=== PATIENT | male | born 1940 | race Caucasian/White ===

== ENCOUNTER 2021-04-03 10:19 | Inpatient (IN) ==
--- NOTE | 2021-04-03 11:03 | Emergency Department Note ---
Recheck HPI General Chief Complaint: Recheck/Abnormal Lab/Rx Stated Complaint: abnormal labs Time Seen by Provider: 04/03/21 10:36 Source: patient and family Mode of arrival: ambulatory History of Present Illness HPI Narrative: Patient is an 80-year-old gentleman who arrives the emergency by private vehicle accompanied by his daughter complaining of abnormal lab results. History is provided by the patient and his daughter and is somewhat limited as he is quite hard of hearing. Patient had outpatient blood work drawn at his primary care provider's office yesterday and was found to have impaired renal function with slightly elevated potassium. His primary care provider got the results of his test today and called him and told him to come the emergency department for further evaluation. The patient does note that he has been hav ing poor appetite recently but otherwise has no focal symptoms. He does have chronic urinary urgency but this is unchanged from baseline. Related Data Home Medications Medication Instructions Recorded Confirmed cholecalciferol (vitamin D3) 125 5,000 unit PO QDAY tab 05/15/15 04/03/21 mcg (5,000 unit) tablet Vitamin C oral capsule extended 1 tab PO DAILY 07/24/15 04/03/21 release blood sugar diagnostic 11/15/16 04/02/21 indapamide 1.25 mg tablet 1.25 mg PO QAM 04/26/20 04/03/21 acetaminophen 325 mg capsule 650 mg PO Q6H PRN 03/06/21 04/02/21 aspirin 81 mg tablet,delayed 81 mg PO ONCE PRN tab 03/06/21 04/02/21 release ferrous gluconate 324 mg (38 mg 324 mg PO QDAY 03/06/21 04/03/21 iron) tablet furosemide 20 mg tablet 20 mg PO QDAY 03/06/21 04/02/21 hydrocodone 10 mg-acetaminophen 1 tab PO Q4H PRN tab 03/06/21 04/02/21 325 mg tablet polyethylene glycol 3350 17 17 g PO QDAY PRN 03/06/21 04/02/21 gram/dose oral powder pyridoxine (vitamin B6) 100 mg 100 mg PO 3XW tab 03/06/21 04/02/21 tablet Previous Rx's Medication Instructions Recorded metformin 1,000 mg tablet 1,000 mg PO BID 90 Days #180 tab 10/08/20 terazosin 10 mg capsule 10 mg PO QPM 90 Days #90 cap 11/26/20 losartan 100 mg tablet 100 mg PO QDAY 90 Days #90 tab 03/07/21 simvastatin 10 mg tablet 10 mg PO QPM 90 Days #90 tab 03/07/21 spironolactone 25 mg tablet 25 mg PO QDAY 90 Days #90 tab 03/07/21 Allergies Allergy/AdvReac Type Severity Reaction Status Date / Time No Known Drug Allergies Allergy Verified 04/02/21 13:27 Review of Systems ROS ROS Narrative: Narrative: All systems ED: reviewed and negative except as stated. Constitutional: Denies fever and chills Cardiovascular: Denies chest pain Respiratory: Reports cough; Denies shortness of breath PFSH Narrative Patient History Narrative: Narrative: Medical/Surgical/Family History All Active Problems (Updated 04/03/21 @ 12:28 by Ritesh Emanuel DO) Acute dehydration (Acute) Anemia (Acute) Acute kidney injury (Acute) Cough (Acute) Weakness (Acute) Intertrochanteric fracture of left femur (Acute) Primary osteoarthritis of left hip (Acute) Greater trochanteric bursitis of left hip (Acute) Left hip pain (Acute) Medicare annual wellness visit, initial (Acute) Tearing eyes (Acute) Imbalance (Acute) Weight loss (Acute) Sciatica (Acute) Strain of lumbar region (Acute) Lumbar radiculopathy (Acute) Facial droop (Chronic) Basal cell carcinoma of face (Chronic) Injury of left facial nerve (Chronic) Physical exam, annual (Chronic) Spinal stenosis, lumbar region, without neurogenic claudication (Chronic) Schatzki's ring (Chronic) Psoriasis (Chronic) Low back pain (Chronic) Hypertension, essential (Chronic) Hyperlipidemia (Chronic) Hernia, hiatal (Chronic) ED (erectile dysfunction) (Chronic) Diverticulosis of colon (Chronic) Diabetes mellitus, type II (Chronic) Benign enlargement of prostate (Chronic) BPH without urinary obstruction (Chronic) Anemia (Chronic) Actinic keratosis (Chronic) Medical History (Updated 04/03/21 @ 12:28 by Ritesh Emanuel DO) Actinic keratosis Allergic rhinitis Patient doing well no longer using fluicastone, last use was 1 yr ago, monitor for now. Anemia 07/13/2013 Hypoproliferative Back pain Seeing the pain clinic. Will receive the next epidural steroid shot this thursday05/12/11. Benign enlargement of prostate BPH; of prostate with urinary obstruction 03/03/2013 BPH without urinary obstruction Continue Terazonsin 10mg nightly Cellulitis and abscess of face 12/05/2013 Chronic pain Diabetes mellitus, type II Diverticulosis of colon ED (erectile dysfunction) Generalized abdominal or pelvic swelling or mass or lump Hernia, hiatal History of amputation of finger 2004; finger repair of lt. index finger amputation. Hyperlipidemia Hypertension, essential Low back pain Patient takes tylenol prn as needed. Lumbar radiculopathy Medicare annual wellness visit, initial Physical exam, annual Colonoscopy 2013: diverticulosis tdap 03/2014 aaa: not done, but wants to defer same pneumovac uptodate, pt unable to recall date psa: not indicated eye ecam 06/11 foot exam 10/12 Psoriasis Continue Betamethasone 0.05% cream twice daily as needed. Schatzki's ring Sciatica Spinal stenosis, lumbar region, without neurogenic claudication Lumbar L4-L5-S1 Strain of lumbar region Thoracic or lumbosacral neuritis or radiculitis Urinary retention 03/03/2013 UTI (urinary tract infection) 03/03/2013 Surgical History History of colonoscopy 10/18/2013; Diverticulosis History of esophagogastroduodenoscopy 10/18/13; Schatzki's ring, hiatus hernia History of inguinal hernia repair 05/23/2013; Bilateral inguinal hernia reducible History of surgery Lumbar decompression; 02/23/13 Family History Mother Family history of cardiovascular disease Father Family history of carrier of genetic disease Alzheimers Social History Smoking Status: Former smoker Alcohol Intake Frequency: former alcohol drinker Substance Use: does not use Exam Narrative Narrative: Gen -patient is awake and alert and in no acute distress. HEENT -head is atraumatic. There is no conjunctival pallor or scleral icterus. CV -S1-S2 regular rate and rhythm. Peripheral pulses are palpable. Resp -breathing is nonlabored. Lungs are clear to auscultation bilaterally. There is no cyanosis. GI - Abdomen is soft and nontender to palpation. There is no guarding or rebound tenderness. Derm -skin is warm and dry. MSK -present extremities are atraumatic. Psych -patient has appropriate affect. Neuro -patient answers questions appropriately with fluent speech. Patient moves all present extremities equally. Course Vital Signs Vital signs: Vital Signs Temperature 97.7 F 04/03/21 10:23 Pulse Rate 79 04/03/21 10:23 Respiratory Rate 16 04/03/21 10:23 Blood Pressure 110/57 04/03/21 10:23 Pulse Oximetry (%) 97 04/03/21 10:23 Temperature 97.7 F 04/03/21 10:23 Pulse Rate 56 L 04/03/21 12:17 Respiratory Rate 13 04/03/21 12:17 Blood Pressure 129/59 04/03/21 12:17 Pulse Oximetry (%) 99 04/03/21 12:17 MDM MDM Narrative Medical decision making narrative: Patient presents with generalized weakness and acute kidney injury. Labs remarkable for a minimally elevated potassium. He does have renal function slightly below his baseline and clinically appears quite dehydrated. I discussed the patient's history examination diagnostic findings Dr. Suárez, his primary care provider. He knows the patient well and is concerned about his ability to maintain adequate hydration and thinks he would benefit from inpatient treatment for this. I discussed that with the patient and his daughter and they are agreeable with the plan for admission. I discussed the patient's history examination and diagnostic findings with Dr. Jin, who agrees with the plan of care and accepts admission. Lab Data Lab results reviewed: Yes I reviewed the patient's lab results. Labs: Lab Results 04/03/21 Range/Units 11:10 POC Hct 25 L (41-55) % POC Sodium 138 (133-145) mEq/L POC Potassium 5.5 H (3.3-5.1) mEql/L POC Chloride 112 H (96-108) mEq/L POC Total CO2 16 L (22-30) mmol/L POC BUN 67 H (6-20) mg/dL POC Creatinine 1.9 H (0.6-1.2) mg/dL POC Glucose 147 H (70-105) mg/dL POC WB Ioniz Calcium 1.82 H* (1.16-1.32) mmEq/L EKG Data EKG #1: EKG attestation: Yes I reviewed and interpreted this EKG. EKG results narrative: EKG performed at 10:47: Sinus rhythm, rate 61. Normal P wave, QRS and T wave morphology. Grossly normal axis. Normal IN, QRS, and QTc duration. No ST segment deviation. No old EKG immediately available for comparison. EKG was interpreted by me. Discharge Plan Patient/Caregiver Discharge Instructions Pt seen by [facility]/PA only: No Clinical Impression: Acute dehydration, Anemia, Acute kidney injury Patient Disposition: Xfer As Inpt ([facility]) Condition: Fair Follow up with: Jayro Suárez DO [Primary Care Provider] - Prescriptions: No Action metformin [Glucophage] 1,000 mg tablet 1,000 mg PO BID 90 Days Qty: 180 RF: 1 terazosin 10 mg capsule 10 mg PO QPM 90 Days Qty: 90 RF: 3 losartan [Cozaar] 100 mg tablet 100 mg PO QDAY 90 Days Qty: 90 RF: 1 spironolactone [Aldactone] 25 mg tablet 25 mg PO QDAY 90 Days Qty: 90 RF: 1 simvastatin [Zocor] 10 mg tablet 10 mg PO QPM 90 Days Qty: 90 RF: 1 indapamide 1.25 mg tablet 1.25 mg PO QAM RF: 0 cholecalciferol (vitamin D3) 5,000 unit tablet 5,000 unit PO QDAY RF: 0 Vitamin C oral capsule extended release 500 mg 1 tab PO DAILY RF: 0 acetaminophen 325 mg capsule 650 mg PO Q6H PRNRF: 0 aspirin [Aspirin Low Dose] 81 mg tablet,delayed release (DR/EC) 81 mg PO ONCE PRNRF: 0 ferrous gluconate 324 mg (38 mg iron) tablet 324 mg PO QDAY RF: 0 furosemide 20 mg tablet 20 mg PO QDAY RF: 0 hydrocodone-acetaminophen 10-325 mg tablet 1 tab PO Q4H PRNRF: 0 polyethylene glycol 3350 [Miralax] 17 gram/dose powder 17 g PO QDAY PRN (Reason: constipation) RF: 0 pyridoxine (vitamin B6) [Vitamin B-6] 100 mg tablet 100 mg PO 3XW RF: 0 (DME) blood sugar diagnostic 1 EACH strip 0 appful .Route .MEDSUPPLY RF: 0
[2021-04-03 11:31] LABS: POC Calcium, Ionized 1.82 mmEq/L (1.16-1.32); POC Creatinine 1.9 mg/dL (0.6-1.2); POC Potassium 5.5 mEql/L (3.3-5.1)
--- NOTE | 2021-04-03 11:52 | EKG ---
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 Measurements Intervals [place] Rate: 61 P: 84 KS: 152 QRS: 73 QRSD: 93 T: 84 QT: 372 QTc: 375 Interpretive Statements Sinus rhythm Baseline wander in lead(s) V2 NO PRIOR TRACING FOR COMPARISON NORMAL TRACING Electronically Signed On 04-03-2021 11:52:50 PDT by Cesar Campbell M.D. /store/M0/[id number]
[2021-04-03] MEDS ORDERED: 0.9 % SODIUM CHLORIDE 1,000 ML IV ONE (12:08)
--- NOTE | 2021-04-03 13:03 | Internal Med History&Physical ---
HPI History of Present Illness Patient information: Note initiated : 04/03/21 at 12:58 pm Service Date, if different from initiated Date: [] Patient: Camron Morel a 80 y/o M admitted on for abnormal labs. Chief Complaint: [] History of present illness: Mr. Morel is a 80 year old M presents to the ED with weakness and falling. patient has severe hearing impairment a lot of the history is obtained from the daughter. Per the daughter he had a hip fracture in December and was discharged to a nursing facility and was discharged from the nursing facility in January. He seemed to be doing well but however the past couple weeks has had more falls feeling more weak he has had a poor appetite and poor oral intake. He also does have a chronic cough but has had worsening cough with food and drink. Denies fever chills chest pain nausea vomiting, denies diarrhea. Labs done by PCP shows hyperkalemia which is improved today he also had acute kidney injury on chronic. Had low sodium. No signs stable. Is on diuretics as well as vitamin D supplementation and losartan. Daughter does note dark stool but pt does take iron. Will monitor H&H, iron supp can give false positive FOBT. Will hold iron in case fobt needs to be done later. Review of Systems: Pertinent positives as above. Denies headache/fever/chills/nausea/vomiting/chest or abdominal pain/cough/dyspnea/diarrhea. Remaining 10 point review of system reviewed negative. PFSH PFS All Active Problems (Updated 04/03/21 @ 12:28 by Rtiesh Emanuel DO) Acute dehydration (Acute) Anemia (Acute) Acute kidney injury (Acute) Cough (Acute) Weakness (Acute) Intertrochanteric fracture of left femur (Acute) Primary osteoarthritis of left hip (Acute) Greater trochanteric bursitis of left hip (Acute) Left hip pain (Acute) Medicare annual wellness visit, initial (Acute) Tearing eyes (Acute) Imbalance (Acute) Weight loss (Acute) Sciatica (Acute) Strain of lumbar region (Acute) Lumbar radiculopathy (Acute) Facial droop (Chronic) Basal cell carcinoma of face (Chronic) Injury of left facial nerve (Chronic) Physical exam, annual (Chronic) Spinal stenosis, lumbar region, without neurogenic claudication (Chronic) Schatzki's ring (Chronic) Psoriasis (Chronic) Low back pain (Chronic) Hypertension, essential (Chronic) Hyperlipidemia (Chronic) Hernia, hiatal (Chronic) ED (erectile dysfunction) (Chronic) Diverticulosis of colon (Chronic) Diabetes mellitus, type II (Chronic) Benign enlargement of prostate (Chronic) BPH without urinary obstruction (Chronic) Anemia (Chronic) Actinic keratosis (Chronic) Medical History (Updated 04/03/21 @ 12:28 by Ritesh Emanuel DO) Actinic keratosis Allergic rhinitis Patient doing well no longer using fluicastone, last use was 1 yr ago, monitor for now. Anemia 07/13/2013 Hypoproliferative Back pain Seeing the pain clinic. Will receive the next epidural steroid shot this thursday05/12/11. Benign enlargement of prostate BPH; of prostate with urinary obstruction 03/03/2013 BPH without urinary obstruction Continue Terazonsin 10mg nightly Cellulitis and abscess of face 12/05/2013 Chronic pain Diabetes mellitus, type II Diverticulosis of colon ED (erectile dysfunction) Generalized abdominal or pelvic swelling or mass or lump Hernia, hiatal History of amputation of finger 2004; finger repair of lt. index finger amputation. Hyperlipidemia Hypertension, essential Low back pain Patient takes tylenol prn as needed. Lumbar radiculopathy Medicare annual wellness visit, initial Physical exam, annual Colonoscopy 2013: diverticulosis tdap 03/2014 aaa: not done, but wants to defer same pneumovac uptodate, pt unable to recall date psa: not indicated eye ecam 06/11 foot exam 10/12 Psoriasis Continue Betamethasone 0.05% cream twice daily as needed. Schatzki's ring Sciatica Spinal stenosis, lumbar region, without neurogenic claudication Lumbar L4-L5-S1 Strain of lumbar region Thoracic or lumbosacral neuritis or radiculitis Urinary retention 03/03/2013 UTI (urinary tract infection) 03/03/2013 Surgical History History of colonoscopy 10/18/2013; Diverticulosis History of esophagogastroduodenoscopy 10/18/13; Schatzki's ring, hiatus hernia History of inguinal hernia repair 05/23/2013; Bilateral inguinal hernia reducible History of surgery Lumbar decompression; 02/23/13 Family History Mother Family history of cardiovascular disease Father Family history of carrier of genetic disease Alzheimers Social History marital status: occupational status: retired occupation: Retired [employer] alcohol intake frequency: former alcohol drinker substance use type: does not use MEDS/ALLERGIES Home Medications and Allergies Home Medications Medication Instructions Recorded Confirmed Type cholecalciferol (vitamin D3) 125 5,000 unit PO QDAY tab 05/15/15 04/03/21 History mcg (5,000 unit) tablet Vitamin C oral capsule extended 1 tab PO DAILY 07/24/15 04/03/21 History release blood sugar diagnostic 11/15/16 04/02/21 History indapamide 1.25 mg tablet 1.25 mg PO QAM 04/26/20 04/03/21 History metformin 1,000 mg tablet 1,000 mg PO BID 90 Days #180 tab 10/08/20 04/03/21 Rx terazosin 10 mg capsule 10 mg PO QPM 90 Days #90 cap 11/26/20 04/03/21 Rx acetaminophen 325 mg capsule 650 mg PO Q6H PRN 03/06/21 04/02/21 History aspirin 81 mg tablet,delayed 81 mg PO ONCE PRN tab 03/06/21 04/02/21 History release ferrous gluconate 324 mg (38 mg 324 mg PO QDAY 03/06/21 04/03/21 History iron) tablet furosemide 20 mg tablet 20 mg PO QDAY 03/06/21 04/02/21 History hydrocodone 10 mg-acetaminophen 1 tab PO Q4H PRN tab 03/06/21 04/02/21 History 325 mg tablet polyethylene glycol 3350 17 17 g PO QDAY PRN 03/06/21 04/02/21 History gram/dose oral powder pyridoxine (vitamin B6) 100 mg 100 mg PO 3XW tab 03/06/21 04/02/21 History tablet losartan 100 mg tablet 100 mg PO QDAY 90 Days #90 tab 03/07/21 04/03/21 Rx simvastatin 10 mg tablet 10 mg PO QPM 90 Days #90 tab 03/07/21 04/03/21 Rx spironolactone 25 mg tablet 25 mg PO QDAY 90 Days #90 tab 03/07/21 04/03/21 Rx Allergies Allergy/AdvReac Type Severity Reaction Status Date / Time No Known Drug Allergies Allergy Verified 04/02/21 13:27 EXAM Constitutional Vitals: Temp Pulse Resp BP Pulse Ox 97.7 F 54 L 16 126/62 98 04/03/21 10:23 04/03/21 12:31 04/03/21 12:31 04/03/21 12:31 04/03/21 12:31 Exam: General: Alert, Awake, No acute Distress Eyes/N/T: EOMI, PERRL, dry MM Head/Neck: neck supple, normocephalic atraumatic CV: RRR, No murmurs, normal s1/s2 Pulm: Clear b/l, no wheezing/rhonchi/rales Abd: soft, nontender, +BS x4 Ext: no clubbing/cyanosis/edema Neuro: Alert, no focal deficits, moves all extremities, CN 2-12 grossly intact, symmetrical strength b/l upper/lower, sensations intact b/l upper/lower Skin: warm/dry DATA Data Completed and Pending Labs: Labs from last 24 hours 04/03/21 04/03/21 04/03/21 11:14 11:14 11:10 WBC Pending RBC Pending Hgb Pending Hct Pending POC Hct 25 L MCV Pending MCH Pending MCHC Pending RDW Pending Plt Count Pending MPV Pending Neut % (Auto) Pending POC Sodium 138 Sodium Pending POC Potassium 5.5 H Potassium Pending POC Chloride 112 H Chloride Pending Carbon Dioxide Pending POC Total CO2 16 L Anion Gap Pending POC BUN 67 H BUN Pending Creatinine Pending POC Creatinine 1.9 H GFR Calculation Pending Glucose Pending POC Glucose 147 H Uric Acid Pending Calcium Pending POC WB Ioniz Calcium 1.82 H* Phosphorus Pending Magnesium Pending Total Bilirubin Pending Direct Bilirubin Pending GGT Pending AST Pending ALT Pending Alkaline Phosphatase Pending Lactate Dehydrogenase Pending Total Protein Pending Albumin Pending Globulin Pending Albumin/Globulin Ratio Pending Triglycerides Pending A/P Narrative A/P Narrative: A: *JARRETT on CKD III: *Volume depletion: *Hyperkalemia: Improved. pt on ARB/Aldactone *Hyponatremia: Improved *Hypercalcemia: 2/2 deyhdration + vitamin supp *Aspiration likely Pneumonitis vs Pneumonia: likely is aspirating with food/drink per daughter -afebrile and no leukocytosis *Generalized weakness/deconditioning/falling/recent hip fracture: *Anemia, chronic: *DM: *HTN: On Lasix/spironolactone/ indapamide/ losartan * P: -IVF -Monitor electrolytes -hold diuretics, will not restart aldactone -hold ARB for JARRETT and hyperkal -hold abx for now and f/u cxr in AM, check PCT/CRP -d/c Vit D. supp -Hold Metformin, SSI for now -PT/OT -ST eval -CM for SNF placement -ppx: lovenox code: cpr ok but not intubation Time Spent With Patient Time: Total time spent is greater than 50% in coordination of care (as documented) at patient's floor/unit and/or counseling patient:
[2021-04-03] MEDS ORDERED: POTASSIUM CHLORIDE 40 MEQ in DEXTROSE 5% IN WATER 500 ML IV PRN (13:40)
[2021-04-03] MEDS ORDERED: DEXTROSE 31 GM ORAL.SUSP PO PRN (13:40)
[2021-04-03] MEDS ORDERED: DEXTROSE 50% 50 ML VIAL IV PRN (13:40)
[2021-04-03] MEDS ORDERED: MAGNESIUM SULFATE 2 GM/50 ML BAG IV PRN (13:40)
[2021-04-03] MEDS ORDERED: ONDANSETRON 4 MG/2 ML VIAL IV PRN (13:40)
[2021-04-03] MEDS ORDERED: SENNOSIDES 1 TABLET PO PRN (13:40)
[2021-04-03] MEDS ORDERED: LABETALOL 5 MG/ML ML IV PRN (13:40)
[2021-04-03] MEDS ORDERED: POTASSIUM CHLORIDE 20 MEQ TABLET PO PRN ×2 (13:40)
[2021-04-03] MEDS ORDERED: ACETAMINOPHEN 325 MG TABLET PO PRN (13:40)
[2021-04-03] MEDS ORDERED: 0.9 % SODIUM CHLORIDE 1,000 ML IV SCH (13:40)
[2021-04-03] MEDS ORDERED: IPRATROPIUM/ALBUTEROL 3 ML AMPUL.NEB NEB PRN (13:40)
[2021-04-03 14:37] LABS: Basophils # (Auto) 0.03 K/mcL (0.00-0.20); Basophils % (Auto) 0.4 % (0.0-2.0); Eosinophils # (Auto) 0.05 K/mcL (0.00-0.70); Eosinophils % (Auto) 0.6 % (0.0-7.0); Hematocrit 26.4 % (41.0-55.0); Hemoglobin 8.7 g/dL (13.5-16.5); Lymphocytes % (Auto) 12.2 % (15.0-49.0); Mean Platelet Volume 9.7 fL (7.4-10.4); Monocytes # (Auto) 0.51 K/mcL (0.10-0.90); Monocytes % (Auto) 6.2 % (1.0-12.0); Neutrophils % (Auto) 80.6 % (38.0-78.0); Platelet Count 346 K/mcL (140-440); RBC 2.87 M/mcL (4.50-5.90); Red Cell Distribution Width 13.5 % (11.5-14.5); WBC 8.2 K/mcL (4.5-11.0)
[2021-04-03 14:56] LABS: ALT/SGPT 11 U/L (<40); AST/SGOT 19 U/L (<40); Albumin 3.4 gm/dL (3.2-5.2); Albumin/Globulin Ratio 0.9 (1.0-2.3); Alkaline Phosphatase 112 U/L (39-117); Bilirubin,Direct < 0.2 mg/dL (0-0.3); Bilirubin,Total < 0.2 mg/dL (0.1-1.0); Blood Urea Nitrogen 61 mg/dL (8-23); Calcium 12.5 mg/dL (8.6-10.4); Carbon Dioxide 16 mmol/L (22-30); Chloride 106 mmol/L (96-108); Glomerular Filtration Rate 39; Glucose 145 mg/dL (70-105); Lactate Dehydrogenase 180 U/L (135-225); Triglycerides 71 mg/dL (<150); Uric Acid < 0.2 mg/dL (2.5-8)
[2021-04-03] MEDS ORDERED: DEXTROSE 50% 50 ML VIAL IV ONE (15:06)
[2021-04-03] MEDS ORDERED: INSULIN REGULAR, HUMAN 1 UNIT/0.01 ML UNIT IV ONE (15:06)
[2021-04-03] MEDS ORDERED: SODIUM BICARBONATE ADULT 50 MEQ/50 ML SYRINGE IV ONE (15:06)
[2021-04-03] MEDS ORDERED: MAGNESIUM SULFATE 2 GM/50 ML BAG IV ONE (15:07)
[2021-04-03] MEDS ORDERED: SODIUM BICARBONATE 50 MEQ/50 ML VIAL IV ONE (15:15)
[2021-04-03] MEDS: 0.9 % SODIUM CHLORIDE 1,000 ML IV SCH (15:44)
[2021-04-03] MEDS: 0.9 % SODIUM CHLORIDE 10 ML SYRINGE IV SCH ×2 (15:48→21:20)
[2021-04-03] MEDS: INSULIN LISPRO 1 UNIT/0.01 ML UNIT SQ SCH ×2 (15:50→21:16)
[2021-04-03 18:22] LABS: POC Blood Urea Nitrogen 54 mg/dL (6-20); POC CO2 21 mmol/L (22-30); POC Calcium, Ionized 1.73 mmEq/L (1.16-1.32); POC Chloride 111 mEq/L (96-108); POC Creatinine 1.9 mg/dL (0.6-1.2); POC Glucose, Random 115 mg/dL (70-105); POC Hematocrit 25 % (41-55); POC Sodium 141 mEq/L (133-145)
[2021-04-03] MEDS: TERAZOSIN 5 MG CAPSULE PO SCH (21:15)
[2021-04-03] MEDS: POLYETHYLENE GLYCOL 3350 17 GM PACKET PO PRN (21:15)
[2021-04-03] MEDS: SIMVASTATIN 10 MG TABLET PO SCH (21:16)
[2021-04-04] MEDS: 0.9 % SODIUM CHLORIDE 1,000 ML IV SCH (03:27)
[2021-04-04] MEDS: 0.9 % SODIUM CHLORIDE 10 ML SYRINGE IV SCH ×3 (05:27→20:07)
[2021-04-04 06:28] LABS: Basophils # (Auto) 0.03 K/mcL (0.00-0.20); Basophils % (Auto) 0.4 % (0.0-2.0); Eosinophils # (Auto) 0.07 K/mcL (0.00-0.70); Eosinophils % (Auto) 0.9 % (0.0-7.0); Hematocrit 24.6 % (41.0-55.0); Lymphocytes # (Auto) 0.96 K/mcL (1.50-4.80); Mean Cell Volume 92.5 fL (80.0-100.0); Mean Corpuscular HGB Conc 32.5 g/dL (31.0-36.0); Mean Platelet Volume 9.5 fL (7.4-10.4); Monocytes # (Auto) 0.54 K/mcL (0.10-0.90); Monocytes % (Auto) 7.3 % (1.0-12.0); Neutrophils % (Auto) 78.4 % (38.0-78.0); Platelet Count 322 K/mcL (140-440); RBC 2.66 M/mcL (4.50-5.90); Red Cell Distribution Width 13.4 % (11.5-14.5); WBC 7.4 K/mcL (4.5-11.0)
[2021-04-04 07:09] LABS: ALT/SGPT 11 U/L (<40); AST/SGOT 14 U/L (<40); Albumin 2.9 gm/dL (3.2-5.2); Albumin/Globulin Ratio 0.8 (1.0-2.3); Alkaline Phosphatase 101 U/L (39-117); Bilirubin,Direct < 0.2 mg/dL (0-0.3); Bilirubin,Total < 0.2 mg/dL (0.1-1.0); Blood Urea Nitrogen 46 mg/dL (8-23); Calcium 11.3 mg/dL (8.6-10.4); Carbon Dioxide 18 mmol/L (22-30); Chloride 112 mmol/L (96-108); Globulin 3.6 gm/dL (2.2-3.7); Glomerular Filtration Rate 46; Glucose 100 mg/dL (70-105); Lactate Dehydrogenase 117 U/L (135-225); Phosphorous 2.6 mg/dL (2.5-4.5); Triglycerides 70 mg/dL (<150); Uric Acid < 0.2 mg/dL (2.5-8)
[2021-04-04] MEDS: HEPARIN 5,000 UNIT/ML VIAL SQ SCH ×2 (07:16→20:06)
[2021-04-04] MEDS: INSULIN LISPRO 1 UNIT/0.01 ML UNIT SQ SCH ×4 (07:16→20:07)
--- NOTE | 2021-04-04 07:52 | Internal Med Progress Note ---
SUBJECTIVE Subjective Patient information: Note initiated : 04/04/21 at 7:48 am Service Date, if different from initiated Date: [] Patient: Camron Morel 80 y/o M admitted on 04/03/21 for abnormal labs. Chief Complaint: [] Interval history: History of present illness: Mr. Morel is a 80 year old M presents to the ED with weakness and falling. patient has severe hearing impairment a lot of the history is obtained from the daughter. Per the daughter he had a hip fracture in December and was discharged to a nursing facility and was discharged from the nursing facility in January. He seemed to be doing well but however the past couple weeks has had more falls feeling more weak he has had a poor appetite and poor oral intake. He also does have a chronic cough but has had worsening cough with food and drink. Denies fever chills chest pain nausea vomiting, denies diarrhea. Labs done by PCP shows hyperkalemia which is improved today he also had acute kidney injury on chronic. Had low sodium. No signs stable. Is on diuretics as well as vitamin D supplementation and losartan. Daughter does note dark stool but pt does take iron. Will monitor H&H, iron supp can give false positive FOBT. Will hold iron in case fobt needs to be done later. 04/04 Patient up walking in the [facility] with physical therapy. Doing well. Feels a little bit better. No overnight event or new complaints. Renal function improving. Review of Systems: denies headache/fever/chills/nausea/vomiting/chest or abdominal pain/cough/dyspnea. Otherwise see above. Constitutional Vitals: Vital Signs Temp Pulse Resp BP Pulse Ox 97.5 F 75 18 145/66 97 04/04/21 03:05 04/04/21 03:05 04/04/21 03:05 04/04/21 03:05 04/04/21 03:05 Period Temp Pulse Resp BP Sys/Jameson Pulse Ox Last 24 Hr 97.0 F-98.1 F 54-79 12-18 110-151/54-66 97-100 Intake and Output 04/03/21 04/04/21 04/04/21 21:59 05:59 13:59 Intake Total 150 1300 Output Total 152 451 325 Balance -2 849 -325 Weight 60.736 kg Intake & Output: Intake & Output 07/04/1704/04/21 04/04/21 21:59 05:59 13:59 Intake Total 150 1300 Output Total 152 451 325 Balance -2 849 -325 Weight 60.736 kg Intake: IV 50 1000 Sodium Chloride 0.9% 1,000 ml @ 1000 100 mls/hr IV .Q10H CHASE Rx#: [id number] Oral 100 300 Output: Void Amount 150 450 325 # of times incontinent of urine 2 1 Other: Meal Dinner Percent of Meal Consumed 25% Feeding Ability Independent Urine Appearance Clear Clear Clear Urine Color Pale Bright Yellow Bright Yellow Urine Odor Normal Normal Normal Stool Size Smear Stool Color Black Stool Consistency Soft Loose # Voids 1 # Bowel Movements 1 # of times incontinent of 1 Bowels Exam: General: Alert, Awake, No acute Distress Eyes/N/T: EOMI, Head/Neck: neck supple, CV: RRR, No murmurs, Pulm: Clear b/l, no wheezing/rhonchi/rales Abd: soft, nontender, +BS x4 Ext: no clubbing/cyanosis/edema Neuro: Alert, no focal deficits, moves all extremities, Skin: warm/dry OBJ DATA Labs CBC & Chem 7: 04/04/21 05:29 04/04/21 05:29 Labs: Abnormal Lab Results 04/04/21 04/04/21 04/04/21 05:30 05:29 05:29 RBC 2.66 L Hgb 8.0 L Hct 24.6 L POC Hct Neut % (Auto) 78.4 H Lymph % (Auto) 13.0 L Lymph # (Auto) 0.96 L POC Potassium Potassium POC Chloride Chloride 112 H Carbon Dioxide 18 L POC Total CO2 POC BUN BUN 46 H Creatinine 1.4 H POC Creatinine Glucose POC Glucose Uric Acid < 0.2 L Calcium 11.3 H POC WB Ioniz Calcium Magnesium Lactate Dehydrogenase 117 L C-Reactive Protein 2.10 H Albumin 2.9 L Globulin Albumin/Globulin Ratio 0.8 L Procalcitonin 04/03/21 04/03/21 04/03/21 18:06 11:14 11:14 RBC Hgb Hct POC Hct 25 L Neut % (Auto) Lymph % (Auto) Lymph # (Auto) POC Potassium Potassium POC Chloride 111 H Chloride Carbon Dioxide POC Total CO2 21 L POC BUN 54 H BUN Creatinine POC Creatinine 1.9 H Glucose POC Glucose 115 H Uric Acid Calcium POC WB Ioniz Calcium 1.73 H* Magnesium Lactate Dehydrogenase C-Reactive Protein 2.80 H Albumin Globulin Albumin/Globulin Ratio Procalcitonin 0.14 H 04/03/21 04/03/21 04/03/21 11:14 11:14 11:10 RBC 2.87 L Hgb 8.7 L Hct 26.4 L POC Hct 25 L Neut % (Auto) 80.6 H Lymph % (Auto) 12.2 L Lymph # (Auto) 1.00 L POC Potassium 5.5 H Potassium 5.9 H* POC Chloride 112 H Chloride Carbon Dioxide 16 L POC Total CO2 16 L POC BUN 67 H BUN 61 H Creatinine 1.6 H POC Creatinine 1.9 H Glucose 145 H POC Glucose 147 H Uric Acid < 0.2 L Calcium 12.5 H POC WB Ioniz Calcium 1.82 H* Magnesium 1.5 L Lactate Dehydrogenase C-Reactive Protein Albumin Globulin 4.0 H Albumin/Globulin Ratio 0.9 L Procalcitonin Meds: Medications Acetaminophen (Acetaminophen 325 Mg Tablet) 650 mg PO Q6HP PRN PRN Reason: PAIN/FEVER > 101 Albuterol/Ipratropium (Ipratropium/Albuterol 3 Ml Ampul.Neb) 3 ml NEB Q4HP PRN PRN Reason: Shortness Of Breath Dextrose (Dextrose 50% 50 Ml Vial) 0 ml IV UD PRN PRN Reason: Hypoglycemia Diagnostic Test (Pha) (Accu-Chek 1 Each Strip) 1 each FS ACHS [facility] Last Admin: 04/04/21 07:14 Dose: 1 each Documented by: Glucose (Dextrose 31 Gm Oral.Susp) 15 gm PO PRN PRN PRN Reason: Hypoglycemia Heparin Sodium (Porcine) (Heparin 5,000 Unit/Ml Vial) 5,000 unit SQ Q12 [facility] Last Admin: 04/04/21 07:16 Dose: 5,000 unit Documented by: Potassium Chloride 40 meq/ (Dextrose) 520 mls @ 130 mls/hr IV UD PRN PRN Reason: Potassium < 3 Magnesium Sulfate (Magnesium Sulfate) 2 gm in 50 mls @ 50 mls/hr IV UD PRN PRN Reason: Magnesium </= 1.6 Sodium Chloride (Sodium Chloride 0.9%) 1,000 mls @ 100 mls/hr IV .Q10H [facility] Stop: 04/04/21 11:07 Last Admin: 04/04/21 03:27 Dose: 100 mls/hr Documented by: Insulin Human Lispro (Insulin Lispro 1 Unit/0.01 Ml Unit) 0 unit SQ ACHS [facility]; Protocol Last Admin: 04/04/21 07:16 Dose: Not Given Documented by: Labetalol HCl (Labetalol 5 Mg/Ml Ml) 0 mg IV Q2HP PRN PRN Reason: Hypertension Ondansetron HCl (Ondansetron 4 Mg/2 Ml Vial) 4 mg IV Q4HP PRN PRN Reason: Nausea And Vomiting Polyethylene Glycol (Polyethylene Glycol 3350 17 Gm Packet) 17 gm PO DAILYP PRN PRN Reason: Constipation Last Admin: 04/03/21 21:15 Dose: 17 gm Documented by: Potassium Chloride (Potassium Chloride 20 Meq Tablet) 40 meq PO UD PRN PRN Reason: Potssium is 3-3.5 Potassium Chloride (Potassium Chloride 20 Meq Tablet) 40 meq PO UD PRN PRN Reason: Potassium < 3 Senna (Sennosides 1 Tablet) 2 tab PO DAILYP PRN PRN Reason: Constipation Simvastatin (Simvastatin 10 Mg Tablet) 10 mg PO QPM [facility] Last Admin: 04/03/21 21:16 Dose: 10 mg Documented by: Sodium Chloride (0.9 % Sodium Chloride 10 Ml Syringe) 10 ml IV Q8 [facility] Last Admin: 04/04/21 05:27 Dose: Not Given Documented by: Terazosin HCl (Terazosin 5 Mg Capsule) 10 mg PO HS [facility] Last Admin: 04/03/21 21:15 Dose: 10 mg Documented by: A/P Narrative A/P Narrative: A: *JARRETT on CKD III: improved *Volume depletion: *Hyperkalemia: Resolved. pt on ARB/Aldactone *Hyponatremia: Improved *Hypercalcemia: 2/2 deyhdration + vitamin supp -improving *Aspiration likely Pneumonitis vs Pneumonia: likely is aspirating with food/drink per daughter -afebrile and no leukocytosis, pct low *Generalized weakness/deconditioning/falling/recent hip fracture: *Anemia, chronic: with dilutional decrease today. but r/o GI bleed *DM: *HTN: On Lasix/spironolactone/ indapamide/ losartan *Unstageable pressure ulcer left lateral heel: Wound care following P: -IVF -Monitor electrolytes -hold diuretics, will not restart aldactone -hold ARB for JARRETT and hyperkal -hold abx for now and f/u cxr in AM -d/c Vit D. supp -Hold Metformin, SSI for now -hold iron supp, check FOBT -PT/OT -ST eval -wound care -CM for SNF placement -ppx: heparin code: cpr ok but not intubation Time Spent With Patient Time: Total time spent is greater than 50% in coordination of care (as documented) at patient's floor/unit and/or counseling patient: QUALITY VTE Deep Vein Thrombosis/Pulmonary Embolism Present on Admission: No
--- NOTE | 2021-04-04 08:59 | XRay Report ---
HISTORY: Follow-up left lower lobe infiltrate FINDINGS: There is a persistent small consolidating infiltrate posteriorly and medially in the left lower lobe. This is unchanged from 04/02/21. Patient has underlying emphysema. No new infiltrate has developed. There is no mass or congestive heart failure. No pleural effusion is present. The heart size is normal. IMPRESSION: persistent infiltrate in the left lower lobe which could be scar, atelectasis or pneumonia. Interpreted and Authenticated by: Gabe Price 04/04/21
--- NOTE | 2021-04-04 10:22 | Discharge Summary ---
Discharge Provider Provider Patient information: Note initiated : 04/04/21 at 10:20 am Service Date, if different from initiated Date: [] Patient: Camron Morel 80 y/o M admitted on 04/03/21 for abnormal labs. Chief Complaint: [] Date of admission: 04/03/21 13:34 Discharge date: 04/06/21 Primary care physician: Jayro Suárez DO Consults: 04/03/21 Consult to Physician [CONS] Stat Comment: Consulting Provider: Timothy Jin Reason For Exam: Physician to Consult Discharge Meds Discharge Medications Home Medications Vitamin C oral capsule extended release 1 tab PO DAILY 07/24/15 [History Confirmed 04/03/21 Last Taken 04/02/21] blood sugar diagnostic 11/15/16 [History Confirmed 04/03/21 Last Taken Unknown] metformin 1,000 mg tablet 1,000 mg PO BID 90 Days #180 tab 10/08/20 [Rx Confirmed 04/03/21 Last Taken 04/03/21] terazosin 10 mg capsule 10 mg PO QPM 90 Days #90 cap 11/26/20 [Rx Confirmed 04/03/21 Last Taken 04/02/21] ferrous gluconate 324 mg (38 mg iron) tablet 324 mg PO QDAY 03/06/21 [History Confirmed 04/03/21 Last Taken 04/03/21] polyethylene glycol 3350 17 gram/dose oral powder 17 g PO QDAY PRN 03/06/21 [History Confirmed 04/03/21 Last Taken 04/02/21] losartan 100 mg tablet 100 mg PO QDAY 90 Days #90 tab 03/07/21 [Rx Confirmed 04/03/21 Last Taken 04/02/21] simvastatin 10 mg tablet 10 mg PO QPM 90 Days #90 tab 03/07/21 [Rx Confirmed 04/03/21 Last Taken 04/02/21] COURSE Hospital Course Hospital course: Interval history: History of present illness: Mr. Morel is a 80 year old M presents to the ED with weakness and falling. patient has severe hearing impairment a lot of the history is obtained from the daughter. Per the daughter he had a hip fracture in December and was discharged to a nursing facility and was discharged from the nursing facility in January. He seemed to be doing well but however the past couple weeks has had more falls feeling more weak he has had a poor appetite and poor oral intake. He also does have a chronic cough but has had worsening cough with food and drink. Denies fever chills chest pain nausea vomiting, denies diarrhea. Labs done by PCP shows hyperkalemia which is improved today he also had acute kidney injury on chronic. Had low sodium. No signs stable. Is on diuretics as well as vitamin D supplementation and losartan. Daughter does note dark stool but pt does take iron. Will monitor H&H, iron supp can give false positive FOBT. Will hold iron in case fobt needs to be done later. 04/04 Patient up walking in [facility] with physical therapy. Doing well. Feels a little bit better. No overnight event or new complaints. Renal function improving. 04/05 Overnight no complaints or new events. Fecal occult blood test negative. Renal function improved. Corrected calcium improving. A/P Narrative: A: *JARRETT on CKD III: *Volume depletion: *Hyperkalemia: pt on ARB/Aldactone *Hyponatremia: *Hypercalcemia: 2/2 deyhdration + vitamin supp + thiazide-like diuretic *Aspiration likely Pneumonitis vs Pneumonia: likely is aspirating with food/drink per daughter *Oropharyngeal Dysphagia, mild: *Generalized weakness/deconditioning/falling/recent hip fracture: *Anemia, chronic: with dilutional decrease. FOBT neg. stable. *DM: *HTN: On Lasix/spironolactone/ indapamide/ losartan *Unstageable pressure ulcer left lateral heel: Wound care following P: -hold diuretics, will not restart aldactone/indap -hold ARB for JARRETT and hyperkal -monitor for need to start abx for PNA, -d/c Vit D. supp -diet per ST -f/u calcium outpt -awaiting SNF placement Discharge diagnosis: JARRETT volume depletion hypokalemia hyponatremia hypocalcemia Secondary discharge diagnosis: Possible dysphagia, generalized weakness deconditioning following chronic anemia diabetes hypertension Time Spent with Patient Time attestation: Total time spent providing and/or coordinating discharge services: Time spent: Greater than 30 minutes EXAM Constitutional Vitals: Temp Pulse Resp BP Pulse Ox 97.5 F 76 18 140/76 93 04/04/21 07:51 04/04/21 07:51 04/04/21 07:51 04/04/21 07:51 04/04/21 07:51 Discharge Data Data Completed and Pending Labs on day of discharge: Labs from last 24 hours 04/04/21 04/04/21 04/04/21 05:30 05:29 05:29 WBC 7.4 RBC 2.66 L Hgb 8.0 L Hct 24.6 L POC Hct MCV 92.5 MCH 30.1 MCHC 32.5 RDW 13.4 Plt Count 322 MPV 9.5 Neut % (Auto) 78.4 H Lymph % (Auto) 13.0 L [place] % (Auto) 7.3 Eos % (Auto) 0.9 Baso % (Auto) 0.4 Lymph # (Auto) 0.96 L [place] # (Auto) 0.54 Eos # (Auto) 0.07 Baso # (Auto) 0.03 Absolute Neutrophils 5.81 POC Sodium Sodium 139 POC Potassium Potassium 5.1 POC Chloride Chloride 112 H Carbon Dioxide 18 L POC Total CO2 Anion Gap 9.0 POC BUN BUN 46 H Creatinine 1.4 H POC Creatinine GFR Calculation 46 Glucose 100 POC Glucose Uric Acid < 0.2 L Calcium 11.3 H POC WB Ioniz Calcium Phosphorus 2.6 Magnesium 1.9 Total Bilirubin < 0.2 Direct Bilirubin < 0.2 GGT 17 AST 14 ALT 11 Alkaline Phosphatase 101 Lactate Dehydrogenase 117 L C-Reactive Protein 2.10 H Total Protein 6.5 Albumin 2.9 L Globulin 3.6 Albumin/Globulin Ratio 0.8 L Triglycerides 70 Procalcitonin 04/03/21 04/03/21 04/03/21 18:06 11:14 11:14 WBC RBC Hgb Hct POC Hct 25 L MCV MCH MCHC RDW Plt Count MPV Neut % (Auto) Lymph % (Auto) [place] % (Auto) Eos % (Auto) Baso % (Auto) Lymph # (Auto) [place] # (Auto) Eos # (Auto) Baso # (Auto) Absolute Neutrophils POC Sodium 141 Sodium POC Potassium 5.0 Potassium POC Chloride 111 H Chloride Carbon Dioxide POC Total CO2 21 L Anion Gap POC BUN 54 H BUN Creatinine POC Creatinine 1.9 H GFR Calculation Glucose POC Glucose 115 H Uric Acid Calcium POC WB Ioniz Calcium 1.73 H* Phosphorus Magnesium Total Bilirubin Direct Bilirubin GGT AST ALT Alkaline Phosphatase Lactate Dehydrogenase C-Reactive Protein 2.80 H Total Protein Albumin Globulin Albumin/Globulin Ratio Triglycerides Procalcitonin 0.14 H 04/03/21 04/03/21 04/03/21 11:14 11:14 11:10 WBC 8.2 RBC 2.87 L Hgb 8.7 L Hct 26.4 L POC Hct 25 L MCV 92.0 MCH 30.3 MCHC 33.0 RDW 13.5 Plt Count 346 MPV 9.7 Neut % (Auto) 80.6 H Lymph % (Auto) 12.2 L [place] % (Auto) 6.2 Eos % (Auto) 0.6 Baso % (Auto) 0.4 Lymph # (Auto) 1.00 L [place] # (Auto) 0.51 Eos # (Auto) 0.05 Baso # (Auto) 0.03 Absolute Neutrophils 6.59 POC Sodium 138 Sodium 133 POC Potassium 5.5 H Potassium 5.9 H* POC Chloride 112 H Chloride 106 Carbon Dioxide 16 L POC Total CO2 16 L Anion Gap 11.0 POC BUN 67 H BUN 61 H Creatinine 1.6 H POC Creatinine 1.9 H GFR Calculation 39 Glucose 145 H POC Glucose 147 H Uric Acid < 0.2 L Calcium 12.5 H POC WB Ioniz Calcium 1.82 H* Phosphorus 3.0 Magnesium 1.5 L Total Bilirubin < 0.2 Direct Bilirubin < 0.2 GGT 21 AST 19 ALT 11 Alkaline Phosphatase 112 Lactate Dehydrogenase 180 C-Reactive Protein Total Protein 7.4 Albumin 3.4 Globulin 4.0 H Albumin/Globulin Ratio 0.9 L Triglycerides 71 Procalcitonin Discharge Plan Patient/Caregiver Discharge Instructions Activity: increase activity as tolerated Diet: Dysphagia Level 7 Easy to Chew Foods Activity Restrictions/Additional Instructions: f/u with speech therapy outpt Prescriptions: Continued metformin [Glucophage] 1,000 mg tablet 1,000 mg PO BID 90 Days Qty: 180 RF: 1 terazosin 10 mg capsule 10 mg PO QPM 90 Days Qty: 90 RF: 3 losartan [Cozaar] 100 mg tablet 100 mg PO QDAY 90 Days Qty: 90 RF: 1 simvastatin [Zocor] 10 mg tablet 10 mg PO QPM 90 Days Qty: 90 RF: 1 Vitamin C oral capsule extended release 500 mg 1 tab PO DAILY RF: 0 ferrous gluconate 324 mg (38 mg iron) tablet 324 mg PO QDAY RF: 0 polyethylene glycol 3350 [Miralax] 17 gram/dose powder 17 g PO QDAY PRN (Reason: constipation) RF: 0 (DME) blood sugar diagnostic 1 EACH strip 0 appful .Route .MEDSUPPLY RF: 0 Discontinued spironolactone [Aldactone] 25 mg tablet 25 mg PO QDAY 90 Days Qty: 90 RF: 1 indapamide 1.25 mg tablet 1.25 mg PO QAM RF: 0 cholecalciferol (vitamin D3) 5,000 unit tablet 5,000 unit PO QDAY RF: 0 Other Ambulatory Orders: Basic Metabolic Panel (Routine) Timeframe: 3 Days Facility: [facility] - Location: Laboratory Ordered By: Timothy Jin Complete Blood Count (Routine) Timeframe: 3 Days Facility: [facility] - Location: Laboratory Ordered By: Timothy Jin Follow Up Plan Follow up with: Jayro Suárez DO [Primary Care Provider] - Patient Disposition: Xfer SNF Prognosis: Fair Rehab Potential: Fair I certify that the patient requires SNF services: Yes Overall status at discharge: patient is progressing back to baseline Discharge Orders: Discharge Order (Routine); Ordered 04/06/21 Ordered By: Timothy Jin QUALITY VTE Deep Vein Thrombosis/Pulmonary Embolism Present on Admission: No
[2021-04-04] MEDS: TERAZOSIN 5 MG CAPSULE PO SCH (20:06)
[2021-04-04] MEDS: SIMVASTATIN 10 MG TABLET PO SCH (20:06)
[2021-04-04] MEDS: POLYETHYLENE GLYCOL 3350 17 GM PACKET PO PRN (20:06)
[2021-04-05] MEDS: 0.9 % SODIUM CHLORIDE 10 ML SYRINGE IV SCH ×3 (04:39→21:00)
[2021-04-05 06:30] LABS: Basophils # (Auto) 0.03 K/mcL (0.00-0.20); Basophils % (Auto) 0.3 % (0.0-2.0); Eosinophils # (Auto) 0.05 K/mcL (0.00-0.70); Eosinophils % (Auto) 0.4 % (0.0-7.0); Hematocrit 26.6 % (41.0-55.0); Hemoglobin 8.5 g/dL (13.5-16.5); Lymphocytes # (Auto) 1.14 K/mcL (1.50-4.80); Lymphocytes % (Auto) 10.2 % (15.0-49.0); Mean Cell Volume 92.4 fL (80.0-100.0); Mean Platelet Volume 9.5 fL (7.4-10.4); Monocytes # (Auto) 0.64 K/mcL (0.10-0.90); Monocytes % (Auto) 5.7 % (1.0-12.0); Neutrophils % (Auto) 83.4 % (38.0-78.0); Platelet Count 341 K/mcL (140-440); RBC 2.88 M/mcL (4.50-5.90); Red Cell Distribution Width 13.6 % (11.5-14.5); WBC 11.2 K/mcL (4.5-11.0)
[2021-04-05 07:01] LABS: ALT/SGPT 10 U/L (<40); AST/SGOT 15 U/L (<40); Albumin 3.2 gm/dL (3.2-5.2); Albumin/Globulin Ratio 0.9 (1.0-2.3); Alkaline Phosphatase 107 U/L (39-117); Bilirubin,Direct < 0.2 mg/dL (0-0.3); Bilirubin,Total 0.2 mg/dL (0.1-1.0); Blood Urea Nitrogen 41 mg/dL (8-23); Calcium 11.2 mg/dL (8.6-10.4); Carbon Dioxide 20 mmol/L (22-30); Chloride 109 mmol/L (96-108); Globulin 3.7 gm/dL (2.2-3.7); Glomerular Filtration Rate 51; Glucose 105 mg/dL (70-105); Lactate Dehydrogenase 139 U/L (135-225); Phosphorous 2.5 mg/dL (2.5-4.5); Triglycerides 70 mg/dL (<150); Uric Acid < 0.2 mg/dL (2.5-8)
[2021-04-05] MEDS: INSULIN LISPRO 1 UNIT/0.01 ML UNIT SQ SCH ×4 (08:13→21:00)
[2021-04-05] MEDS: HEPARIN 5,000 UNIT/ML VIAL SQ SCH ×2 (08:14→20:59)
--- NOTE | 2021-04-05 08:16 | Internal Med Progress Note ---
SUBJECTIVE Subjective Patient information: Note initiated : 04/05/21 at 8:08 am Service Date, if different from initiated Date: [] Patient: Camron Morel 80 y/o M admitted on 04/03/21 for abnormal labs. Chief Complaint: [] Interval history: History of present illness: Mr. Morel is a 80 year old M presents to the ED with weakness and falling. patient has severe hearing impairment a lot of the history is obtained from the daughter. Per the daughter he had a hip fracture in December and was discharged to a nursing facility and was discharged from the nursing facility in January. He seemed to be doing well but however the past couple weeks has had more falls feeling more weak he has had a poor appetite and poor oral intake. He also does have a chronic cough but has had worsening cough with food and drink. Denies fever chills chest pain nausea vomiting, denies diarrhea. Labs done by PCP shows hyperkalemia which is improved today he also had acute kidney injury on chronic. Had low sodium. No signs stable. Is on diuretics as well as vitamin D supplementation and losartan. Daughter does note dark stool but pt does take iron. Will monitor H&H, iron supp can give false positive FOBT. Will hold iron in case fobt needs to be done later. 04/04 Patient up walking in the [facility] with physical therapy. Doing well. Feels a little bit better. No overnight event or new complaints. Renal function improving. 04/05 Overnight no complaints or new events. Fecal occult blood test negative. Renal function improved. Corrected calcium improving. Review of Systems: denies headache/fever/chills/nausea/vomiting/chest or abdominal pain/dyspnea. Otherwise see above. Constitutional Vitals: Vital Signs Temp Pulse Resp BP Pulse Ox 98 F 89 18 124/51 93 04/05/21 07:12 04/05/21 07:12 04/05/21 07:12 04/05/21 07:12 04/05/21 07:12 Period Temp Pulse Resp BP Sys/Jameson Pulse Ox Last 24 Hr 97.7 F-98.5 F 70-98 16-18 124-158/51-69 93-98 Intake and Output 04/04/21 04/05/21 04/05/21 21:59 05:59 13:59 Intake Total 1100 350 Output Total 750 202 300 Balance 350 148 -300 Weight 60.736 kg Intake & Output: Intake & Output 04/04/21 04/05/21 04/05/21 21:59 05:59 13:59 Intake Total 1100 350 Output Total 750 202 300 Balance 350 148 -300 Weight 60.736 kg Intake: IV 1000 Sodium Chloride 0.9% 1,000 ml @ 1000 100 mls/hr IV .Q10H CHASE Rx#: [id number] Oral 100 350 Output: Void Amount 750 200 300 # of times incontinent of urine 2 Other: Meal Dinner Percent of Meal Consumed 75% Feeding Ability Assist with Tray Set Up Urine Appearance Clear Clear Clear Urine Color Pale Pale Bright Yellow Urine Odor Normal Strong Stool Size Moderate Smear Moderate Stool Color Black Black Brown Green Stool Consistency Soft Soft Soft Formed Formed # Voids 1 # Bowel Movements 1 1 Exam: General: Alert, Awake, No acute Distress Eyes/N/T: EOMI, Head/Neck: neck supple, CV: RRR, No murmurs, Pulm: Clear b/l, no wheezing/rhonchi/rales Abd: soft, nontender, +BS x4 Ext: no clubbing/cyanosis/edema Neuro: Alert, no focal deficits, moves all extremities, Skin: warm/dry OBJ DATA Labs CBC & Chem 7: 04/05/21 05:19 04/05/21 05:27 Labs: Abnormal Lab Results 04/05/21 04/05/21 04/04/21 05:27 05:19 05:30 WBC 11.2 H RBC 2.88 L Hgb 8.5 L Hct 26.6 L POC Hct Neut % (Auto) 83.4 H Lymph % (Auto) 10.2 L Lymph # (Auto) 1.14 L Absolute Neutrophils 9.33 H POC Potassium Potassium POC Chloride Chloride 109 H Carbon Dioxide 20 L POC Total CO2 Anion Gap 7.0 L POC BUN BUN 41 H Creatinine 1.3 H POC Creatinine Glucose POC Glucose Uric Acid < 0.2 L Calcium 11.2 H POC WB Ioniz Calcium Magnesium Lactate Dehydrogenase C-Reactive Protein 2.10 H Albumin Globulin Albumin/Globulin Ratio 0.9 L Procalcitonin 04/04/21 04/04/21 04/03/21 05:29 05:29 18:06 WBC RBC 2.66 L Hgb 8.0 L Hct 24.6 L POC Hct 25 L Neut % (Auto) 78.4 H Lymph % (Auto) 13.0 L Lymph # (Auto) 0.96 L Absolute Neutrophils POC Potassium Potassium POC Chloride 111 H Chloride 112 H Carbon Dioxide 18 L POC Total CO2 21 L Anion Gap POC BUN 54 H BUN 46 H Creatinine 1.4 H POC Creatinine 1.9 H Glucose POC Glucose 115 H Uric Acid < 0.2 L Calcium 11.3 H POC WB Ioniz Calcium 1.73 H* Magnesium Lactate Dehydrogenase 117 L C-Reactive Protein Albumin 2.9 L Globulin Albumin/Globulin Ratio 0.8 L Procalcitonin 04/03/21 04/03/21 04/03/21 11:14 11:14 11:14 WBC RBC Hgb Hct POC Hct Neut % (Auto) Lymph % (Auto) Lymph # (Auto) Absolute Neutrophils POC Potassium Potassium 5.9 H* POC Chloride Chloride Carbon Dioxide 16 L POC Total CO2 Anion Gap POC BUN BUN 61 H Creatinine 1.6 H POC Creatinine Glucose 145 H POC Glucose Uric Acid < 0.2 L Calcium 12.5 H POC WB Ioniz Calcium Magnesium 1.5 L Lactate Dehydrogenase C-Reactive Protein 2.80 H Albumin Globulin 4.0 H Albumin/Globulin Ratio 0.9 L Procalcitonin 0.14 H 04/03/21 04/03/21 11:14 11:10 WBC RBC 2.87 L Hgb 8.7 L Hct 26.4 L POC Hct 25 L Neut % (Auto) 80.6 H Lymph % (Auto) 12.2 L Lymph # (Auto) 1.00 L Absolute Neutrophils POC Potassium 5.5 H Potassium POC Chloride 112 H Chloride Carbon Dioxide POC Total CO2 16 L Anion Gap POC BUN 67 H BUN Creatinine POC Creatinine 1.9 H Glucose POC Glucose 147 H Uric Acid Calcium POC WB Ioniz Calcium 1.82 H* Magnesium Lactate Dehydrogenase C-Reactive Protein Albumin Globulin Albumin/Globulin Ratio Procalcitonin Meds: Medications Acetaminophen (Acetaminophen 325 Mg Tablet) 650 mg PO Q6HP PRN PRN Reason: PAIN/FEVER > 101 Albuterol/Ipratropium (Ipratropium/Albuterol 3 Ml Ampul.Neb) 3 ml NEB Q4HP PRN PRN Reason: Shortness Of Breath Dextrose (Dextrose 50% 50 Ml Vial) 0 ml IV UD PRN PRN Reason: Hypoglycemia Diagnostic Test (Pha) (Accu-Chek 1 Each Strip) 1 each FS ACHS CHASE Last Admin: 04/04/21 20:06 Dose: 1 each Documented by: Glucose (Dextrose 31 Gm Oral.Susp) 15 gm PO PRN PRN PRN Reason: Hypoglycemia Heparin Sodium (Porcine) (Heparin 5,000 Unit/Ml Vial) 5,000 unit SQ Q12 [facility] Last Admin: 04/04/21 20:06 Dose: 5,000 unit Documented by: Potassium Chloride 40 meq/ (Dextrose) 520 mls @ 130 mls/hr IV UD PRN PRN Reason: Potassium < 3 Magnesium Sulfate (Magnesium Sulfate) 2 gm in 50 mls @ 50 mls/hr IV UD PRN PRN Reason: Magnesium </= 1.6 Insulin Human Lispro (Insulin Lispro 1 Unit/0.01 Ml Unit) 0 unit SQ ACHS [facility]; Protocol Last Admin: 04/04/21 20:07 Dose: Not Given Documented by: Labetalol HCl (Labetalol 5 Mg/Ml Ml) 0 mg IV Q2HP PRN PRN Reason: Hypertension Ondansetron HCl (Ondansetron 4 Mg/2 Ml Vial) 4 mg IV Q4HP PRN PRN Reason: Nausea And Vomiting Polyethylene Glycol (Polyethylene Glycol 3350 17 Gm Packet) 17 gm PO DAILYP PRN PRN Reason: Constipation Last Admin: 04/04/21 20:06 Dose: 17 gm Documented by: Potassium Chloride (Potassium Chloride 20 Meq Tablet) 40 meq PO UD PRN PRN Reason: Potssium is 3-3.5 Potassium Chloride (Potassium Chloride 20 Meq Tablet) 40 meq PO UD PRN PRN Reason: Potassium < 3 Senna (Sennosides 1 Tablet) 2 tab PO DAILYP PRN PRN Reason: Constipation Simvastatin (Simvastatin 10 Mg Tablet) 10 mg PO QPM [facility] Last Admin: 04/04/21 20:06 Dose: 10 mg Documented by: Sodium Chloride (0.9 % Sodium Chloride 10 Ml Syringe) 10 ml IV Q8 [facility] Last Admin: 04/05/21 04:39 Dose: 10 ml Documented by: Terazosin HCl (Terazosin 5 Mg Capsule) 10 mg PO HS [facility] Last Admin: 04/04/21 20:06 Dose: 10 mg Documented by: A/P Narrative A/P Narrative: A: *JARRETT on CKD III: improved *Volume depletion: improved *Hyperkalemia: Resolved. pt on ARB/Aldactone *Hyponatremia: resolved *Hypercalcemia: 2/2 deyhdration + vitamin supp + thiazide-like diuretic -improving, now mild *Aspiration likely Pneumonitis vs Pneumonia: likely is aspirating with food/drink per daughter -afebrile and no leukocytosis (slight elevation today), pct low *Oropharyngeal Dysphagia, mild: *Generalized weakness/deconditioning/falling/recent hip fracture: *Anemia, chronic: with dilutional decrease.FOBT neg. stable. *DM: *HTN: On Lasix/spironolactone/ indapamide/ losartan *Unstageable pressure ulcer left lateral heel: Wound care following P: -s/p IVF -Monitor electrolytes -hold diuretics, will not restart aldactone/indap -hold ARB for JARRETT and hyperkal -monitor for need to start abx for PNA, -d/c Vit D. supp -Hold Metformin, SSI for now -PT/OT, diet per ST -wound care -f/u calcium outpt -awaiting SNF placement -ppx: heparin code: cpr ok but not intubation Time Spent With Patient Time: Total time spent is greater than 50% in coordination of care (as documented) at patient's floor/unit and/or counseling patient: QUALITY VTE Deep Vein Thrombosis/Pulmonary Embolism Present on Admission: No
[2021-04-05 09:50] LABS: Band Neutrophils % 1 % (0-10); Basophils % (Manual) 1 % (0-2); Hypochromasia RARE (None Seen); Lymphocytes % 7 % (15-49); Monocytes % (Manual) 5 % (1-12); Platelet Estimate NORMAL (Normal); RBC Morphology ABNORMAL (Normal); Segmented Neutrophils % 86 % (38-78)
[2021-04-05] MEDS: TERAZOSIN 5 MG CAPSULE PO SCH (20:59)
[2021-04-05] MEDS: SIMVASTATIN 10 MG TABLET PO SCH (21:00)
[2021-04-06] MEDS: 0.9 % SODIUM CHLORIDE 10 ML SYRINGE IV SCH ×2 (03:42→06:10)
[2021-04-06 06:47] LABS: Hematocrit 23.4 % (41.0-55.0); Hemoglobin 7.7 g/dL (13.5-16.5); Mean Cell Volume 92.1 fL (80.0-100.0); Mean Corpuscular HGB Conc 32.9 g/dL (31.0-36.0); Mean Platelet Volume 9.5 fL (7.4-10.4); Platelet Count 287 K/mcL (140-440); RBC 2.54 M/mcL (4.50-5.90); Red Cell Distribution Width 13.5 % (11.5-14.5); WBC 11.1 K/mcL (4.5-11.0)
[2021-04-06 07:06] LABS: ALT/SGPT 9 U/L (<40); AST/SGOT 12 U/L (<40); Albumin 2.8 gm/dL (3.2-5.2); Albumin/Globulin Ratio 0.8 (1.0-2.3); Alkaline Phosphatase 97 U/L (39-117); Bilirubin,Direct < 0.2 mg/dL (0-0.3); Bilirubin,Total < 0.2 mg/dL (0.1-1.0); Blood Urea Nitrogen 33 mg/dL (8-23); Calcium 11.3 mg/dL (8.6-10.4); Carbon Dioxide 19 mmol/L (22-30); Chloride 111 mmol/L (96-108); Globulin 3.4 gm/dL (2.2-3.7); Glomerular Filtration Rate 51; Glucose 109 mg/dL (70-105); Lactate Dehydrogenase 101 U/L (135-225); Phosphorous 2.6 mg/dL (2.5-4.5); Triglycerides 58 mg/dL (<150); Uric Acid < 0.2 mg/dL (2.5-8)
[2021-04-06] MEDS: INSULIN LISPRO 1 UNIT/0.01 ML UNIT SQ SCH (07:35)
[2021-04-06 07:50] LABS: Band Neutrophils % 1 % (0-10); Lymphocytes % 9 % (15-49); Monocytes % (Manual) 4 % (1-12); Platelet Estimate NORMAL (Normal); RBC Morphology NORMAL (Normal); Segmented Neutrophils % 86 % (38-78)
[2021-04-06] MEDS ORDERED: SODIUM POLYSTYRENE SULFONATE 15 GM/60 ML SUSPENSION PO ONE (08:00)
[2021-04-06] MEDS: HEPARIN 5,000 UNIT/ML VIAL SQ SCH (08:56)
== END 2021-04-06 10:08 | DRG 682 ==
LOC: ED 10:19 → MEDSUR 13:34
PROVIDERS: ADMIT Internal Medicine; ATTEND Internal Medicine

== ENCOUNTER 2021-05-07 06:29 | Inpatient (IN) ==
[2021-05-07] MEDS ORDERED: DOXYCYCLINE 100 MG in DEXTROSE 5% IN WATER 100 ML IV ONE (07:40)
[2021-05-07] MEDS ORDERED: morphine 4 MG/ML VIAL IV ONE (07:41)
[2021-05-07] MEDS ORDERED: LACTATED RINGERS 1,000 ML IV ONE (07:41)
--- NOTE | 2021-05-07 07:44 | Emergency Department Note ---
Chest Pain HPI General Chief Complaint: Chest Pain Stated Complaint: chest pain Time Seen by Provider: 05/07/21 07:05 Source: EMS Mode of arrival: EMS Limitations: no limitations History of Present Illness HPI Narrative: Patient is an 80-year-old gentleman who arrives to the emergency department by ambulance complaining of chest pain. History is provided by the patient. He says he has been having chest pain the past 4 days. This is gradual in onset and has been progressively worsening. He finds that the pain is worsened whenever he coughs or takes a deep breath. The pain is mostly on the left side of his chest that radiates into the right side of his chest as well. He denies any associated nausea vomiting or diaphoresis. He does not have any shortness of breath fever or chills. He has never had anything like this before. He has received both doses of the Covid vaccine Related Data Home Medications Medication Instructions Recorded Confirmed Vitamin C oral capsule extended 1 tab PO DAILY 07/24/15 05/01/21 release blood sugar diagnostic 11/15/16 05/01/21 ferrous gluconate 324 mg (38 mg 324 mg PO QDAY 03/06/21 05/01/21 iron) tablet polyethylene glycol 3350 17 17 g PO QDAY PRN 03/06/21 05/01/21 gram/dose oral powder furosemide 20 mg tablet 20 mg PO QDAY 05/01/21 05/01/21 indapamide 1.25 mg tablet 1.25 mg PO QAM 05/01/21 05/01/21 pyridoxine (vitamin B6) 100 mg 100 mg PO QDAY tab 05/01/21 05/01/21 tablet simvastatin 10 mg tablet 20 mg PO QPM tab 05/01/21 Previous Rx's Medication Instructions Recorded metformin 1,000 mg tablet 1,000 mg PO BID 90 Days #180 tab 10/08/20 terazosin 10 mg capsule 10 mg PO QPM 90 Days #90 cap 11/26/20 losartan 100 mg tablet 100 mg PO QDAY 90 Days #90 tab 03/07/21 Allergies Allergy/AdvReac Type Severity Reaction Status Date / Time No Known Drug Allergies Allergy Verified 05/07/21 06:30 Review of Systems ROS ROS Narrative: Narrative: All systems ED: reviewed and negative except as stated. Gastrointestinal: Denies abdominal pain, nausea, vomiting and diarrhea PFSH Narrative Patient History Narrative: Narrative: Medical/Surgical/Family History All Active Problems (Updated 05/07/21 @ 09:37 by Ritesh Emanuel DO) Left lower lobe pneumonia (Acute) Acute dehydration (Acute) Anemia (Acute) Acute kidney injury (Acute) Cough (Acute) Weakness (Acute) Intertrochanteric fracture of left femur (Acute) Primary osteoarthritis of left hip (Acute) Greater trochanteric bursitis of left hip (Acute) Left hip pain (Acute) Medicare annual wellness visit, initial (Acute) Tearing eyes (Acute) Imbalance (Acute) Weight loss (Acute) Sciatica (Acute) Strain of lumbar region (Acute) Lumbar radiculopathy (Acute) Facial droop (Chronic) Basal cell carcinoma of face (Chronic) Injury of left facial nerve (Chronic) Physical exam, annual (Chronic) Spinal stenosis, lumbar region, 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 Anemia 07/13/2013 Hypoproliferative Back pain Seeing the pain clinic. Will receive the next epidural steroid shot this thursday05/12/11. Benign enlargement of prostate BPH; of prostate with urinary obstruction 03/03/2013 BPH without urinary obstruction Continue Terazonsin 10mg nightly Cellulitis and abscess of face 12/05/2013 Chronic pain Diabetes mellitus, type II Diverticulosis of colon ED (erectile dysfunction) Generalized abdominal or pelvic swelling or mass or lump Hernia, hiatal History of amputation of finger 2004; finger repair of lt. index finger amputation. Hyperlipidemia Hypertension, essential Low back pain Patient takes tylenol prn as needed. Lumbar radiculopathy Medicare annual wellness visit, initial Physical exam, annual Colonoscopy 2013: diverticulosis tdap 03/2014 aaa: not done, but wants to defer same pneumovac uptodate, pt unable to recall date psa: not indicated eye ecam 06/11 foot exam 10/12 Psoriasis Continue Betamethasone 0.05% cream twice daily as needed. Schatzki's ring Sciatica Spinal stenosis, lumbar region, without neurogenic claudication Lumbar L4-L5-S1 Strain of lumbar region Thoracic or lumbosacral neuritis or radiculitis Urinary retention 03/03/2013 UTI (urinary tract infection) 03/03/2013 Surgical History History of colonoscopy 10/18/2013; Diverticulosis History of esophagogastroduodenoscopy 10/18/13; Schatzki's ring, hiatus hernia History of inguinal hernia repair 05/23/2013; Bilateral inguinal hernia reducible History of surgery Lumbar decompression; 02/23/13 Family History Mother Family history of cardiovascular disease Father Family history of carrier of genetic disease Alzheimers Social History Smoking Status: Never smoker Alcohol Intake Frequency: former alcohol drinker Substance Use: does not use Exam Narrative Narrative: I reviewed the vital signs. Gen -patient is awake and alert and in no acute distress. The patient is well groomed. HEENT -there is a large scar on the patient's face and the remaining portion of his left ear consistent with prior surgical excision. There is no conjunctival pallor or scleral icterus. Mucous membranes are dry CV -S1-S2 regular rate and rhythm. Peripheral pulses are palpable. There is no JVD. Resp -breathing is nonlabored. Lungs have coarse rhonchi bilaterally. Patient had multiple episodes of coughing during my exam.. There is no cyanosis. GI - Abdomen is soft and nontender to palpation. There is no guarding or rebound tenderness. Derm -skin is warm and dry. There is no visible rash. MSK -present extremities are atraumatic. Psych -patient has appropriate affect. The patient does not appear internally stimulated. Neuro -patient answers questions appropriately with fluent speech. Patient moves all present extremities equally. General Limitations: no limitations Course Vital Signs Vital signs: Vital Signs Temperature 98.7 F 05/07/21 06:30 Pulse Rate 93 H 05/07/21 06:30 Respiratory Rate 20 05/07/21 06:30 Blood Pressure 159/67 05/07/21 06:30 Pulse Oximetry (%) 95 05/07/21 06:30 Temperature 98.7 F 05/07/21 06:30 Pulse Rate 74 05/07/21 09:16 Respiratory Rate 25 H 05/07/21 07:19 Blood Pressure 127/60 05/07/21 09:16 Pulse Oximetry (%) 97 05/07/21 09:16 MDM MDM Narrative Medical decision making narrative: Patient presents with chest pain and a cough. Chest x-ray shows left lobar pneumonia. Labs remarkable for slightly elevated white blood cell count and baseline renal dysfunction. I discussed the test results with the patient. He lives alone and is not comfortable he will be able to care for himself at home. Given this his advanced age and uremia I think he would benefit from admission for his pneumonia. He is agreeable with the plan for admission and continued treatment. I discussed the patient's history examination and diagnostic findings with Dr. Chanel, who agrees with the plan of care and accepts admission. Lab Data Lab results reviewed: Yes I reviewed the patient's lab results. Result diagrams: 05/07/21 07:46 Labs: Lab Results 05/07/21 05/07/21 05/07/21 Range/Units 07:46 07:46 07:53 WBC 14.5 H (4.5-11.0) K/mcL RBC 2.55 L (4.50-5.90) M/mcL Hgb 7.6 L (13.5-16.5) g/dL Hct 23.6 L (41.0-55.0) % POC Hct 23 L (41-55) % MCV 92.5 (80.0-100.0) fL MCH 29.8 (26.0-34.0) pg MCHC 32.2 (31.0-36.0) g/dL RDW 13.1 (11.5-14.5) % Plt Count 361 (140-440) K/mcL MPV 9.7 (7.4-10.4) fL Neut % (Auto) 87.6 H (38.0-78.0) % Lymph % (Auto) 6.3 L (15.0-49.0) % Frontier % (Auto) 5.9 (1.0-12.0) % Eos % (Auto) 0.1 (0.0-7.0) % Baso % (Auto) 0.1 (0.0-2.0) % Lymph # (Auto) 0.91 L (1.50-4.80) K/mcL Frontier # (Auto) 0.86 (0.10-0.90) K/mcL Eos # (Auto) 0.02 (0.00-0.70) K/mcL Baso # (Auto) 0.02 (0.00-0.20) K/mcL Absolute Neutrophils 12.65 H (1.80-8.00) K/mcL VBG Lactic Acid 0.7 (0.5-2.0) mmol/L POC Sodium 138 (133-145) mEq/L POC Potassium 5.1 (3.3-5.1) mEql/L POC Chloride 111 H (96-108) mEq/L POC Total CO2 16 L (22-30) mmol/L POC BUN 48 H (6-20) mg/dL POC Creatinine 1.7 H (0.6-1.2) mg/dL POC Glucose 145 H (70-105) mg/dL POC WB Ioniz Calcium 1.33 H (1.16-1.32) mmEq/L ED POC Tests ED POC Tests: GENA - SARS Antigen Negative Discharge Plan Patient/Caregiver Discharge Instructions Pt seen by [employer]/PA only: No Clinical Impression: Left lower lobe pneumonia Patient Disposition: Xfer As Inpt ([facility]) Follow up with: Jayro Suárez DO [Primary Care Provider] - Prescriptions: No Action metformin [Glucophage] 1,000 mg tablet 1,000 mg PO BID 90 Days Qty: 180 RF: 1 terazosin 10 mg capsule 10 mg PO QPM 90 Days Qty: 90 RF: 3 losartan [Cozaar] 100 mg tablet 100 mg PO QDAY 90 Days Qty: 90 RF: 1 Vitamin C oral capsule extended release 500 mg 1 tab PO DAILY RF: 0 ferrous gluconate 324 mg (38 mg iron) tablet 324 mg PO QDAY RF: 0 polyethylene glycol 3350 [Miralax] 17 gram/dose powder 17 g PO QDAY PRN (Reason: constipation) RF: 0 simvastatin [Zocor] 10 mg tablet 20 mg PO QPM RF: 0 pyridoxine (vitamin B6) 100 mg tablet 100 mg PO QDAY RF: 0 indapamide 1.25 mg tablet 1.25 mg PO QAM RF: 0 furosemide 20 mg tablet 20 mg PO QDAY RF: 0 (DME) blood sugar diagnostic 1 EACH strip 0 appful .Route .MEDSUPPLY RF: 0
[2021-05-07] MEDS ORDERED: cefTRIAXone 1 GM in DEXTROSE 5% IN WATER 50 ML IV SCH ×3 (07:45→12:28)
--- NOTE | 2021-05-07 07:48 | XRay Report ---
INDICATION: cough TECHNIQUE: AP portable semiupright chest x-ray COMPARISON: Previous chest x-rays dated 04/04/2021, 04/02/2021, 07/01/2018 FINDINGS: Lungs:Left mid lung and basilar pulmonary parenchymal infiltrates. Probable left pleural effusion. Appearance is consistent with pneumonia but atypical for covid pneumonia. Clinical correlation and follow-up radiographs are recommended. Heart, vascular:No significant cardiomegaly. Pulmonary vascularity is normal. No pulmonary edema or pulmonary congestion Mediastinum, neeru:No mediastinal widening. No hilar mass Pleura:Probable left pleural effusion Skeletal:Negative. IMPRESSION: 1. Left lung infiltrates consistent with pneumonia 2. Probable left pleural effusion Interpreted and Authenticated by: Jayro Corado 05/07/21
[2021-05-07 07:57] LABS: POC Blood Urea Nitrogen 48 mg/dL (6-20); POC CO2 16 mmol/L (22-30); POC Calcium, Ionized 1.33 mmEq/L (1.16-1.32); POC Chloride 111 mEq/L (96-108); POC Creatinine 1.7 mg/dL (0.6-1.2); POC Glucose, Random 145 mg/dL (70-105); POC Hematocrit 23 % (41-55); POC Potassium 5.1 mEql/L (3.3-5.1); POC Sodium 138 mEq/L (133-145)
[2021-05-07 08:53] LABS: Basophils # (Auto) 0.02 K/mcL (0.00-0.20); Basophils % (Auto) 0.1 % (0.0-2.0); Eosinophils # (Auto) 0.02 K/mcL (0.00-0.70); Eosinophils % (Auto) 0.1 % (0.0-7.0); Hematocrit 23.6 % (41.0-55.0); Hemoglobin 7.6 g/dL (13.5-16.5); Lymphocytes # (Auto) 0.91 K/mcL (1.50-4.80); Lymphocytes % (Auto) 6.3 % (15.0-49.0); Mean Cell Volume 92.5 fL (80.0-100.0); Mean Corpuscular HGB Conc 32.2 g/dL (31.0-36.0); Mean Platelet Volume 9.7 fL (7.4-10.4); Monocytes # (Auto) 0.86 K/mcL (0.10-0.90); Monocytes % (Auto) 5.9 % (1.0-12.0); Neutrophils % (Auto) 87.6 % (38.0-78.0); Platelet Count 361 K/mcL (140-440); RBC 2.55 M/mcL (4.50-5.90); Red Cell Distribution Width 13.1 % (11.5-14.5); WBC 14.5 K/mcL (4.5-11.0)
[2021-05-07] MEDS ORDERED: ACETAMINOPHEN 325 MG TABLET PO ONE (09:28)
--- NOTE | 2021-05-07 10:44 | Internal Med History&Physical ---
HPI History of Present Illness Patient information: Note initiated : 05/07/21 at 10:40 am Service Date, if different from initiated Date: [] Patient: Camron Morel a 80 y/o M admitted on for Chest Pain . Chief Complaint: [Pneumonia] History of present illness: Mr. Morel is a 80 year old M history of basal cell carcinoma of the face, type 2 diabetes, essential hypertension, mixed dyslipidemia, chronic kidney disease stage III, BPH, presenting with chest pain, nonproductive cough, and shortness of breath. He has been vaccinated against Covid pneumonia. He denies any sick contact or recent travel. He was in his usual state of health until 4 days ago when he had acute onset of chest pain, nonproductive cough, and shortness of breath. Chest pain was moderate to severe, sharp, exacerbated when he coughs. He denies any fever or chills. Due to his symptoms, he decided to come to our ED for further evaluations today. Vital signs at ED presentations completely unremarkable. Labs remarkable for leukocytosis with WBC 14.5. Serum lactic acid normal at 0.7. Covid Debi screening test negative. Covid PCR test pending. Chest x-ray showing left- sided pulmonary infiltrate as well as left sided pleural effusions. Patient is currently tolerating room air. Constitutional Constitutional: Absent chills, excessive sweating, fatigue, fever(s) and wea kness EENT Eyes: Absent blurry vision, change in vision, loss of vision and other visual disturbances Ears: Absent decreased hearing and tinnitus Nose, mouth and throat: Absent abnormal hearing, dry mouth, headache(s), nasal congestion and sore throat Cardiovascular Cardiovascular: Present chest pain; Absent chest pain at rest, edema, irregular heart rhythm and palpatations Respiratory Respiratory: Present cough, dyspnea and pain with cough; Absent wheezing Gastrointestinal Gastrointestinal: Absent abdominal pain, constipation, diarrhea, nausea and vomiting Musculoskeletal Musculoskeletal: Absent back pain, deformity, limited range of motion, muscle cramps, muscle weakness and numbness Integumentary Integumentary: Absent lesions, rash and wounds Neurological Neurological: Absent focal weakness, headache(s) and numbness Psychiatric Psychiatric: Absent anxiety, depression and hallucinations PFSH PFSH All Active Problems (Updated 05/07/21 @ 10:48 by Abhijeet Chanel MD) CKD stage 3 due to type 2 diabetes mellitus (Acute) Left lower lobe pneumonia (Acute) Acute dehydration (Acute) Anemia (Acute) Acute kidney injury (Acute) Cough (Acute) Weakness (Acute) Intertrochanteric fracture of left femur (Acute) Primary osteoarthritis of left hip (Acute) Greater trochanteric bursitis of left hip (Acute) Left hip pain (Acute) Medicare annual wellness visit, initial (Acute) Tearing eyes (Acute) Imbalance (Acute) Weight loss (Acute) Sciatica (Acute) Strain of lumbar region (Acute) Lumbar radiculopathy (Acute) Facial droop (Chronic) Basal cell carcinoma of face (Chronic) Injury of left facial nerve (Chronic) Physical exam, annual (Chronic) Spinal stenosis, lumbar region, 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 Anemia 07/13/2013 Hypoproliferative Back pain Seeing the pain clinic. Will receive the next epidural steroid shot this thursday05/12/11. Benign enlargement of prostate BPH; of prostate with urinary obstruction 03/03/2013 BPH without urinary obstruction Continue Terazonsin 10mg nightly Cellulitis and abscess of face 12/05/2013 Chronic pain Diabetes mellitus, type II Diverticulosis of colon ED (erectile dysfunction) Generalized abdominal or pelvic swelling or mass or lump Hernia, hiatal History of amputation of finger 2004; finger repair of lt. index finger amputation. Hyperlipidemia Hypertension, essential Low back pain Patient takes tylenol prn as needed. Lumbar radiculopathy Medicare annual wellness visit, initial Physical exam, annual Colonoscopy 2014: diverticulosis tdap 03/2014 aaa: not done, but wants to defer same pneumovac uptodate, pt unable to recall date psa: not indicated eye ecam 06/11 foot exam 10/12 Psoriasis Continue Betamethasone 0.05% cream twice daily as needed. Schatzki's ring Sciatica Spinal stenosis, lumbar region, without neurogenic claudication Lumbar L4-L5-S1 Strain of lumbar region Thoracic or lumbosacral neuritis or radiculitis Urinary retention 03/03/2013 UTI (urinary tract infection) 03/03/2013 Surgical History History of colonoscopy 10/18/2013; Diverticulosis History of esophagogastroduodenoscopy 10/18/13; Schatzki's ring, hiatus hernia History of inguinal hernia repair 05/23/2013; Bilateral inguinal hernia reducible History of surgery Lumbar decompression; 02/23/13 Family History Mother Family history of cardiovascular disease Father Family history of carrier of genetic disease Alzheimers Social History marital status: occupational status: retired occupation: Retired [employer] alcohol intake frequency: former alcohol drinker substance use type: does not use MEDS/ALLERGIES Home Medications and Allergies Home Medications Medication Instructions Recorded Confirmed Type Vitamin C oral capsule extended 1 tab PO DAILY 07/24/15 05/01/21 History release blood sugar diagnostic 11/15/16 05/01/21 History metformin 1,000 mg tablet 1,000 mg PO BID 90 Days #180 tab 10/08/20 05/01/21 Rx terazosin 10 mg capsule 10 mg PO QPM 90 Days #90 cap 11/26/20 05/01/21 Rx ferrous gluconate 324 mg (38 mg 324 mg PO QDAY 03/06/21 05/01/21 History iron) tablet polyethylene glycol 3350 17 17 g PO QDAY PRN 03/06/21 05/01/21 History gram/dose oral powder losartan 100 mg tablet 100 mg PO QDAY 90 Days #90 tab 03/07/21 05/01/21 Rx furosemide 20 mg tablet 20 mg PO QDAY 05/01/21 05/01/21 History indapamide 1.25 mg tablet 1.25 mg PO QAM 05/01/21 05/01/21 History pyridoxine (vitamin B6) 100 mg 100 mg PO QDAY tab 05/01/21 05/01/21 History tablet simvastatin 10 mg tablet 20 mg PO QPM tab 05/01/21 History Allergies Allergy/AdvReac Type Severity Reaction Status Date / Time No Known Drug Allergies Allergy Verified 05/07/21 06:30 EXAM Constitutional Vitals: Temp Pulse Resp BP Pulse Ox 37.1 C 80 25 H 127/62 95 05/07/21 06:30 05/07/21 10:26 05/07/21 07:19 05/07/21 10:16 05/07/21 10:26 General appearance: cooperative and no acute distress Head Head exam: Present atraumatic and normocephalic Eye Eye exam: Present EOMI and PERRL ENT ENT exam: Present mucous membranes moist, normal exam and normal external ear exam Additional comments: Left face deformation due to surgery for basal cell carcinoma Neck Neck exam: Present normal inspection; Absent lymphadenopathy, tenderness and thyromegaly Respiratory Respiratory exam: Absent accessory muscle use, respiratory distress and wheezes Additional comments: Decreased breath sound left lung base Cardiovascular Cardiovascular exam: Present normal rate and rhythm; Absent JVD GI/Abdominal GI/Abdominal exam: Present normal bowel sounds and soft; Absent organomegaly and tenderness Rectal Rectal exam: Present deferred Extremities Exam Extremities exam: Present full ROM, normal capillary refill and normal inspection; Absent tenderness Neurological Exam Neurological exam: Present alert, CN II-XII intact and oriented X3; Absent motor sensory deficit Psychiatric Psychiatric exam: Present normal affect and normal mood; Absent anxious and depressed Skin Skin exam: Present dry and intact DATA Data Completed and Pending Labs: Labs from last 24 hours 05/07/21 05/07/21 05/07/21 07:53 07:46 07:46 WBC 14.5 H RBC 2.55 L Hgb 7.6 L Hct 23.6 L POC Hct 23 L MCV 92.5 MCH 29.8 MCHC 32.2 RDW 13.1 Plt Count 361 MPV 9.7 Neut % (Auto) 87.6 H Lymph % (Auto) 6.3 L [place] % (Auto) 5.9 Eos % (Auto) 0.1 Baso % (Auto) 0.1 Lymph # (Auto) 0.91 L [place] # (Auto) 0.86 Eos # (Auto) 0.02 Baso # (Auto) 0.02 Absolute Neutrophils 12.65 H VBG Lactic Acid 0.7 POC Sodium 138 POC Potassium 5.1 POC Chloride 111 H POC Total CO2 16 L POC BUN 48 H POC Creatinine 1.7 H POC Glucose 145 H POC WB Ioniz Calcium 1.33 H A/P Assessment and plan (1) Left lower lobe pneumonia: Status: Acute Qualifiers: Pneumonia type: due to unspecified organism Qualified Code(s): J18.9 - Pneumonia, unspecified organism (2) Hyperlipidemia: Status: Chronic Qualifiers: Hyperlipidemia type: pure hypercholesterolemia Qualified Code(s): E78.00 - Pure hypercholesterolemia, unspecified; E78.00 - Pure hypercholesterolemia, unspecified; E78.00 - Pure hypercholesterolemia, unspecified; E78.0 - Pure hypercholesterolemia (3) Hypertension, essential: Status: Chronic (4) Diabetes mellitus, type II: Status: Chronic Qualifiers: Diabetes mellitus complication status: without complication Diabetes mellitus halfway insulin use: without halfway use Qualified Code(s): E11.9 - Type 2 diabetes mellitus without complications (5) BPH without urinary obstruction: Status: Chronic Comment: Continue Terazonsin 10mg nightly (6) CKD stage 3 due to type 2 diabetes mellitus: Status: Acute Narrative A/P Narrative: Assessment and Plans: 1. Community acquired pneumonia: Admit to observation med surg CoVID PCR Supplemental oxygen as needed via nasal cannula titrate to achieve spo2 >=92% Blood culture X2 cbc w/ auto diff in the morning to trend WBC Rocephin Zithromax IV NS@75cc/hr Robitussin DM PRN cough Tylenol PRN fever DuoNEB NEB q4hr PRN wheezing or SOB 2. T2DM: HgA1c 6.2 Hold Metformin Low dose Insulin Lispro AC HS Accu Chek AC HS Hypoglycemia protocol Diabetic diet 3. Essential HTN: Currently normotensive Continue home regimen of oral antihypertensives 4. Dyslipidemia: Continue statin therapy 5. BPH: Continue Terazosin 6. CKD stage III: IV NS@75cc/hr Repeat CMP in the morning to trend kidney functions GI ppx: not currently indicated DVT ppx: Heparin Code status: Full Prognosis: stable Disposition: observation med surg Time Spent With Patient Time: Total time spent is greater than 50% in coordination of care (as documented) at patient's floor/unit and/or counseling patient: Total time spent with greater than 50% in coordination of care (as documented) at patient's floor/unit and/or counseling patient:: 25 - 35 minutes
--- NOTE | 2021-05-07 12:22 | EKG ---
[facility] Test Date: 2021-05-07 Pat Name: Camron Morel Department: ED Room: Gender: Male [employer] Operator: [id number] : 1940 Requested By: Errol Solis Order Number: [id number] Reading MD: Cesar Campbell M.D. Measurements Intervals [place] Rate: 90 P: 76 CA: 144 QRS: 46 QRSD: 92 T: 85 QT: 334 QTc: 409 Interpretive Statements Sinus rhythm Ventricular premature complex Borderline low voltage, extremity leads Nonspecific T abnormalities, lateral leads Since previous ECG of 04-03-2021, NEW PVC, ABNORMAL ECG Electronically Signed On 05-07-2021 12:22:18 PDT by Cesar Campbell M.D. [place] [place][id number]
[2021-05-07] MEDS ORDERED: ONDANSETRON 4 MG/2 ML VIAL IV PRN (12:28)
[2021-05-07] MEDS ORDERED: IPRATROPIUM/ALBUTEROL 3 ML AMPUL.NEB NEB PRN (12:28)
[2021-05-07] MEDS ORDERED: guaiFENesin/DEXTROMETHORPHAN ORAL SOL PO PRN (12:28)
[2021-05-07] MEDS ORDERED: DEXTROSE 50% 50 ML VIAL IV PRN (12:28)
[2021-05-07] MEDS ORDERED: ACETAMINOPHEN 325 MG TABLET PO PRN (12:28)
[2021-05-07] MEDS ORDERED: morphine 4 MG/ML VIAL IV PRN (12:28)
[2021-05-07] MEDS ORDERED: DEXTROSE 31 GM ORAL.SUSP PO PRN (12:28)
[2021-05-07] MEDS ORDERED: POLYETHYLENE GLYCOL 3350 17 GM PACKET PO PRN (13:15)
[2021-05-07] MEDS: 0.9 % SODIUM CHLORIDE 1,000 ML IV SCH (15:40)
[2021-05-07] MEDS: AZITHROMYCIN 500 MG in DEXTROSE 5% IN WATER 250 ML IV SCH (15:56)
[2021-05-07] MEDS: INSULIN LISPRO 1 UNIT/0.01 ML UNIT SQ SCH ×3 (15:57→22:25)
[2021-05-07] MEDS: 0.9 % SODIUM CHLORIDE 10 ML SYRINGE IV SCH ×2 (15:58→22:17)
[2021-05-07] MEDS: IBUPROFEN 600 MG TABLET PO PRN (20:09)
[2021-05-07] MEDS: ZOLPIDEM 5 MG TABLET PO PRN (22:16)
[2021-05-07] MEDS: DOCUSATE SODIUM 100 MG CAPSULE PO SCH (22:16)
[2021-05-07] MEDS: TERAZOSIN 5 MG CAPSULE PO SCH (22:16)
[2021-05-07] MEDS: SENNOSIDES 1 TABLET PO SCH (22:16)
[2021-05-07] MEDS: SIMVASTATIN 10 MG TABLET PO SCH (22:16)
[2021-05-07] MEDS: HEPARIN 5,000 UNIT/ML VIAL SQ SCH (22:22)
[2021-05-08] MEDS: 0.9 % SODIUM CHLORIDE 1,000 ML IV SCH ×3 (06:53→23:26)
[2021-05-08] MEDS: 0.9 % SODIUM CHLORIDE 10 ML SYRINGE IV SCH ×3 (06:54→20:45)
[2021-05-08] MEDS: AZITHROMYCIN 500 MG in DEXTROSE 5% IN WATER 250 ML IV SCH ×2 (07:49→08:06)
[2021-05-08 07:50] LABS: Basophils # (Auto) 0.02 K/mcL (0.00-0.20); Basophils % (Auto) 0.2 % (0.0-2.0); Eosinophils # (Auto) 0.02 K/mcL (0.00-0.70); Eosinophils % (Auto) 0.2 % (0.0-7.0); Hematocrit 23.7 % (41.0-55.0); Hemoglobin 7.5 g/dL (13.5-16.5); Lymphocytes # (Auto) 0.79 K/mcL (1.50-4.80); Lymphocytes % (Auto) 6.3 % (15.0-49.0); Mean Cell Volume 95.2 fL (80.0-100.0); Mean Corpuscular HGB Conc 31.6 g/dL (31.0-36.0); Mean Platelet Volume 9.6 fL (7.4-10.4); Monocytes # (Auto) 0.73 K/mcL (0.10-0.90); Monocytes % (Auto) 5.8 % (1.0-12.0); Neutrophils % (Auto) 87.5 % (38.0-78.0); Platelet Count 361 K/mcL (140-440); RBC 2.49 M/mcL (4.50-5.90); Red Cell Distribution Width 13.2 % (11.5-14.5); WBC 12.5 K/mcL (4.5-11.0)
[2021-05-08] MEDS: IBUPROFEN 600 MG TABLET PO PRN (07:50)
[2021-05-08] MEDS: PYRIDOXINE 100 MG TABLET PO SCH (07:50)
[2021-05-08] MEDS: DOCUSATE SODIUM 100 MG CAPSULE PO SCH ×2 (07:50→20:42)
[2021-05-08] MEDS: LOSARTAN 50 MG TABLET PO SCH (07:50)
[2021-05-08] MEDS: ASCORBIC ACID 500 MG TABLET PO SCH (07:50)
[2021-05-08] MEDS: HEPARIN 5,000 UNIT/ML VIAL SQ SCH ×2 (07:50→20:42)
[2021-05-08] MEDS: FERROUS GLUCONATE 324 MG TABLET PO SCH (07:50)
[2021-05-08] MEDS: INDAPAMIDE 2.5 MG TABLET PO SCH (07:51)
[2021-05-08] MEDS: INSULIN LISPRO 1 UNIT/0.01 ML UNIT SQ SCH ×4 (07:57→21:10)
[2021-05-08 08:14] LABS: ALT/SGPT 8 U/L (<40); AST/SGOT 12 U/L (<40); Albumin 2.4 gm/dL (3.2-5.2); Albumin/Globulin Ratio 0.7 (1.0-2.3); Alkaline Phosphatase 85 U/L (39-117); Bilirubin,Total 0.2 mg/dL (0.1-1.0); Blood Urea Nitrogen 39 mg/dL (8-23); Calcium 8.9 mg/dL (8.6-10.4); Carbon Dioxide 17 mmol/L (22-30); Chloride 109 mmol/L (96-108); Globulin 3.4 gm/dL (2.2-3.7); Glomerular Filtration Rate 39; Glucose 117 mg/dL (70-105)
[2021-05-08] MEDS: cefTRIAXone 1 GM VIAL IV SCH (10:00)
--- NOTE | 2021-05-08 15:00 | Internal Med Progress Note ---
SUBJECTIVE Subjective Patient information: Note initiated : 05/08/21 at 2:57 pm Service Date, if different from initiated Date: [] Patient: Camron Morel a 80 y/o M admitted on 05/07/21 for Chest Pain . Chief Complaint: [community acquired pneumonia] History of present illness: Mr. Morel is a 80 year old M history of basal cell carcinoma of the face, type 2 diabetes, essential hypertension, mixed dyslipidemia, chronic kidney disease stage III, BPH, presenting with chest pain, nonproductive cough, and shortness of breath. He has been vaccinated against Covid pneumonia. He denies any sick contact or recent travel. He was in his usual state of health until 4 days ago when he had acute onset of chest pain, nonproductive cough, and shortness of breath. Chest pain was moderate to severe, sharp, exacerbated when he coughs. He denies any fever or chills. Due to his symptoms, he decided to come to our ED for further evaluations today. Vital signs at ED presentations completely unremarkable. Labs remarkable for leukocytosis with WBC 14.5. Serum lactic acid normal at 0.7. Covid Debi screening test negative. Covid PCR test pending. Chest x-ray showing left- sided pulmonary infiltrate as well as left sided pleural effusions. Patient is currently tolerating room air. 05/08: CoVID PRC negative. Blood cultures no growth to date. Troponin-i: 0.04, 0.04, 0.05. Afebrile. Been tolerating room air. Denies chest pain. Denies SOB. c/o nonproductive cough. Denies fever or chills. Constitutional Vitals: Vital Signs Temp Pulse Resp BP Pulse Ox 36.4 C 80 20 132/60 91 05/08/21 12:00 05/08/21 12:00 05/08/21 12:00 05/08/21 12:00 05/08/21 12:00 Period Temp Pulse Resp BP Sys/Jameson Pulse Ox Last 24 Hr 36.4 C-37.1 C 64-80 18-22 112-132/52-62 91-94 Intake and Output 05/08/21 05/08/21 05/08/21 05:59 13:59 21:59 Intake Total 1225 490 Output Total 325 300 Balance 900 190 Intake & Output: Intake & Output 05/08/21 05/08/21 05/08/21 05:59 13:59 21:59 Intake Total 1225 490 Output Total 325 300 Balance 900 190 Intake: IV 1000 250 Sodium Chloride 0.9% 1,000 ml @ 1000 75 mls/hr IV .[id number] [facility] Rx#: [id number] Zithromax 500 mg In Dextrose 5% 250 in Water 250 ml @ 250 mls/hr IV Q24H [facility] Rx#:[id number] Oral 225 240 Output: Void Amount 325 300 Other: Meal Breakfast Percent of Meal Consumed 100% Feeding Ability Assist with Tray Set Up Urine Appearance Clear Urine Color Bright Yellow Dark Yellow Urine Odor Strong General appearance: cooperative and no acute distress Head Head exam: Present atraumatic and normocephalic Additional comments: Left face and ear surgically trimmed Eye Eye exam: Present EOMI and PERRL ENT ENT exam: Present mucous membranes moist and normal exam; Absent normal external ear exam Additional comments: no left hearing Neck Neck exam: Present normal inspection; Absent lymphadenopathy, tenderness and thyromegaly Respiratory Respiratory exam: Absent accessory muscle use, respiratory distress and wheezes Additional comments: Decreased breath sound left lower lung base Cardiovascular Cardiovascular exam: Present normal rate and rhythm; Absent JVD GI/Abdominal GI/Abdominal exam: Present normal bowel sounds and soft; Absent organomegaly and tenderness Rectal Rectal exam: Present deferred Extremities Exam Extremities exam: Present full ROM, normal capillary refill and normal inspection; Absent tenderness Neurological Exam Neurological exam: Present alert, CN II-XII intact and oriented X3; Absent motor sensory deficit Psychiatric Psychiatric exam: Present normal affect and normal mood; Absent anxious and depressed Skin Skin exam: Present dry and intact OBJ DATA Labs CBC & Chem 7: 05/08/21 05:25 05/08/21 05:25 Labs: Abnormal Lab Results 05/08/21 05/08/21 05/08/21 05:25 05:25 00:05 WBC 12.5 H RBC 2.49 L Hgb 7.5 L Hct 23.7 L POC Hct Neut % (Auto) 87.5 H Lymph % (Auto) 6.3 L Lymph # (Auto) 0.79 L Absolute Neutrophils 10.94 H POC Chloride Chloride 109 H Carbon Dioxide 17 L POC Total CO2 POC BUN BUN 39 H Creatinine 1.6 H POC Creatinine Glucose 117 H POC Glucose POC WB Ioniz Calcium Troponin T 0.05 H* Total Protein 5.8 L Albumin 2.4 L Albumin/Globulin Ratio 0.7 L 05/07/21 05/07/21 05/07/21 18:10 07:53 07:46 WBC RBC Hgb Hct POC Hct 23 L Neut % (Auto) Lymph % (Auto) Lymph # (Auto) Absolute Neutrophils POC Chloride 111 H Chloride Carbon Dioxide POC Total CO2 16 L POC BUN 48 H BUN Creatinine POC Creatinine 1.7 H Glucose POC Glucose 145 H POC WB Ioniz Calcium 1.33 H Troponin T 0.04 H* 0.04 H* Total Protein Albumin Albumin/Globulin Ratio 05/07/21 07:46 WBC 14.5 H RBC 2.55 L Hgb 7.6 L Hct 23.6 L POC Hct Neut % (Auto) 87.6 H Lymph % (Auto) 6.3 L Lymph # (Auto) 0.91 L Absolute Neutrophils 12.65 H POC Chloride Chloride Carbon Dioxide POC Total CO2 POC BUN BUN Creatinine POC Creatinine Glucose POC Glucose POC WB Ioniz Calcium Troponin T Total Protein Albumin Albumin/Globulin Ratio Meds: Medications Acetaminophen (Acetaminophen 325 Mg Tablet) 650 mg PO Q6HP PRN; Protocol PRN Reason: Per Pain Protocol/Fever > 101 Albuterol/Ipratropium (Ipratropium/Albuterol 3 Ml Ampul.Neb) 3 ml NEB Q4HP PRN PRN Reason: Shortness Of Breath Ascorbic Acid (Ascorbic Acid 500 Mg Tablet) 1,000 mg PO DAILY [facility] Last Admin: 05/08/21 07:50 Dose: 1,000 mg Documented by: Ceftriaxone Sodium (Ceftriaxone 1 Gm Vial) 1 gm IV Q24H [facility] Last Admin: 05/08/21 10:00 Dose: 1 gm Documented by: Dextrose (Dextrose 50% 50 Ml Vial) 0 ml IV UD PRN PRN Reason: Hypoglycemia Diagnostic Test (Pha) (Accu-Chek 1 Each Strip) 1 each FS ACHS [facility] Last Admin: 05/08/21 12:51 Dose: 1 each Documented by: Docusate Sodium (Docusate Sodium 100 Mg Capsule) 100 mg PO BID [facility] Last Admin: 05/08/21 07:50 Dose: 100 mg Documented by: Ferrous Gluconate (Ferrous Gluconate 324 Mg Tablet) 324 mg PO QDAY [facility] Last Admin: 05/08/21 07:50 Dose: 324 mg Documented by: Glucose (Dextrose 31 Gm Oral.Susp) 15 gm PO PRN PRN PRN Reason: Hypoglycemia Guaifenesin (Guaifenesin/Dextromethorphan Oral [place]) 10 ml PO Q4HP PRN PRN Reason: Cough Heparin Sodium (Porcine) (Heparin 5,000 Unit/Ml Vial) 5,000 unit SQ Q12 [facility] Last Admin: 05/08/21 07:50 Dose: 5,000 unit Documented by: Sodium Chloride (Sodium Chloride 0.9%) 1,000 mls @ 75 mls/hr IV .[id number] [facility] Last Admin: 05/08/21 13:16 Dose: Not Given Documented by: Azithromycin 500 mg/ Dextrose 250 mls @ 250 mls/hr IV Q24H [facility]; Protocol Stop: 05/09/21 13:59 Last Infusion: 05/08/21 08:49 Dose: Infused Documented by: Ibuprofen (Ibuprofen 600 Mg Tablet) 600 mg PO QIDP PRN; Protocol PRN Reason: Per Pain Protocol/Fever > 101 Last Admin: 05/08/21 07:50 Dose: 600 mg Documented by: Indapamide (Indapamide 2.5 Mg Tablet) 1.25 mg PO DAILY [facility] Last Admin: 05/08/21 07:51 Dose: 1.25 mg Documented by: Insulin Human Lispro (Insulin Lispro 1 Unit/0.01 Ml Unit) 0 unit SQ ACHS [facility]; Protocol Last Admin: 05/08/21 12:52 Dose: Not Given Documented by: Losartan Potassium (Losartan 50 Mg Tablet) 100 mg PO DAILY [facility] Last Admin: 05/08/21 07:50 Dose: 100 mg Documented by: Morphine Sulfate (Morphine 4 Mg/Ml Vial) 4 mg IV Q4HP PRN; Protocol PRN Reason: Per Pain Protocol Ondansetron HCl (Ondansetron 4 Mg/2 Ml Vial) 4 mg IV Q6HP PRN PRN Reason: Nausea And Vomiting Polyethylene Glycol (Polyethylene Glycol 3350 17 Gm Packet) 17 gm PO DAILYP PRN PRN Reason: Constipation Last Admin: 05/08/21 14:50 Dose: 17 gm Documented by: Pyridoxine HCl (Pyridoxine 100 Mg Tablet) 100 mg PO QDAY [facility] Last Admin: 05/08/21 07:50 Dose: 100 mg Documented by: Senna (Sennosides 1 Tablet) 2 tab PO HS [facility] Last Admin: 05/07/21 22:16 Dose: 2 tab Documented by: Simvastatin (Simvastatin 10 Mg Tablet) 20 mg PO QPM [facility] Last Admin: 05/07/21 22:16 Dose: 20 mg Documented by: Sodium Chloride (0.9 % Sodium Chloride 10 Ml Syringe) 10 ml IV Q8 [facility] Last Admin: 05/08/21 12:53 Dose: Not Given Documented by: Terazosin HCl (Terazosin 5 Mg Capsule) 10 mg PO [facility] Last Admin: 05/07/21 22:16 Dose: 10 mg Documented by: Zolpidem Tartrate (Zolpidem 5 Mg Tablet) 5 mg PO HSP PRN PRN Reason: Insomnia Last Admin: 05/07/21 22:16 Dose: 5 mg Documented by: A/P Assessment and plan (1) Left lower lobe pneumonia: Status: Acute Qualifiers: Pneumonia type: due to unspecified organism Qualified Code(s): J18.9 - Pneumonia, unspecified organism (2) Hyperlipidemia: Status: Chronic Qualifiers: Hyperlipidemia type: pure hypercholesterolemia Qualified Code(s): E78.00 - Pure hypercholesterolemia, unspecified; E78.00 - Pure hypercholesterolemia, unspecified; E78.00 - Pure hypercholesterolemia, unspecified; E78.0 - Pure hypercholesterolemia (3) Hypertension, essential: Status: Chronic (4) Diabetes mellitus, type II: Status: Chronic Qualifiers: Diabetes mellitus complication status: without complication Diabetes mellitus press tender long goods insulin use: without press tender long goods use Qualified Code(s): E11.9 - Type 2 diabetes mellitus without complications (5) BPH without urinary obstruction: Status: Chronic Comment: Continue Terazonsin 10mg nightly (6) CKD stage 3 due to type 2 diabetes mellitus: Status: Acute Narrative A/P Narrative: Assessment and Plans: 1. Community acquired pneumonia: Stays in observation med surg CoVID PCR negative Supplemental oxygen as needed via nasal cannula titrate to achieve spo2 >=92% Blood culture X2 n growth to date cbc w/ auto diff in the morning to trend WBC Rocephin Zithromax IV NS@75cc/hr Robitussin DM PRN cough Tylenol PRN fever DuoNEB NEB q4hr PRN wheezing or SOB 2. T2DM: HgA1c 6.2 Hold Metformin Low dose Insulin Lispro AC HS Accu Chek AC Hypoglycemia protocol Diabetic diet 3. Essential HTN: Currently normotensive Continue home regimen of oral antihypertensives 4. Dyslipidemia: Continue statin therapy 5. BPH: Continue Terazosin 6. CKD stage III: IV NS@75cc/hr Repeat CMP in the morning to trend kidney functions GI ppx: not currently indicated DVT ppx: Heparin Code status: Full Prognosis: stable Disposition: observation med surg Time Spent With Patient Time: Total time spent is greater than 50% in coordination of care (as documented) at patient's floor/unit and/or counseling patient: Total time spent with greater than 50% in coordination of care (as documented) at patient's floor/unit and/or counseling patient:: 15 - 24 minutes QUALITY Stroke Symptom Onset Unknown: No VTE Deep Vein Thrombosis/Pulmonary Embolism Present on Admission: No
[2021-05-08] MEDS: ZOLPIDEM 5 MG TABLET PO PRN (20:42)
[2021-05-08] MEDS: SIMVASTATIN 10 MG TABLET PO SCH (20:42)
[2021-05-08] MEDS: SENNOSIDES 1 TABLET PO SCH (20:42)
[2021-05-08] MEDS: TERAZOSIN 5 MG CAPSULE PO SCH (20:42)
[2021-05-09 06:49] LABS: Basophils # (Auto) 0.02 K/mcL (0.00-0.20); Basophils % (Auto) 0.1 % (0.0-2.0); Eosinophils # (Auto) 0.02 K/mcL (0.00-0.70); Eosinophils % (Auto) 0.1 % (0.0-7.0); Hemoglobin 7.3 g/dL (13.5-16.5); Lymphocytes # (Auto) 0.84 K/mcL (1.50-4.80); Lymphocytes % (Auto) 5.1 % (15.0-49.0); Mean Cell Volume 93.8 fL (80.0-100.0); Mean Corpuscular HGB Conc 30.4 g/dL (31.0-36.0); Mean Platelet Volume 9.5 fL (7.4-10.4); Monocytes # (Auto) 0.92 K/mcL (0.10-0.90); Monocytes % (Auto) 5.6 % (1.0-12.0); Neutrophils % (Auto) 89.1 % (38.0-78.0); Platelet Count 399 K/mcL (140-440); RBC 2.56 M/mcL (4.50-5.90); WBC 16.3 K/mcL (4.5-11.0)
[2021-05-09] MEDS: INSULIN LISPRO 1 UNIT/0.01 ML UNIT SQ SCH ×4 (07:09→21:24)
[2021-05-09] MEDS: 0.9 % SODIUM CHLORIDE 10 ML SYRINGE IV SCH ×3 (07:09→21:26)
[2021-05-09] MEDS: 0.9 % SODIUM CHLORIDE 1,000 ML IV SCH (07:09)
[2021-05-09 07:20] LABS: ALT/SGPT 9 U/L (<40); AST/SGOT 13 U/L (<40); Albumin 2.4 gm/dL (3.2-5.2); Albumin/Globulin Ratio 0.7 (1.0-2.3); Alkaline Phosphatase 99 U/L (39-117); Bilirubin,Total 0.2 mg/dL (0.1-1.0); Blood Urea Nitrogen 41 mg/dL (8-23); Calcium 8.7 mg/dL (8.6-10.4); Carbon Dioxide 17 mmol/L (22-30); Chloride 106 mmol/L (96-108); Globulin 3.5 gm/dL (2.2-3.7); Glomerular Filtration Rate 34; Glucose 118 mg/dL (70-105)
--- NOTE | 2021-05-09 09:20 | Internal Med Progress Note ---
SUBJECTIVE Subjective Patient information: Note initiated : 05/09/21 at 9:16 am Service Date, if different from initiated Date: [] Patient: Camron Morel a 80 y/o M admitted on 05/07/21 for Chest Pain . Chief Complaint: [Pneumonia] History of present illness: Mr. Morel is a 80 year old M history of basal cell carcinoma of the face, type 2 diabetes, essential hypertension, mixed dyslipidemia, chronic kidney disease stage III, BPH, presenting with chest pain, nonproductive cough, and shortness of breath. He has been vaccinated against Covid pneumonia. He denies any sick contact or recent travel. He was in his usual state of health until 4 days ago when he had acute onset of chest pain, nonproductive cough, and shortness of breath. Chest pain was moderate to severe, sharp, exacerbated when he coughs. He denies any fever or chills. Due to his symptoms, he decided to come to our ED for further evaluations today. Vital signs at ED presentations completely unremarkable. Labs remarkable for leukocytosis with WBC 14.5. Serum lactic acid normal at 0.7. Covid Debi screening test negative. Covid PCR test pending. Chest x-ray showing left- sided pulmonary infiltrate as well as left sided pleural effusions. Patient is currently tolerating room air. 05/08: CoVID PRC negative. Blood cultures no growth to date. Troponin-i: 0.04, 0.04, 0.05. Afebrile. Been tolerating room air. Denies chest pain. Denies SOB. c/o nonproductive cough. Denies fever or chills. 05/09: Afebrile overnight. Tolerating room air overnight. WBC jumps from 12 to 16 this morning. Still c/o nonproductive cough and left sided chest pain when he coughs. Denies fever or chills. Denies general body weakness. Constitutional Vitals: Vital Signs Temp Pulse Resp BP Pulse Ox 36.4 C 88 22 143/70 93 05/09/21 04:04 05/09/21 04:04 05/09/21 04:04 05/09/21 04:04 05/09/21 04:04 Period Temp Pulse Resp BP Sys/Jameson Pulse Ox Last 24 Hr 36.4 C-36.8 C 80-92 20-24 132-147/60-70 91-94 Intake and Output 05/08/21 05/09/21 05/09/21 21:59 05:59 13:59 Intake Total 960 400 Output Total 675 350 Balance 285 50 Weight 70.76 kg Intake & Output: Intake & Output 05/08/21 05/09/21 05/09/21 21:59 05:59 13:59 Intake Total 960 400 Output Total 675 350 Balance 285 50 Weight 70.76 kg Intake: Oral 960 400 Output: Void Amount 675 350 Other: Meal Dinner Percent of Meal Consumed 75% Urine Color Dark Yellow # Voids 1 General appearance: cooperative and no acute distress Head Head exam: Present atraumatic and normocephalic Additional comments: Left face and ear surgically trimmed Eye Eye exam: Present EOMI and PERRL ENT ENT exam: Present mucous membranes moist, normal exam and normal external ear exam Additional comments: Left face and ear surgically trimmed Neck Neck exam: Present normal inspection; Absent lymphadenopathy, tenderness and th yromegaly Respiratory Respiratory exam: Absent accessory muscle use, respiratory distress and wheezes Additional comments: Decreased breath sound left lower lung base Cardiovascular Cardiovascular exam: Present normal rate and rhythm; Absent JVD GI/Abdominal GI/Abdominal exam: Present normal bowel sounds and soft; Absent organomegaly and tenderness Rectal Rectal exam: Present deferred Extremities Exam Extremities exam: Present full ROM, normal capillary refill and normal inspection; Absent tenderness Neurological Exam Neurological exam: Present alert, CN II-XII intact and oriented X3; Absent motor sensory deficit Psychiatric Psychiatric exam: Present normal affect and normal mood; Absent anxious and depressed Skin Skin exam: Present dry and intact OBJ DATA Labs CBC & Chem 7: 05/09/21 05:27 05/09/21 05:26 Labs: Abnormal Lab Results 05/09/21 05/09/21 05/08/21 05:27 05:26 05:25 WBC 16.3 H RBC 2.56 L Hgb 7.3 L Hct 24.0 L POC Hct MCHC 30.4 L Neut % (Auto) 89.1 H Lymph % (Auto) 5.1 L Lymph # (Auto) 0.84 L Haralson # (Auto) 0.92 H Absolute Neutrophils 14.52 H POC Chloride Chloride 109 H Carbon Dioxide 17 L 17 L POC Total CO2 POC BUN BUN 41 H 39 H Creatinine 1.8 H 1.6 H POC Creatinine Glucose 118 H 117 H POC Glucose POC WB Ioniz Calcium Troponin T Total Protein 5.8 L Albumin 2.4 L 2.4 L Albumin/Globulin Ratio 0.7 L 0.7 L 05/08/21 05/08/21 05/07/21 05:25 00:05 18:10 WBC 12.5 H RBC 2.49 L Hgb 7.5 L Hct 23.7 L POC Hct MCHC Neut % (Auto) 87.5 H Lymph % (Auto) 6.3 L Lymph # (Auto) 0.79 L Haralson # (Auto) Absolute Neutrophils 10.94 H POC Chloride Chloride Carbon Dioxide POC Total CO2 POC BUN BUN Creatinine POC Creatinine Glucose POC Glucose POC WB Ioniz Calcium Troponin T 0.05 H* 0.04 H* Total Protein Albumin Albumin/Globulin Ratio 05/07/21 05/07/21 05/07/21 07:53 07:46 07:46 WBC 14.5 H RBC 2.55 L Hgb 7.6 L Hct 23.6 L POC Hct 23 L MCHC Neut % (Auto) 87.6 H Lymph % (Auto) 6.3 L Lymph # (Auto) 0.91 L Har[place]on # (Auto) Absolute Neutrophils 12.65 H POC Chloride 111 H Chloride Carbon Dioxide POC Total CO2 16 L POC BUN 48 H BUN Creatinine POC Creatinine 1.7 H Glucose POC Glucose 145 H POC WB Ioniz Calcium 1.33 H Troponin T 0.04 H* Total Protein Albumin Albumin/Globulin Ratio Meds: Medications Acetaminophen (Acetaminophen 325 Mg Tablet) 650 mg PO Q6HP PRN; Protocol PRN Reason: Per Pain Protocol/Fever > 101 Albuterol/Ipratropium (Ipratropium/Albuterol 3 Ml Ampul.Neb) 3 ml NEB Q4HP PRN PRN Reason: Shortness Of Breath Ascorbic Acid (Ascorbic Acid 500 Mg Tablet) 1,000 mg PO DAILY [facility] Last Admin: 05/08/21 07:50 Dose: 1,000 mg Documented by: Ceftriaxone Sodium (Ceftriaxone 1 Gm Vial) 1 gm IV Q24H [facility] Last Admin: 05/08/21 10:00 Dose: 1 gm Documented by: Dextrose (Dextrose 50% 50 Ml Vial) 0 ml IV UD PRN PRN Reason: Hypoglycemia Diagnostic Test (Pha) (Accu-Chek 1 Each Strip) 1 each FS ACHS [facility] Last Admin: 05/09/21 07:06 Dose: 1 each Documented by: Docusate Sodium (Docusate Sodium 100 Mg Capsule) 100 mg PO BID [facility] Last Admin: 05/08/21 20:42 Dose: 100 mg Documented by: Ferrous Gluconate (Ferrous Gluconate 324 Mg Tablet) 324 mg PO QDAY [facility] Last Admin: 05/08/21 07:50 Dose: 324 mg Documented by: Glucose (Dextrose 31 Gm Oral.Susp) 15 gm PO PRN PRN PRN Reason: Hypoglycemia Guaifenesin (Guaifenesin/Dextromethorphan Oral Tracy) 10 ml PO Q4HP PRN PRN Reason: Cough Heparin Sodium (Porcine) (Heparin 5,000 Unit/Ml Vial) 5,000 unit SQ Q12 [facility] Last Admin: 05/08/21 20:42 Dose: 5,000 unit Documented by: Sodium Chloride (Sodium Chloride 0.9%) 1,000 mls @ 75 mls/hr IV .[id number] [facility] Last Admin: 05/09/21 07:09 Dose: Not Given Documented by: Azithromycin 500 mg/ Dextrose 250 mls @ 250 mls/hr IV Q24H [facility]; Protocol Stop: 05/09/21 13:59 Last Infusion: 05/08/21 08:49 Dose: Infused Documented by: Ibuprofen (Ibuprofen 600 Mg Tablet) 600 mg PO QIDP PRN; Protocol PRN Reason: Per Pain Protocol/Fever > 101 Last Admin: 05/08/21 07:50 Dose: 600 mg Documented by: Indapamide (Indapamide 2.5 Mg Tablet) 1.25 mg PO DAILY [facility] Last Admin: 05/08/21 07:51 Dose: 1.25 mg Documented by: Insulin Human Lispro (Insulin Lispro 1 Unit/0.01 Ml Unit) 0 unit SQ ACHS [facility]; Protocol Last Admin: 05/09/21 07:09 Dose: Not Given Documented by: Losartan Potassium (Losartan 50 Mg Tablet) 100 mg PO DAILY [facility] Last Admin: 05/08/21 07:50 Dose: 100 mg Documented by: Morphine Sulfate (Morphine 4 Mg/Ml Vial) 4 mg IV Q4HP PRN; Protocol PRN Reason: Per Pain Protocol Ondansetron HCl (Ondansetron 4 Mg/2 Ml Vial) 4 mg IV Q6HP PRN PRN Reason: Nausea And Vomiting Polyethylene Glycol (Polyethylene Glycol 3350 17 Gm Packet) 17 gm PO DAILYP PRN PRN Reason: Constipation Last Admin: 05/08/21 14:50 Dose: 17 gm Documented by: Pyridoxine HCl (Pyridoxine 100 Mg Tablet) 100 mg PO QDAY [facility] Last Admin: 05/08/21 07:50 Dose: 100 mg Documented by: Senna (Sennosides 1 Tablet) 2 tab PO [facility] Last Admin: 05/08/21 20:42 Dose: 2 tab Documented by: Simvastatin (Simvastatin 10 Mg Tablet) 20 mg PO QPM [facility] Last Admin: 05/08/21 20:42 Dose: 20 mg Documented by: Sodium Chloride (0.9 % Sodium Chloride 10 Ml Syringe) 10 ml IV Q8 [facility] Last Admin: 05/09/21 07:09 Dose: Not Given Documented by: Terazosin HCl (Terazosin 5 Mg Capsule) 10 mg PO [facility] Last Admin: 05/08/21 20:42 Dose: 10 mg Documented by: Zolpidem Tartrate (Zolpidem 5 Mg Tablet) 5 mg PO [facility] PRN PRN Reason: Insomnia Last Admin: 05/08/21 20:42 Dose: 5 mg Documented by: A/P Assessment and plan (1) Left lower lobe pneumonia: Status: Acute Qualifiers: Pneumonia type: due to unspecified organism Qualified Code(s): J18.9 - Pneumonia, unspecified organism (2) Hyperlipidemia: Status: Chronic Qualifiers: Hyperlipidemia type: pure hypercholesterolemia Qualified Code(s): E78.00 - Pure hypercholesterolemia, unspecified; E78.00 - Pure hypercholesterolemia, unspecified; E78.00 - Pure hypercholesterolemia, unspecified; E78.0 - Pure hypercholesterolemia (3) Hypertension, essential: Status: Chronic (4) Diabetes mellitus, type II: Status: Chronic Qualifiers: Diabetes mellitus complication status: without complication 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 Community acquired pneumonia: Stays in observation med surg CoVID PCR negative Supplemental oxygen as needed via nasal cannula titrate to achieve spo2 >=92% Blood culture X2 n growth to date cbc w/ auto diff in the morning to trend WBC Rocephin Zithromax Saline lock Robitussin DM PRN cough Tylenol PRN fever DuoNEB NEB q4hr PRN wheezing or SOB Repeat chest X ray 2. T2DM: HgA1c 6.2 Hold Metformin Low dose Insulin Lispro AC HS Accu Chek AC HS Hypoglycemia protocol Diabetic diet 3. Essential HTN: Currently normotensive Continue home regimen of oral antihypertensives 4. Dyslipidemia: Continue statin therapy 5. BPH: Continue Terazosin 6. CKD stage III: Avoid nephrotoxic agents Saline lock Repeat CMP in the morning to trend kidney functions GI ppx: not currently indicated DVT ppx: Heparin Code status: Full Prognosis: stable Disposition: inpatient med surg Time Spent With Patient Time: Total time spent is greater than 50% in coordination of care (as documented) at patient's floor/unit and/or counseling patient: QUALITY Stroke Symptom Onset Unknown: No VTE Deep Vein Thrombosis/Pulmonary Embolism Present on Admission: No
--- NOTE | 2021-05-09 09:48 | XRay Report ---
INDICATION: repeat study TECHNIQUE: AP portable upright chest x-ray COMPARISON: Previous chest x-rays dated 05/07/2021, 04/04/2021, 04/02/2021 FINDINGS: Lungs:Left basilar consolidation consistent with pneumonia. Moderate left pleural effusion is increased since 05/07/2021. Right lung remains negative Heart, vascular:No significant cardiomegaly. Pulmonary vascularity is normal. No pulmonary edema or pulmonary congestion Mediastinum, neeru:No mediastinal widening. No hilar mass Pleura:Moderate left pleural effusion. This has increased in size since previous examination dated 05/07/2021. This is new since 04/04/2021. There is no right pleural effusion. Skeletal:Negative. There are surgical clips in the left axilla IMPRESSION: 1. Left basilar consolidation consistent with pneumonia 2. Moderate left pleural effusion, increased since 05/07/2021 Interpreted and Authenticated by: Jayro Corado 05/09/21
[2021-05-09] MEDS: cefTRIAXone 1 GM VIAL IV SCH (09:59)
[2021-05-09] MEDS: AZITHROMYCIN 500 MG in DEXTROSE 5% IN WATER 250 ML IV SCH (10:04)
[2021-05-09] MEDS: FERROUS GLUCONATE 324 MG TABLET PO SCH (10:06)
[2021-05-09] MEDS: ASCORBIC ACID 500 MG TABLET PO SCH (10:06)
[2021-05-09] MEDS: DOCUSATE SODIUM 100 MG CAPSULE PO SCH ×2 (10:06→20:39)
[2021-05-09] MEDS: PYRIDOXINE 100 MG TABLET PO SCH (10:07)
[2021-05-09] MEDS: HEPARIN 5,000 UNIT/ML VIAL SQ SCH ×2 (10:11→21:25)
[2021-05-09] MEDS: INDAPAMIDE 2.5 MG TABLET PO SCH (11:07)
[2021-05-09] MEDS: LOSARTAN 50 MG TABLET PO SCH (11:07)
[2021-05-09] MEDS: SENNOSIDES 1 TABLET PO SCH (20:39)
[2021-05-09] MEDS: SIMVASTATIN 10 MG TABLET PO SCH (21:25)
[2021-05-09] MEDS: TERAZOSIN 5 MG CAPSULE PO SCH (21:26)
[2021-05-10] MEDS: 0.9 % SODIUM CHLORIDE 10 ML SYRINGE IV SCH ×3 (06:03→20:16)
[2021-05-10 06:53] LABS: Basophils # (Auto) 0.01 K/mcL (0.00-0.20); Basophils % (Auto) 0.1 % (0.0-2.0); Eosinophils # (Auto) 0.03 K/mcL (0.00-0.70); Eosinophils % (Auto) 0.2 % (0.0-7.0); Hematocrit 24.6 % (41.0-55.0); Hemoglobin 7.8 g/dL (13.5-16.5); Lymphocytes # (Auto) 1.71 K/mcL (1.50-4.80); Lymphocytes % (Auto) 9.9 % (15.0-49.0); Mean Cell Volume 91.8 fL (80.0-100.0); Mean Corpuscular HGB Conc 31.7 g/dL (31.0-36.0); Mean Platelet Volume 9.4 fL (7.4-10.4); Monocytes # (Auto) 1.15 K/mcL (0.10-0.90); Monocytes % (Auto) 6.7 % (1.0-12.0); Neutrophils % (Auto) 83.1 % (38.0-78.0); Platelet Count 438 K/mcL (140-440); RBC 2.68 M/mcL (4.50-5.90); Red Cell Distribution Width 13.2 % (11.5-14.5); WBC 17.2 K/mcL (4.5-11.0)
[2021-05-10] MEDS: INSULIN LISPRO 1 UNIT/0.01 ML UNIT SQ SCH ×4 (07:30→20:13)
[2021-05-10 07:38] LABS: ALT/SGPT 11 U/L (<40); AST/SGOT 15 U/L (<40); Albumin 2.3 gm/dL (3.2-5.2); Albumin/Globulin Ratio 0.6 (1.0-2.3); Alkaline Phosphatase 98 U/L (39-117); Bilirubin,Total 0.2 mg/dL (0.1-1.0); Blood Urea Nitrogen 38 mg/dL (8-23); Calcium 8.8 mg/dL (8.6-10.4); Carbon Dioxide 16 mmol/L (22-30); Chloride 106 mmol/L (96-108); Globulin 3.6 gm/dL (2.2-3.7); Glomerular Filtration Rate 32; Glucose 110 mg/dL (70-105)
--- NOTE | 2021-05-10 07:54 | Internal Med Progress Note ---
SUBJECTIVE Subjective Patient information: Note initiated : 05/10/21 at 7:52 am Service Date, if different from initiated Date: [] Patient: Camron Morel a 80 y/o M admitted on 05/09/21 for Chest Pain . Chief Complaint: [Pneumonia] History of present illness: Mr. Morel is a 80 year old M history of basal cell carcinoma of the face, type 2 diabetes, essential hypertension, mixed dyslipidemia, chronic kidney disease stage III, BPH, presenting with chest pain, nonproductive cough, and shortness of breath. He has been vaccinated against Covid pneumonia. He denies any sick contact or recent travel. He was in his usual state of health until 4 days ago when he had acute onset of chest pain, nonproductive cough, and shortness of breath. Chest pain was moderate to severe, sharp, exacerbated when he coughs. He denies any fever or chills. Due to his symptoms, he decided to come to our ED for further evaluations today. Vital signs at ED presentations completely unremarkable. Labs remarkable for leukocytosis with WBC 14.5. Serum lactic acid normal at 0.7. Covid Debi screening test negative. Covid PCR test pending. Chest x-ray showing left- sided pulmonary infiltrate as well as left sided pleural effusions. Patient is currently tolerating room air. 05/08: CoVID PRC negative. Blood cultures no growth to date. Troponin-i: 0.04, 0.04, 0.05. Afebrile. Been tolerating room air. Denies chest pain. Denies SOB. c/o nonproductive cough. Denies fever or chills. 05/09: Afebrile overnight. Tolerating room air overnight. WBC jumps from 12 to 16 this morning. Still c/o nonproductive cough and left sided chest pain when he coughs. Denies fever or chills. Denies general body weakness. 05/10: Afebrile overnight. Tolerating room air overnight. WBC jumps from 16 to 17 this morning. Still c/o nonproductive cough and left sided chest pain when he coughs. Denies fever or chills. Denies general body weakness. Constitutional Vitals: Vital Signs Temp Pulse Resp BP Pulse Ox 36.6 C 88 20 134/65 92 05/10/21 07:05 05/10/21 07:05 05/10/21 07:05 05/10/21 07:05 05/10/21 07:05 Period Temp Pulse Resp BP Sys/Jameson Pulse Ox Last 24 Hr 36.1 C-37.2 C 85-99 18-22 126-143/64-72 91-93 Intake and Output 05/09/21 05/10/21 05/10/21 21:59 05:59 13:59 Intake Total 125 400 Output Total 325 201 225 Balance -200 199 -225 Weight 71.894 kg Intake & Output: Intake & Output 05/09/21 05/10/21 05/10/21 21:59 05:59 13:59 Intake Total 125 400 Output Total 325 201 225 Balance -200 199 -225 Weight 71.894 kg Intake: Oral 125 400 Output: Void Amount 325 200 225 # of times incontinent of urine 1 Other: Meal Dinner Percent of Meal Consumed 75% Feeding Ability Independent Urine Appearance Clear Clear Clear Urine Color Bright Yellow Bright Yellow Bright Yellow Urine Odor Normal Normal # Voids 1 1 General appearance: cooperative and no acute distress Head Head exam: Present atraumatic and normocephalic Additional comments: Left face and ear surgically trimmed Eye Eye exam: Present EOMI and PERRL ENT ENT exam: Present mucous membranes moist, normal exam and normal external ear exam Additional comments: Left face and ear surgically trimmed Neck Neck exam: Present normal inspection; Absent lymphadenopathy, tenderness and thyromegaly Respiratory Respiratory exam: Absent accessory muscle use, respiratory distress and wheezes Additional comments: Decreased breath sound left lower lung base Cardiovascular Cardiovascular exam: Present normal rate and rhythm; Absent JVD GI/Abdominal GI/Abdominal exam: Present normal bowel sounds and soft; Absent organomegaly and tenderness Rectal Rectal exam: Present deferred Extremities Exam Extremities exam: Present full ROM, normal capillary refill and normal inspection; Absent tenderness Neurological Exam Neurological exam: Present alert, CN II-XII intact and oriented X3; Absent motor sensory deficit Psychiatric Psychiatric exam: Present normal affect and normal mood; Absent anxious and depressed Skin Skin exam: Present dry and intact OBJ DATA Labs CBC & Chem 7: 05/10/21 05:24 05/10/21 05:24 Labs: Abnormal Lab Results 05/10/21 05/10/21 05/09/21 05:24 05:24 05:27 WBC 17.2 H 16.3 H RBC 2.68 L 2.56 L Hgb 7.8 L 7.3 L Hct 24.6 L 24.0 L POC Hct MCHC 30.4 L Neut % (Auto) 83.1 H 89.1 H Lymph % (Auto) 9.9 L 5.1 L Lymph # (Auto) 0.84 L Cherry # (Auto) 1.15 H 0.92 H Absolute Neutrophils 14.33 H 14.52 H POC Chloride Chloride Carbon Dioxide 16 L POC Total CO2 POC BUN BUN 38 H Creatinine 1.9 H POC Creatinine Glucose 110 H POC Glucose POC WB Ioniz Calcium Troponin T Total Protein Albumin 2.3 L Albumin/Globulin Ratio 0.6 L 05/09/21 05/08/21 05/08/21 05:26 05:25 05:25 WBC 12.5 H RBC 2.49 L Hgb 7.5 L Hct 23.7 L POC Hct MCHC Neut % (Auto) 87.5 H Lymph % (Auto) 6.3 L Lymph # (Auto) 0.79 L Cherry # (Auto) Absolute Neutrophils 10.94 H POC Chloride Chloride 109 H Carbon Dioxide 17 L 17 L POC Total CO2 POC BUN BUN 41 H 39 H Creatinine 1.8 H 1.6 H POC Creatinine Glucose 118 H 117 H POC Glucose POC WB Ioniz Calcium Troponin T Total Protein 5.8 L Albumin 2.4 L 2.4 L Albumin/Globulin Ratio 0.7 L 0.7 L 05/08/21 05/07/21 05/07/21 00:05 18:10 07:53 WBC RBC Hgb Hct POC Hct MCHC Neut % (Auto) Lymph % (Auto) Lymph # (Auto) Cherry # (Auto) Absolute Neutrophils POC Chloride Chloride Carbon Dioxide POC Total CO2 POC BUN BUN Creatinine POC Creatinine Glucose POC Glucose POC WB Ioniz Calcium Troponin T 0.05 H* 0.04 H* 0.04 H* Total Protein Albumin Albumin/Globulin Ratio 05/07/21 05/07/21 07:46 07:46 WBC 14.5 H RBC 2.55 L Hgb 7.6 L Hct 23.6 L POC Hct 23 L MCHC Neut % (Auto) 87.6 H Lymph % (Auto) 6.3 L Lymph # (Auto) 0.91 L Cherry # (Auto) Absolute Neutrophils 12.65 H POC Chloride 111 H Chloride Carbon Dioxide POC Total CO2 16 L POC BUN 48 H BUN Creatinine POC Creatinine 1.7 H Glucose POC Glucose 145 H POC WB Ioniz Calcium 1.33 H Troponin T Total Protein Albumin Albumin/Globulin Ratio Meds: Medications Acetaminophen (Acetaminophen 325 Mg Tablet) 650 mg PO Q6HP PRN; Protocol PRN Reason: Per Pain Protocol/Fever > 101 Albuterol/Ipratropium (Ipratropium/Albuterol 3 Ml Ampul.Neb) 3 ml NEB Q4HP PRN PRN Reason: Shortness Of Breath Ascorbic Acid (Ascorbic Acid 500 Mg Tablet) 1,000 mg PO DAILY [facility] Last Admin: 05/09/21 10:06 Dose: 1,000 mg Documented by: Ceftriaxone Sodium (Ceftriaxone 1 Gm Vial) 1 gm IV Q24H [facility] Last Admin: 05/09/21 09:59 Dose: 1 gm Documented by: Dextrose (Dextrose 50% 50 Ml Vial) 0 ml IV UD PRN PRN Reason: Hypoglycemia Diagnostic Test (Pha) (Accu-Chek 1 Each Strip) 1 each FS [facility] Last Admin: 05/10/21 07:21 Dose: 1 each Documented by: Docusate Sodium (Docusate Sodium 100 Mg Capsule) 100 mg PO BID [facility] Last Admin: 05/09/21 20:39 Dose: Not Given Documented by: Ferrous Gluconate (Ferrous Gluconate 324 Mg Tablet) 324 mg PO QDAY [facility] Last Admin: 05/09/21 10:06 Dose: 324 mg Documented by: Glucose (Dextrose 31 Gm Oral.Susp) 15 gm PO PRN PRN PRN Reason: Hypoglycemia Guaifenesin (Guaifenesin/Dextromethorphan Oral Tracy) 10 ml PO Q4HP PRN PRN Reason: Cough Heparin Sodium (Porcine) (Heparin 5,000 Unit/Ml Vial) 5,000 unit SQ Q12 [facility] Last Admin: 05/09/21 21:25 Dose: 5,000 unit Documented by: Ibuprofen (Ibuprofen 600 Mg Tablet) 600 mg PO QIDP PRN; Protocol PRN Reason: Per Pain Protocol/Fever > 101 Last Admin: 05/08/21 07:50 Dose: 600 mg Documented by: Indapamide (Indapamide 2.5 Mg Tablet) 1.25 mg PO DAILY [facility] Last Admin: 05/09/21 11:07 Dose: 1.25 mg Documented by: Insulin Human Lispro (Insulin Lispro 1 Unit/0.01 Ml Unit) 0 unit SQ [facility]; Protocol Last Admin: 05/10/21 07:30 Dose: 3 units Documented by: Losartan Potassium (Losartan 50 Mg Tablet) 100 mg PO DAILY [facility] Last Admin: 05/09/21 11:07 Dose: 100 mg Documented by: Morphine Sulfate (Morphine 4 Mg/Ml Vial) 4 mg IV Q4HP PRN; Protocol PRN Reason: Per Pain Protocol Ondansetron HCl (Ondansetron 4 Mg/2 Ml Vial) 4 mg IV Q6HP PRN PRN Reason: Nausea And Vomiting Polyethylene Glycol (Polyethylene Glycol 3350 17 Gm Packet) 17 gm PO DAILYP PRN PRN Reason: Constipation Last Admin: 05/08/21 14:50 Dose: 17 gm Documented by: Pyridoxine HCl (Pyridoxine 100 Mg Tablet) 100 mg PO QDAY [facility] Last Admin: 05/09/21 10:07 Dose: 100 mg Documented by: Senna (Sennosides 1 Tablet) 2 tab PO [facility] Last Admin: 05/09/21 20:39 Dose: Not Given Documented by: Simvastatin (Simvastatin 10 Mg Tablet) 20 mg PO QPM [facility] Last Admin: 05/09/21 21:25 Dose: 20 mg Documented by: Sodium Chloride (0.9 % Sodium Chloride 10 Ml Syringe) 10 ml IV Q8 [facility] Last Admin: 05/10/21 06:03 Dose: Not Given Documented by: Terazosin HCl (Terazosin 5 Mg Capsule) 10 mg PO [facility] Last Admin: 05/09/21 21:26 Dose: 10 mg Documented by: Zolpidem Tartrate (Zolpidem 5 Mg Tablet) 5 mg PO [facility] PRN PRN Reason: Insomnia Last Admin: 05/08/21 20:42 Dose: 5 mg Documented by: A/P Assessment and plan (1) Left lower lobe pneumonia: Status: Acute Qualifiers: Pneumonia type: due to unspecified organism Qualified Code(s): J18.9 - Pneumonia, unspecified organism (2) Hyperlipidemia: Status: Chronic Qualifiers: Hyperlipidemia type: pure hypercholesterolemia Qualified Code(s): E78.00 - Pure hypercholesterolemia, unspecified; E78.00 - Pure hypercholesterole adele, unspecified; E78.00 - Pure hypercholesterolemia, unspecified; E78.0 - Pure hypercholesterolemia (3) Hypertension, essential: Status: Chronic (4) Diabetes mellitus, type II: Status: Chronic Qualifiers: Diabetes mellitus complication status: without complication Diabetes mellitus fdc insulin use: without rn long term care use Qualified Code(s): E11.9 - Type 2 diabetes mellitus without complications (5) BPH without urinary obstruction: Status: Chronic Comment: Continue Terazonsin 10mg nightly (6) CKD stage 3 due to type 2 diabetes mellitus: Status: Acute Narrative A/P Narrative: Assessment and Plans: 1. Community acquired pneumonia: Stays in observation med surg CoVID PCR negative Supplemental oxygen as needed via nasal cannula titrate to achieve spo2 >=92% Blood culture X2 n growth to date cbc w/ auto diff in the morning to trend WBC Rocephin Zithromax Saline lock Robitussin DM PRN cough Tylenol PRN fever DuoNEB NEB q4hr PRN wheezing or SOB Repeat chest X ray Consult ID Dr. Kerr, recs. appreciated 2. T2DM: HgA1c 6.2 Hold Metformin Low dose Insulin Lispro AC HS Accu Chek AC HS Hypoglycemia protocol Diabetic diet 3. Essential HTN: Currently normotensive Continue home regimen of oral antihypertensives 4. Dyslipidemia: Continue statin therapy 5. BPH: Continue Terazosin 6. CKD stage III: Avoid nephrotoxic agents Saline lock Repeat CMP in the morning to trend kidney functions GI ppx: not currently indicated DVT ppx: Heparin Code status: Full Prognosis: stable Disposition: inpatient med surg Time Spent With Patient Time: Total time spent is greater than 50% in coordination of care (as documented) at patient's floor/unit and/or counseling patient: Total time spent with greater than 50% in coordination of care (as documented) at patient's floor/unit and/or counseling patient:: 25 - 35 minutes QUALITY Stroke Symptom Onset Unknown: No VTE Deep Vein Thrombosis/Pulmonary Embolism Present on Admission: No
[2021-05-10] MEDS: LOSARTAN 50 MG TABLET PO SCH (12:04)
[2021-05-10] MEDS: DOCUSATE SODIUM 100 MG CAPSULE PO SCH ×2 (12:04→20:21)
[2021-05-10] MEDS: PYRIDOXINE 100 MG TABLET PO SCH (12:05)
[2021-05-10] MEDS: FERROUS GLUCONATE 324 MG TABLET PO SCH (12:05)
[2021-05-10] MEDS: ASCORBIC ACID 500 MG TABLET PO SCH (12:06)
[2021-05-10] MEDS: HEPARIN 5,000 UNIT/ML VIAL SQ SCH ×2 (12:22→20:13)
[2021-05-10] MEDS: INDAPAMIDE 2.5 MG TABLET PO SCH (12:22)
--- NOTE | 2021-05-10 12:27 | Internal Med Progress Note ---
SUBJECTIVE Subjective Patient information: Note initiated : 05/11/21 at 12:11 pm Service Date, if different from initiated Date: [] Patient: Camron Morel a 80 y/o M admitted on 05/09/21 for Chest Pain . Chief Complaint: [] Interval history: History of present illness: Mr. Morel is a 80 year old M history of basal cell carcinoma of the face, type 2 diabetes, essential hypertension, mixed dyslipidemia, chronic kidney disease stage III, BPH, pres enting with chest pain, nonproductive cough, and shortness of breath. He has been vaccinated against Covid pneumonia. He denies any sick contact or recent travel. He was in his usual state of health until 4 days ago when he had acute onset of chest pain, nonproductive cough, and shortness of breath. Chest pain was moderate to severe, sharp, exacerbated when he coughs. He denies any fever or chills. Due to his symptoms, he decided to come to our ED for further evaluations today. Vital signs at ED presentations completely unremarkable. Labs remarkable for leukocytosis with WBC 14.5. Serum lactic acid normal at 0.7. Covid Debi screening test negative. Covid PCR test-not detected. Chest x-ray showing left-sided pulmonary infiltrate as well as left sided pleural effusions. Patient is currently tolerating room air. 05/08: CoVID PRC negative. Blood cultures no growth to date. Troponin-i: 0.04, 0.04, 0.05. Afebrile. Been tolerating room air. Denies chest pain. Denies SOB. c/o nonproductive cough. Denies fever or chills. 05/09: Afebrile overnight. Tolerating room air overnight. WBC jumps from 12 to 16 this morning. Still c/o nonproductive cough and left sided chest pain when he coughs. Denies fever or chills. Denies general body weakness. 05/10: Afebrile overnight. Tolerating room air overnight. WBC jumps from 16 to 17 this morning. Still c/o nonproductive cough and left sided chest pain when he coughs. Denies fever or chills. Denies general body weakness. 05/11: Point of care ultrasound exam shows a moderate left pleural effusion that appears complex and potentially loculated. Further working including CT chest and thoracentesis along with goals of care discussed with the patient and his daughter at the bedside. The patient wants to proceed with further workup and thoracentesis. CT chest ordered, likely will be followed by thoracentesis. Transitioned antibiotic therapy from Ceftriaxone and Azithromycin to Zosyn. Tachycardic-EKG suggests SVT. Review of systems: no fevers, positive for cough and left sided pleuritic chest pain. Head: Atraumatic, normal inspection. Eyes: normal appearance, no scleral icterus. Neck: full ROM Respiratory: decreased left lower lobe sounds, no respiratory distress. Cardiovascular: normal rate and rhythm, S1, S2. GI/Abdominal: soft, nontender, no guarding. Extremities: full range of motion, nontender. Neurological: CN II-XII intact, intact motor, intact sensation. Psychiatric: normal mood. Skin: warm, normal color Constitutional Vitals: Vital Signs Temp Pulse Resp BP Pulse Ox 98.4 F 88 16 138/68 93 05/10/21 11:17 05/10/21 07:05 05/10/21 11:17 05/10/21 11:17 05/10/21 11:17 Period Temp Pulse Resp BP Sys/Jameson Pulse Ox Last 24 Hr 96.9 F-99 F 88-99 16-20 126-143/64-71 91-93 Intake and Output 05/09/21 05/10/21 05/10/21 21:59 05:59 13:59 Intake Total 125 400 360 Output Total 325 201 325 Balance -200 199 35 Weight 71.894 kg Intake & Output: Intake & Output 05/09/21 05/10/21 05/10/21 21:59 05:59 13:59 Intake Total 125 400 360 Output Total 325 201 325 Balance -200 199 35 Weight 71.894 kg Intake: Oral 125 400 360 Output: Void Amount 325 200 325 # of times incontinent of urine 1 Other: Meal Dinner Breakfast Percent of Meal Consumed 75% 25% Feeding Ability Independent Urine Appearance Clear Clear Clear Urine Color Bright Yellow Bright Yellow Dark Yellow Urine Odor Normal Normal # Voids 1 1 OBJ DATA Labs CBC & Chem 7: 05/11/21 05:32 05/11/21 05:32 Labs: Abnormal Lab Results 05/10/21 05/10/21 05/09/21 05:24 05:24 05:27 WBC 17.2 H 16.3 H RBC 2.68 L 2.56 L Hgb 7.8 L 7.3 L Hct 24.6 L 24.0 L MCHC 30.4 L Neut % (Auto) 83.1 H 89.1 H Lymph % (Auto) 9.9 L 5.1 L Lymph # (Auto) 0.[address] # (Auto) 1.15 H 0.92 H Absolute Neutrophils 14.33 H 14.52 H Chloride Carbon Dioxide 16 L BUN 38 H Creatinine 1.9 H Glucose 110 H Troponin T Total Protein Albumin 2.3 L Albumin/Globulin Ratio 0.6 L 05/09/21 05/08/21 05/08/21 05:26 05:25 05:25 WBC 12.5 H RBC 2.49 L Hgb 7.5 L Hct 23.7 L MCHC Neut % (Auto) 87.5 H Lymph % (Auto) 6.3 L Lymph # (Auto) 0.[address] # (Auto) Absolute Neutrophils 10.94 H Chloride 109 H Carbon Dioxide 17 L 17 L BUN 41 H 39 H Creatinine 1.8 H 1.6 H Glucose 118 H 117 H Troponin T Total Protein 5.8 L Albumin 2.4 L 2.4 L Albumin/Globulin Ratio 0.7 L 0.7 L 05/08/21 05/07/21 05/07/21 00:05 18:10 07:53 WBC RBC Hgb Hct MCHC Neut % (Auto) Lymph % (Auto) Lymph # (Auto) [facility] # (Auto) Absolute Neutrophils Chloride Carbon Dioxide BUN Creatinine Glucose Troponin T 0.05 H* 0.04 H* 0.04 H* Total Protein Albumin Albumin/Globulin Ratio Meds: Medications Acetaminophen (Acetaminophen 325 Mg Tablet) 650 mg PO Q6HP PRN; Protocol PRN Reason: Per Pain Protocol/Fever > 101 Albuterol/Ipratropium (Ipratropium/Albuterol 3 Ml Ampul.Neb) 3 ml NEB Q4HP PRN PRN Reason: Shortness Of Breath Ascorbic Acid (Ascorbic Acid 500 Mg Tablet) 1,000 mg PO DAILY [facility] Last Admin: 05/10/21 12:06 Dose: 1,000 mg Documented by: Ceftriaxone Sodium (Ceftriaxone 1 Gm Vial) 1 gm IV Q24H [facility]ASE Last Admin: 05/09/21 09:59 Dose: 1 gm Documented by: Dextrose (Dextrose 50% 50 Ml Vial) 0 ml IV UD PRN PRN Reason: Hypoglycemia Diagnostic Test (Pha) (Accu-Chek 1 Each Strip) 1 each FS [facility] Last Admin: 05/10/21 12:07 Dose: 1 each Documented by: Docusate Sodium (Docusate Sodium 100 Mg Capsule) 100 mg PO BID [facility] Last Admin: 05/10/21 12:04 Dose: Not Given Documented by: Ferrous Gluconate (Ferrous Gluconate 324 Mg Tablet) 324 mg PO QDAY [facility] Last Admin: 05/10/21 12:05 Dose: 324 mg Documented by: Glucose (Dextrose 31 Gm Oral.Susp) 15 gm PO PRN PRN PRN Reason: Hypoglycemia Guaifenesin (Guaifenesin/Dextromethorphan Oral [place]) 10 ml PO Q4HP PRN PRN Reason: Cough Heparin Sodium (Porcine) (Heparin 5,000 Unit/Ml Vial) 5,000 unit SQ Q12 [facility] Last Admin: 05/09/21 21:25 Dose: 5,000 unit Documented by: Ibuprofen (Ibuprofen 600 Mg Tablet) 600 mg PO QIDP PRN; Protocol PRN Reason: Per Pain Protocol/Fever > 101 Last Admin: 05/08/21 07:50 Dose: 600 mg Documented by: Indapamide (Indapamide 2.5 Mg Tablet) 1.25 mg PO DAILY [facility] Last Admin: 05/09/21 11:07 Dose: 1.25 mg Documented by: Insulin Human Lispro (Insulin Lispro 1 Unit/0.01 Ml Unit) 0 unit SQ [facility]; Protocol Last Admin: 05/10/21 07:30 Dose: 3 units Documented by: Losartan Potassium (Losartan 50 Mg Tablet) 100 mg PO DAILY [facility] Last Admin: 05/10/21 12:04 Dose: 100 mg Documented by: Morphine Sulfate (Morphine 4 Mg/Ml Vial) 4 mg IV Q4HP PRN; Protocol PRN Reason: Per Pain Protocol Ondansetron HCl (Ondansetron 4 Mg/2 Ml Vial) 4 mg IV Q6HP PRN PRN Reason: Nausea And Vomiting Polyethylene Glycol (Polyethylene Glycol 3350 17 Gm Packet) 17 gm PO DAILYP PRN PRN Reason: Constipation Last Admin: 05/08/21 14:50 Dose: 17 gm Documented by: Pyridoxine HCl (Pyridoxine 100 Mg Tablet) 100 mg PO QDAY [facility] Last Admin: 05/10/21 12:05 Dose: 100 mg Documented by: Senna (Sennosides 1 Tablet) 2 tab PO HS [facility] Last Admin: 05/09/21 20:39 Dose: Not Given Documented by: Simvastatin (Simvastatin 10 Mg Tablet) 20 mg PO QPM [facility] Last Admin: 05/09/21 21:25 Dose: 20 mg Documented by: Sodium Chloride (0.9 % Sodium Chloride 10 Ml Syringe) 10 ml IV Q8 [facility] Last Admin: 05/10/21 06:03 Dose: Not Given Documented by: Terazosin HCl (Terazosin 5 Mg Capsule) 10 mg PO HS [facility] Last Admin: 05/09/21 21:26 Dose: 10 mg Documented by: Zolpidem Tartrate (Zolpidem 5 Mg Tablet) 5 mg PO HSP PRN PRN Reason: Insomnia Last Admin: 05/08/21 20:42 Dose: 5 mg Documented by: A/P Narrative A/P Narrative: Assessment: 80-year-old male with a history of HTN, DM, CKD III, chronic anemia, HLD, BPH, admitted for community acquired pneumonia. #Community acquired pneumonia #Left pleural effusion-appears compled and loculated on POCUS exam, possible parapneumonic effusion #Tachycardia-possible SVT #Chronic anemia #Type 2 Diabetes mellitus #Essential Hypertension #CKD IIIb #Hyperlipidemia #BPH #History of basal cell carcinoma head of left face Plan -Escalated antibiotic to Zosyn IV, discontinued Ceftriaxone and Azithromycin. -Follow all cultures. -Left thoracentesis. -CT chest wo contrast. -Transfer to PCU for trial of adenosine -ID consulted-will consult Thursday. -Follow hemoglobin. -SSI-low, holding Metformin. -Continue home Losartan, holding Indapamide and Lasix. -Continue Simvastatin, Terazosin. 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 -DVT ppx: Heparin SQ -Code status: Full -Disposition: TBD Time Spent With Patient Time: Total time spent is greater than 50% in coordination of care (as documented) at patient's floor/unit and/or counseling patient: QUALITY Stroke Symptom Onset Unknown: No VTE Deep Vein Thrombosis/Pulmonary Embolism Present on Admission: No
[2021-05-10] MEDS ORDERED: cefTRIAXone 1 GM VIAL IV SCH (12:28)
[2021-05-10] MEDS: cefTRIAXone 1 GM VIAL IV SCH (12:45)
[2021-05-10] MEDS ORDERED: cefTRIAXone 2 GM in DEXTROSE 5% IN WATER 50 ML IV SCH (13:00)
[2021-05-10 18:04] LABS: Basophils # (Auto) 0.02 K/mcL (0.00-0.20); Basophils % (Auto) 0.1 % (0.0-2.0); Eosinophils # (Auto) 0.01 K/mcL (0.00-0.70); Eosinophils % (Auto) 0.1 % (0.0-7.0); Hematocrit 24.5 % (40.1-51.0); Hemoglobin 7.9 g/dL (13.7-17.5); Lymphocytes # (Auto) 0.86 K/mcL (1.50-4.80); Lymphocytes % (Auto) 5.4 % (15.0-49.0); Mean Cell Volume 92.5 fL (80.0-100.0); Mean Corpuscular HGB Conc 32.2 g/dL (31.0-36.0); Mean Platelet Volume 9.4 fL (7.4-10.4); Monocytes # (Auto) 0.75 K/mcL (0.10-0.90); Monocytes % (Auto) 4.7 % (1.0-12.0); Neutrophils % (Auto) 89.7 % (38.0-78.0); Platelet Count 430 K/mcL (140-440); RBC 2.65 M/mcL (4.63-6.08); Red Cell Distribution Width 13.1 % (11.5-14.5); WBC 15.9 K/mcL (4.5-11.0)
[2021-05-10 18:22] LABS: Albumin 2.1 gm/dL (3.2-5.2); Blood Urea Nitrogen 38 mg/dL (8-23); Carbon Dioxide 18 mmol/L (22-30); Chloride 102 mmol/L (96-108); Glomerular Filtration Rate 30; Glucose 242 mg/dL (70-105); Phosphorous 3.4 mg/dL (2.5-4.5)
[2021-05-10] MEDS ORDERED: 0.9 % SODIUM CHLORIDE 500 ML IV ONE (19:07)
[2021-05-10] MEDS ORDERED: MAGNESIUM SULFATE 2 GM/50 ML BAG IV ONE (19:08)
[2021-05-10] MEDS: SIMVASTATIN 10 MG TABLET PO SCH (20:13)
[2021-05-10] MEDS: TERAZOSIN 5 MG CAPSULE PO SCH (20:13)
[2021-05-10] MEDS: SENNOSIDES 1 TABLET PO SCH (20:21)
[2021-05-11] MEDS ORDERED: metroNIDAZOLE 500 MG/100 ML BAG IV SCH (06:00)
[2021-05-11] MEDS ORDERED: 0.9 % SODIUM CHLORIDE 500 ML IV ONE (06:02)
[2021-05-11] MEDS: 0.9 % SODIUM CHLORIDE 10 ML SYRINGE IV SCH ×3 (06:23→20:25)
[2021-05-11 06:37] LABS: Basophils # (Auto) 0.01 K/mcL (0.00-0.30); Basophils % (Auto) 0.1 % (0.0-2.0); Eosinophils # (Auto) 0.01 K/mcL (0.00-0.70); Eosinophils % (Auto) 0.1 % (0.0-7.0); Hematocrit 24.3 % (40.1-51.0); Hemoglobin 7.6 g/dL (13.7-17.5); Lymphocytes % (Auto) 7.9 % (15.5-49.0); Mean Cell Volume 91.4 fL (80.0-100.0); Mean Corpuscular HGB Conc 31.3 g/dL (31.0-36.0); Mean Platelet Volume 9.4 fL (7.4-10.4); Monocytes # (Auto) 0.87 K/mcL (0.10-0.90); Monocytes % (Auto) 5.7 % (1.0-12.0); Neutrophils % (Auto) 86.2 % (38.0-78.0); Platelet Count 450 K/mcL (140-440); RBC 2.66 M/mcL (4.63-6.08); Red Cell Distribution Width 13.2 % (11.5-14.5); WBC 15.3 K/mcL (4.5-11.0)
[2021-05-11 07:04] LABS: ALT/SGPT 17 U/L (<40); AST/SGOT 22 U/L (<40); Albumin/Globulin Ratio 0.6 (1.0-2.3); Alkaline Phosphatase 87 U/L (39-117); Bilirubin,Direct < 0.2 mg/dL (0-0.3); Bilirubin,Total 0.2 mg/dL (0.1-1.0); Blood Urea Nitrogen 40 mg/dL (8-23); Calcium 8.9 mg/dL (8.6-10.4); Carbon Dioxide 15 mmol/L (22-30); Chloride 109 mmol/L (96-108); Globulin 3.5 gm/dL (2.2-3.7); Glomerular Filtration Rate 34; Glucose 138 mg/dL (70-105); Lactate Dehydrogenase 91 U/L (135-225); Phosphorous 3.6 mg/dL (2.5-4.5); Triglycerides 52 mg/dL (<150); Uric Acid < 0.2 mg/dL (2.5-8)
[2021-05-11] MEDS ORDERED: PIPERACILLIN SODIUM/TAZOBACTAM 4.5 GM in DEXTROSE 5% IN WATER 50 ML IV SCH (08:00)
[2021-05-11] MEDS: INSULIN LISPRO 1 UNIT/0.01 ML UNIT SQ SCH ×4 (08:13→20:24)
[2021-05-11] MEDS: DOCUSATE SODIUM 100 MG CAPSULE PO SCH ×3 (08:32→20:07)
[2021-05-11] MEDS: HEPARIN 5,000 UNIT/ML VIAL SQ SCH ×2 (08:39→20:05)
[2021-05-11] MEDS: PYRIDOXINE 100 MG TABLET PO SCH (08:41)
[2021-05-11] MEDS: FERROUS GLUCONATE 324 MG TABLET PO SCH (08:41)
[2021-05-11] MEDS: ASCORBIC ACID 500 MG TABLET PO SCH (08:41)
[2021-05-11] MEDS ORDERED: PIPERACILLIN SODIUM/TAZOBACTAM 3.375 GM in DEXTROSE 5% IN WATER 50 ML IV SCH (13:00)
[2021-05-11] MEDS ORDERED: POLYETHYLENE GLYCOL 3350 17 GM PACKET PO PRN (14:54)
[2021-05-11] MEDS ORDERED: ACETAMINOPHEN 325 MG TABLET PO PRN (14:54)
[2021-05-11] MEDS ORDERED: DEXTROSE 31 GM ORAL.SUSP PO PRN (14:54)
[2021-05-11] MEDS ORDERED: morphine 4 MG/ML VIAL IV PRN (14:54)
[2021-05-11] MEDS ORDERED: ONDANSETRON 4 MG/2 ML VIAL IV PRN (14:54)
[2021-05-11] MEDS ORDERED: IPRATROPIUM/ALBUTEROL 3 ML AMPUL.NEB NEB PRN (14:54)
[2021-05-11] MEDS ORDERED: guaiFENesin/DEXTROMETHORPHAN ORAL SOL PO PRN (14:54)
[2021-05-11] MEDS ORDERED: DEXTROSE 50% 50 ML VIAL IV PRN (14:54)
--- NOTE | 2021-05-11 15:35 | Cat Scan Report ---
INDICATION: Left pleural effusion COMPARISON: Chest x-ray dated 05/09/2021 TECHNIQUE: Axial noncontrast enhanced images through the chest. Sagittally and coronally reformatted images. MIP reformatted images. FINDINGS: Lungs:Right lower lobe infiltrate with air bronchograms. Findings may be due to benign volume loss or pneumonia. There is a small right pleural effusion. Left lower lobe collapse due to overlying left pleural effusion. There are air bronchograms. Pneumonia is possible. There is a moderate left pleural effusion. This appears to be loculated. Empyema is possible Mediastinum, vascular:No pathologic mediastinal or hilar adenopathy Thoracic aorta is negative. No aneurysmal dilatation. Borderline enlargement of the main pulmonary artery. Heart:No significant cardiomegaly. There is a pericardial effusion. This measures approximately 8 to 10 mm in thickness anteriorly and approximately 14 mm in thickness posteriorly Pleura:Small right pleural effusion. Moderate to large left pleural effusion with evidence for loculation. Empyema is possible Axilla, supraclavicular regions, chest wall:No axillary or supraclavicular adenopathy. Musculoskeletal:No thoracic compression fractures. No lytic lesions. No sternal or rib lesions There is generalized subcutaneous edema. Appearance is consistent with anasarca. Upper Abdomen:Negative to the limits of noncontrast enhanced examination IMPRESSION: 1. Left lower lobe volume loss and consolidation. Mild right lower lobe infiltrate. Findings are consistent with volume loss and pneumonia. 2. Small right pleural effusion. Moderate to large left pleural effusion with loculation 3. Pericardial effusion 4. Subcutaneous edema consistent with anasarca The exam was performed using radiation dose optimization techniques including, but not limited to, automated exposure control, adjustment of the mA and/or kV according to patient size and use of iterative reconstruction technique. Interpreted and Authenticated by: Jayro Corado 05/11/21
[2021-05-11] MEDS: METOPROLOL TARTRATE 5 MG/5 ML VIAL IV PRN (16:34)
[2021-05-11] MEDS: SENNOSIDES 1 TABLET PO SCH ×2 (19:57→20:07)
[2021-05-11] MEDS: METOPROLOL TARTRATE 25 MG TABLET PO SCH (20:04)
[2021-05-11] MEDS: TERAZOSIN 5 MG CAPSULE PO SCH (20:04)
[2021-05-11] MEDS: SIMVASTATIN 10 MG TABLET PO SCH (20:05)
[2021-05-11] MEDS: PIPERACILLIN SODIUM/TAZOBACTAM 3.375 GM in DEXTROSE 5% IN WATER 50 ML IV SCH (20:06)
--- NOTE | 2021-05-11 20:28 | EKG ---
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 Measurements Intervals [place] Rate: 144 P: 0 MA: 176 QRS: 36 QRSD: 74 T: 233 QT: 254 QTc: 393 Interpretive Statements SINUS TACHYCARDIA PVC LOW VOLTAGE EXTREMITIY LEADS REPOLARIZATION ABNORMALITY, PROB RATE RELATED Since previous ECG of 05-07-2021, INCREASED RATE, ABNORMAL ECG Electronically Signed On 05-11-2021 20:28:09 PDT by Cesar Campbell M.D. /[facility] [place]//[id number]
--- NOTE | 2021-05-11 20:38 | EKG ---
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 Measurements Intervals [place] Rate: 151 P: 0 [place]: 120 QRS: 32 QRSD: 70 T: 184 QT: 272 QTc: 432 Interpretive Statements SUPRAVENTRICULAR TACHYCARDIA VENTRICULAR PREMATURE COMPLEX MINIMAL ST DEPRESSION NONSPECIFIC T ABNORMALITIES, DIFFUSE LEADS Since previous ECG of 05-10-2021, P-WAVE NOT EVIDENT ABNORMAL ECG Electronically Signed On 05-11-2021 20:38:13 PDT by Cesar Campbell M.D. /[facility] [place]//[id number]
--- NOTE | 2021-05-11 20:43 | EKG ---
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 Measurements Intervals [place] Rate: 127 P: ID: QRS: 27 QRSD: 70 T: 201 QT: 284 QTc: 413 Interpretive Statements ATRIAL FIBRILLATION MULTIFORM VENTRICULAR PREMATURE COMPLEXES NONSPECIFIC T ABNORMALITIES, DIFFUSE LEADS Since previous ECG of 05-11-2021, 0759, SLOWER VENTRICULAR RATE ABNORMAL ECG Electronically Signed On 05-11-2021 20:42:40 PDT by Cesar Campbell M.D. /[facility] [place]/M0/[id number]
[2021-05-12] MEDS: PIPERACILLIN SODIUM/TAZOBACTAM 3.375 GM in DEXTROSE 5% IN WATER 50 ML IV SCH ×5 (00:16→23:55)
[2021-05-12] MEDS: 0.9 % SODIUM CHLORIDE 10 ML SYRINGE IV SCH ×3 (05:29→21:08)
[2021-05-12 06:20] LABS: Basophils # (Auto) 0.01 K/mcL (0.00-0.30); Basophils % (Auto) 0.1 % (0.0-2.0); Eosinophils # (Auto) 0.08 K/mcL (0.00-0.70); Eosinophils % (Auto) 0.7 % (0.0-7.0); Hemoglobin 7.1 g/dL (13.7-17.5); Lymphocytes # (Auto) 1.11 K/mcL (1.50-4.80); Lymphocytes % (Auto) 9.1 % (15.5-49.0); Mean Cell Volume 96.4 fL (80.0-100.0); Mean Corpuscular HGB Conc 29.6 g/dL (31.0-36.0); Mean Platelet Volume 9.2 fL (7.4-10.4); Monocytes # (Auto) 0.83 K/mcL (0.10-0.90); Monocytes % (Auto) 6.8 % (1.0-12.0); Neutrophils % (Auto) 83.3 % (38.0-78.0); Platelet Count 423 K/mcL (140-440); RBC 2.49 M/mcL (4.63-6.08); Red Cell Distribution Width 13.2 % (11.5-14.5); WBC 12.2 K/mcL (4.5-11.0)
[2021-05-12 06:46] LABS: ALT/SGPT 27 U/L (<40); AST/SGOT 34 U/L (<40); Albumin 1.7 gm/dL (3.2-5.2); Albumin/Globulin Ratio 0.5 (1.0-2.3); Alkaline Phosphatase 79 U/L (39-117); Bilirubin,Direct < 0.2 mg/dL (0-0.3); Bilirubin,Total 0.2 mg/dL (0.1-1.0); Blood Urea Nitrogen 51 mg/dL (8-23); Calcium 8.9 mg/dL (8.6-10.4); Carbon Dioxide 15 mmol/L (22-30); Chloride 109 mmol/L (96-108); Globulin 3.7 gm/dL (2.2-3.7); Glomerular Filtration Rate 28; Glucose 144 mg/dL (70-105); Lactate Dehydrogenase 86 U/L (135-225); Phosphorous 4.1 mg/dL (2.5-4.5); Triglycerides 47 mg/dL (<150); Uric Acid < 0.2 mg/dL (2.5-8)
[2021-05-12] MEDS: METOPROLOL TARTRATE 5 MG/5 ML VIAL IV PRN (07:30)
[2021-05-12] MEDS: DOCUSATE SODIUM 100 MG CAPSULE PO SCH ×2 (07:49→20:54)
[2021-05-12] MEDS: ASCORBIC ACID 500 MG TABLET PO SCH (08:12)
[2021-05-12] MEDS: HEPARIN 5,000 UNIT/ML VIAL SQ SCH ×2 (08:12→20:53)
[2021-05-12] MEDS: INSULIN LISPRO 1 UNIT/0.01 ML UNIT SQ SCH ×4 (08:12→20:54)
[2021-05-12] MEDS: PYRIDOXINE 100 MG TABLET PO SCH (08:13)
[2021-05-12] MEDS: METOPROLOL TARTRATE 25 MG TABLET PO SCH (08:13)
[2021-05-12] MEDS: FERROUS GLUCONATE 324 MG TABLET PO SCH (08:13)
--- NOTE | 2021-05-12 15:24 | Internal Med Progress Note ---
SUBJECTIVE Subjective Patient information: Note initiated : 05/12/21 at 3:24 pm Service Date, if different from initiated Date: [] Patient: Camron Morel a 80 y/o M admitted on 05/09/21 for Chest Pain . Chief Complaint: [] Interval history: History of present illness: Mr. Morel is a 80 year old M history of basal cell carcinoma of the face, type 2 diabetes, essential hypertension, mixed dyslipidemia, chronic kidney disease stage III, BPH, prese nting with chest pain, nonproductive cough, and shortness of breath. He has been vaccinated against Covid pneumonia. He denies any sick contact or recent travel. He was in his usual state of health until 4 days ago when he had acute onset of chest pain, nonproductive cough, and shortness of breath. Chest pain was moderate to severe, sharp, exacerbated when he coughs. He denies any fever or chills. Due to his symptoms, he decided to come to our ED for further evaluations today. Vital signs at ED presentations completely unremarkable. Labs remarkable for leukocytosis with WBC 14.5. Serum lactic acid normal at 0.7. Covid Debi screening test negative. Covid PCR test-not detected. Chest x-ray showing left-sided pulmonary infiltrate as well as left sided pleural effusions. Patient is currently tolerating room air. 05/08: CoVID PRC negative. Blood cultures no growth to date. Troponin-i: 0.04, 0.04, 0.05. Afebrile. Been tolerating room air. Denies chest pain. Denies SOB. c/o nonproductive cough. Denies fever or chills. 05/09: Afebrile overnight. Tolerating room air overnight. WBC jumps from 12 to 16 this morning. Still c/o nonproductive cough and left sided chest pain when he coughs. Denies fever or chills. Denies general body weakness. 05/10: Afebrile overnight. Tolerating room air overnight. WBC jumps from 16 to 17 this morning. Still c/o nonproductive cough and left sided chest pain when he coughs. Denies fever or chills. Denies general body weakness. 05/11: Point of care ultrasound exam shows a moderate left pleural effusion that appears complex and potentially loculated. Further working including CT chest and thoracentesis along with goals of care discussed with the patient and his daughter at the bedside. The patient wants to proceed with further workup and thoracentesis. CT chest ordered, likely will be followed by thoracentesis. Transitioned antibiotic therapy from Ceftriaxone and Azithromycin to Zosyn. Tachycardic-EKG suggests SVT. 05/12: CT chest consistent with pneumonia and loculated left pleural effusion. Goals of care discussed with the patient and his daughter at [facility], discussed transfer to a higher level of care which the patient refused. Explained that we have tPA but not Dornase for intrapleural treatment of loculations and that the combination was the standard of care and even that might not work. In that case surgery would be the only option to remove the loculations. The patient refused transfer to a higher level of care but would like an attempt to drain the fluid with a chest tube and tPA. General surgery consulted for chest tube placement, pleural fluid labs ordered. After chest tube placed will started intrapleural t PA. Review of systems: no fevers, positive for cough and left sided pleuritic chest pain. Head: Atraumatic, normal inspection. Eyes: normal appearance, no scleral icterus. Neck: full ROM Respiratory: decreased left lower lobe sounds, no respiratory distress. Cardiovascular: normal rate and rhythm, S1, S2. GI/Abdominal: soft, nontender, no guarding. Extremities: full range of motion, nontender. Neurological: CN II-XII intact, intact motor, intact sensation. Psychiatric: normal mood. Skin: warm, normal color Constitutional Vitals: Vital Signs Temp Pulse Resp BP Pulse Ox 97.6 F 77 19 113/62 100 05/12/21 12:02 05/12/21 14:01 05/12/21 14:01 05/12/21 14:01 05/12/21 14:01 Period Temp Pulse Resp BP Sys/Jameson Pulse Ox Last 24 Hr 97.1 F-98.7 F 49-107 - 85-120/55-70 83-100 Intake and Output 05/12/21 05/12/21 05/12/21 05:59 13:59 21:59 Intake Total 400 100 Output Total 151 1 Balance 249 99 Intake & Output: Intake & Output 05/12/21 05/12/21 05/12/21 05:59 13:59 21:59 Intake Total 400 100 Output Total 151 1 Balance 249 99 Intake: IV 50 100 Zosyn 3.375 gm In Dextrose 5% 50 100 in Water 50 ml @ 100 mls/hr IV Q6H [facility] Rx#:[id number] Oral 350 Output: Void Amount 150 # of times incontinent of urine 1 1 Other: Urine Appearance Clear Clear Urine Color Dark Yellow Bright Yellow Urine Odor Normal Stool Size Moderate Stool Color Brown Stool Consistency Soft # Voids 1 # Bowel Movements 1 OBJ DATA Labs CBC & Chem 7: 05/12/21 09:51 05/12/21 05:28 Labs: Abnormal Lab Results 05/12/21 05/12/21 05/12/21 09:51 05:28 05:28 WBC 12.2 H RBC 2.49 L Hgb 7.1 L 7.1 L Hct 24.0 L MCHC 29.6 L Plt Count Neut % (Auto) 83.3 H Lymph % (Auto) 9.1 L Lymph # (Auto) 1.11 L [place] # (Auto) Absolute Neutrophils 10.18 H Sodium Chloride 109 H Carbon Dioxide 15 L BUN 51 H Creatinine 2.1 H Glucose 144 H Uric Acid < 0.2 L Magnesium Lactate Dehydrogenase 86 L C-Reactive Protein Total Protein 5.4 L Albumin 1.7 L Albumin/Globulin Ratio 0.5 L Procalcitonin 05/11/21 05/11/21 05/11/21 05:32 05:32 05:32 WBC RBC Hgb Hct MCHC Plt Count Neut % (Auto) Lymph % (Auto) Lymph # (Auto) [place] # (Auto) Absolute Neutrophils Sodium Chloride 109 H Carbon Dioxide 15 L BUN 40 H Creatinine 1.8 H Glucose 138 H Uric Acid < 0.2 L Magnesium Lactate Dehydrogenase 91 L C-Reactive Protein 15.20 H Total Protein 5.5 L Albumin 2.0 L Albumin/Globulin Ratio 0.6 L Procalcitonin 0.33 H 05/11/21 05/10/21 05/10/21 05:32 17:18 17:18 WBC 15.3 H 15.9 H RBC 2.66 L 2.65 L Hgb 7.6 L 7.9 L Hct 24.3 L 24.5 L MCHC Plt Count 450 H Neut % (Auto) 86.2 H 89.7 H Lymph % (Auto) 7.9 L 5.4 L Lymph # (Auto) 1.20 L 0.86 L [place] # (Auto) Absolute Neutrophils 13.16 H 14.24 H Sodium 131 L Chloride Carbon Dioxide 18 L BUN 38 H Creatinine 2.0 H Glucose 242 H Uric Acid Magnesium Lactate Dehydrogenase C-Reactive Protein Total Protein Albumin 2.1 L Albumin/Globulin Ratio Procalcitonin 05/10/21 05/10/21 05/10/21 17:17 05:24 05:24 WBC 17.2 H RBC 2.68 L Hgb 7.8 L Hct 24.6 L MCHC Plt Count Neut % (Auto) 83.1 H Lymph % (Auto) 9.9 L Lymph # (Auto) [place] # (Auto) 1.15 H Absolute Neutrophils 14.33 H Sodium Chloride Carbon Dioxide 16 L BUN 38 H Creatinine 1.9 H Glucose 110 H Uric Acid Magnesium 1.3 L Lactate Dehydrogenase C-Reactive Protein Total Protein Albumin 2.3 L Albumin/Globulin Ratio 0.6 L Procalcitonin Meds: Medications Acetaminophen (Acetaminophen 325 Mg Tablet) 650 mg PO Q6HP PRN; Protocol PRN Reason: Per Pain Protocol/Fever > 101 Albuterol/Ipratropium (Ipratropium/Albuterol 3 Ml Ampul.Neb) 3 ml NEB Q4HP PRN PRN Reason: Shortness Of Breath Ascorbic Acid (Ascorbic Acid 500 Mg Tablet) 1,000 mg PO DAILY [facility] Last Admin: 05/12/21 08:12 Dose: 1,000 mg Documented by: Dextrose (Dextrose 50% 50 Ml Vial) 0 ml IV UD PRN PRN Reason: Hypoglycemia Diagnostic Test (Pha) (Accu-Chek 1 Each Strip) 1 each FS [facility] Last Admin: 05/12/21 12:37 Dose: 1 each Documented by: Docusate Sodium (Docusate Sodium 100 Mg Capsule) 100 mg PO BID [facility] Last Admin: 05/12/21 07:49 Dose: Not Given Documented by: Ferrous Gluconate (Ferrous Gluconate 324 Mg Tablet) 324 mg PO [facility] Last Admin: 05/12/21 08:13 Dose: 324 mg Documented by: Glucose (Dextrose 31 Gm Oral.Susp) 15 gm PO PRN PRN PRN Reason: Hypoglycemia Guaifenesin (Guaifenesin/Dextromethorphan Oral Tracy) 10 ml PO Q4HP PRN PRN Reason: Cough Heparin Sodium (Porcine) (Heparin 5,000 Unit/Ml Vial) 5,000 unit SQ Q12 [facility] Last Admin: 05/12/21 08:12 Dose: 5,000 unit Documented by: Piperacillin Sod/Tazobactam (Sod 3.375 gm/ Dextrose) 50 mls @ 100 mls/hr IV Q6H [facility]; Protocol Last Infusion: 05/12/21 13:16 Dose: Infused Documented by: Insulin Human Lispro (Insulin Lispro 1 Unit/0.01 Ml Unit) 0 unit SQ ACHS [facility]; Protocol Last Admin: 05/12/21 12:37 Dose: 4 units Documented by: Metoprolol Tartrate (Metoprolol Tartrate 25 Mg Tablet) 25 mg PO BID [facility] Last Admin: 05/12/21 08:13 Dose: 25 mg Documented by: Metoprolol Tartrate (Metoprolol Tartrate 5 Mg/5 Ml Vial) 5 mg IV Q4HP PRN PRN Reason: Tachyarrhythmias Last Admin: 05/12/21 07:30 Dose: 5 mg Documented by: Morphine Sulfate (Morphine 4 Mg/Ml Vial) 4 mg IV Q4HP PRN; Protocol PRN Reason: Per Pain Protocol Ondansetron HCl (Ondansetron 4 Mg/2 Ml Vial) 4 mg IV Q6HP PRN PRN Reason: Nausea And Vomiting Polyethylene Glycol (Polyethylene Glycol 3350 17 Gm Packet) 17 gm PO DAILYP PRN PRN Reason: Constipation Pyridoxine HCl (Pyridoxine 100 Mg Tablet) 100 mg PO QDAY [facility] Last Admin: 05/12/21 08:13 Dose: 100 mg Documented by: Senna (Sennosides 1 Tablet) 2 tab PO [facility] Last Admin: 05/11/21 20:07 Dose: Not Given Documented by: Simvastatin (Simvastatin 10 Mg Tablet) 20 mg PO QPM [facility] Last Admin: 05/11/21 20:05 Dose: 20 mg Documented by: Sodium Chloride (0.9 % Sodium Chloride 10 Ml Syringe) 10 ml IV Q8 [facility] Last Admin: 05/12/21 12:46 Dose: 10 ml Documented by: Terazosin HCl (Terazosin 5 Mg Capsule) 10 mg PO [facility] Last Admin: 05/11/21 20:04 Dose: 10 mg Documented by: A/P Narrative A/P Narrative: Assessment: 80-year-old male with a history of HTN, DM, CKD III, chronic anemia, HLD, BPH, admitted for community acquired pneumonia. #Community acquired pneumonia #Loculated left pleural effusion #Paroxysmal atrial fibrillation #Chronic anemia #Type 2 Diabetes mellitus #Essential Hypertension #CKD IIIb #Hyperlipidemia #BPH #History of basal cell carcinoma head of left face Plan -Zosyn IV -Follow all cultures. -Left chest tube with pleural effusion lab workup. -ID consulted-will consult Thursday. -Follow hemoglobin, transfuse RBC prn. -SSI-low, holding Metformin. -Holding home Losartan, Indapamide, and Lasix. -Continue Simvastatin, Terazosin. -surveillance monitor. -DVT ppx: Heparin SQ -Code status: Full -Disposition: TBD Time Spent With Patient Time: Total time spent is greater than 50% in coordination of care (as documented) at patient's floor/unit and/or counseling patient: QUALITY Stroke Symptom Onset Unknown: No VTE Deep Vein Thrombosis/Pulmonary Embolism Present on Admission: No
[2021-05-12] MEDS ORDERED: LORazepam 2 MG/ML VIAL IV ONE (15:27)
--- NOTE | 2021-05-12 16:06 | General Surgery Consult Note ---
HPI Data of Consult Patient: new to practice Consult date: 05/12/21 Primary Care Provider: Jayro Suárez DO Consult Narrative Patient Information: Note initiated : 05/12/21 at 4:02 pm Service Date, if different from initiated Date: [] Patient: Camron Morel 80 y/o M admitted on 05/09/21 for Chest Pain . This is a pleasant 80-year-old gentleman who presented to the emergency room with shortness of breath. Chest x-ray significant for pleural effusion, chest CT was done today is significant for a large left pleural effusion possible empyema patient was admitted by the hospitalist, discussion with the patient to transfer to a facility that can do pleurodesis was discussed at length, the patient refused to be transferred anywhere other than [facility] and desires to stay here for all care. The hospitalist was uncomfortable putting a chest tube and therefore consult to me for left chest tube placement. CT scan reviewed by myself, patient denies any symptoms at this time. Large left pleural effusion. Chief Complaint: [] Chief complaint: Shortness of breath Reason for consult: Left pleural effusion cc:: CC: Abhijeet Chanel MD Review of Systems Review of systems: All systems are reviewed, negative other than above PFSH PFSH All Active Problems Pleural effusion (Acute) CKD stage 3 due to type 2 diabetes mellitus (Acute) Left lower lobe pneumonia (Acute) Acute dehydration (Acute) Anemia (Acute) Acute kidney injury (Acute) Cough (Acute) Weakness (Acute) Intertrochanteric fracture of left femur (Acute) Primary osteoarthritis of left hip (Acute) Greater trochanteric bursitis of left hip (Acute) Left hip pain (Acute) Medicare annual wellness visit, initial (Acute) Tearing eyes (Acute) Imbalance (Acute) Weight loss (Acute) Sciatica (Acute) Strain of lumbar region (Acute) Lumbar radiculopathy (Acute) Facial droop (Chronic) Basal cell carcinoma of face (Chronic) Injury of left facial nerve (Chronic) Physical exam, annual (Chronic) Spinal stenosis, lumbar region, without neurogenic claudication (Chronic) Schatzki's ring (Chronic) Psoriasis (Chronic) Low back pain (Chronic) Hypertension, essential (Chronic) Hyperlipidemia (Chronic) Hernia, hiatal (Chronic) ED (erectile dysfunction) (Chronic) Diverticulosis of colon (Chronic) Diabetes mellitus, type II (Chronic) Benign enlargement of prostate (Chronic) BPH without urinary obstruction (Chronic) Anemia (Chronic) Actinic keratosis (Chronic) Medical History Actinic keratosis Allergic rhinitis Patient doing well no longer using fluicastone, last use was 1 yr ago, monitor for now. Anemia 07/13/2013 Hypoproliferative Back pain Seeing the pain clinic. Will receive the next epidural steroid shot this thursday05/12/11. Benign enlargement of prostate BPH; of prostate with urinary obstruction 03/03/2013 BPH without urinary obstruction Continue Terazonsin 10mg nightly Cellulitis and abscess of face 12/05/2013 Chronic pain Diabetes mellitus, type II Diverticulosis of colon ED (erectile dysfunction) Generalized abdominal or pelvic swelling or mass or lump Hernia, hiatal History of amputation of finger 2004; finger repair of lt. index finger amputation. Hyperlipidemia Hypertension, essential Low back pain Patient takes tylenol prn as needed. Lumbar radiculopathy Medicare annual wellness visit, initial Physical exam, annual Colonoscopy 2013: diverticulosis tdap 03/2014 aaa: not done, but wants to defer same pneumovac uptodate, pt unable to recall date psa: not indicated eye ecam 06/11 foot exam 10/12 Psoriasis Continue Betamethasone 0.05% cream twice daily as needed. Schatzki's ring Sciatica Spinal stenosis, lumbar region, without neurogenic claudication Lumbar L4-L5-S1 Strain of lumbar region Thoracic or lumbosacral neuritis or radiculitis Urinary retention 03/03/2013 UTI (urinary tract infection) 03/03/2013 Surgical History History of colonoscopy 10/18/2013; Diverticulosis History of esophagogastroduodenoscopy 10/18/13; Schatzki's ring, hiatus hernia History of inguinal hernia repair 05/23/2013; Bilateral inguinal hernia reducible History of surgery Lumbar decompression; 02/23/13 Family History Mother Family history of cardiovascular disease Father Family history of carrier of genetic disease Alzheimers Social History marital status: occupational status: retired occupation: Retired [employer] alcohol intake frequency: former alcohol drinker substance use type: does not use MEDS/ALLERGIES Home Medications and Allergies Home Medications Medication Instructions Recorded Confirmed Type Vitamin C oral capsule extended 1 tab PO DAILY 07/24/15 05/07/21 History release blood sugar diagnostic 11/15/16 05/08/21 History metformin 1,000 mg tablet 1,000 mg PO BID 90 Days #180 tab 10/08/20 05/07/21 Rx terazosin 10 mg capsule 10 mg PO QPM 90 Days #90 cap 11/26/20 05/07/21 Rx ferrous gluconate 324 mg (38 mg 324 mg PO QDAY 03/06/21 05/07/21 History iron) tablet polyethylene glycol 3350 17 17 g PO QDAY PRN 03/06/21 05/07/21 History gram/dose oral powder losartan 100 mg tablet 100 mg PO QDAY 90 Days #90 tab 03/07/21 05/07/21 Rx furosemide 20 mg tablet 20 mg PO QDAY 05/01/21 05/07/21 History indapamide 1.25 mg tablet 1.25 mg PO QAM 05/01/21 05/07/21 History pyridoxine (vitamin B6) 100 mg 100 mg PO QDAY tab 05/01/21 05/07/21 History tablet simvastatin 10 mg tablet 20 mg PO QPM tab 05/01/21 05/07/21 History Allergies Allergy/AdvReac Type Severity Reaction Status Date / Time No Known Drug Allergies Allergy Verified 05/07/21 06:30 Physical Examination Vital Signs Vital signs: Temp Pulse Resp BP Pulse Ox 97.6 F 77 19 113/62 100 05/12/21 12:02 05/12/21 14:01 05/12/21 14:01 05/12/21 14:01 05/12/21 14:01 General physical appearance General physical exam: well developed, well nourished and no distress Eyes Eye exam: PERRL and normal ocular movement ENT ENT exam: normal pinna, normal nares, normal mucosa, no hearing loss and no congestion Head Head exam IM: Present atraumatic and normocephalic Neck Neck exam: no masses, no bruits, trachea midline, no lymphadenopathy and no venous distension Cardiovascular Cardiovascular exam IM: Present normal rate and rhythm Respiratory Respiratory exam: normal expansion and normal respiratory effort Respiratory exam: dullness: left and absent breath sounds: left Abdomen Abdomen: Present soft, non tender and bowel sounds Hernia: Present none Genitourinary Genitourinary (Male): Present normal penis with no external lesions Rectum Rectum: Present normal sphincter tone, no hemorrhoids, no tenderness, no masses and no bleeding Integumentary Integumentary: Present no rash, no growths and no abnormal pigmentation Neurologic Neurologic: Present normal coordination and normal sensation Musculoskeletal Musculoskeletal: Present normal gait and normal posture Psychiatric Psychiatric: Present oriented to time, oriented to person, oriented to place, speech is normal and memory intact Results Labs Result diagrams: 05/12/21 09:51 05/12/21 05:28 Labs: Abnormal lab results 05/12/21 05/12/21 05/12/21 Range/Units 05:28 05:28 09:51 WBC 12.2 H (4.5-11.0) K/mcL RBC 2.49 L (4.63-6.08) M/mcL Hgb 7.1 L 7.1 L (13.7-17.5) g/dL Hct 24.0 L (40.1-51.0) % MCHC 29.6 L (31.0-36.0) g/dL Neut % (Auto) 83.3 H (38.0-78.0) % Lymph % (Auto) 9.1 L (15.5-49.0) % Lymph # (Auto) 1.11 L (1.50-4.80) K/mcL Absolute Neutrophils 10.18 H (1.80-8.00) K/mcL Chloride 109 H (96-108) mmol/L Carbon Dioxide 15 L (22-30) mmol/L BUN 51 H (8-23) mg/dL Creatinine 2.1 H (0.7-1.2) mg/dL Glucose 144 H (70-105) mg/dL Uric Acid < 0.2 L (2.5-8) mg/dL Lactate Dehydrogenase 86 L (135-225) U/L Total Protein 5.4 L (5.9-8.4) gm/dL Albumin 1.7 L (3.2-5.2) gm/dL Albumin/Globulin Ratio 0.5 L (1.0-2.3) Diabetes panel 05/12/21 Range/Units 05:28 Sodium 138 (133-145) mmol/L Potassium 4.0 (3.3-5.1) mmol/L Chloride 109 H (96-108) mmol/L Carbon Dioxide 15 L (22-30) mmol/L BUN 51 H (8-23) mg/dL Creatinine 2.1 H (0.7-1.2) mg/dL Glucose 144 H (70-105) mg/dL Calcium 8.9 (8.6-10.4) mg/dL AST 34 (<40) U/L ALT 27 (<40) U/L Alkaline Phosphatase 79 (39-117) U/L Total Protein 5.4 L (5.9-8.4) gm/dL Albumin 1.7 L (3.2-5.2) gm/dL Triglycerides 47 (<150) mg/dL Calcium panel 05/12/21 Range/Units 05:28 Calcium 8.9 (8.6-10.4) mg/dL Phosphorus 4.1 (2.5-4.5) mg/dL Albumin 1.7 L (3.2-5.2) gm/dL Pituitary panel 05/12/21 Range/Units 05:28 Sodium 138 (133-145) mmol/L Potassium 4.0 (3.3-5.1) mmol/L Chloride 109 H (96-108) mmol/L Carbon Dioxide 15 L (22-30) mmol/L BUN 51 H (8-23) mg/dL Creatinine 2.1 H (0.7-1.2) mg/dL Glucose 144 H (70-105) mg/dL Calcium 8.9 (8.6-10.4) mg/dL Adrenal panel 05/12/21 Range/Units 05:28 Sodium 138 (133-145) mmol/L Potassium 4.0 (3.3-5.1) mmol/L Chloride 109 H (96-108) mmol/L Carbon Dioxide 15 L (22-30) mmol/L BUN 51 H (8-23) mg/dL Creatinine 2.1 H (0.7-1.2) mg/dL Glucose 144 H (70-105) mg/dL Calcium 8.9 (8.6-10.4) mg/dL Total Bilirubin 0.2 (0.1-1.0) mg/dL AST 34 (<40) U/L ALT 27 (<40) U/L Alkaline Phosphatase 79 (39-117) U/L Total Protein 5.4 L (5.9-8.4) gm/dL Albumin 1.7 L (3.2-5.2) gm/dL All other labs normal. A/P Assessment and plan (1) Left lower lobe pneumonia: Status: Acute Qualifiers: Pneumonia type: due to unspecified organism Qualified Code(s): J18.9 - Pneumonia, unspecified organism (2) Pleural effusion: Status: Acute Narrative A/P Narrative: This is a pleasant 80-year-old gentleman with a left-sided pleural effusion. I was asked to place a left chest tube to drain the pleural effusion and possible TPA for any loculations. Risk, benefits, alternatives to the procedure were discussed with the patient at length once again discussed with him transferring to higher level care with a thoracic surgeon and further abilities to manage his left possible empyema. He once again refuses transfer but agrees to proceed with chest tube placement. Plan: Left-sided chest tube placement under local anesthesia. Time Spent With Patient Time: Total time spent is greater than 50% in coordination of care (as documented) at patient's floor/unit and/or counseling patient:
--- NOTE | 2021-05-12 16:08 | Procedure Note ---
PROC Chest Tube Chest Tube 1: Chest tube location: Mid-Axillary Chest Date of Procedure: 05/12/21 Size of tube: 20 Chest tube procedure: betadine prep and sterile drapes applied Tube sutured to skin: Yes Sterile dressing applied: Yes Anesthesia: 1% Lidocaine Volume anesthetic (mLs): 20 Incision made with: #10 blade Post procedure: sutured to skin and sterile dressing applied Barnett of air heard: No Tube Drainage: fluid (700 serous fluid) Amount of initial drainage (cc's): 700 Post procedure CXR?: Yes Patient tolerated procedure: Yes
--- NOTE | 2021-05-12 18:06 | XRay Report ---
INDICATION: chest tube placement TECHNIQUE: AP portable semiupright chest x-ray COMPARISON: None FINDINGS:Interval placement of a left basilar chest tube. Lungs:Increased bilateral pulmonary parenchymal infiltrate. Heart, vascular:No significant cardiomegaly. Pulmonary vascularity is normal. No pulmonary edema or pulmonary congestion Mediastinum, neeru:No mediastinal widening. No hilar mass Pleura:There is a left pleural effusion. This appears loculated with convex densities. Skeletal:Negative. IMPRESSION: 1. Status post placement of left basilar chest tube 2. Increased pleural effusion with convex densities and findings consistent with loculation 3. Increased pulmonary parenchymal infiltrates Interpreted and Authenticated by: Jayro Corado 05/12/21
[2021-05-12 20:25] LABS: Glucose,Pleural Fluid 226 mg/dL; LDH,Pleural Fluid 454 U/L (<122); Total Protein,Body Fluid 4.1 gm/dL; pH,Body Fluid 7.61
[2021-05-12 20:37] LABS: Appearance,Pleural Fluid Hazy; Color,Pleural Fluid Yellow; Lymphocytes,Pleural Fluid 6 %; Monocytes,Pleural Fluid 1 %; Neutrophils,Pleural Fluid 93 %; Nucleated Cells,Pleural Fld 71 /cumm; RBC,Pleural Fluid <50,000 /cumm
[2021-05-12] MEDS: TERAZOSIN 5 MG CAPSULE PO SCH (20:53)
[2021-05-12] MEDS: SENNOSIDES 1 TABLET PO SCH (20:53)
[2021-05-12] MEDS: SIMVASTATIN 10 MG TABLET PO SCH (20:54)
[2021-05-13] MEDS: PIPERACILLIN SODIUM/TAZOBACTAM 3.375 GM in DEXTROSE 5% IN WATER 50 ML IV SCH (05:34)
[2021-05-13] MEDS: 0.9 % SODIUM CHLORIDE 10 ML SYRINGE IV SCH ×3 (05:35→22:18)
[2021-05-13 07:09] LABS: ALT/SGPT 23 U/L (<40); AST/SGOT 20 U/L (<40); Albumin 2.1 gm/dL (3.2-5.2); Albumin/Globulin Ratio 0.6 (1.0-2.3); Alkaline Phosphatase 74 U/L (39-117); Bilirubin,Direct < 0.2 mg/dL (0-0.3); Bilirubin,Total 0.2 mg/dL (0.1-1.0); Blood Urea Nitrogen 52 mg/dL (8-23); Carbon Dioxide 15 mmol/L (22-30); Chloride 107 mmol/L (96-108); Globulin 3.6 gm/dL (2.2-3.7); Glomerular Filtration Rate 25; Glucose 126 mg/dL (70-105); Lactate Dehydrogenase 89 U/L (135-225); Phosphorous 4.2 mg/dL (2.5-4.5); Triglycerides 56 mg/dL (<150); Uric Acid < 0.2 mg/dL (2.5-8)
[2021-05-13 07:11] LABS: Basophils # (Auto) 0.02 K/mcL (0.00-0.30); Basophils % (Auto) 0.2 % (0.0-2.0); Eosinophils # (Auto) 0.09 K/mcL (0.00-0.70); Eosinophils % (Auto) 0.8 % (0.0-7.0); Hematocrit 22.2 % (40.1-51.0); Hemoglobin 6.8 g/dL (13.7-17.5); Lymphocytes # (Auto) 0.93 K/mcL (1.50-4.80); Lymphocytes % (Auto) 8.6 % (15.5-49.0); Mean Cell Volume 96.1 fL (80.0-100.0); Mean Corpuscular HGB Conc 30.6 g/dL (31.0-36.0); Mean Platelet Volume 9.1 fL (7.4-10.4); Monocytes # (Auto) 0.77 K/mcL (0.10-0.90); Monocytes % (Auto) 7.1 % (1.0-12.0); Neutrophils % (Auto) 83.3 % (38.0-78.0); Platelet Count 377 K/mcL (140-440); RBC 2.31 M/mcL (4.63-6.08); Red Cell Distribution Width 13.4 % (11.5-14.5); WBC 10.9 K/mcL (4.5-11.0)
[2021-05-13] MEDS ORDERED: 0.9 % SODIUM CHLORIDE 250 ML IV SCH (07:15)
--- NOTE | 2021-05-13 08:18 | XRay Report ---
HISTORY: History: Chest tube insertion for pleural effusion There is a large caliber chest tube located above the left diaphragm, in the left lower thorax. There is still a large loculated left-sided pleural effusion. This has improved since 05/12/21. At that time there was some fluid located laterally over the left upper lobe which is no longer present. There is still atelectasis or pneumonia in the left lower lobe and around the left hilum. Smaller infiltrate is present in the right lower lobe which remains stable. There is a small subpulmonic pleural effusion on the right, better seen on the recent chest CT. The heart is not enlarged. IMPRESSION: Large left-sided pleural effusion which has improved. Persistent consolidation in both lungs which may be a combination of atelectasis and pneumonia Interpreted and Authenticated by: Gabe Price 05/13/21
[2021-05-13] MEDS ORDERED: ALTEPLASE 2 MG VIAL IJ SCH ×3 (09:00→21:00)
[2021-05-13] MEDS: PYRIDOXINE 100 MG TABLET PO SCH (09:32)
[2021-05-13] MEDS: DOCUSATE SODIUM 100 MG CAPSULE PO SCH ×2 (09:32→21:02)
[2021-05-13] MEDS: ASCORBIC ACID 500 MG TABLET PO SCH (09:32)
[2021-05-13] MEDS: HEPARIN 5,000 UNIT/ML VIAL SQ SCH (09:33)
[2021-05-13] MEDS: FERROUS GLUCONATE 324 MG TABLET PO SCH (09:33)
[2021-05-13] MEDS: INSULIN LISPRO 1 UNIT/0.01 ML UNIT SQ SCH ×4 (09:34→21:09)
--- NOTE | 2021-05-13 11:07 | Internal Med Progress Note ---
SUBJECTIVE Subjective Patient information: Note initiated : 05/13/21 at 11:04 am Service Date, if different from initiated Date: [] Patient: Camron Morel a 80 y/o M admitted on 05/09/21 for Chest Pain . Chief Complaint: [] Interval history: History of present illness: Mr. Morel is a 80 year old M history of basal cell carcinoma of the face, type 2 diabetes, essential hypertension, mixed dyslipidemia, chronic kidney disease stage III, BPH, pres enting with chest pain, nonproductive cough, and shortness of breath. He has been vaccinated against Covid pneumonia. He denies any sick contact or recent travel. He was in his usual state of health until 4 days ago when he had acute onset of chest pain, nonproductive cough, and shortness of breath. Chest pain was moderate to severe, sharp, exacerbated when he coughs. He denies any fever or chills. Due to his symptoms, he decided to come to our ED for further evaluations today. Vital signs at ED presentations completely unremarkable. Labs remarkable for leukocytosis with WBC 14.5. Serum lactic acid normal at 0.7. Covid Debi screening test negative. Covid PCR test-not detected. Chest x-ray showing left-sided pulmonary infiltrate as well as left sided pleural effusions. Patient is currently tolerating room air. 05/08: CoVID PRC negative. Blood cultures no growth to date. Troponin-i: 0.04, 0.04, 0.05. Afebrile. Been tolerating room air. Denies chest pain. Denies SOB. c/o nonproductive cough. Denies fever or chills. 05/09: Afebrile overnight. Tolerating room air overnight. WBC jumps from 12 to 16 this morning. Still c/o nonproductive cough and left sided chest pain when he coughs. Denies fever or chills. Denies general body weakness. 05/10: Afebrile overnight. Tolerating room air overnight. WBC jumps from 16 to 17 this morning. Still c/o nonproductive cough and left sided chest pain when he coughs. Denies fever or chills. Denies general body weakness. 05/11: Point of care ultrasound exam shows a moderate left pleural effusion that appears complex and potentially loculated. Further working including CT chest and thoracentesis along with goals of care discussed with the patient and his daughter at the bedside. The patient wants to proceed with further workup and thoracentesis. CT chest ordered, likely will be followed by thoracentesis. Transitioned antibiotic therapy from Ceftriaxone and Azithromycin to Zosyn. Tachycardic-EKG suggests SVT. 05/12: CT chest consistent with pneumonia and loculated left pleural effusion. Goals of care discussed with the patient and his daughter at [facility], discussed transfer to a higher level of care which the patient refused. Explained that we have tPA but not Dornase for intrapleural treatment of loculations and that the combination was the standard of care and even that might not work. In that case surgery would be the only option to remove the loculations. The patient refused transfer to a higher level of care but would like an attempt to drain the fluid with a chest tube and tPA. General surgery consulted for chest tube placement, pleural fluid labs ordered. After chest tube placed will started intrapleural tPA. 05/13: Pleural fluid workup consistent with exudate but cell count lower than expected for parapneumonic effusion, LDH 454 and pH 7.61 also would be unusual for parapneumonic effusion. Started intrapleural Alteplase, discussed dornase with pharmacy again and it is not available. Required one unit of blood for hemoglobin 6.8. Holding heparin SQ for DVT prophylaxis. The patient stated that he wants to be DNR, code status changed. Review of systems: no fevers, positive for cough and left sided pleuritic chest pain. Head: Atraumatic, normal inspection. Eyes: normal appearance, no scleral icterus. Neck: full ROM Respiratory: decreased left lower lobe sounds, left chest tube with serous fluid draining, no respiratory distress. Cardiovascular: normal rate and rhythm, S1, S2. GI/Abdominal: soft, nontender, no guarding. Extremities: full range of motion, nontender. Neurological: CN II-XII intact, intact motor, intact sensation. Psychiatric: normal mood. Skin: warm, normal color Constitutional Vitals: Vital Signs Temp Pulse Resp BP Pulse Ox 97.3 F 72 21 132/63 96 05/13/21 10:10 05/13/21 06:01 05/13/21 10:10 05/13/21 10:01 05/13/21 06:01 Period Temp Pulse Resp BP Sys/Jameson Pulse Ox Last 24 Hr 97.1 F-98.8 F 49-79 17-25 102-139/58-86 83-100 Intake and Output 05/12/21 05/13/21 05/13/21 21:59 05:59 13:59 Intake Total 200 200 410 Output Total 702 392 426 Balance -502 -192 -16 Weight 72.62 kg Intake & Output: Intake & Output 05/12/21 05/13/21 05/13/21 21:59 05:59 13:59 Intake Total 200 200 410 Output Total 702 392 426 Balance -502 -192 -16 Weight 72.62 kg Intake: IV 50 50 50 Zosyn 3.375 gm In Dextrose 5% 50 50 50 in Water 50 ml @ 100 mls/hr IV Q6H [facility] Rx#:[id number] Oral 150 150 360 Output: Chest Tube Drainage 700 390 Left Mid-Axillary Chest 700 390 Void Amount 425 # of times incontinent of urine 2 2 1 Other: Meal Dinner Breakfast Percent of Meal Consumed 0% 100% Feeding Ability Assist with Tray Set Up Urine Appearance Clear Urine Color Bright Yellow Urine Odor Normal # Voids 1 1 OBJ DATA Labs CBC & Chem 7: 05/13/21 05:17 05/13/21 05:18 Labs: Abnormal Lab Results 05/13/21 05/13/21 05/12/21 05:18 05:17 18:45 WBC RBC 2.31 L Hgb 6.8 L* 7.3 L Hct 22.2 L MCHC 30.6 L Plt Count Neut % (Auto) 83.3 H Lymph % (Auto) 8.6 L Lymph # (Auto) 0.93 L Absolute Neutrophils 9.04 H Sodium Chloride Carbon Dioxide 15 L BUN 52 H Creatinine 2.3 H Glucose 126 H Uric Acid < 0.2 L Magnesium Lactate Dehydrogenase 89 L C-Reactive Protein Total Protein 5.7 L Albumin 2.1 L Albumin/Globulin Ratio 0.6 L Procalcitonin Pleural LDH 05/12/21 05/12/21 05/12/21 18:00 09:51 05:28 WBC RBC Hgb 7.1 L Hct MCHC Plt Count Neut % (Auto) Lymph % (Auto) Lymph # (Auto) Absolute Neutrophils Sodium Chloride 109 H Carbon Dioxide 15 L BUN 51 H Creatinine 2.1 H Glucose 144 H Uric Acid < 0.2 L Magnesium Lactate Dehydrogenase 86 L C-Reactive Protein Total Protein 5.4 L Albumin 1.7 L Albumin/Globulin Ratio 0.5 L Procalcitonin Pleural LDH 454 H 05/12/21 05/11/21 05/11/21 05:28 05:32 05:32 WBC 12.2 H RBC 2.49 L Hgb 7.1 L Hct 24.0 L MCHC 29.6 L Plt Count Neut % (Auto) 83.3 H Lymph % (Auto) 9.1 L Lymph # (Auto) 1.11 L Absolute Neutrophils 10.18 H Sodium Chloride Carbon Dioxide BUN Creatinine Glucose Uric Acid Magnesium Lactate Dehydrogenase C-Reactive Protein 15.20 H Total Protein Albumin Albumin/Globulin Ratio Procalcitonin 0.33 H Pleural LDH 05/11/21 05/11/21 05/10/21 05:32 05:32 17:18 WBC 15.3 H RBC 2.66 L Hgb 7.6 L Hct 24.3 L MCHC Plt Count 450 H Neut % (Auto) 86.2 H Lymph % (Auto) 7.9 L Lymph # (Auto) 1.20 L Absolute Neutrophils 13.16 H Sodium 131 L Chloride 109 H Carbon Dioxide 15 L 18 L BUN 40 H 38 H Creatinine 1.8 H 2.0 H Glucose 138 H 242 H Uric Acid < 0.2 L Magnesium Lactate Dehydrogenase 91 L C-Reactive Protein Total Protein 5.5 L Albumin 2.0 L 2.1 L Albumin/Globulin Ratio 0.6 L Procalcitonin Pleural LDH 05/10/21 05/10/21 17:18 17:17 WBC 15.9 H RBC 2.65 L Hgb 7.9 L Hct 24.5 L MCHC Plt Count Neut % (Auto) 89.7 H Lymph % (Auto) 5.4 L Lymph # (Auto) 0.86 L Absolute Neutrophils 14.24 H Sodium Chloride Carbon Dioxide BUN Creatinine Glucose Uric Acid Magnesium 1.3 L Lactate Dehydrogenase C-Reactive Protein Total Protein Albumin Albumin/Globulin Ratio Procalcitonin Pleural LDH Meds: Medications Acetaminophen (Acetaminophen 325 Mg Tablet) 650 mg PO Q6HP PRN; Protocol PRN Reason: Per Pain Protocol/Fever > 101 Albuterol/Ipratropium (Ipratropium/Albuterol 3 Ml Ampul.Neb) 3 ml NEB Q4HP PRN PRN Reason: Shortness Of Breath Alteplase, Recombinant (Alteplase 2 Mg Vial) 10 mg IJ BID [facility] Stop: 05/15/21 21:01 Ascorbic Acid (Ascorbic Acid 500 Mg Tablet) 1,000 mg PO DAILY [facility] Last Admin: 05/13/21 09:32 Dose: 1,000 mg Documented by: Dextrose (Dextrose 50% 50 Ml Vial) 0 ml IV UD PRN PRN Reason: Hypoglycemia Diagnostic Test (Pha) (Accu-Chek 1 Each Strip) 1 each FS [facility] Last Admin: 05/13/21 09:33 Dose: 1 each Documented by: Docusate Sodium (Docusate Sodium 100 Mg Capsule) 100 mg PO BID [facility] Last Admin: 05/13/21 09:32 Dose: 100 mg Documented by: Ferrous Gluconate (Ferrous Gluconate 324 Mg Tablet) 324 mg PO [facility] Last Admin: 05/13/21 09:33 Dose: 324 mg Documented by: Glucose (Dextrose 31 Gm Oral.Susp) 15 gm PO PRN PRN PRN Reason: Hypoglycemia Guaifenesin (Guaifenesin/Dextromethorphan Oral Tracy) 10 ml PO Q4HP PRN PRN Reason: Cough Heparin Sodium (Porcine) (Heparin 5,000 Unit/Ml Vial) 5,000 unit SQ Q12 [facility] Last Admin: 05/13/21 09:33 Dose: 5,000 unit Documented by: Piperacillin Sod/Tazobactam (Sod 2.25 gm/ Dextrose) 50 mls @ 100 mls/hr IV Q6H [facility]; Protocol Sodium Chloride (Sodium Chloride 0.9%) 250 mls @ 20 mls/hr IV .[id number] [facility] Stop: 05/13/21 19:44 Insulin Human Lispro (Insulin Lispro 1 Unit/0.01 Ml Unit) 0 unit SQ [facility]; Protocol Last Admin: 05/13/21 09:34 Dose: 1 units Documented by: Metoprolol Tartrate (Metoprolol Tartrate 5 Mg/5 Ml Vial) 5 mg IV Q4HP PRN PRN Reason: Tachyarrhythmias Last Admin: 05/12/21 07:30 Dose: 5 mg Documented by: Morphine Sulfate (Morphine 4 Mg/Ml Vial) 4 mg IV Q4HP PRN; Protocol PRN Reason: Per Pain Protocol Ondansetron HCl (Ondansetron 4 Mg/2 Ml Vial) 4 mg IV Q6HP PRN PRN Reason: Nausea And Vomiting Polyethylene Glycol (Polyethylene Glycol 3350 17 Gm Packet) 17 gm PO DAILYP PRN PRN Reason: Constipation Pyridoxine HCl (Pyridoxine 100 Mg Tablet) 100 mg PO QDAY [facility] Last Admin: 05/13/21 09:32 Dose: 100 mg Documented by: Senna (Sennosides 1 Tablet) 2 tab PO [facility] Last Admin: 05/12/21 20:53 Dose: 2 tab Documented by: Simvastatin (Simvastatin 10 Mg Tablet) 20 mg PO QPM [facility] Last Admin: 05/12/21 20:54 Dose: 20 mg Documented by: Sodium Chloride (0.9 % Sodium Chloride 10 Ml Syringe) 10 ml IV Q8 [facility] Last Admin: 05/13/21 05:35 Dose: 10 ml Documented by: Terazosin HCl (Terazosin 5 Mg Capsule) 10 mg PO [facility] Last Admin: 05/12/21 20:53 Dose: 10 mg Documented by: A/P Narrative A/P Narrative: Assessment: 80-year-old male with a history of HTN, DM, CKD III, chronic anemia, HLD, BPH, admitted for community acquired pneumonia. #Community acquired pneumonia #Loculated left pleural effusion #Paroxysmal atrial fibrillation #Acute on chronic anemia s/p 1 unit RBC #Type 2 Diabetes mellitus #Essential Hypertension #CKD IIIb #Hyperlipidemia #BPH #History of basal cell carcinoma head of left face Plan -Zosyn IV, follow all cultures. -Left chest tube management-surgery following for assistance. -ID consulted. -Follow hemoglobin, transfuse RBC prn. -Intrapleural Alteplase BID for 3 days. -Daily chest xray, follow chest tube drainage. -SSI-low, holding Metformin. -Holding home Losartan, Indapamide, and Lasix. -Continue Simvastatin, Terazosin. 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 -DVT ppx: SCD -Code status: DNR -Disposition: TBD Time Spent With Patient Time: Total time spent is greater than 50% in coordination of care (as documented) at patient's floor/unit and/or counseling patient: QUALITY Stroke Symptom Onset Unknown: No VTE Deep Vein Thrombosis/Pulmonary Embolism Present on Admission: No
[2021-05-13] MEDS: PIPERACILLIN SODIUM/TAZOBACTAM 2.25 GM in DEXTROSE 5% IN WATER 50 ML IV SCH ×2 (12:18→17:33)
--- NOTE | 2021-05-13 18:08 | Infectious Disease Consult ---
HPI Data of Consult Consult date: 05/13/21 Primary Care Provider: Jayro Suárez DO Consult Narrative Patient Information: Note initiated : 05/13/21 at 6:04 pm Service Date, if different from initiated Date: [05/13/21] Patient: Camron Morel 80 y/o M admitted on 05/09/21 for Chest Pain . Chief Complaint: [] Camron is a pleasant 80-year-old man with history of basal cell carcinoma left face 2018. He required pectoral swing flap up into the left facial area. He recently had a left nasal biopsy and crust is present at the site. He reports that the site was cancer. He does not know the type of cancer. He was admitted into the hospital May 07 with complaint of cough shortness of breath and chest pain. He was found to have large loculated left pleural effusion. He has had cough for approximately 1 month. It has been nonproductive. No reports of vomiting. No complaints of fevers or chills. No known TB exposure. He was initially started on Rocephin and azithromycin switching to Zosyn. Blood cultures May 07 were negative. [place] [address] [place]. No pets. Left chest tube was placed yesterday with no organisms seen. Protein 4.1 LDH 4 5471 white cells 93 segs 6 lymphs. He does have chronic anemia. CT scan completed May 11 showed no adenopathy. Pericardial effusion was also identified with the left pleural effusion. Currently denies left chest pain. cc:: CC: Abhijeet Chanel MD Review of Systems Review of systems: General: No fevers or chills. No night sweats. HEENT: No sore throat. No headache. No complaints of neck pain. Pulmonary: As above. 1 previous episode of pneumonia but distantly. Endocrine: Diabetes since age 48. Cardiac: No current chest pain but he did have chest pain with admission. GI: No abdominal pain. Extremities: No complaints of edema. Skin no complaints of rash. PFSH PFSH All Active Problems (Updated 05/13/21 @ 18:23 by Angel Kerr MD) Pleural effusion (Acute) CKD stage 3 due to type 2 diabetes mellitus (Acute) Left lower lobe pneumonia (Acute) Acute dehydration (Acute) Anemia (Acute) Acute kidney injury (Acute) Cough (Acute) Weakness (Acute) Intertrochanteric fracture of left femur (Acute) Primary osteoarthritis of left hip (Acute) Greater trochanteric bursitis of left hip (Acute) Left hip pain (Acute) Medicare annual wellness visit, initial (Acute) Tearing eyes (Acute) Imbalance (Acute) Weight loss (Acute) Sciatica (Acute) Strain of lumbar region (Acute) Lumbar radiculopathy (Acute) Facial droop (Chronic) Basal cell carcinoma of face (Chronic) Injury of left facial nerve (Chronic) Physical exam, annual (Chronic) Spinal stenosis, lumbar region, without neurogenic claudication (Chronic) Schatzki's ring (Chronic) Psoriasis (Chronic) Low back pain (Chronic) Hypertension, essential (Chronic) Hyperlipidemia (Chronic) Hernia, hiatal (Chronic) ED (erectile dysfunction) (Chronic) Diverticulosis of colon (Chronic) Diabetes mellitus, type II (Chronic) Benign enlargement of prostate (Chronic) BPH without urinary obstruction (Chronic) Anemia (Chronic) Actinic keratosis (Chronic) Medical History (Updated 05/13/21 @ 18:23 by Angel Kerr MD) Actinic keratosis Allergic rhinitis Patient doing well no longer using fluicastone, last use was 1 yr ago, monitor for now. Anemia 07/13/2013 Hypoproliferative Back pain Seeing the pain clinic. Will receive the next epidural steroid shot this thursday05/12/11. Benign enlargement of prostate BPH; of prostate with urinary obstruction 03/03/2013 BPH without urinary obstruction Continue Terazonsin 10mg nightly Cellulitis and abscess of face 12/05/2013 Chronic pain Diabetes mellitus, type II Diverticulosis of colon ED (erectile dysfunction) Generalized abdominal or pelvic swelling or mass or lump Hernia, hiatal History of amputation of finger 2004; finger repair of lt. index finger amputation. Hyperlipidemia Hypertension, essential Low back pain Patient takes tylenol prn as needed. Lumbar radiculopathy Medicare annual wellness visit, initial Physical exam, annual Colonoscopy 2013: diverticulosis tdap 03/2014 aaa: not done, but wants to defer same pneumovac uptodate, pt unable to recall date psa: not indicated eye ecam 06/11 foot exam 10/12 Psoriasis Continue Betamethasone 0.05% cream twice daily as needed. Schatzki's ring Sciatica Spinal stenosis, lumbar region, without neurogenic claudication Lumbar L4-L5-S1 Strain of lumbar region Thoracic or lumbosacral neuritis or radiculitis Urinary retention 03/03/2013 UTI (urinary tract infection) 03/03/2013 Surgical History History of colonoscopy 10/18/2013; Diverticulosis History of esophagogastroduodenoscopy 10/18/13; Schatzki's ring, hiatus hernia History of inguinal hernia repair 05/23/2013; Bilateral inguinal hernia reducible History of surgery Lumbar decompression; 02/23/13 Family History Mother Family history of cardiovascular disease Father Family history of carrier of genetic disease Alzheimers Social History marital status: occupational status: retired occupation: Retired [employer] alcohol intake frequency: former alcohol drinker substance use type: does not use MEDS/ALLERGIES Home Medications and Allergies Home Medications Medication Instructions Recorded Confirmed Type Vitamin C oral capsule extended 1 tab PO DAILY 07/24/15 05/07/21 History release blood sugar diagnostic 11/15/16 05/08/21 History metformin 1,000 mg tablet 1,000 mg PO BID 90 Days #180 tab 10/08/20 05/07/21 Rx terazosin 10 mg capsule 10 mg PO QPM 90 Days #90 cap 11/26/20 05/07/21 Rx ferrous gluconate 324 mg (38 mg 324 mg PO QDAY 03/06/21 05/07/21 History iron) tablet polyethylene glycol 3350 17 17 g PO QDAY PRN 03/06/21 05/07/21 History gram/dose oral powder losartan 100 mg tablet 100 mg PO QDAY 90 Days #90 tab 03/07/21 05/07/21 Rx furosemide 20 mg tablet 20 mg PO QDAY 05/01/21 05/07/21 History indapamide 1.25 mg tablet 1.25 mg PO QAM 05/01/21 05/07/21 History pyridoxine (vitamin B6) 100 mg 100 mg PO QDAY tab 05/01/21 05/07/21 History tablet simvastatin 10 mg tablet 20 mg PO QPM tab 05/01/21 05/07/21 History Allergies Allergy/AdvReac Type Severity Reaction Status Date / Time No Known Drug Allergies Allergy Verified 05/07/21 06:30 Physical Examination Vital Signs Vital signs: Temp Pulse Resp BP Pulse Ox 97.8 F 81 21 138/63 97 05/13/21 16:30 05/13/21 16:30 05/13/21 16:30 05/13/21 16:30 05/13/21 16:30 Additional Exam Additional exam: General: Pleasant cooperative talkative. He does not require supplemental O2. No active coughing. HEENT: Mouth slightly dry. Left facial droop. Reconstructive changes to the left face. Left eye dry. Left ear canal present with remnant of pinna present. No masses felt in the neck. Lungs: Decreased breath sounds on the left with rhonchi. chest: Left chest tube in place. Heart: Regular rate and rhythm without murmur. Abdomen: Soft nontender. Extremities without edema. Results Laboratory Findings CBC and BMP: 05/13/21 05:17 05/13/21 05:18 Abnormal lab findings: Abnormal Labs 05/07/21 05/07/21 05/07/21 07:46 07:46 07:53 WBC 14.5 H RBC 2.55 L Hgb 7.6 L Hct 23.6 L POC Hct 23 L MCHC Plt Count Neut % (Auto) 87.6 H Lymph % (Auto) 6.3 L Lymph # (Auto) 0.91 L Pitkin # (Auto) Absolute Neutrophils 12.65 H Sodium POC Chloride 111 H Chloride Carbon Dioxide POC Total CO2 16 L POC BUN 48 H BUN Creatinine POC Creatinine 1.7 H Glucose POC Glucose 145 H Uric Acid POC WB Ioniz Calcium 1.33 H Magnesium Lactate Dehydrogenase Troponin T 0.04 H* C-Reactive Protein Total Protein Albumin Albumin/Globulin Ratio Procalcitonin Pleural LDH 05/07/21 05/08/21 05/08/21 18:10 00:05 05:25 WBC 12.5 H RBC 2.49 L Hgb 7.5 L Hct 23.7 L POC Hct MCHC Plt Count Neut % (Auto) 87.5 H Lymph % (Auto) 6.3 L Lymph # (Auto) 0.79 L Pitkin # (Auto) Absolute Neutrophils 10.94 H Sodium POC Chloride Chloride Carbon Dioxide POC Total CO2 POC BUN BUN Creatinine POC Creatinine Glucose POC Glucose Uric Acid POC WB Ioniz Calcium Magnesium Lactate Dehydrogenase Troponin T 0.04 H* 0.05 H* C-Reactive Protein Total Protein Albumin Albumin/Globulin Ratio Procalcitonin Pleural LDH 05/08/21 05/09/21 05/09/21 05:25 05:26 05:27 WBC 16.3 H RBC 2.56 L Hgb 7.3 L Hct 24.0 L POC Hct MCHC 30.4 L Plt Count Neut % (Auto) 89.1 H Lymph % (Auto) 5.1 L Lymph # (Auto) 0.84 L Pitkin # (Auto) 0.92 H Absolute Neutrophils 14.52 H Sodium POC Chloride Chloride 109 H Carbon Dioxide 17 L 17 L POC Total CO2 POC BUN BUN 39 H 41 H Creatinine 1.6 H 1.8 H POC Creatinine Glucose 117 H 118 H POC Glucose Uric Acid POC WB Ioniz Calcium Magnesium Lactate Dehydrogenase Troponin T C-Reactive Protein Total Protein 5.8 L Albumin 2.4 L 2.4 L Albumin/Globulin Ratio 0.7 L 0.7 L Procalcitonin Pleural LDH 05/10/21 05/10/21 05/10/21 05:24 05:24 17:17 WBC 17.2 H RBC 2.68 L Hgb 7.8 L Hct 24.6 L POC Hct MCHC Plt Count Neut % (Auto) 83.1 H Lymph % (Auto) 9.9 L Lymph # (Auto) Pitkin # (Auto) 1.15 H Absolute Neutrophils 14.33 H Sodium POC Chloride Chloride Carbon Dioxide 16 L POC Total CO2 POC BUN BUN 38 H Creatinine 1.9 H POC Creatinine Glucose 110 H POC Glucose Uric Acid POC WB Ioniz Calcium Magnesium 1.3 L Lactate Dehydrogenase Troponin T C-Reactive Protein Total Protein Albumin 2.3 L Albumin/Globulin Ratio 0.6 L Procalcitonin Pleural LDH 05/10/21 05/10/21 05/11/21 17:18 17:18 05:32 WBC 15.9 H 15.3 H RBC 2.65 L 2.66 L Hgb 7.9 L 7.6 L Hct 24.5 L 24.3 L POC Hct MCHC Plt Count 450 H Neut % (Auto) 89.7 H 86.2 H Lymph % (Auto) 5.4 L 7.9 L Lymph # (Auto) 0.86 L 1.20 L Pitkin # (Auto) Absolute Neutrophils 14.24 H 13.16 H Sodium 131 L POC Chloride Chloride Carbon Dioxide 18 L POC Total CO2 POC BUN BUN 38 H Creatinine 2.0 H POC Creatinine Glucose 242 H POC Glucose Uric Acid POC WB Ioniz Calcium Magnesium Lactate Dehydrogenase Troponin T C-Reactive Protein Total Protein Albumin 2.1 L Albumin/Globulin Ratio Procalcitonin Pleural LDH 05/11/21 05/11/21 05/11/21 05:32 05:32 05:32 WBC RBC Hgb Hct POC Hct MCHC Plt Count Neut % (Auto) Lymph % (Auto) Lymph # (Auto) Pitkin # (Auto) Absolute Neutrophils Sodium POC Chloride Chloride 109 H Carbon Dioxide 15 L POC Total CO2 POC BUN BUN 40 H Creatinine 1.8 H POC Creatinine Glucose 138 H POC Glucose Uric Acid < 0.2 L POC WB Ioniz Calcium Magnesium Lactate Dehydrogenase 91 L Troponin T C-Reactive Protein 15.20 H Total Protein 5.5 L Albumin 2.0 L Albumin/Globulin Ratio 0.6 L Procalcitonin 0.33 H Pleural LDH 05/12/21 05/12/21 05/12/21 05:28 05:28 09:51 WBC 12.2 H RBC 2.49 L Hgb 7.1 L 7.1 L Hct 24.0 L POC Hct MCHC 29.6 L Plt Count Neut % (Auto) 83.3 H Lymph % (Auto) 9.1 L Lymph # (Auto) 1.11 L Pitkin # (Auto) Absolute Neutrophils 10.18 H Sodium POC Chloride Chloride 109 H Carbon Dioxide 15 L POC Total CO2 POC BUN BUN 51 H Creatinine 2.1 H POC Creatinine Glucose 144 H POC Glucose Uric Acid < 0.2 L POC WB Ioniz Calcium Magnesium Lactate Dehydrogenase 86 L Troponin T C-Reactive Protein Total Protein 5.4 L Albumin 1.7 L Albumin/Globulin Ratio 0.5 L Procalcitonin Pleural LDH 05/12/21 05/12/21 05/13/21 18:00 18:45 05:17 WBC RBC 2.31 L Hgb 7.3 L 6.8 L* Hct 22.2 L POC Hct MCHC 30.6 L Plt Count Neut % (Auto) 83.3 H Lymph % (Auto) 8.6 L Lymph # (Auto) 0.93 L Pitkin # (Auto) Absolute Neutrophils 9.04 H Sodium POC Chloride Chloride Carbon Dioxide POC Total CO2 POC BUN BUN Creatinine POC Creatinine Glucose POC Glucose Uric Acid POC WB Ioniz Calcium Magnesium Lactate Dehydrogenase Troponin T C-Reactive Protein Total Protein Albumin Albumin/Globulin Ratio Procalcitonin Pleural LDH 454 H 05/13/21 05:18 WBC RBC Hgb Hct POC Hct MCHC Plt Count Neut % (Auto) Lymph % (Auto) Lymph # (Auto) [place]kin # (Auto) Absolute Neutrophils Sodium POC Chloride Chloride Carbon Dioxide 15 L POC Total CO2 POC BUN BUN 52 H Creatinine 2.3 H POC Creatinine Glucose 126 H POC Glucose Uric Acid < 0.2 L POC WB Ioniz Calcium Magnesium Lactate Dehydrogenase 89 L Troponin T C-Reactive Protein Total Protein 5.7 L Albumin 2.1 L Albumin/Globulin Ratio 0.6 L Procalcitonin Pleural LDH Microbiology: Microbiology 05/12/21 18:00 Pleural Fluid Gram Stain - Preliminary 05/12/21 18:00 Pleural Fluid Body Fluid Culture - Preliminary 05/07/21 08:00 Blood Blood Culture - Final 05/07/21 07:53 Blood Blood Culture - Final 05/11/21 07:50 Nose MRSA (PCR) - Final 05/07/21 09:53 Nasopharynx SARS-CoV-2 by PCR ([facility]BEY) - Final May 07 white count 14.5 H&H 7.6/23.6 platelet count 361. May 13 H&H 6.8/22.2 creatinine 2.3 total protein 5.7 albumin 2.1. On May 07 creatinine 1.7. May 10 white count up to 17.2. May 11 creatinine 1.8 May 12 white count 15.3 creatinine 2.1 total protein 5.4 albumin 1.7. May 12 thoracentesis LDH 454 protein 4.171 white cells 93 segs 6 months no organisms seen. Culture pending. I reviewed chest x-ray and chest CT scan. A/P Assessment and plan (1) Left lower lobe pneumonia: Status: Acute Comment: Camron is a pleasant 80-year-old man with malnourished status. He has significant normocytic anemia and history of left face reconstructive surgery pectoral flap swelling for basal cell carcinoma. He has leukocytosis without fever. He has had cough for approximately 1 month that has been nonproductive. Chest x-ray and chest CT scan suggest loculated left pleural effusion. Effusion is not consistent with empyema. It may be consistent with an uninfected parapneumonic infusion. However, his presentation is not classic for pneumonia presentation. He is currently day 7 IV Zosyn. [place] end of this [place]. He currently has a left chest tube in place for effusion. It is reasonable to continue IV Zosyn at this time, with transition to oral Augmentin when discharged. t max during this hospital stay 99.7. Qualifiers: Pneumonia type: due to unspecified organism Qualified Code(s): J18.9 - Pneumonia, unspecified organism (2) Pleural effusion: Status: Acute Comment: I am suspicious for malignant left pleural effusion. Cytology pending. Will ch yanique quant gold for TB but doubt. No known TB exposure. (3) CKD stage 3 due to type 2 diabetes mellitus: Status: Acute Comment: Admit creatinine was 1.7 on May 07. Creatinine rising to 2.3 today. Zosyn dose currently 2.25 every 6 hours. Thank you very much for allowing me be to be involved in Camron's consultative care. Please call for questions. Time Spent With Patient Time: Total time spent is greater than 50% in coordination of care (as documented) at patient's floor/unit and/or counseling patient:
--- NOTE | 2021-05-13 20:21 | EKG ---
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 Measurements Intervals Bonita Rate: 75 P: 57 MD: 168 QRS: 27 QRSD: 74 T: 60 QT: 376 QTc: 420 Interpretive Statements SINUS RHYTHM VENTRICULAR PREMATURE COMPLEX BORDERLINE T ABNORMALITIES, ANT-LAT LEADS Since previous ECG of 05-11-2021, SINUS RHYTHM, BORDERLINE TRACING Electronically Signed On 05-13-2021 20:21:27 PDT by Cesar Campbell M.D. /store/[email or web address]/[id number]
[2021-05-13] MEDS: ALTEPLASE 2 MG VIAL IJ SCH (20:45)
[2021-05-13] MEDS: SIMVASTATIN 10 MG TABLET PO SCH (21:02)
[2021-05-13] MEDS: TERAZOSIN 5 MG CAPSULE PO SCH (21:02)
[2021-05-13] MEDS: SENNOSIDES 1 TABLET PO SCH (21:02)
[2021-05-14] MEDS: 0.9 % SODIUM CHLORIDE 10 ML SYRINGE IV SCH ×3 (06:02→21:26)
[2021-05-14 06:47] LABS: Basophils # (Auto) 0.02 K/mcL (0.00-0.30); Basophils % (Auto) 0.1 % (0.0-2.0); Eosinophils # (Auto) 0 K/mcL (0.00-0.70); Eosinophils % (Auto) 0 % (0.0-7.0); Hematocrit 25.5 % (40.1-51.0); Lymphocytes % (Auto) 2.2 % (15.5-49.0); Mean Cell Volume 90.4 fL (80.0-100.0); Mean Corpuscular HGB Conc 31.4 g/dL (31.0-36.0); Mean Platelet Volume 9.2 fL (7.4-10.4); Monocytes # (Auto) 0.94 K/mcL (0.10-0.90); Monocytes % (Auto) 5.2 % (1.0-12.0); Neutrophils % (Auto) 92.5 % (38.0-78.0); Platelet Count 445 K/mcL (140-440); RBC 2.82 M/mcL (4.63-6.08); Red Cell Distribution Width 14.4 % (11.5-14.5); WBC 18.1 K/mcL (4.5-11.0)
[2021-05-14 07:12] LABS: ALT/SGPT 19 U/L (<40); AST/SGOT 16 U/L (<40); Albumin 2.1 gm/dL (3.2-5.2); Albumin/Globulin Ratio 0.6 (1.0-2.3); Alkaline Phosphatase 73 U/L (39-117); Bilirubin,Direct < 0.2 mg/dL (0-0.3); Bilirubin,Total 0.2 mg/dL (0.1-1.0); Blood Urea Nitrogen 50 mg/dL (8-23); Calcium 8.7 mg/dL (8.6-10.4); Carbon Dioxide 16 mmol/L (22-30); Chloride 107 mmol/L (96-108); Globulin 3.4 gm/dL (2.2-3.7); Glomerular Filtration Rate 24; Glucose 145 mg/dL (70-105); Lactate Dehydrogenase 106 U/L (135-225); Phosphorous 4.4 mg/dL (2.5-4.5); Triglycerides 32 mg/dL (<150); Uric Acid < 0.2 mg/dL (2.5-8)
[2021-05-14] MEDS: ASCORBIC ACID 500 MG TABLET PO SCH (09:33)
[2021-05-14] MEDS: PYRIDOXINE 100 MG TABLET PO SCH (09:33)
[2021-05-14] MEDS: 0.9 % SODIUM CHLORIDE 1,000 ML IV SCH ×3 (09:34→18:47)
[2021-05-14] MEDS: AMOXICILLIN/POTASSIUM CLAV 875 MG TABLET PO SCH ×2 (09:34→17:24)
[2021-05-14] MEDS: FERROUS GLUCONATE 324 MG TABLET PO SCH (09:34)
[2021-05-14] MEDS: DOCUSATE SODIUM 100 MG CAPSULE PO SCH ×2 (09:34→21:25)
--- NOTE | 2021-05-14 09:37 | General Surgery Progress Note ---
SUBJECTIVE Subjective Patient information: Note initiated : 05/14/21 at 9:35 am Service Date, if different from initiated Date: [] Patient: Camron Morel 80 y/o M admitted on 05/09/21 for Chest Pain . Chief Complaint: [] Interval history: No significant changes, patient still feels well. Constitutional Vitals: Vital Signs Temp Pulse Resp BP Pulse Ox 98.1 F 80 21 139/63 92 05/14/21 04:30 05/13/21 22:01 05/14/21 06:07 05/14/21 06:07 05/14/21 04:30 Period Temp Pulse Resp BP Sys/Jameson Pulse Ox Last 24 Hr 97.3 F-98.5 F 76-81 14-21 126-150/60-82 92-97 Intake and Output 05/13/21 05/14/21 05/14/21 21:59 05:59 13:59 Intake Total 530 350 Output Total 2 1850 Balance 528 -1500 Weight 161 lb 12.8 oz Intake & Output: Intake & Output 05/13/21 05/14/21 05/14/21 21:59 05:59 13:59 Intake Total 530 350 Output Total 2 1850 Balance 528 -1500 Weight 161 lb 12.8 oz Intake: IV 50 250 Sodium Chloride 0.9% 250 ml @ 250 20 mls/hr IV .[id number] [facility]ASE Rx#: [id number] Zosyn 2.25 gm In Dextrose 5% in 50 Water 50 ml @ 100 mls/hr IV Q6H CHASE Rx#:[id number] Oral 480 100 Output: Chest Tube Drainage 1850 Left Mid-Axillary Chest 1850 # of times incontinent of urine 2 Other: Meal Dinner Percent of Meal Consumed 100% Stool Size Moderate Stool Color Brown Stool Consistency Loose # of times incontinent of 1 Bowels General appearance: cooperative and no acute distress Respiratory Respiratory exam: Present normal respiratory exam Additional comments: Chest tube in place GI/Abdominal GI/Abdominal exam: Present soft A/P Narrative A/P Narrative: Improved chest x-ray this morning. I will continue to follow. Time Spent With Patient Time: Total time spent is greater than 50% in coordination of care (as documented) at patient's floor/unit and/or counseling patient:
[2021-05-14] MEDS: INSULIN LISPRO 1 UNIT/0.01 ML UNIT SQ SCH ×4 (10:00→21:25)
--- NOTE | 2021-05-14 10:05 | XRay Report ---
HISTORY: Pleural effusion, pulmonary infiltrates, chest pain, chest tube FINDINGS: There is a large caliber chest tube in the left lower thorax. This is been partially pulled back since yesterday's exam. The sidehole of the catheter is now adjacent to the pleura. There is a small pneumothorax at the left costophrenic sulcus, adjacent to the catheter. Most of the large side pleural effusion seen on yesterday's exam has now been drained. There has been partial reaeration of the left lung. There still moderate consolidation in the basilar segments and a moderate alveolar infiltrate in the central portion. There is a mild alveolar infiltrate in the right lower lobe which has also improved. No right-side effusion is seen. The heart size is normal. Impression: near complete evacuation of the left side pleural effusion Improving aeration of the left lung. The remaining consolidation may be a combination of atelectasis and pneumonia Interpreted and Authenticated by: Gabe Price 05/14/21
[2021-05-14] MEDS: ALTEPLASE 2 MG VIAL IJ SCH ×2 (10:45→21:26)
--- NOTE | 2021-05-14 15:23 | Internal Med Progress Note ---
SUBJECTIVE Subjective Patient information: Note initiated : 05/14/21 at 3:22 pm Service Date, if different from initiated Date: [] Patient: Camron Morel a 80 y/o M admitted on 05/09/21 for Chest Pain . Chief Complaint: [] Interval history: History of present illness: Mr. Morel is a 80 year old M history of basal cell carcinoma of the face, type 2 diabetes, essential hypertension, mixed dyslipidemia, chronic kidney disease stage III, BPH, prese nting with chest pain, nonproductive cough, and shortness of breath. He has been vaccinated against Covid pneumonia. He denies any sick contact or recent travel. He was in his usual state of health until 4 days ago when he had acute onset of chest pain, nonproductive cough, and shortness of breath. Chest pain was moderate to severe, sharp, exacerbated when he coughs. He denies any fever or chills. Due to his symptoms, he decided to come to our ED for further evaluations today. Vital signs at ED presentations completely unremarkable. Labs remarkable for leukocytosis with WBC 14.5. Serum lactic acid normal at 0.7. Covid Debi screening test negative. Covid PCR test-not detected. Chest x-ray showing left-sided pulmonary infiltrate as well as left sided pleural effusions. Patient is currently tolerating room air. 05/08: CoVID PRC negative. Blood cultures no growth to date. Troponin-i: 0.04, 0.04, 0.05. Afebrile. Been tolerating room air. Denies chest pain. Denies SOB. c/o nonproductive cough. Denies fever or chills. 05/09: Afebrile overnight. Tolerating room air overnight. WBC jumps from 12 to 16 this morning. Still c/o nonproductive cough and left sided chest pain when he coughs. Denies fever or chills. Denies general body weakness. 05/10: Afebrile overnight. Tolerating room air overnight. WBC jumps from 16 to 17 this morning. Still c/o nonproductive cough and left sided chest pain when he coughs. Denies fever or chills. Denies general body weakness. 05/11: Point of care ultrasound exam shows a moderate left pleural effusion that appears complex and potentially loculated. Further working including CT chest and thoracentesis along with goals of care discussed with the patient and his daughter at the bedside. The patient wants to proceed with further workup and thoracentesis. CT chest ordered, likely will be followed by thoracentesis. Transitioned antibiotic therapy from Ceftriaxone and Azithromycin to Zosyn. Tachycardic-EKG suggests SVT. 05/12: CT chest consistent with pneumonia and loculated left pleural effusion. Goals of care discussed with the patient and his daughter at [facility], discussed transfer to a higher level of care which the patient refused. Explained that we have tPA but not Dornase for intrapleural treatment of loculations and that the combination was the standard of care and even that might not work. In that case surgery would be the only option to remove the loculations. The patient refused transfer to a higher level of care but would like an attempt to drain the fluid with a chest tube and tPA. General surgery consulted for chest tube placement, pleural fluid labs ordered. After chest tube placed will started intrapleural t PA. 05/13: Pleural fluid workup consistent with exudate but cell count lower than expected for parapneumonic effusion, LDH 454 and pH 7.61 also would be unusual for parapneumonic effusion. Started intrapleural Alteplase, discussed dornase with pharmacy again and it is not available. Required one unit of blood for hemoglobin 6.8. Holding heparin SQ for DVT prophylaxis. The patient stated that he wants to be DNR, code status changed. ID consulted and felt the left effusion was not consistent with a parapneumonic effusion, felt the patient could be treated with Augmentin. 05/14: Improved left pleural effusion chest tube drainage after intrapleural Alteplase, chest xray shows near complete evacuation of left pleural effusion. WBC increased today but no fevers and the patient feels better, the patient wants to continue the intrapleural treatment for one more day then remove the chest tube. Goals of care discussion at bedside with his daughter and the care team today, the patient wants to go home at discharge and would consider hospice in the near future. Transitioned to oral Augmentin. Awaiting pleural fluid cytology. Review of systems: no fevers, positive for cough and left sided pleuritic chest pain. Head: Atraumatic, normal inspection. Eyes: normal appearance, no scleral icterus. Neck: full ROM Respiratory: decreased left lower lobe sounds, left chest tube with cloudy fluid and debris, no respiratory distress. Cardiovascular: normal rate and rhythm, S1, S2. GI/Abdominal: soft, nontender, no guarding. Extremities: full range of motion, nontender. Neurological: CN II-XII intact, intact motor, intact sensation. Psychiatric: normal mood. Skin: warm, normal color Constitutional Vitals: Vital Signs Temp Pulse Resp BP Pulse Ox 98.1 F 78 20 129/62 97 05/14/21 12:01 05/14/21 14:01 05/14/21 14:01 05/14/21 14:01 05/14/21 14:01 Period Temp Pulse Resp BP Sys/Jameson Pulse Ox Last 24 Hr 97.8 F-98.5 F 70-81 15-25 126-150/57-82 92-97 Intake and Output 05/14/21 05/14/21 05/14/21 05:59 13:59 21:59 Intake Total 350 Output Total 1850 Balance -1500 Intake & Output: Intake & Output 05/14/21 05/14/21 05/14/21 05:59 13:59 21:59 Intake Total 350 Output Total 1850 Balance -1500 Intake: IV 250 Sodium Chloride 0.9% 250 ml @ 250 20 mls/hr IV .[id number] [facility] Rx#: [id number] Oral 100 Output: Chest Tube Drainage 1850 Left Mid-Axillary Chest 1850 OBJ DATA Labs CBC & Chem 7: 05/14/21 04:53 05/14/21 04:52 Labs: Abnormal Lab Results 05/14/21 05/14/21 05/13/21 04:53 04:52 18:58 WBC 18.1 H RBC 2.82 L Hgb 8.0 L 8.8 L Hct 25.5 L MCHC Plt Count 445 H Neut % (Auto) 92.5 H Lymph % (Auto) 2.2 L Lymph # (Auto) 0.40 L [place] # (Auto) 0.94 H Absolute Neutrophils 16.76 H Chloride Carbon Dioxide 16 L BUN 50 H Creatinine 2.4 H Glucose 145 H Uric Acid < 0.2 L Lactate Dehydrogenase 106 L Total Protein 5.5 L Albumin 2.1 L Albumin/Globulin Ratio 0.6 L Pleural LDH 05/13/21 05/13/21 05/12/21 05:18 05:17 18:45 WBC RBC 2.31 L Hgb 6.8 L* 7.3 L Hct 22.2 L MCHC 30.6 L Plt Count Neut % (Auto) 83.3 H Lymph % (Auto) 8.6 L Lymph # (Auto) 0.93 L [place] # (Auto) Absolute Neutrophils 9.04 H Chloride Carbon Dioxide 15 L BUN 52 H Creatinine 2.3 H Glucose 126 H Uric Acid < 0.2 L Lactate Dehydrogenase 89 L Total Protein 5.7 L Albumin 2.1 L Albumin/Globulin Ratio 0.6 L Pleural LDH 05/12/21 05/12/21 05/12/21 18:00 09:51 05:28 WBC RBC Hgb 7.1 L Hct MCHC Plt Count Neut % (Auto) Lymph % (Auto) Lymph # (Auto) [place] # (Auto) Absolute Neutrophils Chloride 109 H Carbon Dioxide 15 L BUN 51 H Creatinine 2.1 H Glucose 144 H Uric Acid < 0.2 L Lactate Dehydrogenase 86 L Total Protein 5.4 L Albumin 1.7 L Albumin/Globulin Ratio 0.5 L Pleural LDH 454 H 05/12/21 05:28 WBC 12.2 H RBC 2.49 L Hgb 7.1 L Hct 24.0 L MCHC 29.6 L Plt Count Neut % (Auto) 83.3 H Lymph % (Auto) 9.1 L Lymph # (Auto) 1.11 L [place] # (Auto) Absolute Neutrophils 10.18 H Chloride Carbon Dioxide BUN Creatinine Glucose Uric Acid Lactate Dehydrogenase Total Protein Albumin Albumin/Globulin Ratio Pleural LDH Meds: Medications Acetaminophen (Acetaminophen 325 Mg Tablet) 650 mg PO Q6HP PRN; Protocol PRN Reason: Per Pain Protocol/Fever > 101 Albuterol/Ipratropium (Ipratropium/Albuterol 3 Ml Ampul.Neb) 3 ml NEB Q4HP PRN PRN Reason: Shortness Of Breath Alteplase, Recombinant (Alteplase 2 Mg Vial) 10 mg IJ BID [facility] Stop: 05/16/21 09:01 Last Admin: 05/14/21 10:45 Dose: 10 mg Documented by: Amoxicillin/Clavulanate Potassium (Amoxicillin/Potassium Clav 875 Mg Tablet) 875 mg PO BIDCOX BRANSON; Protocol Last Admin: 05/14/21 09:34 Dose: 875 mg Documented by: Ascorbic Acid (Ascorbic Acid 500 Mg Tablet) 1,000 mg PO DAILY [facility] Last Admin: 05/14/21 09:33 Dose: 1,000 mg Documented by: Dextrose (Dextrose 50% 50 Ml Vial) 0 ml IV UD PRN PRN Reason: Hypoglycemia Diagnostic Test (Pha) (Accu-Chek 1 Each Strip) 1 each FS [facility] Last Admin: 05/14/21 12:52 Dose: 1 each Documented by: Docusate Sodium (Docusate Sodium 100 Mg Capsule) 100 mg PO BID [facility] Last Admin: 05/14/21 09:34 Dose: Not Given Documented by: Ferrous Gluconate (Ferrous Gluconate 324 Mg Tablet) 324 mg PO [facility] Last Admin: 05/14/21 09:34 Dose: 324 mg Documented by: Glucose (Dextrose 31 Gm Oral.Susp) 15 gm PO PRN PRN PRN Reason: Hypoglycemia Guaifenesin (Guaifenesin/Dextromethorphan Oral Tracy) 10 ml PO Q4HP PRN PRN Reason: Cough Sodium Chloride (Sodium Chloride 0.9%) 1,000 mls @ 125 mls/hr IV .Q8H [facility] Last Admin: 05/14/21 09:34 Dose: 125 mls/hr Documented by: Insulin Human Lispro (Insulin Lispro 1 Unit/0.01 Ml Unit) 0 unit SQ [facility]; Protocol Last Admin: 05/14/21 12:52 Dose: 3 units Documented by: Metoprolol Tartrate (Metoprolol Tartrate 5 Mg/5 Ml Vial) 5 mg IV Q4HP PRN PRN Reason: Tachyarrhythmias Last Admin: 05/12/21 07:30 Dose: 5 mg Documented by: Morphine Sulfate (Morphine 4 Mg/Ml Vial) 4 mg IV Q4HP PRN; Protocol PRN Reason: Per Pain Protocol Ondansetron HCl (Ondansetron 4 Mg/2 Ml Vial) 4 mg IV Q6HP PRN PRN Reason: Nausea And Vomiting Polyethylene Glycol (Polyethylene Glycol 3350 17 Gm Packet) 17 gm PO DAILYP PRN PRN Reason: Constipation Pyridoxine HCl (Pyridoxine 100 Mg Tablet) 100 mg PO QDAY [facility] Last Admin: 05/14/21 09:33 Dose: 100 mg Documented by: Senna (Sennosides 1 Tablet) 2 tab PO [facility] Last Admin: 05/13/21 21:02 Dose: Not Given Documented by: Simvastatin (Simvastatin 10 Mg Tablet) 20 mg PO QPM [facility] Last Admin: 05/13/21 21:02 Dose: 20 mg Documented by: Sodium Chloride (0.9 % Sodium Chloride 10 Ml Syringe) 10 ml IV Q8 [facility] Last Admin: 05/14/21 12:53 Dose: Not Given Documented by: Terazosin HCl (Terazosin 5 Mg Capsule) 10 mg PO HS [facility] Last Admin: 05/13/21 21:02 Dose: 10 mg Documented by: A/P Narrative A/P Narrative: Assessment: 80-year-old male with a history of HTN, DM, CKD III, chronic anemia, HLD, BPH, admitted for community acquired pneumonia. #Community acquired pneumonia #Loculated left pleural effusion-concern for malignant effusion vs parapneumonic effusion #Paroxysmal atrial fibrillation #Acute on chronic anemia s/p 1 unit RBC #Type 2 Diabetes mellitus #Essential Hypertension #Acute on chronic CKD IIIb disease injury #Hyperlipidemia #BPH #History of basal cell carcinoma head of left face s/p resection #Skin cancer of nose-unknown cancer type #Left heel ulcer #Malnourishment Plan -Transitioned to Augmentin BID. -Left chest tube management-surgery following for assistance. -Intrapleural Alteplase BID for 2-3 days depending on patient's preference. -Daily chest xray, follow chest tube drainage. -IV fluid today. -Follow CBC and RFP. -Follow hemoglobin, transfuse RBC prn. -SSI-low, holding Metformin. -Holding home Losartan, Indapamide, and Lasix. -Continue Simvastatin, Terazosin. -quality assurance monitor chassis. -DVT ppx: SCD -Code status: DNR -Disposition: probably home with family assistance and home health Time Spent With Patient Time: Total time spent is greater than 50% in coordination of care (as documented) at patient's floor/unit and/or counseling patient: QUALITY Stroke Symptom Onset Unknown: No VTE Deep Vein Thrombosis/Pulmonary Embolism Present on Admission: No
[2021-05-14 19:51] LABS: pH,Body Fluid 7.69
[2021-05-14 20:01] LABS: LDH,Pleural Fluid 237 U/L (<122)
[2021-05-14 20:38] LABS: Appearance,Pleural Fluid Hazy; Color,Pleural Fluid Red; Lymphocytes,Pleural Fluid 0 %; Monocytes,Pleural Fluid 14 %; Neutrophils,Pleural Fluid 86 %; Nucleated Cells,Pleural Fld 7910 /cumm; RBC,Pleural Fluid <50,000 /cumm
[2021-05-14] MEDS: SIMVASTATIN 10 MG TABLET PO SCH (21:25)
[2021-05-14] MEDS: SENNOSIDES 1 TABLET PO SCH (21:25)
[2021-05-14] MEDS: TERAZOSIN 5 MG CAPSULE PO SCH (21:25)
[2021-05-15] MEDS: 0.9 % SODIUM CHLORIDE 1,000 ML IV SCH ×2 (02:28→09:52)
[2021-05-15] MEDS: 0.9 % SODIUM CHLORIDE 10 ML SYRINGE IV SCH ×3 (05:24→21:33)
[2021-05-15 07:09] LABS: Basophils # (Auto) 0.01 K/mcL (0.00-0.30); Basophils % (Auto) 0.1 % (0.0-2.0); Eosinophils # (Auto) 0.04 K/mcL (0.00-0.70); Eosinophils % (Auto) 0.3 % (0.0-7.0); Hematocrit 26.6 % (40.1-51.0); Hemoglobin 8.6 g/dL (13.7-17.5); Lymphocytes # (Auto) 0.63 K/mcL (1.50-4.80); Lymphocytes % (Auto) 5.4 % (15.5-49.0); Mean Cell Volume 89.9 fL (80.0-100.0); Mean Corpuscular HGB Conc 32.3 g/dL (31.0-36.0); Mean Platelet Volume 9.2 fL (7.4-10.4); Monocytes % (Auto) 5.1 % (1.0-12.0); Neutrophils % (Auto) 89.1 % (38.0-78.0); Platelet Count 438 K/mcL (140-440); RBC 2.96 M/mcL (4.63-6.08); Red Cell Distribution Width 14.6 % (11.5-14.5); WBC 11.8 K/mcL (4.5-11.0)
[2021-05-15] MEDS: INSULIN LISPRO 1 UNIT/0.01 ML UNIT SQ SCH ×4 (07:50→21:31)
[2021-05-15 08:26] LABS: ALT/SGPT 16 U/L (<40); AST/SGOT 12 U/L (<40); Albumin/Globulin Ratio 0.6 (1.0-2.3); Alkaline Phosphatase 69 U/L (39-117); Bilirubin,Direct < 0.2 mg/dL (0-0.3); Bilirubin,Total 0.2 mg/dL (0.1-1.0); Blood Urea Nitrogen 44 mg/dL (8-23); Calcium 8.8 mg/dL (8.6-10.4); Carbon Dioxide 15 mmol/L (22-30); Chloride 109 mmol/L (96-108); Globulin 3.6 gm/dL (2.2-3.7); Glomerular Filtration Rate 30; Glucose 166 mg/dL (70-105); Lactate Dehydrogenase 90 U/L (135-225); Phosphorous 3.7 mg/dL (2.5-4.5); Triglycerides 40 mg/dL (<150); Uric Acid < 0.2 mg/dL (2.5-8)
[2021-05-15] MEDS: PYRIDOXINE 100 MG TABLET PO SCH (09:01)
[2021-05-15] MEDS: AMOXICILLIN/POTASSIUM CLAV 875 MG TABLET PO SCH ×2 (09:01→17:10)
[2021-05-15] MEDS: DOCUSATE SODIUM 100 MG CAPSULE PO SCH ×2 (09:01→21:32)
[2021-05-15] MEDS: FERROUS GLUCONATE 324 MG TABLET PO SCH (09:01)
[2021-05-15] MEDS: ASCORBIC ACID 500 MG TABLET PO SCH (09:01)
[2021-05-15] MEDS: ALTEPLASE 2 MG VIAL IJ SCH ×2 (09:02→21:31)
--- NOTE | 2021-05-15 11:10 | XRay Report ---
HISTORY: Chest tube management, chest pain, follow-up infiltrates and pleural effusion FINDINGS: The chest tube remains positioned at the left costophrenic sulcus. The tiny pneumothorax seen adjacent to the catheter tip on yesterday's exam has resolved. There is increasing consolidation of lung parenchyma throughout the left lower lobe and in the basilar segments of the right lower lobe. There is a trace amount of residual pleural fluid in the left lower thorax. Heart size is borderline enlarged with left ventricular prominence. IMPRESSION: Worsening consolidation in both lungs which may be a combination of pneumonia and atelectasis Near complete evacuation of the left-side pleural effusion Interpreted and Authenticated by: Gabe Price 05/15/21
--- NOTE | 2021-05-15 14:55 | Internal Med Progress Note ---
SUBJECTIVE Subjective Patient information: Note initiated : 05/15/21 at 2:49 pm Service Date, if different from initiated Date: [] Patient: Camron Morel a 80 y/o M admitted on 05/09/21 for Chest Pain . Chief Complaint: [] Interval history: History of present illness: Mr. Morel is a 80 year old M history of basal cell carcinoma of the face, type 2 diabetes, essential hypertension, mixed dyslipidemia, chronic kidney disease stage III, BPH, prese nting with chest pain, nonproductive cough, and shortness of breath. He has been vaccinated against Covid pneumonia. He denies any sick contact or recent travel. He was in his usual state of health until 4 days ago when he had acute onset of chest pain, nonproductive cough, and shortness of breath. Chest pain was moderate to severe, sharp, exacerbated when he coughs. He denies any fever or chills. Due to his symptoms, he decided to come to our ED for further evaluations today. Vital signs at ED presentations completely unremarkable. Labs remarkable for leukocytosis with WBC 14.5. Serum lactic acid normal at 0.7. Covid Debi screening test negative. Covid PCR test-not detected. Chest x-ray showing left-sided pulmonary infiltrate as well as left sided pleural effusions. Patient is currently tolerating room air. 05/08: CoVID PRC negative. Blood cultures no growth to date. Troponin-i: 0.04, 0.04, 0.05. Afebrile. Been tolerating room air. Denies chest pain. Denies SOB. c/o nonproductive cough. Denies fever or chills. 05/09: Afebrile overnight. Tolerating room air overnight. WBC jumps from 12 to 16 this morning. Still c/o nonproductive cough and left sided chest pain when he coughs. Denies fever or chills. Denies general body weakness. 05/10: Afebrile overnight. Tolerating room air overnight. WBC jumps from 16 to 17 this morning. Still c/o nonproductive cough and left sided chest pain when he coughs. Denies fever or chills. Denies general body weakness. 05/11: Point of care ultrasound exam shows a moderate left pleural effusion that appears complex and potentially loculated. Further working including CT chest and thoracentesis along with goals of care discussed with the patient and his daughter at the bedside. The patient wants to proceed with further workup and thoracentesis. CT chest ordered, likely will be followed by thoracentesis. Transitioned antibiotic therapy from Ceftriaxone and Azithromycin to Zosyn. Tachycardic-EKG suggests SVT. 05/12: CT chest consistent with pneumonia and loculated left pleural effusion. Goals of care discussed with the patient and his daughter at [facility], discussed transfer to a higher level of care which the patient refused. Explained that we have tPA but not Dornase for intrapleural treatment of loculations and that the combination was the standard of care and even that might not work. In that case surgery would be the only option to remove the loculations. The patient refused transfer to a higher level of care but would like an attempt to drain the fluid with a chest tube and tPA. General surgery consulted for chest tube placement, pleural fluid labs ordered. After chest tube placed will started intrapleural t PA. 05/13: Pleural fluid workup consistent with exudate but cell count lower than expected for parapneumonic effusion, LDH 454 and pH 7.61 also would be unusual for parapneumonic effusion. Started intrapleural Alteplase, discussed dornase with pharmacy again and it is not available. Required one unit of blood for hemoglobin 6.8. Holding heparin SQ for DVT prophylaxis. The patient stated that he wants to be DNR, code status changed. ID consulted and felt the left effusion was not consistent with a parapneumonic effusion, felt the patient could be treated with Augmentin. ID ordered [id number] GOLD. 05/14: Improved left pleural effusion chest tube drainage after intrapleural Alteplase, chest xray shows near complete evacuation of left pleural effusion. WBC increased today but no fevers and the patient feels better, the patient wants to continue the intrapleural treatment for one more day then remove the chest tube. Repeat pleural fluid workup shows a higher pleural fluid cell count at 7910 and 86% neutrophils but still low for an infectious process. Goals of care discussion at bedside with his daughter and the care team today, the patient wants to go home at discharge and would consider hospice in the near future. Transitioned to oral Augmentin. Awaiting pleural fluid cytology. 05/15: Chest tube has less drainage today but still significant, the patient would like to complete the 72 hour treatment course of intrapleural Alteplase. Chest xray shows worsening consolidation in both lung lungs, near complete evacuation of the left sided pleural effusion. Discontinued IV fluid. Renal function has improved. WBC trending down. Review of systems: no fevers, positive for cough and left sided pleuritic chest pain. Head: Atraumatic, normal inspection. Eyes: normal appearance, no scleral icterus. Neck: full ROM Respiratory: decreased left lower lobe sounds, left chest tube with cloudy fluid and debris, no respiratory distress. Cardiovascular: normal rate and rhythm, S1, S2. GI/Abdominal: soft, nontender, no guarding. Extremities: full range of motion, nontender. Neurological: CN II-XII intact, intact motor, intact sensation. Psychiatric: normal mood. Skin: warm, normal color Constitutional Vitals: Vital Signs Temp Pulse Resp BP Pulse Ox 97.7 F 84 19 135/57 95 05/15/21 12:01 05/15/21 14:06 05/15/21 14:06 05/15/21 14:00 05/15/21 14:06 Period Temp Pulse Resp BP Sys/Jameson Pulse Ox Last 24 Hr 97.7 F-98.6 F 70-84 17-23 132-152/40-77 94-98 Intake and Output 05/15/21 05/15/21 05/15/21 05:59 13:59 21:59 Intake Total 1360 1359 480 Output Total 651 1 1 Balance 709 1358 479 Intake & Output: Intake & Output 05/15/21 05/15/21 05/15/21 05:59 13:59 21:59 Intake Total 1360 1359 480 Output Total 651 1 1 Balance 709 1358 479 Intake: IV 960 879 Sodium Chloride 0.9% 1,000 ml @ 960 879 125 mls/hr IV .Q8H CHASE Rx#: [id number] Oral 400 480 480 Output: Chest Tube Drainage 250 Left Mid-Axillary Chest 250 Void Amount 400 # of times incontinent of urine 1 1 1 Other: Meal Breakfast Lunch Percent of Meal Consumed 75% 50% Feeding Ability Independent Urine Color Bright Yellow Urine Odor Strong Stool Size Small Large Large Stool Color Brown Brown Brown Stool Consistency Loose Loose Loose # Voids 1 1 # Bowel Movements 1 # of times incontinent of 1 Bowels OBJ DATA Labs CBC & Chem 7: 05/15/21 04:51 05/15/21 04:50 Labs: Abnormal Lab Results 05/15/21 05/15/21 05/14/21 04:51 04:50 18:25 WBC 11.8 H RBC 2.96 L Hgb 8.6 L Hct 26.6 L MCHC RDW 14.6 H Plt Count Neut % (Auto) 89.1 H Lymph % (Auto) 5.4 L Lymph # (Auto) 0.63 L [place] # (Auto) Absolute Neutrophils 10.47 H Chloride 109 H Carbon Dioxide 15 L BUN 44 H Creatinine 2.0 H Glucose 166 H Uric Acid < 0.2 L Lactate Dehydrogenase 90 L Total Protein 5.6 L Albumin 2.0 L Albumin/Globulin Ratio 0.6 L Pleural LDH 237 H 05/14/21 05/14/21 05/13/21 04:53 04:52 18:58 WBC 18.1 H RBC 2.82 L Hgb 8.0 L 8.8 L Hct 25.5 L MCHC RDW Plt Count 445 H Neut % (Auto) 92.5 H Lymph % (Auto) 2.2 L Lymph # (Auto) 0.40 L [place] # (Auto) 0.94 H Absolute Neutrophils 16.76 H Chloride Carbon Dioxide 16 L BUN 50 H Creatinine 2.4 H Glucose 145 H Uric Acid < 0.2 L Lactate Dehydrogenase 106 L Total Protein 5.5 L Albumin 2.1 L Albumin/Globulin Ratio 0.6 L Pleural LDH 05/13/21 05/13/21 05/12/21 05:18 05:17 18:45 WBC RBC 2.31 L Hgb 6.8 L* 7.3 L Hct 22.2 L MCHC 30.6 L RDW Plt Count Neut % (Auto) 83.3 H Lymph % (Auto) 8.6 L Lymph # (Auto) 0.93 L [place] # (Auto) Absolute Neutrophils 9.04 H Chloride Carbon Dioxide 15 L BUN 52 H Creatinine 2.3 H Glucose 126 H Uric Acid < 0.2 L Lactate Dehydrogenase 89 L Total Protein 5.7 L Albumin 2.1 L Albumin/Globulin Ratio 0.6 L Pleural LDH 05/12/21 18:00 WBC RBC Hgb Hct MCHC RDW Plt Count Neut % (Auto) Lymph % (Auto) Lymph # (Auto) [place] # (Auto) Absolute Neutrophils Chloride Carbon Dioxide BUN Creatinine Glucose Uric Acid Lactate Dehydrogenase Total Protein Albumin Albumin/Globulin Ratio Pleural LDH 454 H Meds: Medications Acetaminophen (Acetaminophen 325 Mg Tablet) 650 mg PO Q6HP PRN; Protocol PRN Reason: Per Pain Protocol/Fever > 101 Albuterol/Ipratropium (Ipratropium/Albuterol 3 Ml Ampul.Neb) 3 ml NEB Q4HP PRN PRN Reason: Shortness Of Breath Alteplase, Recombinant (Alteplase 2 Mg Vial) 10 mg IJ BID [facility] Stop: 05/16/21 09:01 Last Admin: 05/15/21 09:02 Dose: 10 mg Documented by: Amoxicillin/Clavulanate Potassium (Amoxicillin/Potassium Clav 875 Mg Tablet) [facility]; Protocol Last Admin: 05/15/21 09:01 Dose: 875 mg Documented by: Ascorbic Acid (Ascorbic Acid 500 Mg Tablet) 1,000 mg PO DAILY [facility] Last Admin: 05/15/21 09:01 Dose: 1,000 mg Documented by: Dextrose (Dextrose 50% 50 Ml Vial) 0 ml IV UD PRN PRN Reason: Hypoglycemia Diagnostic Test (Pha) (Accu-Chek 1 Each Strip) 1 each FS [facility] Last Admin: 05/15/21 11:31 Dose: 1 each Documented by: Docusate Sodium (Docusate Sodium 100 Mg Capsule) 100 mg PO BID [facility] Last Admin: 05/15/21 09:01 Dose: Not Given Documented by: Ferrous Gluconate (Ferrous Gluconate 324 Mg Tablet) 324 mg PO [facility] Last Admin: 05/15/21 09:01 Dose: 324 mg Documented by: Glucose (Dextrose 31 Gm Oral.Susp) 15 gm PO PRN PRN PRN Reason: Hypoglycemia Guaifenesin (Guaifenesin/Dextromethorphan Oral [place]) 10 ml PO Q4HP PRN PRN Reason: Cough Last Admin: 05/14/21 21:32 Dose: 10 ml Documented by: Insulin Human Lispro (Insulin Lispro 1 Unit/0.01 Ml Unit) 0 unit SQ [facility]; Protocol Last Admin: 05/15/21 11:31 Dose: 2 units Documented by: Metoprolol Tartrate (Metoprolol Tartrate 5 Mg/5 Ml Vial) 5 mg IV Q4HP PRN PRN Reason: Tachyarrhythmias Last Admin: 05/12/21 07:30 Dose: 5 mg Documented by: Morphine Sulfate (Morphine 4 Mg/Ml Vial) 4 mg IV Q4HP PRN; Protocol PRN Reason: Per Pain Protocol Ondansetron HCl (Ondansetron 4 Mg/2 Ml Vial) 4 mg IV Q6HP PRN PRN Reason: Nausea And Vomiting Polyethylene Glycol (Polyethylene Glycol 3350 17 Gm Packet) 17 gm PO DAILYP PRN PRN Reason: Constipation Pyridoxine HCl (Pyridoxine 100 Mg Tablet) 100 mg PO QDAY [facility] Last Admin: 05/15/21 09:01 Dose: 100 mg Documented by: Senna (Sennosides 1 Tablet) 2 tab PO [facility] Last Admin: 05/14/21 21:25 Dose: Not Given Documented by: Simvastatin (Simvastatin 10 Mg Tablet) 20 mg PO QPM [facility] Last Admin: 05/14/21 21:25 Dose: 20 mg Documented by: Sodium Chloride (0.9 % Sodium Chloride 10 Ml Syringe) 10 ml IV Q8 [facility] Last Admin: 05/15/21 05:24 Dose: Not Given Documented by: Terazosin HCl (Terazosin 5 Mg Capsule) 10 mg PO HS [facility] Last Admin: 05/14/21 21:25 Dose: 10 mg Documented by: A/P Narrative A/P Narrative: Assessment: 80-year-old male with a history of HTN, DM, CKD III, chronic anemia, HLD, BPH, admitted for community acquired pneumonia and loculate left pleural effusion. #Community acquired pneumonia #Loculated left pleural effusion #Concern for malignant pleural effusion #Paroxysmal atrial fibrillation #Acute on chronic anemia s/p 1 unit RBC #Diarrhea #Type 2 Diabetes mellitus #Essential Hypertension #Acute on chronic CKD IIIb disease injury #Hyperlipidemia #BPH #History of basal cell carcinoma head of left face s/p resection #Skin cancer of nose-unknown cancer type #Left heel ulcer #Malnourishment Plan -On Augmentin BID. -Left chest tube management-surgery following for assistance. -Intrapleural Alteplase BID for 2-3 days depending on patient's preference. -Daily chest xray, follow chest tube drainage. -Discontinued IV fluid. -Follow CBC and RFP. -Check CRP and procalcitonin to assess response to antibiotic. -C diff screen -Follow hemoglobin, transfuse RBC prn. -Lantus and SSI-med, holding Metformin. -Holding home Losartan, Indapamide, and Lasix for JARRETT. -Continue Simvastatin, Terazosin. -digital traffic coordinator. -DVT ppx: SCD -Code status: DNR -Disposition: home with family assistance and home health vs SNF Time Spent With Patient Time: Total time spent is greater than 50% in coordination of care (as documented) at patient's floor/unit and/or counseling patient: QUALITY Stroke Symptom Onset Unknown: No VTE Deep Vein Thrombosis/Pulmonary Embolism Present on Admission: No
[2021-05-15] MEDS: INSULIN GLARGINE, HUMAN 1 UNIT/0.01 ML SQ SCH (21:32)
[2021-05-15] MEDS: SIMVASTATIN 10 MG TABLET PO SCH (21:32)
[2021-05-15] MEDS: TERAZOSIN 5 MG CAPSULE PO SCH (21:32)
[2021-05-15] MEDS: SENNOSIDES 1 TABLET PO SCH (21:33)
[2021-05-16] MEDS: 0.9 % SODIUM CHLORIDE 10 ML SYRINGE IV SCH ×3 (05:31→21:42)
[2021-05-16 06:38] LABS: Basophils # (Auto) 0.01 K/mcL (0.00-0.30); Basophils % (Auto) 0.1 % (0.0-2.0); Eosinophils # (Auto) 0.07 K/mcL (0.00-0.70); Eosinophils % (Auto) 0.6 % (0.0-7.0); Hematocrit 25.1 % (40.1-51.0); Hemoglobin 8.1 g/dL (13.7-17.5); Lymphocytes # (Auto) 0.52 K/mcL (1.50-4.80); Lymphocytes % (Auto) 4.4 % (15.5-49.0); Mean Cell Volume 89.6 fL (80.0-100.0); Mean Corpuscular HGB Conc 32.3 g/dL (31.0-36.0); Mean Platelet Volume 9.1 fL (7.4-10.4); Monocytes # (Auto) 0.56 K/mcL (0.10-0.90); Monocytes % (Auto) 4.8 % (1.0-12.0); Neutrophils % (Auto) 90.1 % (38.0-78.0); Platelet Count 409 K/mcL (140-440); Red Cell Distribution Width 14.3 % (11.5-14.5); WBC 11.8 K/mcL (4.5-11.0)
[2021-05-16 07:05] LABS: ALT/SGPT 13 U/L (<40); AST/SGOT 11 U/L (<40); Albumin 1.9 gm/dL (3.2-5.2); Albumin/Globulin Ratio 0.6 (1.0-2.3); Alkaline Phosphatase 63 U/L (39-117); Bilirubin,Direct < 0.2 mg/dL (0-0.3); Bilirubin,Total 0.2 mg/dL (0.1-1.0); Blood Urea Nitrogen 37 mg/dL (8-23); Calcium 8.8 mg/dL (8.6-10.4); Carbon Dioxide 16 mmol/L (22-30); Chloride 112 mmol/L (96-108); Globulin 3.3 gm/dL (2.2-3.7); Glomerular Filtration Rate 34; Glucose 95 mg/dL (70-105); Lactate Dehydrogenase 77 U/L (135-225); Phosphorous 2.9 mg/dL (2.5-4.5); Triglycerides 46 mg/dL (<150); Uric Acid < 0.2 mg/dL (2.5-8)
[2021-05-16] MEDS: INSULIN LISPRO 1 UNIT/0.01 ML UNIT SQ SCH ×4 (07:46→21:40)
[2021-05-16] MEDS: PIPERACILLIN SODIUM/TAZOBACTAM 2.25 GM in DEXTROSE 5% IN WATER 50 ML IV SCH ×3 (08:51→17:34)
[2021-05-16] MEDS: ASCORBIC ACID 500 MG TABLET PO SCH (08:52)
[2021-05-16] MEDS: PYRIDOXINE 100 MG TABLET PO SCH (08:52)
[2021-05-16] MEDS: FERROUS GLUCONATE 324 MG TABLET PO SCH (08:52)
[2021-05-16] MEDS: DOCUSATE SODIUM 100 MG CAPSULE PO SCH ×2 (08:52→21:40)
--- NOTE | 2021-05-16 08:54 | XRay Report ---
HISTORY: History: Chest tube management, chest pain, atelectasis FINDINGS: The large caliber chest tube remains positioned above the left costophrenic sulcus. No pneumothorax is present and no pleural effusion is seen. There is dense consolidation throughout the left lower lobe and moderate consolidation in the right lower lobe. The right lower lobe consolidation has become progressively worse compared with prior exams on 05/14/2021 and 05/15/2021. The consolidation in the left lower lobe is unchanged from yesterday. IMPRESSION: Atelectasis or pneumonia in both lower lobes, left worse than right but becoming worse on the right side No residual pleural fluid is seen. However, the atelectasis could obscure a small pleural effusion. Interpreted and Authenticated by: Gabe Price 05/16/21
[2021-05-16] MEDS: AMOXICILLIN/POTASSIUM CLAV 875 MG TABLET PO SCH (09:07)
[2021-05-16] MEDS: ALTEPLASE 2 MG VIAL IJ SCH (09:31)
--- NOTE | 2021-05-16 11:10 | Internal Med Progress Note ---
SUBJECTIVE Subjective Patient information: Note initiated : 05/16/21 at 11:02 am Service Date, if different from initiated Date: [] Patient: Camron Morel a 80 y/o M admitted on 05/09/21 for Chest Pain . Chief Complaint: [] Interval history: History of present illness: Mr. Morel is a 80 year old M history of basal cell carcinoma of the face, type 2 diabetes, essential hypertension, mixed dyslipidemia, chronic kidney disease stage III, BPH, pres enting with chest pain, nonproductive cough, and shortness of breath. He has been vaccinated against Covid pneumonia. He denies any sick contact or recent travel. He was in his usual state of health until 4 days ago when he had acute onset of chest pain, nonproductive cough, and shortness of breath. Chest pain was moderate to severe, sharp, exacerbated when he coughs. He denies any fever or chills. Due to his symptoms, he decided to come to our ED for further evaluations today. Vital signs at ED presentations completely unremarkable. Labs remarkable for leukocytosis with WBC 14.5. Serum lactic acid normal at 0.7. Covid Debi screening test negative. Covid PCR test-not detected. Chest x-ray showing left-sided pulmonary infiltrate as well as left sided pleural effusions. Patient is currently tolerating room air. 05/08: CoVID PRC negative. Blood cultures no growth to date. Troponin-i: 0.04, 0.04, 0.05. Afebrile. Been tolerating room air. Denies chest pain. Denies SOB. c/o nonproductive cough. Denies fever or chills. 05/09: Afebrile overnight. Tolerating room air overnight. WBC jumps from 12 to 16 this morning. Still c/o nonproductive cough and left sided chest pain when he coughs. Denies fever or chills. Denies general body weakness. 05/10: Afebrile overnight. Tolerating room air overnight. WBC jumps from 16 to 17 this morning. Still c/o nonproductive cough and left sided chest pain when he coughs. Denies fever or chills. Denies general body weakness. 05/11: Point of care ultrasound exam shows a moderate left pleural effusion that appears complex and potentially loculated. Further working including CT chest and thoracentesis along with goals of care discussed with the patient and his daughter at the bedside. The patient wants to proceed with further workup and thoracentesis. CT chest ordered, likely will be followed by thoracentesis. Transitioned antibiotic therapy from Ceftriaxone and Azithromycin to Zosyn. Tachycardic-EKG suggests SVT. 05/12: CT chest consistent with pneumonia and loculated left pleural effusion. Goals of care discussed with the patient and his daughter at [facility], discussed transfer to a higher level of care which the patient refused. Explained that we have tPA but not Dornase for intrapleural treatment of loculations and that the combination was the standard of care and even that might not work. In that case surgery would be the only option to remove the loculations. The patient refused transfer to a higher level of care but would like an attempt to drain the fluid with a chest tube and tPA. General surgery consulted for chest tube placement, pleural fluid labs ordered. After chest tube placed will started intrapleural tPA. 05/13: Pleural fluid workup consistent with exudate but cell count lower than expected for parapneumonic effusion, LDH 454 and pH 7.61 also would be unusual for parapneumonic effusion. Started intrapleural Alteplase, discussed dornase with pharmacy again and it is not available. Required one unit of blood for hemoglobin 6.8. Holding heparin SQ for DVT prophylaxis. The patient stated that he wants to be DNR, code status changed. ID consulted and felt the left effusion was not consistent with a parapneumonic effusion, felt the patient could be treated with Augmentin. ID ordered [id number] GOLD. 05/14: Improved left pleural effusion chest tube drainage after intrapleural Alteplase, chest xray shows near complete evacuation of left pleural effusion. WBC increased today but no fevers and the patient feels better, the patient wants to continue the intrapleural treatment for one more day then remove the chest tube. Repeat pleural fluid workup shows a higher pleural fluid cell count at 7910 and 86% neutrophils but still low for an infectious process. Goals of care discussion at bedside with his daughter and the care team today, the patient wants to go home at discharge and would consider hospice in the near future. Transitioned to oral Augmentin. Awaiting pleural fluid cytology. 05/15: Chest tube has less drainage today but still significant, the patient would like to complete the 72 hour treatment course of intrapleural Alteplase. Chest xray shows worsening consolidation in both lung lungs, near complete evacuation of the left sided pleural effusion. Discontinued IV fluid. Renal function has improved. WBC trending down. 05/16: Last dose of intrapleural alteplase today, loculations appear to have resolved on chest xray, pleural fluid cytology pending. Procalcitonin increased and left lung opacity has progressed so started Zosyn and discontinued Augmentin. The patient says he is feeling better overall, up to chair today. Dr. Dennis will remove the chest tube today as the patient initially requested when intrapleural Alteplase was started. Tentative plan is to discharge to a SNF, pending bed placement. Plan to repeat chest xray tomorrow morning. D-diff checke d for diarrhea and negative. Review of systems: no fevers, positive for cough and left sided pleuritic chest pain. Head: Atraumatic, normal inspection. Eyes: normal appearance, no scleral icterus. Neck: full ROM Respiratory: decreased left lower lobe sounds, left chest tube with cloudy fluid and debris, no respiratory distress. Cardiovascular: normal rate and rhythm, S1, S2. GI/Abdominal: soft, nontender, no guarding. Extremities: full range of motion, nontender. Neurological: CN II-XII intact, intact motor, intact sensation. Psychiatric: normal mood. Skin: warm, normal color Constitutional Vitals: Vital Signs Temp Pulse Resp BP Pulse Ox 98.1 F 88 22 137/59 91 05/16/21 09:38 05/16/21 09:38 05/16/21 09:38 05/16/21 09:38 05/16/21 09:38 Period Temp Pulse Resp BP Sys/Jameson Pulse Ox Last 24 Hr 97.7 F-99.0 F 77-89 15-25 135-153/57-75 91-95 Intake and Output 05/15/21 05/16/21 05/16/21 21:59 05:59 13:59 Intake Total 960 240 50 Output Total 626 260 51 Balance 334 -20 - Weight 71.214 kg Intake & Output: Intake & Output 05/15/21 05/16/21 05/16/21 21:59 05:59 13:59 Intake Total 960 240 50 Output Total 626 260 51 Balance 334 -20 -1 Weight 71.214 kg Intake: IV 50 Zosyn 2.25 gm In Dextrose 5% in 50 Water 50 ml @ 100 mls/hr IV Q6H [facility] Rx#:[id number] Oral 960 240 Output: Chest Tube Drainage 275 60 Left Mid-Axillary Chest 275 60 Void Amount 350 200 50 # of times incontinent of urine 1 1 Other: Meal Dinner Percent of Meal Consumed 75% Feeding Ability Independent Urine Appearance Clear Clear Urine Color Bright Yellow Dark Yellow Stool Size Large Stool Color Brown Stool Consistency Soft Loose # Voids 1 1 # Bowel Movements 1 # of times incontinent of 1 Bowels OBJ DATA Labs CBC & Chem 7: 05/16/21 04:51 05/16/21 04:51 Labs: Abnormal Lab Results 05/16/21 05/16/21 05/15/21 04:51 04:51 15:30 WBC 11.8 H RBC 2.80 L Hgb 8.1 L Hct 25.1 L RDW Plt Count Neut % (Auto) 90.1 H Lymph % (Auto) 4.4 L Lymph # (Auto) 0.52 L Tucker # (Auto) Absolute Neutrophils 10.60 H Chloride 112 H Carbon Dioxide 16 L BUN 37 H Creatinine 1.8 H Glucose Uric Acid < 0.2 L Lactate Dehydrogenase 77 L C-Reactive Protein Total Protein 5.2 L Albumin 1.9 L Albumin/Globulin Ratio 0.6 L Procalcitonin 0.54 H Pleural LDH 05/15/21 05/15/21 05/15/21 15:30 04:51 04:50 WBC 11.8 H RBC 2.96 L Hgb 8.6 L Hct 26.6 L RDW 14.6 H Plt Count Neut % (Auto) 89.1 H Lymph % (Auto) 5.4 L Lymph # (Auto) 0.63 L Tucker # (Auto) Absolute Neutrophils 10.47 H Chloride 109 H Carbon Dioxide 15 L BUN 44 H Creatinine 2.0 H Glucose 166 H Uric Acid < 0.2 L Lactate Dehydrogenase 90 L C-Reactive Protein 10.40 H Total Protein 5.6 L Albumin 2.0 L Albumin/Globulin Ratio 0.6 L Procalcitonin Pleural LDH 05/14/21 05/14/21 05/14/21 18:25 04:53 04:52 WBC 18.1 H RBC 2.82 L Hgb 8.0 L Hct 25.5 L RDW Plt Count 445 H Neut % (Auto) 92.5 H Lymph % (Auto) 2.2 L Lymph # (Auto) 0.40 L Tucker # (Auto) 0.94 H Absolute Neutrophils 16.76 H Chloride Carbon Dioxide 16 L BUN 50 H Creatinine 2.4 H Glucose 145 H Uric Acid < 0.2 L Lactate Dehydrogenase 106 L C-Reactive Protein Total Protein 5.5 L Albumin 2.1 L Albumin/Globulin Ratio 0.6 L Procalcitonin Pleural LDH 237 H 05/13/21 18:58 WBC RBC Hgb 8.8 L Hct RDW Plt Count Neut % (Auto) Lymph % (Auto) Lymph # (Auto) Tucker # (Auto) Absolute Neutrophils Chloride Carbon Dioxide BUN Creatinine Glucose Uric Acid Lactate Dehydrogenase C-Reactive Protein Total Protein Albumin Albumin/Globulin Ratio Procalcitonin Pleural LDH Meds: Medications Acetaminophen (Acetaminophen 325 Mg Tablet) 650 mg PO Q6HP PRN; Protocol PRN Reason: Per Pain Protocol/Fever > 101 Albuterol/Ipratropium (Ipratropium/Albuterol 3 Ml Ampul.Neb) 3 ml NEB Q4HP PRN PRN Reason: Shortness Of Breath Ascorbic Acid (Ascorbic Acid 500 Mg Tablet) 1,000 mg PO DAILY [facility] Last Admin: 05/16/21 08:52 Dose: 1,000 mg Documented by: Dextrose (Dextrose 50% 50 Ml Vial) 0 ml IV UD PRN PRN Reason: Hypoglycemia Diagnostic Test (Pha) (Accu-Chek 1 Each Strip) 1 each FS [facility] Last Admin: 05/16/21 07:46 Dose: 1 each Documented by: Docusate Sodium (Docusate Sodium 100 Mg Capsule) 100 mg PO BID [facility] Last Admin: 05/16/21 08:52 Dose: Not Given Documented by: Ferrous Gluconate (Ferrous Gluconate 324 Mg Tablet) 324 mg PO [facility] Last Admin: 05/16/21 08:52 Dose: 324 mg Documented by: Glucose (Dextrose 31 Gm Oral.Susp) 15 gm PO PRN PRN PRN Reason: Hypoglycemia Guaifenesin (Guaifenesin/Dextromethorphan Oral Tracy) 10 ml PO Q4HP PRN PRN Reason: Cough Last Admin: 05/14/21 21:32 Dose: 10 ml Documented by: Piperacillin Sod/Tazobactam (Sod 2.25 gm/ Dextrose) 50 mls @ 100 mls/hr IV Q6H [facility]; Protocol Last Infusion: 05/16/21 09:42 Dose: Infused Documented by: Insulin Glargine (Insulin Glargine, Human 1 Unit/0.01 Ml) 10 unit SQ [facility] Last Admin: 05/15/21 21:32 Dose: 10 units Documented by: Insulin Human Lispro (Insulin Lispro 1 Unit/0.01 Ml Unit) 0 unit SQ [facility]; Protocol Last Admin: 05/16/21 07:46 Dose: Not Given Documented by: Metoprolol Tartrate (Metoprolol Tartrate 5 Mg/5 Ml Vial) 5 mg IV Q4HP PRN PRN Reason: Tachyarrhythmias Last Admin: 05/12/21 07:30 Dose: 5 mg Documented by: Morphine Sulfate (Morphine 4 Mg/Ml Vial) 4 mg IV Q4HP PRN; Protocol PRN Reason: Per Pain Protocol Ondansetron HCl (Ondansetron 4 Mg/2 Ml Vial) 4 mg IV Q6HP PRN PRN Reason: Nausea And Vomiting Polyethylene Glycol (Polyethylene Glycol 3350 17 Gm Packet) 17 gm PO DAILYP PRN PRN Reason: Constipation Pyridoxine HCl (Pyridoxine 100 Mg Tablet) 100 mg PO QDAY [facility] Last Admin: 05/16/21 08:52 Dose: 100 mg Documented by: Senna (Sennosides 1 Tablet) 2 tab PO [facility] Last Admin: 05/15/21 21:33 Dose: Not Given Documented by: Simvastatin (Simvastatin 10 Mg Tablet) 20 mg PO QPM [facility] Last Admin: 05/15/21 21:32 Dose: 20 mg Documented by: Sodium Chloride (0.9 % Sodium Chloride 10 Ml Syringe) 10 ml IV Q8 [facility] Last Admin: 05/16/21 05:31 Dose: 10 ml Documented by: Terazosin HCl (Terazosin 5 Mg Capsule) 10 mg PO [facility] Last Admin: 05/15/21 21:32 Dose: 10 mg Documented by: A/P Narrative A/P Narrative: Assessment: 80-year-old male with a history of HTN, DM, CKD III, chronic anemia, HLD, BPH, admitted for community acquired pneumonia and loculate left pleural effusion. The patient had a chest tube placed followed by 6 doses of intrapleural Alteplase which appears to have removed most of the loculated fluid. The patient continus on antibiotics for pneumonia and possible parapneumonic effusion however fluid studies did not support a parapneumonic effusion raising concern for possible malignant effusion. Cytology pending. #Community acquired pneumonia with possible simple parapneumonic effision #Loculated left pleural effusion-appears to have resolved with intrapleural Alteplase #Concern for malignant pleural effusion #Pericardia effusion-small to moderate, no evidence of tamponade #Paroxysmal atrial fibrillation #Acute on chronic anemia s/p 1 unit RBC #Type 2 Diabetes mellitus #Essential Hypertension #Resolving acute on chronic CKD IIIb disease injury #Hyperlipidemia #BPH #History of basal cell carcinoma head of left face s/p resection #Skin cancer of nose-unknown cancer type #Left heel ulcer #Malnourishment #Generalized weakness Plan -Zosyn while inpatient, could discharge on Augmentin per ID recs. -Remove chest tube later today, repeat chest xray tomorrow. -Complete intrapleural Aleteplase today. -Follow CBC and RFP. -Monitor hemoglobin, transfuse RBC prn. -Lantus and SSI-med, holding Metformin. -Resume home Lasix. -Holding home Losartan, Indapamide. -Continue Simvastatin, Terazosin. -Nutritional supplement. -log rider. -DVT ppx: SCD -Code status: DNR -Disposition: the patient's daughter's want the patient to discharge to a SNF but the patient wants to go home. The patient is open to hospice at home if possible. Time Spent With Patient Time: Total time spent is greater than 50% in coordination of care (as documented) at patient's floor/unit and/or counseling patient: QUALITY Stroke Symptom Onset Unknown: No VTE Deep Vein Thrombosis/Pulmonary Embolism Present on Admission: No
--- NOTE | 2021-05-16 13:28 | Internal Med Progress Note ---
SUBJECTIVE Subjective Patient information: Note initiated : 05/16/21 at 1:25 pm Service Date, if different from initiated Date: [] Patient: Camron Morel a 80 y/o M admitted on 05/09/21 for Chest Pain . Chief Complaint: [] Interval history: History of present illness: Mr. Morel is a 80 year old M history of basal cell carcinoma of the face, type 2 diabetes, essential hypertension, mixed dyslipidemia, chronic kidney disease stage III, BPH, prese nting with chest pain, nonproductive cough, and shortness of breath. He has been vaccinated against Covid pneumonia. He denies any sick contact or recent travel. He was in his usual state of health until 4 days ago when he had acute onset of chest pain, nonproductive cough, and shortness of breath. Chest pain was moderate to severe, sharp, exacerbated when he coughs. He denies any fever or chills. Due to his symptoms, he decided to come to our ED for further evaluations today. Vital signs at ED presentations completely unremarkable. Labs remarkable for leukocytosis with WBC 14.5. Serum lactic acid normal at 0.7. Covid Debi screening test negative. Covid PCR test-not detected. Chest x-ray showing left-sided pulmonary infiltrate as well as left sided pleural effusions. Patient is currently tolerating room air. 05/08: CoVID PRC negative. Blood cultures no growth to date. Troponin-i: 0.04, 0.04, 0.05. Afebrile. Been tolerating room air. Denies chest pain. Denies SOB. c/o nonproductive cough. Denies fever or chills. 05/09: Afebrile overnight. Tolerating room air overnight. WBC jumps from 12 to 16 this morning. Still c/o nonproductive cough and left sided chest pain when he coughs. Denies fever or chills. Denies general body weakness. 05/10: Afebrile overnight. Tolerating room air overnight. WBC jumps from 16 to 17 this morning. Still c/o nonproductive cough and left sided chest pain when he coughs. Denies fever or chills. Denies general body weakness. 05/11: Point of care ultrasound exam shows a moderate left pleural effusion that appears complex and potentially loculated. Further working including CT chest and thoracentesis along with goals of care discussed with the patient and his daughter at the bedside. The patient wants to proceed with further workup and thoracentesis. CT chest ordered, likely will be followed by thoracentesis. Transitioned antibiotic therapy from Ceftriaxone and Azithromycin to Zosyn. Tachycardic-EKG suggests SVT. 05/12: CT chest consistent with pneumonia and loculated left pleural effusion. Goals of care discussed with the patient and his daughter at [facility], discussed transfer to a higher level of care which the patient refused. Explained that we have tPA but not Dornase for intrapleural treatment of loculations and that the combination was the standard of care and even that might not work. In that case surgery would be the only option to remove the loculations. The patient refused transfer to a higher level of care but would like an attempt to drain the fluid with a chest tube and tPA. General surgery consulted for chest tube placement, pleural fluid labs ordered. After chest tube placed will started intrapleural t PA. 05/13: Pleural fluid workup consistent with exudate but cell count lower than expected for parapneumonic effusion, LDH 454 and pH 7.61 also would be unusual for parapneumonic effusion. Started intrapleural Alteplase, discussed dornase with pharmacy again and it is not available. Required one unit of blood for hemoglobin 6.8. Holding heparin SQ for DVT prophylaxis. The patient stated that he wants to be DNR, code status changed. ID consulted and felt the left effusion was not consistent with a parapneumonic effusion, felt the patient could be treated with Augmentin. ID ordered QuantiFERON-TB GOLD. 05/14: Improved left pleural effusion chest tube drainage after intrapleural Alteplase, chest xray shows near complete evacuation of left pleural effusion. WBC increased today but no fevers and the patient feels better, the patient wants to continue the intrapleural treatment for one more day then remove the chest tube. Repeat pleural fluid workup shows a higher pleural fluid cell count at 7910 and 86% neutrophils but still low for an infectious process. Goals of care discussion at bedside with his daughter and the care team today, the patient wants to go home at discharge and would consider hospice in the near future. Transitioned to oral Augmentin. Awaiting pleural fluid cytology. 05/15: Chest tube has less drainage today but still significant, the patient would like to complete the 72 hour treatment course of intrapleural Alteplase. Chest xray shows worsening consolidation in both lung lungs, near complete evacuation of the left sided pleural effusion. Discontinued IV fluid. Renal function has improved. WBC trending down. 05/16: Last dose of intrapleural alteplase today, loculations appear to have resolved on chest xray, pleural fluid cytology pending. Procalcitonin increased and left lung opacity has progressed so started Zosyn and discontinued Augmentin. The patient says he is feeling better overall, up to chair today. Dr. Dennis will remove the chest tube today as the patient initially requested when intrapleural Alteplase was started. Tentative plan is to discharge to a SNF, pending bed placement. Plan to repeat chest xray tomorrow morning. D-diff checked for diarrhea and negative. 05/17 Constitutional Vitals: Vital Signs Temp Pulse Resp BP Pulse Ox 98.4 F 79 21 143/70 94 05/16/21 12:00 05/16/21 10:00 05/16/21 12:19 05/16/21 12:00 05/16/21 10:00 Period Temp Pulse Resp BP Sys/Jameson Pulse Ox Last 24 Hr 98.1 F-99.0 F 79-89 15-25 129-153/57-75 91-95 Intake and Output 05/15/21 05/16/21 05/16/21 21:59 05:59 13:59 Intake Total 960 240 100 Output Total 626 260 51 Balance 334 -20 49 Weight 71.214 kg Intake & Output: Intake & Output 05/15/21 05/16/21 05/16/21 21:59 05:59 13:59 Intake Total 960 240 100 Output Total 626 260 51 Balance 334 -20 49 Weight 71.214 kg Intake: IV 100 Zosyn 2.25 gm In Dextrose 5% in 100 Water 50 ml @ 100 mls/hr IV Q6H [facility] Rx#:[id number] Oral 960 240 Output: Chest Tube Drainage 275 60 Left Mid-Axillary Chest 275 60 Void Amount 350 200 50 # of times incontinent of urine 1 1 Other: Meal Dinner Percent of Meal Consumed 75% Feeding Ability Independent Urine Appearance Clear Clear Clear Urine Color Bright Yellow Dark Yellow Bright Yellow Urine Odor Foul Stool Size Large Small Stool Color Brown Brown Stool Consistency Soft Loose Loose # Voids 1 1 # Bowel Movements 1 # of times incontinent of 1 Bowels Exam: General: Alert, Awake, No acute Distress Eyes/N/T: EOMI, Head/Neck: neck supple, CV: RRR, No murmurs, Pulm: decreased Left side BS, left chest tube in place, no wheezing Abd: soft, nontender, +BS x4 Ext: no clubbing/cyanosis/edema Neuro: Alert, no focal deficits, moves all extremities, Skin: warm/dry OBJ DATA Labs CBC & Chem 7: 05/16/21 04:51 05/16/21 04:51 Labs: Abnormal Lab Results 05/16/21 05/16/21 05/15/21 04:51 04:51 15:30 WBC 11.8 H RBC 2.80 L Hgb 8.1 L Hct 25.1 L RDW Plt Count Neut % (Auto) 90.1 H Lymph % (Auto) 4.4 L Lymph # (Auto) 0.52 L [place] # (Auto) Absolute Neutrophils 10.60 H Chloride 112 H Carbon Dioxide 16 L BUN 37 H Creatinine 1.8 H Glucose Uric Acid < 0.2 L Lactate Dehydrogenase 77 L C-Reactive Protein Total Protein 5.2 L Albumin 1.9 L Albumin/Globulin Ratio 0.6 L Procalcitonin 0.54 H Pleural LDH 05/15/21 05/15/21 05/15/21 15:30 04:51 04:50 WBC 11.8 H RBC 2.96 L Hgb 8.6 L Hct 26.6 L RDW 14.6 H Plt Count Neut % (Auto) 89.1 H Lymph % (Auto) 5.4 L Lymph # (Auto) 0.63 L [place] # (Auto) Absolute Neutrophils 10.47 H Chloride 109 H Carbon Dioxide 15 L BUN 44 H Creatinine 2.0 H Glucose 166 H Uric Acid < 0.2 L Lactate Dehydrogenase 90 L C-Reactive Protein 10.40 H Total Protein 5.6 L Albumin 2.0 L Albumin/Globulin Ratio 0.6 L Procalcitonin Pleural LDH 05/14/21 05/14/21 05/14/21 18:25 04:53 04:52 WBC 18.1 H RBC 2.82 L Hgb 8.0 L Hct 25.5 L RDW Plt Count 445 H Neut % (Auto) 92.5 H Lymph % (Auto) 2.2 L Lymph # (Auto) 0.40 L [place] # (Auto) 0.94 H Absolute Neutrophils 16.76 H Chloride Carbon Dioxide 16 L BUN 50 H Creatinine 2.4 H Glucose 145 H Uric Acid < 0.2 L Lactate Dehydrogenase 106 L C-Reactive Protein Total Protein 5.5 L Albumin 2.1 L Albumin/Globulin Ratio 0.6 L Procalcitonin Pleural LDH 237 H 05/13/21 18:58 WBC RBC Hgb 8.8 L Hct RDW Plt Count Neut % (Auto) Lymph % (Auto) Lymph # (Auto) [place] # (Auto) Absolute Neutrophils Chloride Carbon Dioxide BUN Creatinine Glucose Uric Acid Lactate Dehydrogenase C-Reactive Protein Total Protein Albumin Albumin/Globulin Ratio Procalcitonin Pleural LDH Meds: Medications Acetaminophen (Acetaminophen 325 Mg Tablet) 650 mg PO Q6HP PRN; Protocol PRN Reason: Per Pain Protocol/Fever > 101 Albuterol/Ipratropium (Ipratropium/Albuterol 3 Ml Ampul.Neb) 3 ml NEB Q4HP PRN PRN Reason: Shortness Of Breath Ascorbic Acid (Ascorbic Acid 500 Mg Tablet) 1,000 mg PO DAILY [facility] Last Admin: 05/16/21 08:52 Dose: 1,000 mg Documented by: Dextrose (Dextrose 50% 50 Ml Vial) 0 ml IV UD PRN PRN Reason: Hypoglycemia Diagnostic Test (Pha) (Accu-Chek 1 Each Strip) [address] [facility] Last Admin: 05/16/21 11:47 Dose: 1 each Documented by: Docusate Sodium (Docusate Sodium 100 Mg Capsule) 100 mg PO BID [facility] Last Admin: 05/16/21 08:52 Dose: Not Given Documented by: Ferrous Gluconate (Ferrous Gluconate 324 Mg Tablet) 324 mg PO [facility] Last Admin: 05/16/21 08:52 Dose: 324 mg Documented by: Furosemide (Furosemide 20 Mg Tablet) 20 mg PO QDAY [facility] Glucose (Dextrose 31 Gm Oral.Susp) 15 gm PO PRN PRN PRN Reason: Hypoglycemia Guaifenesin (Guaifenesin/Dextromethorphan Oral Tracy) 10 ml PO Q4HP PRN PRN Reason: Cough Last Admin: 05/14/21 21:32 Dose: 10 ml Documented by: Piperacillin Sod/Tazobactam (Sod 2.25 gm/ Dextrose) 50 mls @ 100 mls/hr IV Q6H [facility]; Protocol Last Infusion: 05/16/21 12:42 Dose: Infused Documented by: Insulin Glargine (Insulin Glargine, Human 1 Unit/0.01 Ml) 10 unit SQ [facility] Last Admin: 05/15/21 21:32 Dose: 10 units Documented by: Insulin Human Lispro (Insulin Lispro 1 Unit/0.01 Ml Unit) 0 unit SQ [facility]; Protocol Last Admin: 05/16/21 12:13 Dose: 6 unit Documented by: Metoprolol Tartrate (Metoprolol Tartrate 5 Mg/5 Ml Vial) 5 mg IV Q4HP PRN PRN Reason: Tachyarrhythmias Last Admin: 05/12/21 07:30 Dose: 5 mg Documented by: Morphine Sulfate (Morphine 4 Mg/Ml Vial) 4 mg IV Q4HP PRN; Protocol PRN Reason: Per Pain Protocol Ondansetron HCl (Ondansetron 4 Mg/2 Ml Vial) 4 mg IV Q6HP PRN PRN Reason: Nausea And Vomiting Polyethylene Glycol (Polyethylene Glycol 3350 17 Gm Packet) 17 gm PO DAILYP PRN PRN Reason: Constipation Pyridoxine HCl (Pyridoxine 100 Mg Tablet) 100 mg PO QDAY [facility] Last Admin: 05/16/21 08:52 Dose: 100 mg Documented by: Senna (Sennosides 1 Tablet) 2 tab PO [facility] Last Admin: 05/15/21 21:33 Dose: Not Given Documented by: Simvastatin (Simvastatin 10 Mg Tablet) 20 mg PO QPM [facility] Last Admin: 05/15/21 21:32 Dose: 20 mg Documented by: Sodium Chloride (0.9 % Sodium Chloride 10 Ml Syringe) 10 ml IV Q8 [facility] Last Admin: 05/16/21 12:13 Dose: 10 ml Documented by: Terazosin HCl (Terazosin 5 Mg Capsule) 10 mg PO [facility] Last Admin: 05/15/21 21:32 Dose: 10 mg Documented by: A/P Narrative A/P Narrative: A: #CAP: #Loculated left pleural effusion: appears to have resolved with intrapleural Alteplase #Concern for malignant pleural effusion: #Pericardia effusion: small to moderate, no evidence of tamponade #Paroxysmal atrial fibrillation #Acute on chronic anemia: -s/p 1 unit RBC #Type 2 Diabetes mellitus #Essential Hypertension / HLD: #JARRETT on CKD IIIb: improving #h/o basal cell carcinoma left face s/p resection & Skin cancer of nose unknown cancer type #Left heel ulcer #Malnourishment #Generalized weakness Plan -Zosyn while inpatient, could discharge on Augmentin per ID recs -Remove chest tube later today per surgery, repeat chest xray tomorrow. -Complete intrapleural Aleteplase today -pending cytology -Monitor hemoglobin, transfuse RBC prn. -Lantus and SSI, holding Metformin. 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 The patient is open to hospice at home if possible. Code status: DNR Time Spent With Patient Time: Total time spent is greater than 50% in coordination of care (as documented) at patient's floor/unit and/or counseling patient: QUALITY Stroke Symptom Onset Unknown: No VTE Deep Vein Thrombosis/Pulmonary Embolism Present on Admission: No
[2021-05-16] MEDS: TERAZOSIN 5 MG CAPSULE PO SCH (21:41)
[2021-05-16] MEDS: INSULIN GLARGINE, HUMAN 1 UNIT/0.01 ML SQ SCH (21:41)
[2021-05-16] MEDS: SENNOSIDES 1 TABLET PO SCH (21:41)
[2021-05-16] MEDS: SIMVASTATIN 10 MG TABLET PO SCH (21:42)
[2021-05-17] MEDS: PIPERACILLIN SODIUM/TAZOBACTAM 2.25 GM in DEXTROSE 5% IN WATER 50 ML IV SCH ×5 (01:02→23:27)
[2021-05-17] MEDS: 0.9 % SODIUM CHLORIDE 10 ML SYRINGE IV SCH ×3 (06:02→20:59)
[2021-05-17 06:54] LABS: Basophils # (Auto) 0.03 K/mcL (0.00-0.30); Basophils % (Auto) 0.2 % (0.0-2.0); Eosinophils # (Auto) 0.13 K/mcL (0.00-0.70); Eosinophils % (Auto) 0.8 % (0.0-7.0); Hemoglobin 8.1 g/dL (13.7-17.5); Lymphocytes # (Auto) 1.19 K/mcL (1.50-4.80); Lymphocytes % (Auto) 7.2 % (15.5-49.0); Mean Cell Volume 91.5 fL (80.0-100.0); Mean Corpuscular HGB Conc 31.2 g/dL (31.0-36.0); Mean Platelet Volume 9.1 fL (7.4-10.4); Monocytes # (Auto) 0.83 K/mcL (0.10-0.90); Neutrophils % (Auto) 86.8 % (38.0-78.0); Platelet Count 391 K/mcL (140-440); RBC 2.84 M/mcL (4.63-6.08); Red Cell Distribution Width 14.6 % (11.5-14.5); WBC 16.5 K/mcL (4.5-11.0)
[2021-05-17 07:11] LABS: ALT/SGPT 15 U/L (<40); AST/SGOT 16 U/L (<40); Albumin 1.9 gm/dL (3.2-5.2); Albumin/Globulin Ratio 0.6 (1.0-2.3); Alkaline Phosphatase 64 U/L (39-117); Bilirubin,Direct < 0.2 mg/dL (0-0.3); Bilirubin,Total 0.2 mg/dL (0.1-1.0); Blood Urea Nitrogen 34 mg/dL (8-23); Calcium 8.9 mg/dL (8.6-10.4); Carbon Dioxide 18 mmol/L (22-30); Chloride 112 mmol/L (96-108); Globulin 3.4 gm/dL (2.2-3.7); Glomerular Filtration Rate 39; Glucose 95 mg/dL (70-105); Lactate Dehydrogenase 93 U/L (135-225); Phosphorous 2.6 mg/dL (2.5-4.5); Triglycerides 44 mg/dL (<150); Uric Acid < 0.2 mg/dL (2.5-8)
[2021-05-17] MEDS: INSULIN LISPRO 1 UNIT/0.01 ML UNIT SQ SCH ×4 (07:12→20:23)
--- NOTE | 2021-05-17 07:51 | Internal Med Progress Note ---
SUBJECTIVE Subjective Patient information: Note initiated : 05/17/21 at 7:47 am Service Date, if different from initiated Date: [] Patient: Camron Morel a 80 y/o M admitted on 05/09/21 for Chest Pain . Chief Complaint: [] Interval history: History of present illness: Mr. Morel is a 80 year old M history of basal cell carcinoma of the face, type 2 diabetes, essential hypertension, mixed dyslipidemia, chronic kidney disease stage III, BPH, prese nting with chest pain, nonproductive cough, and shortness of breath. He has been vaccinated against Covid pneumonia. He denies any sick contact or recent travel. He was in his usual state of health until 4 days ago when he had acute onset of chest pain, nonproductive cough, and shortness of breath. Chest pain was moderate to severe, sharp, exacerbated when he coughs. He denies any fever or chills. Due to his symptoms, he decided to come to our ED for further evaluations today. Vital signs at ED presentations completely unremarkable. Labs remarkable for leukocytosis with WBC 14.5. Serum lactic acid normal at 0.7. Covid Debi screening test negative. Covid PCR test-not detected. Chest x-ray showing left-sided pulmonary infiltrate as well as left sided pleural effusions. Patient is currently tolerating room air. 05/08: CoVID PRC negative. Blood cultures no growth to date. Troponin-i: 0.04, 0.04, 0.05. Afebrile. Been tolerating room air. Denies chest pain. Denies SOB. c/o nonproductive cough. Denies fever or chills. 05/09: Afebrile overnight. Tolerating room air overnight. WBC jumps from 12 to 16 this morning. Still c/o nonproductive cough and left sided chest pain when he coughs. Denies fever or chills. Denies general body weakness. 05/10: Afebrile overnight. Tolerating room air overnight. WBC jumps from 16 to 17 this morning. Still c/o nonproductive cough and left sided chest pain when he coughs. Denies fever or chills. Denies general body weakness. 05/11: Point of care ultrasound exam shows a moderate left pleural effusion that appears complex and potentially loculated. Further working including CT chest and thoracentesis along with goals of care discussed with the patient and his daughter at the bedside. The patient wants to proceed with further workup and thoracentesis. CT chest ordered, likely will be followed by thoracentesis. Transitioned antibiotic therapy from Ceftriaxone and Azithromycin to Zosyn. Tachycardic-EKG suggests SVT. 05/12: CT chest consistent with pneumonia and loculated left pleural effusion. Goals of care discussed with the patient and his daughter at [facility], discussed transfer to a higher level of care which the patient refused. Explained that we have tPA but not Dornase for intrapleural treatment of loculations and that the combination was the standard of care and even that might not work. In that case surgery would be the only option to remove the loculations. The patient refused transfer to a higher level of care but would like an attempt to drain the fluid with a chest tube and tPA. General surgery consulted for chest tube placement, pleural fluid labs ordered. After chest tube placed will started intrapleural t PA. 05/13: Pleural fluid workup consistent with exudate but cell count lower than expected for parapneumonic effusion, LDH 454 and pH 7.61 also would be unusual for parapneumonic effusion. Started intrapleural Alteplase, discussed dornase with pharmacy again and it is not available. Required one unit of blood for hemoglobin 6.8. Holding heparin SQ for DVT prophylaxis. The patient stated that he wants to be DNR, code status changed. ID consulted and felt the left effusion was not consistent with a parapneumonic effusion, felt the patient could be treated with Augmentin. ID ordered [id number]-TB GOLD. 05/14: Improved left pleural effusion chest tube drainage after intrapleural Alteplase, chest xray shows near complete evacuation of left pleural effusion. WBC increased today but no fevers and the patient feels better, the patient wants to continue the intrapleural treatment for one more day then remove the chest tube. Repeat pleural fluid workup shows a higher pleural fluid cell count at 7910 and 86% neutrophils but still low for an infectious process. Goals of care discussion at bedside with his daughter and the care team today, the patient wants to go home at discharge and would consider hospice in the near future. Transitioned to oral Augmentin. Awaiting pleural fluid cytology. 05/15: Chest tube has less drainage today but still significant, the patient would like to complete the 72 hour treatment course of intrapleural Alteplase. Chest xray shows worsening consolidation in both lung lungs, near complete evacuation of the left sided pleural effusion. Discontinued IV fluid. Renal function has improved. WBC trending down. 05/16: Last dose of intrapleural alteplase today, loculations appear to have resolved on chest xray, pleural fluid cytology pending. Procalcitonin increased and left lung opacity has progressed so started Zosyn and discontinued Augmentin. The patient says he is feeling better overall, up to chair today. Dr. Dennis will remove the chest tube today as the patient initially requested when intrapleural Alteplase was started. Tentative plan is to discharge to a SNF, pending bed placement. Plan to repeat chest xray tomorrow morning. D-diff checked for diarrhea and negative. 05/17 Patient feeling well. A chest tube taken out yesterday afternoon. Pending follow-up chest x-ray this morning. His white blood cell count up went up to 16,000. Question of whether not this is reactive from manipulation of chest tube yesterday and withdrawal as patient does not appear toxic, afebrile. Review of Systems: denies headache/fever/chills/nausea/vomiting/chest or abdominal pain/cough/dyspnea/diarrhea. Otherwise see above. Constitutional Vitals: Vital Signs Temp Pulse Resp BP Pulse Ox 98.9 F 68 15 132/62 94 05/17/21 00:00 05/17/21 06:01 05/17/21 06:01 05/17/21 06:01 05/17/21 06:01 Period Temp Pulse Resp BP Sys/Jameson Pulse Ox Last 24 Hr 98.1 F-99.9 F 68-88 15-22 129-151/56-71 91-96 Intake and Output 05/16/21 05/17/21 05/17/21 21:59 05:59 13:59 Intake Total 530 50 Output Total 301 102 Balance 229 -52 Weight 73.119 kg Intake & Output: Intake & Output 05/16/21 05/17/21 05/17/21 21:59 05:59 13:59 Intake Total 530 50 Output Total 301 102 Balance 229 -52 Weight 73.119 kg Intake: Nourishment/Supplement quantity 120 (ml) IV 50 50 Zosyn 2.25 gm In Dextrose 5% in 50 50 Water 50 ml @ 100 mls/hr IV Q6H [facility] Rx#:[id number] Oral 360 Output: Chest Tube Drainage 100 Left Mid-Axillary Chest 100 Urine Catheter Amount 200 Void Amount 100 # of times incontinent of urine 1 2 Other: Meal Dinner Percent of Meal Consumed 75% Feeding Ability Independent Nourishment/Supplement name glucerna Urine Appearance Clear Clear Clear Urine Color Straw Straw Dark Yellow Urine Odor Strong Normal Stool Size Small Smear Stool Color Brown Brown Stool Consistency Soft Soft # Voids 1 250 # Bowel Movements 1 2 # of times incontinent of 2 Bowels Exam: General: Alert, Awake, No acute Distress Eyes/N/T: EOMI, Head/Neck: neck supple, CV: RRR, No murmurs, Pulm: Improved breath sounds Left side, , no wheezing Abd: soft, nontender, +BS x4 Ext: no clubbing/cyanosis/edema Neuro: Alert, no focal deficits, moves all extremities, Skin: warm/dry OBJ DATA Labs CBC & Chem 7: 05/17/21 05:09 05/17/21 05:09 Labs: Abnormal Lab Results 05/17/21 05/17/21 05/16/21 05:09 05:09 04:51 WBC 16.5 H RBC 2.84 L Hgb 8.1 L Hct 26.0 L RDW 14.6 H Neut % (Auto) 86.8 H Lymph % (Auto) 7.2 L Lymph # (Auto) 1.19 L Absolute Neutrophils 14.33 H Chloride 112 H 112 H Carbon Dioxide 18 L 16 L BUN 34 H 37 H Creatinine 1.6 H 1.8 H Glucose Uric Acid < 0.2 L < 0.2 L Lactate Dehydrogenase 93 L 77 L C-Reactive Protein Total Protein 5.3 L 5.2 L Albumin 1.9 L 1.9 L Albumin/Globulin Ratio 0.6 L 0.6 L Procalcitonin Pleural LDH 05/16/21 05/15/21 05/15/21 04:51 15:30 15:30 WBC 11.8 H RBC 2.80 L Hgb 8.1 L Hct 25.1 L RDW Neut % (Auto) 90.1 H Lymph % (Auto) 4.4 L Lymph # (Auto) 0.52 L Absolute Neutrophils 10.60 H Chloride Carbon Dioxide BUN Creatinine Glucose Uric Acid Lactate Dehydrogenase C-Reactive Protein 10.40 H Total Protein Albumin Albumin/Globulin Ratio Procalcitonin 0.54 H Pleural LDH 05/15/21 05/15/21 05/14/21 04:51 04:50 18:25 WBC 11.8 H RBC 2.96 L Hgb 8.6 L Hct 26.6 L RDW 14.6 H Neut % (Auto) 89.1 H Lymph % (Auto) 5.4 L Lymph # (Auto) 0.63 L Absolute Neutrophils 10.47 H Chloride 109 H Carbon Dioxide 15 L BUN 44 H Creatinine 2.0 H Glucose 166 H Uric Acid < 0.2 L Lactate Dehydrogenase 90 L C-Reactive Protein Total Protein 5.6 L Albumin 2.0 L Albumin/Globulin Ratio 0.6 L Procalcitonin Pleural LDH 237 H Meds: Medications Acetaminophen (Acetaminophen 325 Mg Tablet) 650 mg PO Q6HP PRN; Protocol PRN Reason: Per Pain Protocol/Fever > 101 Albuterol/Ipratropium (Ipratropium/Albuterol 3 Ml Ampul.Neb) 3 ml NEB Q4HP PRN PRN Reason: Shortness Of Breath Ascorbic Acid (Ascorbic Acid 500 Mg Tablet) 1,000 mg PO DAILY [facility] Last Admin: 05/16/21 08:52 Dose: 1,000 mg Documented by: Dextrose (Dextrose 50% 50 Ml Vial) 0 ml IV UD PRN PRN Reason: Hypoglycemia Diagnostic Test (Pha) (Accu-Chek 1 Each Strip) 1 each FS ACHS [facility] Last Admin: 05/17/21 07:12 Dose: 1 each Documented by: Docusate Sodium (Docusate Sodium 100 Mg Capsule) 100 mg PO BID [facility] Last Admin: 05/16/21 21:40 Dose: Not Given Documented by: Ferrous Gluconate (Ferrous Gluconate 324 Mg Tablet) 324 mg PO [facility] Last Admin: 05/16/21 08:52 Dose: 324 mg Documented by: Furosemide (Furosemide 20 Mg Tablet) 20 mg PO QDAY [facility] Glucose (Dextrose 31 Gm Oral.Susp) 15 gm PO PRN PRN PRN Reason: Hypoglycemia Guaifenesin (Guaifenesin/Dextromethorphan Oral Tracy) 10 ml PO Q4HP PRN PRN Reason: Cough Last Admin: 05/14/21 21:32 Dose: 10 ml Documented by: Piperacillin Sod/Tazobactam (Sod 2.25 gm/ Dextrose) 50 mls @ 100 mls/hr IV Q6H [facility]; Protocol Last Admin: 05/17/21 06:02 Dose: 100 mls/hr Documented by: Insulin Glargine (Insulin Glargine, Human 1 Unit/0.01 Ml) 10 unit SQ [facility] Last Admin: 05/16/21 21:41 Dose: 10 units Documented by: Insulin Human Lispro (Insulin Lispro 1 Unit/0.01 Ml Unit) 0 unit SQ [facility]; Protocol Last Admin: 05/17/21 07:12 Dose: Not Given Documented by: Metoprolol Tartrate (Metoprolol Tartrate 5 Mg/5 Ml Vial) 5 mg IV Q4HP PRN PRN Reason: Tachyarrhythmias Last Admin: 05/12/21 07:30 Dose: 5 mg Documented by: Morphine Sulfate (Morphine 4 Mg/Ml Vial) 4 mg IV Q4HP PRN; Protocol PRN Reason: Per Pain Protocol Ondansetron HCl (Ondansetron 4 Mg/2 Ml Vial) 4 mg IV Q6HP PRN PRN Reason: Nausea And Vomiting Polyethylene Glycol (Polyethylene Glycol 3350 17 Gm Packet) 17 gm PO DAILYP PRN PRN Reason: Constipation Pyridoxine HCl (Pyridoxine 100 Mg Tablet) 100 mg PO QDAY [facility] Last Admin: 05/16/21 08:52 Dose: 100 mg Documented by: Senna (Sennosides 1 Tablet) 2 tab PO [facility] Last Admin: 05/16/21 21:41 Dose: Not Given Documented by: Simvastatin (Simvastatin 10 Mg Tablet) 20 mg PO QPM [facility] Last Admin: 05/16/21 21:42 Dose: 20 mg Documented by: Sodium Chloride (0.9 % Sodium Chloride 10 Ml Syringe) 10 ml IV Q8 [facility] Last Admin: 05/17/21 06:02 Dose: 10 ml Documented by: Terazosin HCl (Terazosin 5 Mg Capsule) 10 mg PO [facility] Last Admin: 05/16/21 21:41 Dose: 10 mg Documented by: A/P Narrative A/P Narrative: A: #CAP: #Loculated left pleural effusion: appears to have resolved with intrapleural Alteplase -pleural fluid cx neg thus far -Chest tube removed 05/16 #Concern for malignant pleural effusion: #Pericardia effusion: small to moderate, no evidence of tamponade #Paroxysmal atrial fibrillation #Acute on chronic anemia: -s/p 1 unit RBC #Type 2 Diabetes mellitus #Essential Hypertension / HLD: #JARRETT on CKD IIIb: improved #h/o basal cell carcinoma left face s/p resection & nose lesion recently biopsied showing basal cell: #Left heel ulcer #Malnourishment #Generalized weakness Plan -f/u cbc in AM -Zosyn while inpatient, could discharge on Augmentin per ID recs -chest tube removed by surgery, pending chest xray -Complete intrapleural Aleteplase yesterday -pending cytology -Monitor hemoglobin, transfuse RBC prn -Lantus and SSI, holding Metformin. -Resume home Lasix -Holding home Losartan/Indapamide -Continue Simvastatin/Terazosin -Nutritional supplement -pt/ot -DVT ppx: SCD -Disposition: the patient's daughter's want the patient to discharge to a SNF but the patient wants to go home. The patient is open to hospice at home if poss ible. Code status: DNR Time Spent With Patient Time: Total time spent is greater than 50% in coordination of care (as docum ented) at patient's floor/unit and/or counseling patient: QUALITY Stroke Symptom Onset Unknown: No VTE Deep Vein Thrombosis/Pulmonary Embolism Present on Admission: No
[2021-05-17] MEDS ORDERED: FUROSEMIDE 20 MG TABLET PO SCH (09:00)
[2021-05-17] MEDS: PYRIDOXINE 100 MG TABLET PO SCH (09:12)
[2021-05-17] MEDS: ASCORBIC ACID 500 MG TABLET PO SCH (09:12)
[2021-05-17] MEDS: FERROUS GLUCONATE 324 MG TABLET PO SCH (09:12)
[2021-05-17] MEDS: DOCUSATE SODIUM 100 MG CAPSULE PO SCH ×2 (09:13→20:24)
[2021-05-17] MEDS ORDERED: morphine 4 MG/ML VIAL IV PRN (10:32)
[2021-05-17] MEDS ORDERED: POLYETHYLENE GLYCOL 3350 17 GM PACKET PO PRN (10:32)
[2021-05-17] MEDS ORDERED: ONDANSETRON 4 MG/2 ML VIAL IV PRN (10:32)
[2021-05-17] MEDS ORDERED: METOPROLOL TARTRATE 5 MG/5 ML VIAL IV PRN (10:32)
[2021-05-17] MEDS ORDERED: guaiFENesin/DEXTROMETHORPHAN ORAL SOL PO PRN (10:32)
[2021-05-17] MEDS ORDERED: DEXTROSE 50% 50 ML VIAL IV PRN (10:32)
[2021-05-17] MEDS ORDERED: IPRATROPIUM/ALBUTEROL 3 ML AMPUL.NEB NEB PRN (10:32)
[2021-05-17] MEDS ORDERED: ACETAMINOPHEN 325 MG TABLET PO PRN (10:32)
[2021-05-17] MEDS ORDERED: DEXTROSE 31 GM ORAL.SUSP PO PRN (10:32)
--- NOTE | 2021-05-17 11:02 | Discharge Summary ---
Discharge Provider Provider Patient information: Note initiated : 05/17/21 at 11:00 am Service Date, if different from initiated Date: [] Patient: Camron Morel 80 y/o M admitted on 05/09/21 for Chest Pain . Chief Complaint: [] Date of admission: 05/09/21 11:33 Discharge date: 05/18/21 Primary care physician: Jayro Suárez DO Consults: 05/07/21 Consult to Physician [CONS] Stat Comment: Consulting Provider: Abhijeet Chanel Reason For Exam: Physician to Consult 05/10/21 07:43 Consult to Physician [CONS] Routine Comment: pneumonia Consulting Provider: Angel Kerr Reason For Exam: Physician to Consult 05/12/21 15:27 Consult to Physician [CONS] Routine Comment: Consulting Provider: Carlos Dennis Reason For Exam: Physician to Consult Discharge Meds Discharge Medications Home Medications Vitamin C oral capsule extended release 1 tab PO DAILY 07/24/15 [History Confirmed 05/07/21 Last Taken 05/06/21] blood sugar diagnostic 11/15/16 [History Confirmed 05/08/21 Last Taken Unknown] metformin 1,000 mg tablet 1,000 mg PO BID 90 Days #180 tab 10/08/20 [Rx Confirmed 05/07/21 Last Taken 05/06/21] terazosin 10 mg capsule 10 mg PO QPM 90 Days #90 cap 11/26/20 [Rx Confirmed 05/07/21 Last Taken 05/06/21] ferrous gluconate 324 mg (38 mg iron) tablet 324 mg PO QDAY 03/06/21 [History Confirmed 05/07/21 Last Taken 05/06/21] polyethylene glycol 3350 17 gram/dose oral powder 17 g PO QDAY PRN 03/06/21 [His tory Confirmed 05/07/21 Last Taken 05/06/21] losartan 100 mg tablet 100 mg PO QDAY 90 Days #90 tab 03/07/21 [Rx Confirmed 05/07/21 Last Taken 05/06/21] furosemide 20 mg tablet 20 mg PO QDAY 05/01/21 [History Confirmed 05/07/21 Last Taken 05/06/21] indapamide 1.25 mg tablet 1.25 mg PO QAM 05/01/21 [History Confirmed 05/07/21 Last Taken 05/06/21] pyridoxine (vitamin B6) 100 mg tablet 100 mg PO QDAY tab 05/01/21 [History Confirmed 05/07/21 Last Taken 05/06/21] simvastatin 10 mg tablet 20 mg PO QPM tab 05/01/21 [History Confirmed 05/07/21 Last Taken 05/06/21] amoxicillin-pot clavulanate [Augmentin] 1 tab PO BID #8 tab 05/17/21 [Rx Last Taken Unknown] COURSE Hospital Course Hospital course: Interval history: History of present illness: Mr. Morel is a 80 year old M history of basal cell carcinoma of the face, type 2 diabetes, essential hypertension, mixed dyslipidemia, chronic kidney disease stage III, BPH, presenting with chest pain, nonproductive cough, and shortness of breath. He has been vaccinated against Covid pneumonia. He denies any sick contact or recent travel. He was in his usual state of health until 4 days ago when he had acute onset of chest pain, nonproductive cough, and shortness of breath. Chest pain was moderate to severe, sharp, exacerbated when he coughs. He denies any fever or chills. Due to his symptoms, he decided to come to our ED for further evaluations today. Vital signs at ED presentations completely unremarkable. Labs remarkable for leukocytosis with WBC 14.5. Serum lactic acid normal at 0.7. Covid Debi screening test negative. Covid PCR test-not detected. Chest x-ray showing left-sided pulmonary infiltrate as well as left sided pleural effusions. Patient is currently tolerating room air. 05/08: CoVID PRC negative. Blood cultures no growth to date. Troponin-i: 0.04, 0.04, 0.05. Afebrile. Been tolerating room air. Denies chest pain. Denies SOB. c/o nonproductive cough. Denies fever or chills. 05/09: Afebrile overnight. Tolerating room air overnight. WBC jumps from 12 to 16 this morning. Still c/o nonproductive cough and left sided chest pain when he coughs. Denies fever or chills. Denies general body weakness. 05/10: Afebrile overnight. Tolerating room air overnight. WBC jumps from 16 to 17 this morning. Still c/o nonproductive cough and left sided chest pain when he coughs. Denies fever or chills. Denies general body weakness. 05/11: Point of care ultrasound exam shows a moderate left pleural effusion that appears complex and potentially loculated. Further working including CT chest and thoracentesis along with goals of care discussed with the patient and his daughter at the bedside. The patient wants to proceed with further workup and thoracentesis. CT chest ordered, likely will be followed by thoracentesis. Transitioned antibiotic therapy from Ceftriaxone and Azithromycin to Zosyn. Tachycardic-EKG suggests SVT. 05/12: CT chest consistent with pneumonia and loculated left pleural effusion. Goals of care discussed with the patient and his daughter at [facility], discussed transfer to a higher level of care which the patient refused. Explained that we have tPA but not Dornase for intrapleural treatment of loculations and that the combination was the standard of care and even that might not work. In that case surgery would be the only option to remove the loculations. The patient refused transfer to a higher level of care but would like an attempt to drain the fluid with a chest tube and tPA. General surgery consulted for chest tube placement, pleural fluid labs ordered. After chest tube placed will started intrapleural tPA. 05/13: Pleural fluid workup consistent with exudate but cell count lower than expected for parapneumonic effusion, LDH 454 and pH 7.61 also would be unusual for parapneumonic effusion. Started intrapleural Alteplase, discussed dornase with pharmacy again and it is not available. Required one unit of blood for hemoglobin 6.8. Holding heparin SQ for DVT prophylaxis. The patient stated that he wants to be DNR, code status changed. ID consulted and felt the left effusion was not consistent with a parapneumonic effusion, felt the patient could be treated with Augmentin. ID ordered QuantiFERON-TB GOLD. 05/14: Improved left pleural effusion chest tube drainage after intrapleural Alt eplase, chest xray shows near complete evacuation of left pleural effusion. WBC increased today but no fevers and the patient feels better, the patient wants to continue the intrapleural treatment for one more day then remove the chest tube. Repeat pleural fluid workup shows a higher pleural fluid cell count at 7910 and 86% neutrophils but still low for an infectious process. Goals of care discuss ion at bedside with his daughter and the care team today, the patient wants to go home at discharge and would consider hospice in the near future. Transitioned to oral Augmentin. Awaiting pleural fluid cytology. 05/15: Chest tube has less drainage today but still significant, the patient would like to complete the 72 hour treatment course of intrapleural Alteplase. Chest xray shows worsening consolidation in both lung lungs, near complete evacuation of the left sided pleural effusion. Discontinued IV fluid. Renal function has improved. WBC trending down. 05/16: Last dose of intrapleural alteplase today, loculations appear to have resolved on chest xray, pleural fluid cytology pending. Procalcitonin increased and left lung opacity has progressed so started Zosyn and discontinued Augmentin. The patient says he is feeling better overall, up to chair today. Dr. Dennis will remove the chest tube today as the patient initially requested when intrapleural Alteplase was started. Tentative plan is to discharge to a SNF, pending bed placement. Plan to repeat chest xray tomorrow morning. D-diff checked for diarrhea and negative. 05/17 Patient feeling well. A chest tube taken out yesterday afternoon. Pending follow-up chest x-ray this morning. His white blood cell count up went up to 16,000. Question of whether not this is reactive from manipulation of chest tube yesterday and withdrawal as patient does not appear toxic, afebrile. 05/18 Patient doing well. No overnight event or new complaints. Leukocytosis improved. Patient stable for discharge Narrative A/P Narrative: A: #CAP: #Loculated left pleural effusion: appears to have resolved with intrapleural Alteplase -pleural fluid cx neg thus far -Chest tube removed 05/16 #Concern for malignant pleural effusion: #Pericardia effusion: small to moderate, no evidence of tamponade #Paroxysmal atrial fibrillation #Acute on chronic anemia: -s/p 1 unit RBC #Type 2 Diabetes mellitus #Essential Hypertension / HLD: #JARRETT on CKD IIIb: improved #h/o basal cell carcinoma left face s/p resection & nose lesion recently biopsied showing basal cell: #Left heel ulcer #Malnourishment #Generalized weakness Discharge diagnosis: Pneumonia and left loculated effusion status post chest tube Secondary discharge diagnosis: Concern for malignant pleural effusion history of PAF chronic anemia diabetes hypertension basal cell carcinoma recent diagnosed gnosis and distant acute kidney injury malnourishment Time Spent with Patient Time attestation: Total time spent providing and/or coordinating discharge services: Time spent: Greater than 30 minutes EXAM Constitutional Vitals: Temp Pulse Resp BP Pulse Ox 98.1 F 72 21 140/69 97 05/17/21 08:01 05/17/21 10:02 05/17/21 10:02 05/17/21 10:02 05/17/21 10:02 Discharge Data Data Completed and Pending Labs on day of discharge: Labs from last 24 hours 05/17/21 05/17/21 05/17/21 05:39 05:09 05:09 WBC RBC Hgb Hct MCV MCH MCHC RDW Plt Count MPV Neut % (Auto) Lymph % (Auto) [place] % (Auto) Eos % (Auto) Baso % (Auto) Lymph # (Auto) [place] # (Auto) Eos # (Auto) Baso # (Auto) Absolute Neutrophils Platelet Estimate Pending RBC Morphology Pending Sodium 141 Potassium 3.9 Chloride 112 H Carbon Dioxide 18 L Anion Gap 11.0 BUN 34 H Creatinine 1.6 H GFR Calculation 39 Glucose 95 Uric Acid < 0.2 L Calcium 8.9 Phosphorus 2.6 Magnesium 1.7 Total Bilirubin 0.2 Direct Bilirubin < 0.2 GGT 18 AST 16 ALT 15 Alkaline Phosphatase 64 Lactate Dehydrogenase 93 L Total Protein 5.3 L Albumin 1.9 L Globulin 3.4 Albumin/Globulin Ratio 0.6 L Triglycerides 44 Procalcitonin Pending 05/17/21 05:09 WBC 16.5 H RBC 2.84 L Hgb 8.1 L Hct 26.0 L MCV 91.5 MCH 28.5 MCHC 31.2 RDW 14.6 H Plt Count 391 MPV 9.1 Neut % (Auto) 86.8 H Lymph % (Auto) 7.2 L Chester % (Auto) 5.0 Eos % (Auto) 0.8 Baso % (Auto) 0.2 Lymph # (Auto) 1.19 L [place] # (Auto) 0.83 Eos # (Auto) 0.13 Baso # (Auto) 0.03 Absolute Neutrophils 14.33 H Platelet Estimate RBC Morphology Sodium Potassium Chloride Carbon Dioxide Anion Gap BUN Creatinine GFR Calculation Glucose Uric Acid Calcium Phosphorus Magnesium Total Bilirubin Direct Bilirubin GGT AST ALT Alkaline Phosphatase Lactate Dehydrogenase Total Protein Albumin Globulin Albumin/Globulin Ratio Triglycerides Procalcitonin Preliminary micro results at discharge 05/14/21 18:25 Gram Stain - Preliminary Pleural Fluid Body Fluid Culture - Preliminary Discharge Plan Patient/Caregiver Discharge Instructions Activity: increase activity as tolerated Diet: Consistent Carbohydrate Instructions: Pressure Injury (DC) Prescriptions: New amoxicillin-pot clavulanate [Augmentin] 875-125 mg tablet 1 tab PO BID Qty: 8 RF: 0 No Action metformin [Glucophage] 1,000 mg tablet 1,000 mg PO BID 90 Days Qty: 180 RF: 1 terazosin 10 mg capsule 10 mg PO QPM 90 Days Qty: 90 RF: 3 losartan [Cozaar] 100 mg tablet 100 mg PO QDAY 90 Days Qty: 90 RF: 1 Vitamin C oral capsule extended release 500 mg 1 tab PO DAILY RF: 0 ferrous gluconate 324 mg (38 mg iron) tablet 324 mg PO QDAY RF: 0 polyethylene glycol 3350 [Miralax] 17 gram/dose powder 17 g PO QDAY PRN (Reason: constipation) RF: 0 simvastatin [Zocor] 10 mg tablet 20 mg PO QPM RF: 0 pyridoxine (vitamin B6) [Vitamin B-6] 100 mg tablet 100 mg PO QDAY RF: 0 indapamide 1.25 mg tablet 1.25 mg PO QAM RF: 0 furosemide 20 mg tablet 20 mg PO QDAY RF: 0 (DME) blood sugar diagnostic 1 EACH strip 0 appful .Route .MEDSUPPLY RF: 0 Follow Up Plan Follow up with: Harrison Rivera MD [Physician] - (Please call to [facility]14 days after discharge from hospital for left lateral heel pressure injury) Jayro Suárez DO [Primary Care Provider] - Patient Disposition: Xfer SNF Prognosis: Fair Rehab Potential: Fair I certify that the patient requires SNF services: Yes Overall status at discharge: patient is progressing back to baseline Discharge Orders: Discharge Order (Routine); Ordered 05/18/21 Ordered By: Timothy Amato [facility] VTE Deep Vein Thrombosis/Pulmonary Embolism Present on Admission: No
[2021-05-17 11:32] LABS: Anisocytosis 1+ (None Seen); Band Neutrophils % 5 % (0-10); Lymphocytes % 5 % (15-49); Monocytes % (Manual) 3 % (1-12); Platelet Estimate NORMAL (Normal); RBC Morphology ABNORMAL (Normal); Segmented Neutrophils % 87 % (38-78)
--- NOTE | 2021-05-17 12:44 | XRay Report ---
HISTORY: Chest pain, chest tube removed FINDINGS: The chest tube has been removed from the left lower thorax compared with the prior exam done yesterday. There has been no reaccumulation of pleural fluid. Patient still has dense consolidation in the left lower lobe with milder involvement in the lingula and medially in the left upper lobe. There is also moderate consolidation medially in the right lower lobe. The consolidation at the left lung base has become somewhat worse. The heart has become mildly enlarged. No pneumothorax is present. IMPRESSION: No complication following left chest tube removal Worsening atelectasis/pneumonia and left lower lobe is stable right lower lobe infiltrate New onset mild cardiomegaly Interpreted and Authenticated by: Gabe Price 05/17/21
[2021-05-17] MEDS ORDERED: SENNOSIDES 1 TABLET PO SCH (21:00)
[2021-05-17] MEDS ORDERED: TERAZOSIN 5 MG CAPSULE PO SCH (21:00)
[2021-05-17] MEDS ORDERED: SIMVASTATIN 10 MG TABLET PO SCH (21:00)
[2021-05-17] MEDS ORDERED: INSULIN GLARGINE, HUMAN 1 UNIT/0.01 ML SQ SCH (21:00)
[2021-05-18] MEDS: PIPERACILLIN SODIUM/TAZOBACTAM 2.25 GM in DEXTROSE 5% IN WATER 50 ML IV SCH ×2 (05:19→11:56)
[2021-05-18] MEDS: 0.9 % SODIUM CHLORIDE 10 ML SYRINGE IV SCH ×2 (05:19→12:59)
[2021-05-18 06:59] LABS: Hematocrit 23.3 % (40.1-51.0); Hemoglobin 7.3 g/dL (13.7-17.5); Mean Corpuscular HGB Conc 31.3 g/dL (31.0-36.0); Mean Platelet Volume 9.2 fL (7.4-10.4); Platelet Count 363 K/mcL (140-440); RBC 2.56 M/mcL (4.63-6.08); Red Cell Distribution Width 14.4 % (11.5-14.5); WBC 12.8 K/mcL (4.5-11.0)
[2021-05-18] MEDS: INSULIN LISPRO 1 UNIT/0.01 ML UNIT SQ SCH ×2 (07:17→11:22)
[2021-05-18] MEDS ORDERED: FERROUS GLUCONATE 324 MG TABLET PO SCH (08:00)
[2021-05-18] MEDS: DOCUSATE SODIUM 100 MG CAPSULE PO SCH (08:26)
[2021-05-18 08:33] LABS: Eosinophils % (Manual) 2 % (0-7); Lymphocytes % 8 % (15-49); Monocytes % (Manual) 2 % (1-12); Platelet Estimate NORMAL (Normal); RBC Morphology NORMAL (Normal); Segmented Neutrophils % 88 % (38-78)
[2021-05-18] MEDS ORDERED: FUROSEMIDE 20 MG TABLET PO SCH (09:00)
[2021-05-18] MEDS ORDERED: ASCORBIC ACID 500 MG TABLET PO SCH (09:00)
[2021-05-18] MEDS ORDERED: PYRIDOXINE 100 MG TABLET PO SCH (09:00)
[2021-05-18 15:31] LABS: Mitogen - NIL 0.26 IU/mL; NIL 0.01 IU/mL; Quant TB Gold + 4T Incubated INDETERMINATE (NEGATIVE); TB2-NIL 0.01 IU/mL
== END 2021-05-18 14:30 | DRG 194 ==
LOC: MEDSUR 06:29 → ED 06:29 → MEDSUR 05-09 12:44 → ICU 05-11 15:09 → MEDSUR 05-17 10:25
PROVIDERS: ADMIT Internal Medicine; ATTEND Internal Medicine

== ENCOUNTER 2021-06-06 14:27 | Inpatient (IN) ==
[2021-06-06] MEDS ORDERED: PANTOPRAZOLE 40 MG VIAL IV ONE ×2 (14:48→21:23)
[2021-06-06] MEDS ORDERED: 0.9 % SODIUM CHLORIDE 500 ML IV ONE (14:48)
--- NOTE | 2021-06-06 14:55 | Emergency Department Note ---
GI Bleed HPI General Chief complaint: Recheck/Abnormal Lab/Rx Stated complaint: abnormal labs Time Seen by Provider: 06/06/21 14:38 Source: patient, RN notes reviewed, old records reviewed and other Mode of arrival: EMS Limitations: no limitations History of Present Illness HPI Narrative: Narrative: complaint: other (low H&H on lab draw) Onset (ago): day(s) Consistency: intermittent Severity: moderate Improves with: none Worsens with: none Context: medication/supplement use Associated symptoms: Reports denies other symptoms, malaise and weakness; Denies abdominal pain, nausea, vomiting, epistaxis, fever, chills, headaches, loss of appetite, easy bruising, rash, other bleeding, shortness of breath and syncope Treatments Prior to Arrival: none Related Data Home Medications Medication Instructions Recorded Confirmed Vitamin C oral capsule extended 1 tab PO DAILY 07/24/15 06/06/21 release blood sugar diagnostic 11/15/16 05/08/21 ferrous gluconate 324 mg (38 mg 324 mg PO QDAY 03/06/21 06/06/21 iron) tablet polyethylene glycol 3350 17 17 g PO QDAY PRN 03/06/21 06/06/21 gram/dose oral powder furosemide 20 mg tablet 20 mg PO QDAY 05/01/21 06/06/21 indapamide 1.25 mg tablet 1.25 mg PO QAM 05/01/21 06/06/21 pyridoxine (vitamin B6) 100 mg 100 mg PO QDAY tab 05/01/21 06/06/21 tablet simvastatin 10 mg tablet 20 mg PO QPM tab 05/01/21 06/06/21 losartan [Cozaar] 150 mg PO QDAY 06/06/21 06/06/21 midodrine 2.5 mg PO TID 06/06/21 06/06/21 Previous Rx's Medication Instructions Recorded metformin 1,000 mg tablet 1,000 mg PO BID 90 Days #180 tab 10/08/20 terazosin 10 mg capsule 10 mg PO QPM 90 Days #90 cap 11/26/20 amoxicillin-pot clavulanate 1 tab PO BID #8 tab 05/17/21 [Augmentin] Allergies Allergy/AdvReac Type Severity Reaction Status Date / Time No Known Drug Allergies Allergy Verified 05/07/21 06:30 Review of Systems ROS ROS Narrative: Narrative: All systems ED: reviewed and negative except as stated. [facility] Narrative Patient History Narrative: Narrative: Medical/Surgical/Family History All Active Problems (Updated 06/06/21 @ 17:29 by Sudhir Jain MD) Actinic keratosis (Chronic) Anemia (Chronic) BPH without urinary obstruction (Chronic) Benign enlargement of prostate (Chronic) Diabetes mellitus, type II (Chronic) Diverticulosis of colon (Chronic) ED (erectile dysfunction) (Chronic) Hernia, hiatal (Chronic) Hyperlipidemia (Chronic) Hypertension, essential (Chronic) Low back pain (Chronic) Psoriasis (Chronic) Schatzki's ring (Chronic) Spinal stenosis, lumbar region, without neurogenic claudication (Chronic) Physical exam, annual (Chronic) Sciatica (Acute) Strain of lumbar region (Acute) Lumbar radiculopathy (Acute) Injury of left facial nerve (Chronic) Basal cell carcinoma of face (Chronic) Facial droop (Chronic) Weight loss (Acute) Imbalance (Acute) Tearing eyes (Acute) Medicare annual wellness visit, initial (Acute) Left hip pain (Acute) Greater trochanteric bursitis of left hip (Acute) Primary osteoarthritis of left hip (Acute) Intertrochanteric fracture of left femur (Acute) Weakness (Acute) Cough (Acute) Acute dehydration (Acute) Anemia (Acute) Acute kidney injury (Acute) Left lower lobe pneumonia (Acute) CKD stage 3 due to type 2 diabetes mellitus (Acute) Pleural effusion (Acute) No-show for appointment (Acute) Acute GI bleeding (Acute) Medical History (Updated 06/06/21 @ 17:29 by Sudhir Jain MD) Actinic keratosis Allergic rhinitis Patient doing well no longer using fluicastone, last use was 1 yr ago, monitor for now. Anemia 07/13/2013 Hypoproliferative Back pain Seeing the pain clinic. Will receive the next epidural steroid shot this thursday05/12/11. Benign enlargement of prostate BPH; of prostate with urinary obstruction 03/03/2013 BPH without urinary obstruction Continue Terazonsin 10mg nightly Cellulitis and abscess of face 12/05/2013 Chronic pain Diabetes mellitus, type II Diverticulosis of colon ED (erectile dysfunction) Generalized abdominal or pelvic swelling or mass or lump Hernia, hiatal History of amputation of finger 2004; finger repair of lt. index finger amputation. Hyperlipidemia Hypertension, essential Low back pain Patient takes tylenol prn as needed. Lumbar radiculopathy Medicare annual wellness visit, initial Physical exam, annual Colonoscopy 2013: diverticulosis tdap 03/2014 aaa: not done, but wants to defer same pneumovac uptodate, pt unable to recall date psa: not indicated eye ecam 06/11 foot exam 10/12 Psoriasis Continue Betamethasone 0.05% cream twice daily as needed. Schatzki's ring Sciatica Spinal stenosis, lumbar region, without neurogenic claudication Lumbar L4-L5-S1 Strain of lumbar region Thoracic or lumbosacral neuritis or radiculitis Urinary retention 03/03/2013 UTI (urinary tract infection) 03/03/2013 Surgical History History of colonoscopy 10/18/2013; Diverticulosis History of esophagogastroduodenoscopy 10/18/13; Schatzki's ring, hiatus hernia History of inguinal hernia repair 05/23/2013; Bilateral inguinal hernia reducible History of surgery Lumbar decompression; 02/23/13 Family History Mother Family history of cardiovascular disease Father Family history of carrier of genetic disease Alzheimers Social History Smoking Status: Never smoker Alcohol Intake Frequency: former alcohol drinker Substance Use: does not use Exam Narrative Narrative: Narrative: General Limitations: no limitations General appearance: Present alert, cachectic, in no apparent distress and thin Head Head: Present atraumatic, normocephalic and normal inspection Eye Eye: Present normal appearance and EOMI ENT ENT: Present normal exam and mucous membranes moist Neck Neck: Present normal inspection and full ROM Chest Chest: Present normal inspection; Absent tenderness Respiratory Respiratory: Present normal lung sounds bilaterally; Absent respiratory distress Cardiovascular Cardiovascular: Present regular rate, normal rhythm and systolic murmur Adbominal Abdominal: Present soft; Absent distention, tenderness, guarding and rebound Rectal Rectal: Present normal inspection, normal rectal tone, heme (+) stool and tenderness; Absent decreased rectal tone, heme (-) stool, black stool, bloody stool, fecal impaction, hemorrhoids, mass, normal prostate, prostate tenderness and prostate enlargement Extremities Extremities: Present normal inspection, full ROM, pedal edema and pretibial edema; Absent tenderness, normal capillary refill and calf tenderness Back Back: Present normal inspection; Absent CVA tenderness (R) and CVA tenderness (L) Neurological Neurological: Present alert and oriented X3 Psychiatric Psychiatric: Present normal affect and normal mood Skin Skin: Present cool and pallor; Absent rash Course Vital Signs Vital signs: Vital Signs Temperature 97 F 06/06/21 14:32 Pulse Rate 66 06/06/21 14:32 Respiratory Rate 16 06/06/21 14:32 Blood Pressure 97/50 06/06/21 14:32 Pulse Oximetry (%) 100 06/06/21 14:32 Temperature 97 F 06/06/21 14:32 Pulse Rate 63 06/06/21 16:46 Respiratory Rate 18 06/06/21 16:46 Blood Pressure 94/49 06/06/21 16:00 Pulse Oximetry (%) 98 06/06/21 16:46 MDM MDM Narrative Medical decision making narrative: Narrative: 80-year-old male with critical hemoglobin and hematocrit. I have ordered 2 units of packed red blood cells to be transfused for this patient. The patient had heme positive stools they were brown and did not appear to be digested blood. Abdominal CT is pending I discussed patient with Dr. Dennis of general surgery who graciously agreed to see the patient in consultation we will discuss patient with hospitalist for admission for transfusion observation and care. Differential Diagnosis Differential Diagnosis: Upper GI bleed lower GI bleed blood dyscrasia Medical Records Medical records reviewed: Yes I reviewed the patient's medical records. Lab Data Lab results reviewed: Yes I reviewed the patient's lab results. Result diagrams: 06/06/21 15:10 06/06/21 15:10 Labs: Lab Results 06/06/21 06/06/21 06/06/21 Range/Units 15:10 15:10 15:10 WBC 6.8 (4.5-11.0) K/mcL RBC 1.67 L (4.63-6.08) M/mcL Hgb 5.1 L* (13.7-17.5) g/dL Hct 16.9 L* (40.1-51.0) % MCV 101.2 H (80.0-100.0) fL MCH 30.5 (26.0-34.0) pg MCHC 30.2 L (31.0-36.0) g/dL RDW 19.1 H (11.5-14.5) % Plt Count 326 (140-440) K/mcL MPV 10.3 (7.4-10.4) fL Neut % (Auto) 89.5 H (38.0-78.0) % Lymph % (Auto) 6.8 L (15.5-49.0) % Lyman % (Auto) 3.5 (1.0-12.0) % Eos % (Auto) 0.1 (0.0-7.0) % Baso % (Auto) 0.1 (0.0-2.0) % Lymph # (Auto) 0.46 L (1.50-4.80) K/mcL Lyman # (Auto) 0.24 (0.10-0.90) K/mcL Eos # (Auto) 0.01 (0.00-0.70) K/mcL Baso # (Auto) 0.01 (0.00-0.30) K/mcL Absolute Neutrophils 6.08 (1.80-8.00) K/mcL POC PT 16.9 H (11.9-14.5) sec POC INR 1.4 H (0.8-1.2) Sodium 137 (133-145) mmol/L Potassium 4.8 (3.3-5.1) mmol/L Chloride 102 (96-108) mmol/L Carbon Dioxide 18 L (22-30) mmol/L Anion Gap 17.0 H (8.0-16.0) BUN 76 H (8-23) mg/dL Creatinine 2.5 H (0.7-1.2) mg/dL POC Creatinine 2.7 H (0.6-1.2) mg/dL GFR Calculation 23 Glucose 163 H (70-105) mg/dL Calcium 9.8 (8.6-10.4) mg/dL Total Bilirubin 0.3 (0.1-1.0) mg/dL AST 36 (<40) U/L ALT 147 H (<40) U/L Alkaline Phosphatase 78 (39-117) U/L Total Protein 6.2 (5.9-8.4) gm/dL Albumin 2.5 L (3.2-5.2) gm/dL Globulin 3.7 (2.2-3.7) gm/dL Albumin/Globulin Ratio 0.7 L (1.0-2.3) Radiology Data Radiology results reviewed: Yes I reviewed the patient's radiology results. Radiology results narrative: Abdominal pelvis CT Pulse Oximetry Data Pulse Ox %: 98 Interpretation: 98% on room air within normal limits CC TIME Critical Care Time Critical Care Time: Yes Total Critical Care Time: 35 Attestation: Approximately [35] minutes of critical care time was used in order to assess and manage the high probability of imminent or life threatening deterioration to [transfusing patient with critically low blood count coordinating care with Drs. Dennis and Dr. Jorgensen for admission and scoping.] which required my highest level of preparedness and interventions with frequent patient assessments. This time is excluding time spent on separately billable procedures. 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) Follow up with: Jayro Suárez DO [Primary Care Provider] - Prescriptions: No Action metformin [Glucophage] 1,000 mg tablet 1,000 mg PO BID 90 Days Qty: 180 RF: 1 terazosin 10 mg capsule 10 mg PO QPM 90 Days Qty: 90 RF: 3 Vitamin C oral capsule extended release 500 mg 1 tab PO DAILY RF: 0 ferrous gluconate 324 mg (38 mg iron) tablet 324 mg PO QDAY RF: 0 polyethylene glycol 3350 [Miralax] 17 gram/dose powder 17 g PO QDAY PRN (Reason: constipation) RF: 0 simvastatin [Zocor] 10 mg tablet 20 mg PO QPM RF: 0 pyridoxine (vitamin B6) [Vitamin B-6] 100 mg tablet 100 mg PO QDAY RF: 0 indapamide 1.25 mg tablet 1.25 mg PO QAM RF: 0 furosemide 20 mg tablet 20 mg PO QDAY RF: 0 (DME) blood sugar diagnostic 1 EACH strip 0 appful .Route .MEDSUPPLY RF: 0 amoxicillin-pot clavulanate [Augmentin] 875-125 mg tablet 1 tab PO BID Qty: 8 RF: 0 midodrine 2.5 mg Tablet 2.5 mg PO TID RF: 0 losartan [Cozaar] 100 mg tablet 150 mg PO QDAY RF: 0
[2021-06-06 15:20] LABS: POC Creatinine 2.7 mg/dL (0.6-1.2); POC INR 1.4 (0.8-1.2); POC Pro Time 16.9 sec (11.9-14.5)
[2021-06-06 16:15] LABS: ALT/SGPT 147 U/L (<40); AST/SGOT 36 U/L (<40); Albumin 2.5 gm/dL (3.2-5.2); Albumin/Globulin Ratio 0.7 (1.0-2.3); Alkaline Phosphatase 78 U/L (39-117); Basophils # (Auto) 0.01 K/mcL (0.00-0.30); Basophils % (Auto) 0.1 % (0.0-2.0); Bilirubin,Total 0.3 mg/dL (0.1-1.0); Blood Urea Nitrogen 76 mg/dL (8-23); Calcium 9.8 mg/dL (8.6-10.4); Carbon Dioxide 18 mmol/L (22-30); Chloride 102 mmol/L (96-108); Eosinophils # (Auto) 0.01 K/mcL (0.00-0.70); Eosinophils % (Auto) 0.1 % (0.0-7.0); Globulin 3.7 gm/dL (2.2-3.7); Glomerular Filtration Rate 23; Glucose 163 mg/dL (70-105); Hematocrit 16.9 % (40.1-51.0); Hemoglobin 5.1 g/dL (13.7-17.5); Lymphocytes # (Auto) 0.46 K/mcL (1.50-4.80); Lymphocytes % (Auto) 6.8 % (15.5-49.0); Mean Cell Volume 101.2 fL (80.0-100.0); Mean Corpuscular HGB Conc 30.2 g/dL (31.0-36.0); Mean Platelet Volume 10.3 fL (7.4-10.4); Monocytes # (Auto) 0.24 K/mcL (0.10-0.90); Monocytes % (Auto) 3.5 % (1.0-12.0); Neutrophils % (Auto) 89.5 % (38.0-78.0); Platelet Count 326 K/mcL (140-440); RBC 1.67 M/mcL (4.63-6.08); Red Cell Distribution Width 19.1 % (11.5-14.5); WBC 6.8 K/mcL (4.5-11.0)
--- NOTE | 2021-06-06 17:02 | EKG ---
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
[2021-06-06] MEDS ORDERED: 0.9 % SODIUM CHLORIDE 250 ML IV SCH ×3 (17:30→20:45)
--- NOTE | 2021-06-06 17:31 | Cat Scan Report ---
CLINICAL INFORMATION: Abdominal pain and GI bleed COMPARISON: None. TECHNIQUE: 0.625 mm helical slices were obtained from the mid heart through the subtrochanteric regions. Following reconstruction, 2.5 mm sagittal, coronal and axial reformatted images were processed and reviewed at bone and soft tissue windows.The exam was performed using radiation dose optimization techniques including, but not limited to, automated exposure control, adjustment of the mA and/or kV according to patient size and use of iterative reconstruction technique. FINDINGS: The lung bases show a large dense consolidated infiltrate throughout the entire visualized left lower lobe. Small left pleural effusion noted with tiny hydropneumothorax. Small patchy opacity also seen within the lingular region. A moderate patchy right lower lobe infiltrate with a consolidative component in the medial basilar segment and bronchiectasis is present. The heart is moderately enlarged with calcification in the coronary arteries Abdominal images show the noncontrasted liver to be grossly normal. The gallbladder contains 2-3 small stones-less than 3 mm. the gallbladder and bile ducts are, otherwise, normal CBD is 5 mm. There is a vague 11 mm low-attenuation lesion lateral cortex superior pole the left kidney. The right kidney is unremarkable. Both noncontrasted adrenal glands, spleen, pancreas and aorta are normal in size and duration attenuation without focal lesion. Pelvic images show marked distention of the urinary bladder. There is a 13 cm mesenteric cyst adjacent to the superior bladder dome. Prostate is enlarged at 5.4 x 5 x 1 cm central prostatic calcification appreciated. The stomach, small large bowel is symmetrically dilated compatible with mild ileus moderate colonic stool appreciated. Multiple sigmoid diverticuli noted. The right testicle is undescended in the distal right inguinal canal. Bone windows show unified left intratrochanteric fracture transfixed by gamma nail. A lesser trochanteric fragment is . L4-5 fusion changes appear solid. IMPRESSION: 1. Source for GI bleed not identified. The examination is markedly limited without the IV contrast. 2. Moderate ileus with moderate colonic stool. Sigmoid diverticulosis, but no evidence of diverticulitis 3. 13 cm mesenteric cyst-superior to the urinary bladder dome. 4. Mild prostate enlargement. 5. Large left lower lobe consolidated infiltrate with volume loss and moderate left pleural effusion-unchanged from a chest CT over three weeks ago. Moderate patchy infiltrate right lower lobe with small right pleural effusion show slight improvement 6. Cholelithiasis. 7. 11 mm low-attenuation lesion superior left kidney. Consider abdominal ultrasound 8. Undescended right testicle Interpreted and Authenticated by: Jayro Michael 06/06/21
--- NOTE | 2021-06-06 18:13 | Internal Med History&Physical ---
HPI History of Present Illness Patient information: Note initiated : 06/06/21 at 6:05 pm Service Date, if different from initiated Date: [] Patient: Camron Morel a 80 y/o M admitted on for abnormal labs. Chief Complaint: [upper GI bleeding] History of present illness: Mr. Morel is a 80 year old M history of basal cell carcinoma of the face, type 2 diabetes mellitus, essential hypertension's, mixed dyslipidemia, BPH, recent hospitalization in our facility a month ago for pneumonia, presenting with abnormal labs. He was being follow-up in the PCP office and hemoglobin level was 5.1 with a baseline between 7 and 8 a month ago. Patient is otherwise denies any associated symptoms such as abdominal pain, chest pain or palpitations, general body weakness, or black or bloody stool. He also denies any hematemesis. Anyway, he was being sent to ED for further evaluations. Vital signs upon ED presentations were within normal limits. Labs significant for hemoglobin and hematocrit 5.1 and 16.9, respectively. Serum creatinine level 2.5 with a baseline 1.6 a month ago. Constitutional Constitutional: Absent chills, excessive sweating, fatigue, fever(s) and weakness EENT Eyes: Absent blurry vision, change in vision, loss of vision and other visual disturbances Ears: Absent decreased hearing and tinnitus Nose, mouth and throat: Absent abnormal hearing, dry mouth, headache(s), nasal congestion and sore throat Cardiovascular Cardiovascular: Absent chest pain, chest pain at rest, edema, irregular heart rhythm and palpatations Respiratory Respiratory: Absent cough, dyspnea and wheezing Gastrointestinal Gastrointestinal: Absent abdominal pain, constipation, diarrhea, nausea and vomiting Musculoskeletal Musculoskeletal: Absent back pain, deformity, limited range of motion, muscle cramps, muscle weakness and numbness Integumentary Integumentary: Absent lesions, rash and wounds Neurological Neurological: Absent focal weakness, headache(s) and numbness Psychiatric Psychiatric: Absent anxiety, depression and hallucinations PFSH PFSH All Active Problems (Updated 06/06/21 @ 18:10 by Abhijeet Chanel MD) Stage 2 acute kidney injury (Acute) Anemia due to GI blood loss (Acute) Actinic keratosis (Chronic) Anemia (Chronic) BPH without urinary obstruction (Chronic) Benign enlargement of prostate (Chronic) Diabetes mellitus, type II (Chronic) Diverticulosis of colon (Chronic) ED (erectile dysfunction) (Chronic) Hernia, hiatal (Chronic) Hyperlipidemia (Chronic) Hypertension, essential (Chronic) Low back pain (Chronic) Psoriasis (Chronic) Schatzki's ring (Chronic) Spinal stenosis, lumbar region, without neurogenic claudication (Chronic) Physical exam, annual (Chronic) Sciatica (Acute) Strain of lumbar region (Acute) Lumbar radiculopathy (Acute) Injury of left facial nerve (Chronic) Basal cell carcinoma of face (Chronic) Facial droop (Chronic) Weight loss (Acute) Imbalance (Acute) Tearing eyes (Acute) Medicare annual wellness visit, initial (Acute) Left hip pain (Acute) Greater trochanteric bursitis of left hip (Acute) Primary osteoarthritis of left hip (Acute) Intertrochanteric fracture of left femur (Acute) Weakness (Acute) Cough (Acute) Acute dehydration (Acute) Anemia (Acute) Acute kidney injury (Acute) Left lower lobe pneumonia (Acute) CKD stage 3 due to type 2 diabetes mellitus (Acute) Pleural effusion (Acute) No-show for appointment (Acute) Acute GI bleeding (Acute) Medical History (Updated 06/06/21 @ 18:10 by Abhijeet Chanel MD) Actinic keratosis Allergic rhinitis Patient doing well no longer using fluicastone, last use was 1 yr ago, monitor for now. Anemia 07/13/2013 Hypoproliferative Back pain Seeing the pain clinic. Will receive the next epidural steroid shot this thursday05/12/11. Benign enlargement of prostate BPH; of prostate with urinary obstruction 03/03/2013 BPH without urinary obstruction Continue Terazonsin 10mg nightly Cellulitis and abscess of face 12/05/2013 Chronic pain Diabetes mellitus, type II Diverticulosis of colon ED (erectile dysfunction) Generalized abdominal or pelvic swelling or mass or lump Hernia, hiatal History of amputation of finger 2004; finger repair of lt. index finger amputation. Hyperlipidemia Hypertension, essential Low back pain Patient takes tylenol prn as needed. Lumbar radiculopathy Medicare annual wellness visit, initial Physical exam, annual Colonoscopy 2013: diverticulosis tdap 03/2014 aaa: not done, but wants to defer same pneumovac uptodate, pt unable to recall date psa: not indicated eye ecam 06/11 foot exam 10/12 Psoriasis Continue Betamethasone 0.05% cream twice daily as needed. Schatzki's ring Sciatica Spinal stenosis, lumbar region, without neurogenic claudication Lumbar L4-L5-S1 Strain of lumbar region Thoracic or lumbosacral neuritis or radiculitis Urinary retention 03/03/2013 UTI (urinary tract infection) 03/03/2013 Surgical History History of colonoscopy 10/18/2013; Diverticulosis History of esophagogastroduodenoscopy 10/18/13; Schatzki's ring, hiatus hernia History of inguinal hernia repair 05/23/2013; Bilateral inguinal hernia reducible History of surgery Lumbar decompression; 02/23/13 Family History Mother Family history of cardiovascular disease Father Family history of carrier of genetic disease Alzheimers Social History marital status: occupational status: retired occupation: Retired [employer] alcohol intake frequency: former alcohol drinker substance use type: does not use MEDS/ALLERGIES Home Medications and Allergies Home Medications Medication Instructions Recorded Confirmed Type Vitamin C oral capsule extended 1 tab PO DAILY 07/24/15 06/06/21 History release blood sugar diagnostic 11/15/16 05/08/21 History metformin 1,000 mg tablet 1,000 mg PO BID 90 Days #180 tab 10/08/20 06/06/21 Rx terazosin 10 mg capsule 10 mg PO QPM 90 Days #90 cap 11/26/20 06/06/21 Rx ferrous gluconate 324 mg (38 mg 324 mg PO QDAY 03/06/21 06/06/21 History iron) tablet polyethylene glycol 3350 17 17 g PO QDAY PRN 03/06/21 06/06/21 History gram/dose oral powder furosemide 20 mg tablet 20 mg PO QDAY 05/01/21 06/06/21 History indapamide 1.25 mg tablet 1.25 mg PO QAM 05/01/21 06/06/21 History pyridoxine (vitamin B6) 100 mg 100 mg PO QDAY tab 05/01/21 06/06/21 History tablet simvastatin 10 mg tablet 20 mg PO QPM tab 05/01/21 06/06/21 History amoxicillin-pot clavulanate 1 tab PO BID #8 tab 05/17/21 06/06/21 Rx [Augmentin] losartan [Cozaar] 150 mg PO QDAY 06/06/21 06/06/21 History midodrine 2.5 mg PO TID 06/06/21 06/06/21 History Allergies Allergy/AdvReac Type Severity Reaction Status Date / Time No Known Drug Allergies Allergy Verified 05/07/21 06:30 EXAM Constitutional Vitals: Temp Pulse Resp BP Pulse Ox 36.1 C 66 15 102/56 98 06/06/21 14:32 06/06/21 18:00 06/06/21 18:01 06/06/21 18:00 06/06/21 18:00 General appearance: cooperative and no acute distress Head Head exam: Present atraumatic and normocephalic Eye Eye exam: Present EOMI and PERRL ENT ENT exam: Present mucous membranes moist, normal exam and normal external ear exam Additional comments: Left ear surgically amputated Neck Neck exam: Present normal inspection; Absent lymphadenopathy, tenderness and thyromegaly Respiratory Respiratory exam: Absent accessory muscle use, respiratory distress and wheezes Cardiovascular Cardiovascular exam: Present normal rate and rhythm; Absent JVD GI/Abdominal GI/Abdominal exam: Present normal bowel sounds and soft; Absent organomegaly and tenderness Rectal Rectal exam: Present deferred Extremities Exam Extremities exam: Present full ROM, normal capillary refill and normal inspection; Absent tenderness Neurological Exam Neurological exam: Present alert, CN II-XII intact and oriented X3; Absent motor sensory deficit Psychiatric Psychiatric exam: Present normal affect and normal mood; Absent anxious and depressed Skin Skin exam: Present dry and intact DATA Data Completed and Pending Labs: Labs from last 24 hours 06/06/21 06/06/21 06/06/21 15:10 15:10 15:10 WBC 6.8 RBC 1.67 L Hgb 5.1 L* Hct 16.9 L* MCV 101.2 H MCH 30.5 MCHC 30.2 L RDW 19.1 H Plt Count 326 MPV 10.3 Neut % (Auto) 89.5 H Lymph % (Auto) 6.8 L [place] % (Auto) 3.5 Eos % (Auto) 0.1 Baso % (Auto) 0.1 Lymph # (Auto) 0.46 L [place] # (Auto) 0.24 Eos # (Auto) 0.01 Baso # (Auto) 0.01 Absolute Neutrophils 6.08 POC PT 16.9 H POC INR 1.4 H Sodium 137 Potassium 4.8 Chloride 102 Carbon Dioxide 18 L Anion Gap 17.0 H BUN 76 H Creatinine 2.5 H POC Creatinine 2.7 H GFR Calculation 23 Glucose 163 H Calcium 9.8 Total Bilirubin 0.3 AST 36 ALT 147 H Alkaline Phosphatase 78 Total Protein 6.2 Albumin 2.5 L Globulin 3.7 Albumin/Globulin Ratio 0.7 L A/P Assessment and plan (1) Diabetes mellitus, type II: Status: Chronic Qualifiers: Diabetes mellitus complication status: without complication Diabetes mellitus buttermaker continuous churn insulin use: without buttermaker continuous churn use Qualified Code(s): E11.9 - Type 2 diabetes mellitus without complications (2) Hypertension, essential: Status: Chronic (3) Hyperlipidemia: Status: Chronic Qualifiers: Hyperlipidemia type: pure hypercholesterolemia Qualified Code(s): E78.00 - Pure hypercholesterolemia, unspecified; E78.00 - Pure hypercho lesterolemia, unspecified; E78.00 - Pure hypercholesterolemia, unspecified; E78.0 - Pure hypercholesterolemia (4) CKD stage 3 due to type 2 diabetes mellitus: Status: Acute Comment: Admit creatinine was 1.7 on May 07. Creatinine rising to 2.3 today. Zosyn dose currently 2.25 every 6 hours. Thank you very much for allowing me be to be involved in Camron's consultative care. Please call for questions. (5) Acute GI bleeding: Status: Acute (6) BPH without urinary obstruction: Status: Chronic Comment: Continue Terazonsin 10mg nightly (7) Anemia due to GI blood loss: Status: Acute (8) Stage 2 acute kidney injury: Status: Acute Narrative A/P Narrative: Assessment and Plans: 1. Upper GI bleeding with associated anemia: Admit to inpatient ICU with telemetry General surgeon Dr. Dennis consulted for planned EGD +/- colonoscopy NPO with IV fluid D5NS@100cc/hr 2 unit pRBC transfusion H/H q8hr Protonix drip Hold any antiplatelet/anticoagulants 2. h/o Essential HTN: Currently soft blood pressure Hold diuretics/antihypertensives for now 3. Mixed dyslipidemia: Continue statin therapy 4. T2DM: HgA1c Hold any oral hypoglycemics Low dose SSI q6hr Accu Chek q6hr Hypoglycemia protocol NPO with D5NS 5. BPH: Continue Terazosin 6. Acute kidney injury in face of chronic kidney disease stage 3: Avoid nephrotoxic agents NPO with IV fluid D5NS@100cc/hr CMP daily to trend kidney functions GI ppx: Protonix drip DVT ppx: SCDs Code status: Full Prognosis: guarded Disposition: inpatient ICU Critical Care Time: 45min Time Spent With Patient Time: Total time spent is greater than 50% in coordination of care (as documented) at patient's floor/unit and/or counseling patient: Total time spent with greater than 50% in coordination of care (as documented) at patient's floor/unit and/or counseling patient:: Greater than 35 minutes
[2021-06-06] MEDS ORDERED: DEXTROSE 31 GM ORAL.SUSP PO PRN (19:47)
[2021-06-06] MEDS ORDERED: ONDANSETRON 4 MG/2 ML VIAL IV PRN (19:47)
[2021-06-06] MEDS ORDERED: IPRATROPIUM/ALBUTEROL 3 ML AMPUL.NEB NEB PRN (19:47)
[2021-06-06] MEDS ORDERED: DEXTROSE 5%-NS 1,000 ML IV SCH (19:47)
[2021-06-06] MEDS ORDERED: FUROSEMIDE 20 MG/2 ML VIAL IV ONE (20:43)
[2021-06-06] MEDS ORDERED: SIMVASTATIN 10 MG TABLET PO SCH (21:00)
[2021-06-06] MEDS ORDERED: TERAZOSIN 10 MG PO SCH (21:00)
[2021-06-06] MEDS ORDERED: MIDODRINE 2.5 MG PO SCH (21:00)
[2021-06-06] MEDS: PANTOPRAZOLE 80 MG in 0.9 % SODIUM CHLORIDE 100 ML IV SCH (21:38)
[2021-06-06] MEDS: SIMVASTATIN 10 MG TABLET PO SCH (21:40)
[2021-06-06] MEDS: TERAZOSIN 5 MG CAPSULE PO SCH (21:40)
[2021-06-06] MEDS: 0.9 % SODIUM CHLORIDE 10 ML SYRINGE IV SCH (21:40)
[2021-06-07] MEDS: INSULIN LISPRO 1 UNIT/0.01 ML UNIT SQ SCH ×5 (01:41→23:57)
[2021-06-07] MEDS: 0.9 % SODIUM CHLORIDE 10 ML SYRINGE IV SCH ×3 (05:47→20:53)
[2021-06-07] MEDS: PANTOPRAZOLE 80 MG in 0.9 % SODIUM CHLORIDE 100 ML IV SCH ×2 (06:36→17:04)
[2021-06-07] MEDS ORDERED: KETAMINE 50 MG/ML ML IV PRN (07:24)
[2021-06-07] MEDS ORDERED: PROPOFOL 200 MG/20 ML VIAL IV SCH (07:30)
[2021-06-07] MEDS ORDERED: MIDAZOLAM 2 MG/2 ML VIAL IV SCH (07:30)
--- NOTE | 2021-06-07 07:30 | General Surgery Consult Note ---
HPI Data of Consult Consult date: 06/07/21 Primary Care Provider: Jayro Suárez DO Consult Narrative Patient Information: Note initiated : 06/07/21 at 7:24 am Service Date, if different from initiated Date: [] Patient: Camron Morel 80 y/o M admitted on 06/06/21 for abnormal labs. Chief Complaint: Generalized weakness. History, this is a pleasant 80-year-old gentleman known to me from prior hosp italization for a left-sided pleural effusion, patient was admitted to medicine and I placed a chest tube for therapeutic purposes. Back to the emergency room with generalized weakness, work-up in the emergency room is significant for a hemoglobin in the 5 range and occult positive blood without obvious melena or bright red blood in the stools I was asked to see the patient to assist with work-up for GI bleeding. Patient has no complaints,, does not remember when his last bowel movement was, denies any significant shortness of blood in his bowel movements. cc:: CC: Abhijeet Chanel MD Review of Systems Review of systems: All systems are reviewed, negative other than above PFSH PFSH All Active Problems Stage 2 acute kidney injury (Acute) Anemia due to GI blood loss (Acute) Actinic keratosis (Chronic) Anemia (Chronic) BPH without urinary obstruction (Chronic) Benign enlargement of prostate (Chronic) Diabetes mellitus, type II (Chronic) Diverticulosis of colon (Chronic) ED (erectile dysfunction) (Chronic) Hernia, hiatal (Chronic) Hyperlipidemia (Chronic) Hypertension, essential (Chronic) Low back pain (Chronic) Psoriasis (Chronic) Schatzki's ring (Chronic) Spinal stenosis, lumbar region, without neurogenic claudication (Chronic) Physical exam, annual (Chronic) Sciatica (Acute) Strain of lumbar region (Acute) Lumbar radiculopathy (Acute) Injury of left facial nerve (Chronic) Basal cell carcinoma of face (Chronic) Facial droop (Chronic) Weight loss (Acute) Imbalance (Acute) Tearing eyes (Acute) Medicare annual wellness visit, initial (Acute) Left hip pain (Acute) Greater trochanteric bursitis of left hip (Acute) Primary osteoarthritis of left hip (Acute) Intertrochanteric fracture of left femur (Acute) Weakness (Acute) Cough (Acute) Acute dehydration (Acute) Anemia (Acute) Acute kidney injury (Acute) Left lower lobe pneumonia (Acute) CKD stage 3 due to type 2 diabetes mellitus (Acute) Pleural effusion (Acute) No-show for appointment (Acute) Acute GI bleeding (Acute) Medical History Actinic keratosis Allergic rhinitis Patient doing well no longer using fluicastone, last use was 1 yr ago, monitor for now. Anemia 07/13/2013 Hypoproliferative Back pain Seeing the pain clinic. Will receive the next epidural steroid shot this thursday05/12/11. Benign enlargement of prostate BPH; of prostate with urinary obstruction 03/03/2013 BPH without urinary obstruction Continue Terazonsin 10mg nightly Cellulitis and abscess of face 12/05/2013 Chronic pain Diabetes mellitus, type II Diverticulosis of colon ED (erectile dysfunction) Generalized abdominal or pelvic swelling or mass or lump Hernia, hiatal History of amputation of finger 2004; finger repair of lt. index finger amputation. Hyperlipidemia Hypertension, essential Low back pain Patient takes tylenol prn as needed. Lumbar radiculopathy Medicare annual wellness visit, initial Physical exam, annual Colonoscopy 2013: diverticulosis tdap 03/2014 aaa: not done, but wants to defer same pneumovac uptodate, pt unable to recall date psa: not indicated eye ecam 06/11 foot exam 10/12 Psoriasis Continue Betamethasone 0.05% cream twice daily as needed. Schatzki's ring Sciatica Spinal stenosis, lumbar region, without neurogenic claudication Lumbar L4-L5-S1 Strain of lumbar region Thoracic or lumbosacral neuritis or radiculitis Urinary retention 03/03/2013 UTI (urinary tract infection) 03/03/2013 Surgical History History of colonoscopy 10/18/2013; Diverticulosis History of esophagogastroduodenoscopy 10/18/13; Schatzki's ring, hiatus hernia History of inguinal hernia repair 05/23/2013; Bilateral inguinal hernia reducible History of surgery Lumbar decompression; 02/23/13 Family History Mother Family history of cardiovascular disease Father Family history of carrier of genetic disease Alzheimers Social History marital status: occupational status: retired occupation: Retired [employer] alcohol intake frequency: former alcohol drinker substance use type: does not use MEDS/ALLERGIES Home Medications and Allergies Home Medications Medication Instructions Recorded Confirmed Type Vitamin C oral capsule extended 1 tab PO DAILY 07/24/15 06/06/21 History release blood sugar diagnostic 11/15/16 06/06/21 History metformin 1,000 mg tablet 1,000 mg PO BID 90 Days #180 tab 10/08/20 06/06/21 Rx terazosin 10 mg capsule 10 mg PO QPM 90 Days #90 cap 11/26/20 06/06/21 Rx ferrous gluconate 324 mg (38 mg 324 mg PO QDAY 03/06/21 06/06/21 History iron) tablet polyethylene glycol 3350 17 17 g PO QDAY PRN 03/06/21 06/06/21 History gram/dose oral powder furosemide 20 mg tablet 20 mg PO QDAY 05/01/21 06/06/21 History pyridoxine (vitamin B6) 100 mg 100 mg PO QDAY tab 05/01/21 06/06/21 History tablet simvastatin 10 mg tablet 20 mg PO QPM tab 05/01/21 06/06/21 History losartan [Cozaar] 50 mg PO QDAY 06/06/21 06/06/21 History metformin 500 mg PO BID 06/06/21 06/06/21 History midodrine 2.5 mg PO TID 06/06/21 06/06/21 History Allergies Allergy/AdvReac Type Severity Reaction Status Date / Time No Known Drug Allergies Allergy Verified 05/07/21 06:30 Physical Examination Vital Signs Vital signs: Temp Pulse Resp BP Pulse Ox 96.1 F L 71 11 L 106/63 99 06/07/21 05:51 06/07/21 07:01 06/07/21 07:01 06/07/21 07:01 06/07/21 07:01 General physical appearance General physical exam: well developed, well nourished and no distress Eyes Eye exam: PERRL and normal ocular movement ENT ENT exam: normal nares, normal mucosa, no hearing loss, no congestion and other (Status post surgery on left ear) Head Head exam IM: Present atraumatic and normocephalic Neck Neck exam: no masses, no bruits, trachea midline, no lymphadenopathy and no venous distension Cardiovascular Cardiovascular exam IM: Present normal rate and rhythm Respiratory Respiratory exam: normal expansion, normal respiratory effort, clear to percussion and clear to auscultation Abdomen Abdomen: Present soft, non tender and bowel sounds Hernia: Present none Genitourinary Genitourinary (Male): Present normal penis with no external lesions Rectum Rectum: Present normal sphincter tone, no hemorrhoids, no tenderness, no masses and no bleeding Integumentary Integumentary: Present no rash, no growths and no abnormal pigmentation Neurologic Neurologic: Present normal coordination and normal sensation Musculoskeletal Musculoskeletal: Present normal gait and normal posture Psychiatric Psychiatric: Present oriented to time, oriented to person, oriented to place, speech is normal and memory intact Results Labs Result diagrams: 06/06/21 15:10 06/06/21 15:10 Labs: Abnormal lab results 06/06/21 06/06/21 06/06/21 Range/Units 15:10 15:10 15:10 RBC 1.67 L (4.63-6.08) M/mcL Hgb 5.1 L* (13.7-17.5) g/dL Hct 16.9 L* (40.1-51.0) % MCV 101.2 H (80.0-100.0) fL MCHC 30.2 L (31.0-36.0) g/dL RDW 19.1 H (11.5-14.5) % Neut % (Auto) 89.5 H (38.0-78.0) % Lymph % (Auto) 6.8 L (15.5-49.0) % Lymph # (Auto) 0.46 L (1.50-4.80) K/mcL POC PT 16.9 H (11.9-14.5) sec POC INR 1.4 H (0.8-1.2) Carbon Dioxide 18 L (22-30) mmol/L Anion Gap 17.0 H (8.0-16.0) BUN 76 H (8-23) mg/dL Creatinine 2.5 H (0.7-1.2) mg/dL POC Creatinine 2.7 H (0.6-1.2) mg/dL Glucose 163 H (70-105) mg/dL ALT 147 H (<40) U/L Albumin 2.5 L (3.2-5.2) gm/dL Albumin/Globulin Ratio 0.7 L (1.0-2.3) Diabetes panel 06/06/21 Range/Units 15:10 Sodium 137 (133-145) mmol/L Potassium 4.8 (3.3-5.1) mmol/L Chloride 102 (96-108) mmol/L Carbon Dioxide 18 L (22-30) mmol/L BUN 76 H (8-23) mg/dL Creatinine 2.5 H (0.7-1.2) mg/dL Glucose 163 H (70-105) mg/dL Calcium 9.8 (8.6-10.4) mg/dL AST 36 (<40) U/L ALT 147 H (<40) U/L Alkaline Phosphatase 78 (39-117) U/L Total Protein 6.2 (5.9-8.4) gm/dL Albumin 2.5 L (3.2-5.2) gm/dL Calcium panel 06/06/21 Range/Units 15:10 Calcium 9.8 (8.6-10.4) mg/dL Albumin 2.5 L (3.2-5.2) gm/dL Pituitary panel 06/06/21 Range/Units 15:10 Sodium 137 (133-145) mmol/L Potassium 4.8 (3.3-5.1) mmol/L Chloride 102 (96-108) mmol/L Carbon Dioxide 18 L (22-30) mmol/L BUN 76 H (8-23) mg/dL Creatinine 2.5 H (0.7-1.2) mg/dL Glucose 163 H (70-105) mg/dL Calcium 9.8 (8.6-10.4) mg/dL Adrenal panel 06/06/21 Range/Units 15:10 Sodium 137 (133-145) mmol/L Potassium 4.8 (3.3-5.1) mmol/L Chloride 102 (96-108) mmol/L Carbon Dioxide 18 L (22-30) mmol/L BUN 76 H (8-23) mg/dL Creatinine 2.5 H (0.7-1.2) mg/dL Glucose 163 H (70-105) mg/dL Calcium 9.8 (8.6-10.4) mg/dL Total Bilirubin 0.3 (0.1-1.0) mg/dL AST 36 (<40) U/L ALT 147 H (<40) U/L Alkaline Phosphatase 78 (39-117) U/L Total Protein 6.2 (5.9-8.4) gm/dL Albumin 2.5 L (3.2-5.2) gm/dL All other labs normal. A/P Assessment and plan (1) Anemia due to GI blood loss: Status: Acute (2) Stage 2 acute kidney injury: Status: Acute (3) Diabetes mellitus, type II: Status: Chronic Qualifiers: Diabetes mellitus complication status: without complication Diabetes m jose luis tank terminal gauger insulin use: without tank terminal gauger use Qualified Code(s): E11.9 - Type 2 diabetes mellitus without complications Narrative A/P Narrative: This is a pleasant 80-year-old gentleman who presents with what appears to be an upper GI bleed. Risk, benefits, alternatives to procedure were discussed with him at length including options to treatment. He verbalizes understanding and agrees with work-up. Plan: EGD, if negative will do colonoscopy tomorrow Time Spent With Patient Time: Total time spent is greater than 50% in coordination of care (as documented) at patient's floor/unit and/or counseling patient:
[2021-06-07 07:38] LABS: Basophils # (Auto) 0 K/mcL (0.00-0.30); Basophils % (Auto) 0 % (0.0-2.0); Eosinophils # (Auto) 0.05 K/mcL (0.00-0.70); Eosinophils % (Auto) 0.7 % (0.0-7.0); Hematocrit 26.3 % (40.1-51.0); Hemoglobin 8.4 g/dL (13.7-17.5); Lymphocytes # (Auto) 0.66 K/mcL (1.50-4.80); Lymphocytes % (Auto) 9.6 % (15.5-49.0); Mean Cell Volume 94.9 fL (80.0-100.0); Mean Corpuscular HGB Conc 31.9 g/dL (31.0-36.0); Mean Platelet Volume 9.9 fL (7.4-10.4); Monocytes # (Auto) 0.22 K/mcL (0.10-0.90); Monocytes % (Auto) 3.2 % (1.0-12.0); Neutrophils % (Auto) 86.5 % (38.0-78.0); Platelet Count 297 K/mcL (140-440); RBC 2.77 M/mcL (4.63-6.08); Red Cell Distribution Width 17.6 % (11.5-14.5); WBC 6.9 K/mcL (4.5-11.0)
[2021-06-07 07:41] LABS: ALT/SGPT 124 U/L (<40); AST/SGOT 35 U/L (<40); Albumin/Globulin Ratio 0.6 (1.0-2.3); Alkaline Phosphatase 77 U/L (39-117); Blood Urea Nitrogen 70 mg/dL (8-23); Carbon Dioxide 18 mmol/L (22-30); Chloride 105 mmol/L (96-108); Globulin 3.6 gm/dL (2.2-3.7); Glomerular Filtration Rate 23; Glucose 107 mg/dL (70-105)
[2021-06-07] MEDS: MIDODRINE 5 MG TABLET PO SCH ×3 (08:05→17:02)
[2021-06-07] MEDS ORDERED: VITAMIN C 500 MG PO SCH (09:00)
[2021-06-07] MEDS ORDERED: PYRIDOXINE 100 MG TABLET PO SCH (09:00)
[2021-06-07] MEDS ORDERED: FERROUS GLUCONATE 324 MG TABLET PO SCH (09:00)
--- NOTE | 2021-06-07 09:01 | Internal Med Progress Note ---
SUBJECTIVE Subjective Patient information: Note initiated : 06/07/21 at 8:58 am Service Date, if different from initiated Date: [] Patient: Camron Morel 80 y/o M admitted on 06/06/21 for abnormal labs. Chief Complaint: [Upper GI bleeding] Interval history: History of present illness: Mr. Morle is a 80 year old M history of basal cell carcinoma of the face, type 2 diabetes mellitus, essential hypertension's, mixed dyslipidemia, BPH, recent hospitalization in our facility a month ago for pneumonia, presenting with abnormal labs. He was being follow- up in the PCP office and hemoglobin level was 5.1 with a baseline between 7 and 8 a month ago. Patient is otherwise denies any associated symptoms such as abdominal pain, chest pain or palpitations, general body weakness, or black or bloody stool. He also denies any hematemesis. Anyway, he was being sent to ED for further evaluations. Vital signs upon ED presentations were within normal limits. Labs significant for hemoglobin and hematocrit 5.1 and 16.9, respectively. Serum creatinine level 2.5 with a baseline 1.6 a month ago. 06/07: s/p 3 unit pRBC transfusion overnight. Hemoglobin 5.1-->8.4. No episode of hematemesis or hematochezia. Otherwise uneventful night. Constitutional Vitals: Vital Signs Temp Pulse Resp BP Pulse Ox 35.9 C L 72 15 109/61 97 06/07/21 08:00 06/07/21 08:52 06/07/21 08:52 06/07/21 08:52 06/07/21 08:52 Period Temp Pulse Resp BP Sys/Jameson Pulse Ox Last 24 Hr 35.6 C-36.1 C 57-79 10-20 94-153/39-138 95-100 Intake and Output 06/06/21 06/07/21 06/07/21 21:59 05:59 13:59 Intake Total 825 735 90 Output Total 3 1 Balance 825 732 89 Weight 66.315 kg 66.315 kg Intake & Output: Intake & Output 06/06/21 06/07/21 06/07/21 21:59 05:59 13:59 Intake Total 825 735 90 Output Total 3 1 Balance 825 732 89 Weight 66.315 kg 66.315 kg Intake: IV 500 90 Sodium Chloride 0.9% 500 ml @ 500 Wide Open IV .Q0M ONE Rx#: [id number] Protonix 80 mg In Sodium 90 Chloride 0.9% 100 ml @ 8 MG/HR 10 mls/hr IV Q10H [facility] Rx#: [id number] Oral 0 0 Blood Product 325 735 Output: Void Amount 0 0 # of times incontinent of urine 3 1 Stool 0 Other: Stool Size Large Stool Color Yellow Green Stool Consistency Soft # Voids 1 # Bowel Movements 0 # of times incontinent of 0 Bowels General appearance: cooperative and no acute distress Head Head exam: Present atraumatic and normocephalic Eye Eye exam: Present EOMI and PERRL ENT ENT exam: Present mucous membranes moist and normal exam; Absent normal external ear exam Additional comments: Left ear surgically removed Neck Neck exam: Present normal inspection; Absent lymphadenopathy, tenderness and thyromegaly Respiratory Respiratory exam: Absent accessory muscle use, respiratory distress and wheezes Cardiovascular Cardiovascular exam: Present normal rate and rhythm; Absent JVD GI/Abdominal GI/Abdominal exam: Present normal bowel sounds and soft; Absent organomegaly and tenderness Rectal Rectal exam: Present deferred Extremities Exam Extremities exam: Present full ROM, normal capillary refill and normal inspection; Absent tenderness Neurological Exam Neurological exam: Present alert, CN II-XII intact and oriented X3; Absent motor sensory deficit Psychiatric Psychiatric exam: Present normal affect and normal mood; Absent anxious and depressed Skin Skin exam: Present dry, intact and pallor OBJ DATA Labs CBC & Chem 7: 06/07/21 06:00 06/07/21 06:00 Labs: Abnormal Lab Results 06/07/21 06/07/21 06/06/21 06:00 06:00 15:10 RBC 2.77 L Hgb 8.4 L Hct 26.3 L MCV MCHC RDW 17.6 H Neut % (Auto) 86.5 H Lymph % (Auto) 9.6 L Lymph # (Auto) 0.66 L POC PT POC INR Carbon Dioxide 18 L 18 L Anion Gap 17.0 H BUN 70 H 76 H Creatinine 2.5 H 2.5 H POC Creatinine 2.7 H Glucose 107 H 163 H ALT 124 H 147 H Total Protein 5.6 L Albumin 2.0 L 2.5 L Albumin/Globulin Ratio 0.6 L 0.7 L 06/06/21 06/06/21 15:10 15:10 RBC 1.67 L Hgb 5.1 L* Hct 16.9 L* MCV 101.2 H MCHC 30.2 L RDW 19.1 H Neut % (Auto) 89.5 H Lymph % (Auto) 6.8 L Lymph # (Auto) 0.46 L POC PT 16.9 H POC INR 1.4 H Carbon Dioxide Anion Gap BUN Creatinine POC Creatinine Glucose ALT Total Protein Albumin Albumin/Globulin Ratio Meds: Medications Albuterol/Ipratropium (Ipratropium/Albuterol 3 Ml Ampul.Neb) 3 ml NEB Q4HRT PRN PRN Reason: Wheezing Ascorbic Acid (Ascorbic Acid 500 Mg Tablet) 500 mg PO DAILY CHASE Dextrose (Dextrose 50% 50 Ml Vial) 0 ml IV UD PRN PRN Reason: Hypoglycemia Diagnostic Test (Pha) (Accu-Chek 1 Each Strip) 1 each FS ACHS [facility] Last Admin: 06/07/21 05:47 Dose: 1 each Documented by: Diagnostic Test (Pha) (Accu-Chek 1 Each Strip) 1 each FS UD PRN PRN Reason: DM Stop: 06/07/21 15:24 Ferrous Gluconate (Ferrous Gluconate 324 Mg Tablet) 324 mg PO QDAY CHASE Glucose (Dextrose 31 Gm Oral.Susp) 15 gm PO PRN PRN PRN Reason: Hypoglycemia Pantoprazole Sodium 80 mg/ (Sodium Chloride) 100 mls @ 10 mls/hr IV Q10H [facility] Last Admin: 06/07/21 06:36 Dose: 8 mg/hr, 10 mls/hr Documented by: Sodium Chloride (Sodium Chloride 0.9%) 250 mls @ 20 mls/hr IV .[id number] CHASE Stop: 06/07/21 09:14 Last Admin: 06/06/21 21:17 Dose: Not Given Documented by: Insulin Human Lispro (Insulin Lispro 1 Unit/0.01 Ml Unit) 0 unit SQ Q6 CHASE; Protocol Last Admin: 06/07/21 05:48 Dose: Not Given Documented by: Ketamine HCl (Ketamine 50 Mg/Ml Ml) 50 mg IV ONCE PRN PRN Reason: Sedation Stop: 06/07/21 15:24 Midazolam HCl (Midazolam 2 Mg/2 Ml Vial) 0 mg IV ONCE CHASE Stop: 06/07/21 15:24 Midodrine (Midodrine 5 Mg Tablet) 2.5 mg PO TID@0800,1200,1700 [facility] Last Admin: 06/07/21 08:05 Dose: 2.5 mg Documented by: Ondansetron HCl (Ondansetron 4 Mg/2 Ml Vial) 4 mg IV Q4-6HP PRN; Protocol PRN Reason: Nausea And Vomiting Propofol (Propofol 200 Mg/20 Ml Vial) 0 mg IV UD [facility] Stop: 06/07/21 15:24 Pyridoxine HCl (Pyridoxine 100 Mg Tablet) 100 mg PO QDAY [facility] Simvastatin (Simvastatin 10 Mg Tablet) 20 mg PO QPM [facility] Last Admin: 06/06/21 21:40 Dose: Not Given Documented by: Sodium Chloride (0.9 % Sodium Chloride 10 Ml Syringe) 10 ml IV Q8 [facility] Last Admin: 06/07/21 05:47 Dose: 10 ml Documented by: Terazosin HCl (Terazosin 5 Mg Capsule) 10 mg PO HS [facility] Last Admin: 06/06/21 21:40 Dose: Not Given Documented by: A/P Assessment and plan (1) Diabetes mellitus, type II: Status: Chronic Qualifiers: Diabetes mellitus complication status: without complication Diabetes mellitus snf insulin use: without snf use Qualified Code(s): E11.9 - Type 2 diabetes mellitus without complications (2) Hypertension, essential: Status: Chronic (3) Hyperlipidemia: Status: Chronic Qualifiers: Hyperlipidemia type: pure hypercholesterolemia Qualified Code(s): E78.00 - Pure hypercholesterolemia, unspecified; E78.00 - Pure hypercholesterolemia, unspecified; E78.00 - Pure hypercholesterolemia, unspecified; E78.0 - Pure hypercholesterolemia (4) CKD stage 3 due to type 2 diabetes mellitus: Status: Acute Comment: Admit creatinine was 1.7 on May 07. Creatinine rising to 2.3 today. Zosyn dose currently 2.25 every 6 hours. Thank you very much for allowing me be to be involved in Camron's consultative care. Please call for questions. (5) Acute GI bleeding: Status: Acute (6) BPH without urinary obstruction: Status: Chronic Comment: Continue Terazonsin 10mg nightly (7) Anemia due to GI blood loss: Status: Acute (8) Stage 2 acute kidney injury: Status: Acute Narrative A/P Narrative: Assessment and Plans: 1. Upper GI bleeding with associated anemia: Stays in inpatient ICU with telemetry General surgeon Dr. Dennis consulted for planned EGD on 06/07 NPO with IV fluid D5NS@100cc/hr s/p 3 unit pRBC transfusion H/H q8hr Protonix drip Hold any antiplatelet/anticoagulants 2. h/o Essential HTN: Currently soft blood pressure Hold diuretics/antihypertensives for now 3. Mixed dyslipidemia: Continue statin therapy 4. T2DM: HgA1c Hold any oral hypoglycemics Low dose SSI q6hr Accu Chek q6hr Hypoglycemia protocol NPO with D5NS 5. BPH: Continue Terazosin 6. Acute kidney injury in face of chronic kidney disease stage 3: Avoid nephrotoxic agents NPO with IV fluid D5NS@100cc/hr CMP daily to trend kidney functions GI ppx: Protonix drip DVT ppx: SCDs Code status: DNI DNR Prognosis: guarded Disposition: inpatient ICU Critical Care Time: 45min Time Spent With Patient Time: Total time spent is greater than 50% in coordination of care (as documented) at patient's floor/unit and/or counseling patient: QUALITY Stroke Symptom Onset Unknown: No VTE Deep Vein Thrombosis/Pulmonary Embolism Present on Admission: No
--- NOTE | 2021-06-07 09:02 | EGD Procedure Note ---
EGD Procedure Notes Procedure Information Patient information: Note initiated : 06/07/21 at 9:00 am Service Date: 06/06/21 Patient: Camron Morel 80 y/o M admitted on 06/06/21 for abnormal labs. Pre-op diagnosis general: GI bleed Post-Op Diagnosis general: Normal EGD Procedure: Esophogogastroduodenoscopy Procedure Narrative: After risk benefits and alternatives to the procedure were discussed with the patient at length the verbalized understanding and desire to continue with the procedure. Patient was taken to endoscopy. Surgical timeout was taken to verify patient a nd procedure being performed sedation was administered with 2 mg of Versed and 50 mcg of propofol. An adult gastroscope was entered and advanced under direct vision into the second portion of the duodenum. The antrum was fully inspected, the scope was retroflexed in the stomach. Full examination revealed normal exam, no evidence of ulcer, no evidence of gastritis, duodenum within normal limits. The GE junction was at 35 cm and the esophagus was normal on full exam. Patient tolerated procedure well. Assessment: Normal exam, no evidence of GI bleed Image EGD: 1. Full normal exam including retroflexion
[2021-06-07] MEDS ORDERED: PEG 3350/NA SULF,BICARB,CL/KCL 4,000 ML ORAL.SOL PO ONE (09:22)
[2021-06-07] MEDS ORDERED: FLUMAZENIL 0.1 MG/ML ML IV ONE (10:00)
[2021-06-07] MEDS: FERROUS GLUCONATE 324 MG TABLET PO SCH (10:13)
[2021-06-07] MEDS: ASCORBIC ACID 500 MG TABLET PO SCH (10:14)
[2021-06-07] MEDS: PYRIDOXINE 100 MG TABLET PO SCH (10:14)
--- NOTE | 2021-06-07 18:34 | XRay Report ---
CLINICAL INFORMATION: Dyspnea possible aspiration COMPARISON: 05/17/2021 FINDINGS: Moderate cardiomegaly is unchanged. Mediastinum and pulmonary vessels are normal. Left mid and lower lung infiltrate improved but there is still dense consolidation in the retrocardiac region. Small left pleural effusion noted. Right basilar infiltrate has almost resolved with minimal residual. IMPRESSION: Improvement in left mid and lower lung infiltrate. Residual moderate consolidation in the retrocardiac region small effusion. There is complete resolution right basilar infiltrate Interpreted and Authenticated by: Jayro Michael 06/07/21
[2021-06-07] MEDS: TERAZOSIN 5 MG CAPSULE PO SCH (20:52)
[2021-06-07] MEDS: SIMVASTATIN 10 MG TABLET PO SCH (20:53)
[2021-06-07] MEDS ORDERED: 0.9 % SODIUM CHLORIDE 250 ML IV SCH (23:45)
[2021-06-08 00:31] LABS: Hemoglobin 8.8 g/dL (13.7-17.5)
[2021-06-08 01:19] LABS: Hematocrit 28.8 % (40.1-51.0); Hemoglobin 9.3 g/dL (13.7-17.5)
[2021-06-08] MEDS: PANTOPRAZOLE 80 MG in 0.9 % SODIUM CHLORIDE 100 ML IV SCH ×2 (04:03→12:06)
[2021-06-08] MEDS: DEXTROSE 50% 50 ML VIAL IV PRN ×2 (05:35→09:34)
[2021-06-08] MEDS: 0.9 % SODIUM CHLORIDE 10 ML SYRINGE IV SCH (05:58)
[2021-06-08] MEDS: INSULIN LISPRO 1 UNIT/0.01 ML UNIT SQ SCH ×2 (06:09→11:59)
[2021-06-08 07:12] LABS: ALT/SGPT 108 U/L (<40); AST/SGOT 30 U/L (<40); Albumin 2.3 gm/dL (3.2-5.2); Albumin/Globulin Ratio 0.7 (1.0-2.3); Alkaline Phosphatase 75 U/L (39-117); Bilirubin,Total 0.5 mg/dL (0.1-1.0); Blood Urea Nitrogen 59 mg/dL (8-23); Calcium 9.1 mg/dL (8.6-10.4); Carbon Dioxide 20 mmol/L (22-30); Chloride 106 mmol/L (96-108); Globulin 3.4 gm/dL (2.2-3.7); Glomerular Filtration Rate 27; Glucose 57 mg/dL (70-105)
[2021-06-08 07:18] LABS: Basophils # (Auto) 0.01 K/mcL (0.00-0.30); Basophils % (Auto) 0.1 % (0.0-2.0); Eosinophils # (Auto) 0 K/mcL (0.00-0.70); Eosinophils % (Auto) 0 % (0.0-7.0); Hematocrit 27.7 % (40.1-51.0); Hemoglobin 8.9 g/dL (13.7-17.5); Lymphocytes # (Auto) 0.33 K/mcL (1.50-4.80); Lymphocytes % (Auto) 2.9 % (15.5-49.0); Mean Cell Volume 91.1 fL (80.0-100.0); Mean Corpuscular HGB Conc 32.1 g/dL (31.0-36.0); Monocytes # (Auto) 0.31 K/mcL (0.10-0.90); Monocytes % (Auto) 2.8 % (1.0-12.0); Platelet Count 292 K/mcL (140-440); RBC 3.04 M/mcL (4.63-6.08); Red Cell Distribution Width 18.2 % (11.5-14.5); WBC 11.2 K/mcL (4.5-11.0)
[2021-06-08] MEDS ORDERED: KETAMINE 50 MG/ML ML IV PRN ×2 (07:41→13:18)
[2021-06-08] MEDS ORDERED: PROPOFOL 200 MG/20 ML VIAL IV SCH ×2 (07:45→13:18)
[2021-06-08] MEDS ORDERED: MIDAZOLAM 2 MG/2 ML VIAL IV SCH ×2 (07:45→13:18)
[2021-06-08] MEDS: MIDODRINE 5 MG TABLET PO SCH ×2 (08:01→12:00)
--- NOTE | 2021-06-08 08:35 | Colonoscopy Procedure Note ---
Colonoscopy Procedure Notes Procedure Information Patient information: Note initiated : 06/08/21 at 8:33 am Service Date: 06/06/21 Patient: Camron Morel 81 y/o M admitted on 06/06/21 for abnormal labs. Pre-op diagnosis general: GI bleed Post-op diagnosis general: Same Procedure: Colonoscopy Procedure narrative: After risk benefits and alternatives to the procedure were discussed with the patient at length he verbalized understanding and desire to continue with the procedure. Patient was taken to endoscopy and placed supine on the endoscopy table. Conscious sedation was administered throughout the case consisting of 80 mcg of propofol. Digital rectal exam was performed which was within normal limits. An adult colonoscope was advanced under direct vision to the cecum which was identified by the [place] oreilles's foot, the appendiceal orifice and opening to the terminal ileum. Full exam upon removal of scope was significant for scattered diverticulosis throughout, dark stools consistent with prior bleed, no evidence of active bleed. Withdraw time was >8 min. Retroflexion in the rectum was within normal limits. Assessment: Extensive diverticular disease, evidence of old bleed, no active bleed at this time. GI bleed likely secondary to diverticular bleed, no evidence of active bleed Cleared to resume regular diet, clear for discharge from a surgical standpoint, call with any further questions. Image Colon: 1. Full colonoscopy, no active bleed, extensive diverticulosis throughout.
[2021-06-08 10:21] LABS: Hematocrit 24.9 % (40.1-51.0); Hemoglobin 8.4 g/dL (13.7-17.5)
--- NOTE | 2021-06-08 11:35 | Discharge Summary ---
Discharge Provider Provider Patient information: Note initiated : 06/08/21 at 11:32 am Service Date, if different from initiated Date: [] Patient: Camron Morel 81 y/o M admitted on 06/06/21 for abnormal labs. Chief Complaint: [GI bleeding] Date of admission: 06/06/21 19:30 Discharge date: 06/08/21 Primary care physician: Jayro Suárez DO Consults: 06/06/21 Consult to Physician [CONS] Stat Comment: Consulting Provider: Abhijeet Chanel Reason For Exam: Physician to Consult Consult to Physician [CONS] Stat Comment: Consulting Provider: Carlos Dennis Reason For Exam: Physician to Consult Discharge Meds Discharge Medications Home Medications Vitamin C oral capsule extended release 1 tab PO DAILY 07/24/15 [History Confirmed 06/06/21 Last Taken 06/06/21 07:34] blood sugar diagnostic 11/15/16 [History Confirmed 06/06/21 Last Taken Unknown] terazosin 10 mg capsule 10 mg PO QPM 90 Days #90 cap 11/26/20 [Rx Confirmed 06/06/21 Last Taken 06/05/21 19:20] ferrous gluconate 324 mg (38 mg iron) tablet 324 mg PO QDAY 03/06/21 [History Confirmed 06/06/21 Last Taken 06/06/21 07:34] polyethylene glycol 3350 17 gram/dose oral powder 17 g PO QDAY PRN 03/06/21 [History Confirmed 06/06/21 Last Taken 05/06/21] furosemide 20 mg tablet 20 mg PO QDAY 05/01/21 [History Confirmed 06/06/21 Last Taken 06/06/21 07:34] pyridoxine (vitamin B6) 100 mg tablet 100 mg PO QDAY tab 05/01/21 [History Confirmed 06/06/21 Last Taken 06/06/21 07:34] simvastatin 10 mg tablet 20 mg PO QPM tab 05/01/21 [History Confirmed 06/06/21 Last Taken 06/05/21 19:20] losartan [Cozaar] 50 mg PO QDAY 06/06/21 [History Confirmed 06/06/21 Last Taken Unknown] metformin 500 mg PO BID 06/06/21 [History Confirmed 06/06/21 Last Taken 06/06/21 07:34] midodrine 2.5 mg PO TID 06/06/21 [History Confirmed 06/06/21 Last Taken 06/06/21] COURSE Hospital Course Hospital course: Patient was admitted on June 06, 2021 for anemia with presumed GI bleeding due to presence of hematochezia. 2 units of PRBC were transfused. General surgeon Dr. Dennis was consulted who performed EGD and colonoscopy on day 2 and day 3 hospitalizations, respectively. EGD with unre markable. Colonoscopy found diffuse diverticulosis. Both studies did not show any sign of acute GI bleeding. Patient hemoglobin and hematocrit level remained stable after the blood transfusions. Patient has reached clinical stability on June 08, 2021. As such, the decision was made to discharge patient back to alf with instruction to follow-up with PCP and with Dr. Dennis in 1 to 2 weeks, respectively. All questions were answered prior to patient being physically discharged. Discharge diagnosis: GI bleeding, anemia Time Spent with Patient Time attestation: Total time spent providing and/or coordinating discharge services: Patient was admitted on June 06, 2021 for anemia with presumed GI bleeding due to presence of hematochezia. 2 units of PRBC were transfused. General surgeon Dr. Dennis was consulted who performed EGD and colonoscopy on day 2 and day 3 hospitalizations, respectively. EGD with unremarkable. Colonoscopy found diffuse diverticulosis. Both studies did not show any sign of acute GI bleeding. Patient hemoglobin and hematocrit level remained stable after the blood transfusions. Patient has reached clinical stability on June 08, 2021. As such, the decision was made to discharge patient back to alf with instruction to follow-up with PCP and with Dr. Dennis in 1 to 2 weeks, respectively. All questions were answered prior to patient being physically discharged. EXAM Constitutional Vitals: Temp Pulse Resp BP Pulse Ox 35.6 C L 67 16 110/60 100 06/08/21 00:01 06/08/21 11:01 06/08/21 11:01 06/08/21 11:01 06/08/21 11:01 General appearance: cooperative and no acute distress Head Head exam: Present atraumatic and normocephalic Eye Eye exam: Present EOMI and PERRL ENT ENT exam: Present mucous membranes moist, normal exam and normal external ear exam Additional comments: left ear surgically removed Neck Neck exam: Present normal inspection; Absent lymphadenopathy, tenderness and thyromegaly Respiratory Respiratory exam: Absent accessory muscle use, respiratory distress and wheezes Cardiovascular Cardiovascular exam: Present normal rate and rhythm; Absent JVD GI/Abdominal GI/Abdominal exam: Present normal bowel sounds and soft; Absent organomegaly and tenderness Rectal Rectal exam: Present deferred Extremities Exam Extremities exam: Present full ROM, normal capillary refill and normal inspection; Absent tenderness Neurological Exam Neurological exam: Present alert, CN II-XII intact and oriented X3; Absent motor sensory deficit Psychiatric Psychiatric exam: Present normal affect and normal mood; Absent anxious and depressed Skin Skin exam: Present dry and intact Discharge Data Data Completed and Pending Labs on day of discharge: Labs from last 24 hours 06/08/21 06/08/21 06/08/21 23:59 08:50 05:29 WBC RBC Hgb 9.3 L 8.4 L Hct 28.8 L 24.9 L MCV MCH MCHC RDW Plt Count MPV Neut % (Auto) Lymph % (Auto) [place] % (Auto) Eos % (Auto) Baso % (Auto) Lymph # (Auto) [place] # (Auto) Eos # (Auto) Baso # (Auto) Absolute Neutrophils Sodium 141 Potassium 3.8 Chloride 106 Carbon Dioxide 20 L Anion Gap 15.0 BUN 59 H Creatinine 2.2 H GFR Calculation 27 Glucose 57 L Calcium 9.1 Total Bilirubin 0.5 AST 30 ALT 108 H Alkaline Phosphatase 75 Total Protein 5.7 L Albumin 2.3 L Globulin 3.4 Albumin/Globulin Ratio 0.7 L 06/08/21 06/07/21 05:29 16:35 WBC 11.2 H RBC 3.04 L Hgb 8.9 L 8.8 L Hct 27.7 L 27.0 L MCV 91.1 MCH 29.3 MCHC 32.1 RDW 18.2 H Plt Count 292 MPV 10.0 Neut % (Auto) 94.2 H Lymph % (Auto) 2.9 L [place] % (Auto) 2.8 Eos % (Auto) 0 Baso % (Auto) 0.1 Lymph # (Auto) 0.33 L [place] # (Auto) 0.31 Eos # (Auto) 0 Baso # (Auto) 0.01 Absolute Neutrophils 10.55 H Sodium Potassium Chloride Carbon Dioxide Anion Gap BUN Creatinine GFR Calculation Glucose Calcium Total Bilirubin AST ALT Alkaline Phosphatase Total Protein Albumin Globulin Albumin/Globulin Ratio Discharge Plan Patient/Caregiver Discharge Instructions Activity: increase activity as tolerated Diet: Consistent Carbohydrate Prescriptions: Continued terazosin 10 mg capsule 10 mg PO QPM 90 Days Qty: 90 RF: 3 Vitamin C oral capsule extended release 500 mg 1 tab PO DAILY RF: 0 ferrous gluconate 324 mg (38 mg iron) tablet 324 mg PO QDAY RF: 0 polyethylene glycol 3350 [Miralax] 17 gram/dose powder 17 g PO QDAY PRN (Reason: constipation) RF: 0 simvastatin [Zocor] 10 mg tablet 20 mg PO QPM RF: 0 pyridoxine (vitamin B6) [Vitamin B-6] 100 mg tablet 100 mg PO QDAY RF: 0 furosemide 20 mg tablet 20 mg PO QDAY RF: 0 (DME) blood sugar diagnostic 1 EACH strip 0 appful .Route .MEDSUPPLY RF: 0 midodrine 2.5 mg Tablet 2.5 mg PO TID RF: 0 losartan [Cozaar] 100 mg tablet 50 mg PO QDAY RF: 0 metformin 500 mg Tablet 500 mg PO BID RF: 0 Discontinued metformin [Glucophage] 1,000 mg tablet 1,000 mg PO BID 90 Days Qty: 180 RF: 1 Follow Up Plan Follow up with: Carlos Dennis MD [Physician] - Jayro Suárez DO [Primary Care Provider] - Patient Disposition: Xfer SNF Rehab Potential: Good I certify that the patient requires SNF services: Yes Overall status at discharge: patient is back to baseline Discharge Orders: Discharge Order (Routine); Ordered 06/08/21 Ordered By: Abhijeet MASSEY VTE Deep Vein Thrombosis/Pulmonary Embolism Present on Admission: No
[2021-06-08] MEDS: PYRIDOXINE 100 MG TABLET PO SCH (11:49)
[2021-06-08] MEDS: FERROUS GLUCONATE 324 MG TABLET PO SCH (11:50)
[2021-06-08] MEDS: ASCORBIC ACID 500 MG TABLET PO SCH (11:50)
[2021-06-08] MEDS ORDERED: DEXTROSE 31 GM ORAL.SUSP PO PRN (13:18)
[2021-06-08] MEDS ORDERED: IPRATROPIUM/ALBUTEROL 3 ML AMPUL.NEB NEB PRN (13:18)
[2021-06-08] MEDS ORDERED: ONDANSETRON 4 MG/2 ML VIAL IV PRN (13:18)
[2021-06-08] MEDS ORDERED: DEXTROSE 50% 50 ML VIAL IV PRN (13:18)
[2021-06-08] MEDS ORDERED: 0.9 % SODIUM CHLORIDE 10 ML SYRINGE IV SCH (14:00)
[2021-06-08 16:54] LABS: Neutrophils % (Auto) 94.2 % (38.0-78.0)
[2021-06-08] MEDS ORDERED: MIDODRINE 5 MG TABLET PO SCH (17:00)
[2021-06-08] MEDS ORDERED: INSULIN LISPRO 1 UNIT/0.01 ML UNIT SQ SCH (18:00)
[2021-06-08] MEDS ORDERED: SIMVASTATIN 10 MG TABLET PO SCH (21:00)
[2021-06-08] MEDS ORDERED: TERAZOSIN 5 MG CAPSULE PO SCH (21:00)
[2021-06-09] MEDS ORDERED: ASCORBIC ACID 500 MG TABLET PO SCH (09:00)
[2021-06-09] MEDS ORDERED: PYRIDOXINE 100 MG TABLET PO SCH (09:00)
[2021-06-09] MEDS ORDERED: FERROUS GLUCONATE 324 MG TABLET PO SCH (09:00)
== END 2021-06-08 14:08 | DRG 378 ==
LOC: ED 14:27 → ICU 19:30
PROVIDERS: ADMIT Internal Medicine; ATTEND Internal Medicine